=== PATIENT | male | born 1940 | race Caucasian/White ===

== ENCOUNTER 2018-01-19 10:32 | Inpatient (IN) | payer OTHER, BC ==
--- NOTE | 2018-01-19 11:02 | EDPHY ---
H & P Stated Complaint: Swelling of testicles-worse than usual epidymitis w/ boil near rectum Time Seen by Provider: 01/19/18 10:45 HPI/ROS: CHIEF COMPLAINT: Swelling of the testicles HISTORY OF PRESENT ILLNESS: 77-year-old male with diabetes presents with testicular swelling. Onset of testicular swelling 1 week ago, associated with a draining boil in the anal area. The pain and swelling have gradually increased over the past few days, now moderate swelling, mild pain. No associated fever or chills. No urinary symptoms, abdominal pain or vomiting. Able to defecate without pain. REVIEW OF SYSTEMS: complete 10 point ROS negative except at noted in the HPI - Medical/Surgical History Hx Asthma: No Hx Chronic Respiratory Disease: No Hx Diabetes: Yes Hx Cardiac Disease: No Hx Renal Disease: No Hx Cirrhosis: No Hx Alcoholism: No Hx HIV/AIDS: No Hx Splenectomy or Spleen Trauma: No Other PMH: NIDDM. htn. chronic epidimytis - Social History Smoking Status: Never smoked Alcohol Use: Sober Drug Use: None - Physical Exam Exam: General Appearance: Alert, pleasant, nontoxic-appearing Eyes: Pupils equal and round, no conjunctival pallor or injection ENT, Mouth: Mucous membranes moist Neck: Normal inspection Respiratory: Lungs are clear to auscultation Cardiovascular: Regular rate and rhythm Gastrointestinal: Abdomen is soft and nontender Genitourinary: Diffuse moderate swelling of the scrotum, which extends posteriorly to the perianal area. There is an open and draining abscess along the left inner buttock. Neurological: A&O, nonfocal, normal gait Skin: Warm and dry Extremities: Nontender, no pedal edema Psychiatric: Mood and affect normal Constitutional: Initial Vital Signs Temperature (C) 36.7 C 01/19/18 10:37 Heart Rate 84 01/19/18 10:37 Respiratory Rate 18 01/19/18 10:37 Blood Pressure 135/85 H 01/19/18 10:37 O2 Sat (%) 95 01/19/18 10:37 O2 Delivery Mode Room Air Allergies/Adverse Reactions: shellfish derived Allergy (Verified 01/19/18 13:38) Sulfa (Sulfonamide Antibiotics) Allergy (Verified 01/19/18 13:38) Rash Home Medications: Medication Instructions Recorded Ascorbic Acid [Vitamin C 500 mg 500 mg PO BID 01/19/18 (*)] Aspirin [Aspirin 325 mg (*)] 325 mg PO DAILY PRN 01/19/18 Atenolol [Tenormin 50 mg (*)] 50 mg PO BID 01/19/18 Cholecalciferol Vit D3 [Vitamin D3 2,000 units PO BID 01/19/18 2000 units tab (OTC)] Lisinopril [Zestril 10 mg (*)] 10 mg PO DAILY 01/19/18 Lovastatin 40 mg PO DAILY 01/19/18 Multivitamins [Multivitamin (*)] 1 each PO DAILY 01/19/18 Pioglitazone HCl [Actos] 30 mg PO DAILY 01/19/18 Selenium [Selenium 200mcg (*)] 200 mcg PO DAILY 01/19/18 metFORMIN HCL [Glucophage 500 mg 500 mg PO BID 01/19/18 (*)] Medical Decision Making - Diagnostics Imaging Results: Imaging Impressions Pelvis CT 01/19/18 12:06 Impression: 1. Tiny complex collection subjacent to an ulcer in the left lower buttocks. Soft tissue air is seen in the subcutaneous tissues and there is fat stranding extending to the lower left scrotum and pelvis with trace fluid in the left pelvis. Inflammatory changes about the prostate. Early perineal necrotizing fasciitis is possible and would recommend correlation with any risk factors. 2. Probable bilateral small hydroceles. Findings and recommendations discussed with Dr. Starr at 1315 hour, 01/19/2018. Procedures: Procedure: Abscess drainage. The patient's abscess was located on the left inner buttock. Risks, benefits, alternatives discussed with the patient and consent obtained. The abscess was incised with a #11 blade and purulent drainage was expressed. The wound was irrigated and packed. The patient tolerated the procedure well. The procedure was performed by myself. Wound culture sent. ED Course/Re-evaluation: This patient presents with a buttock abscess and surrounding perineal erythema extending up into the scrotum. Concern for necrotizing fasciitis. Pt does not meet SIRS criteria and initial lactate normal. The abscess was I&D'd by me. A wound culture was sent. Blood cultures drawn. Ceftriaxone and Flagyl IV given. Sent to CT scan for further evaluation of potential deep abscess. The hospitalist service was consulted for admission. Dr. Mena Saha was consulted. Pt remained stable throughout his ED stay. Differential Diagnosis: includes though not limited to necrotizing fasciitis, perirectal abscess, epididymitis, urinary tract infection, prostatitis - Data Points Laboratory Results: Laboratory Results 01/19/18 11:10 01/19/18 11:10 01/19/18 01/19/18 01/19/18 11:10 11:10 11:10 WBC 14.80 10^3/uL H 10^3/uL (3.80-9.50) RBC 3.95 10^6/uL L 10^6/uL (4.40-6.38) Hgb 11.7 g/dL L g/dL (13.7-17.5) Hct 34.9 % L % (40.0-51.0) MCV 88.4 fL fL (81.5-99.8) MCH 29.6 pg pg (27.9-34.1) MCHC 33.5 g/dL g/dL (32.4-36.7) RDW 14.7 % % (11.5-15.2) Plt Count 231 10^3/uL 10^3/uL (150-400) MPV 9.6 fL fL (8.7-11.7) Neut % (Auto) Not Reported Lymph % (Auto) Not Reported Waller % (Auto) Not Reported Eos % (Auto) Not Reported Baso % (Auto) Not Reported Nucleat RBC Rel Count Not Reported Absolute Neuts (auto) Not Reported Absolute Lymphs (auto) Not Reported Absolute Monos (auto) Not Reported Absolute Eos (auto) Not Reported Absolute Basos (auto) Not Reported Absolute Nucleated RBC Not Reported Immature Gran % Not Reported Seg Neutrophils % 71.0 % % Band Neutrophils % 21.0 % % Lymphocytes % 2.0 % % Monocytes % 5.0 % % Eosinophils % 0 % % Basophils % 0 % % Metamyelocytes % 1.0 % % Myelocytes % 0 % % Promyelocytes % 0 % % Blast Cells % 0 % % Immature Gran # Not Reported Absolute Seg Neuts 10.51 10^/uL H 10^/uL (1.70-6.50) Absolute Band Neuts 3.11 10^3/uL H 10^3/uL (0.00-0.70) Absolute Lymphocytes 0.30 10^3/uL L 10^3/uL (1.00-3.00) Absolute Monocytes 0.74 10^3/uL 10^3/uL (0.30-0.80) Absolute Eosinophils 0.00 10^3/uL L 10^3/uL (0.03-0.40) Absolute Basophils 0.00 10^3/uL L 10^3/uL (0.02-0.10) Absolute Metamyelocyte 0.15 10^3/mL H 10^3/mL (0.00-0.00) Absolute Myelocytes 0.00 10^3/mL 10^3/mL (0.00-0.00) Absolute Promyelocytes 0.00 10^3/uL 10^3/uL (0.00-0.00) Absolute Plasma Cells 0.00 10^3/uL 10^3/uL (0.00-0.00) Nucleated RBCs 0 /100 WBC /100 WBC (0-0) Absolute Blast Cells 0.00 10^3/uL 10^3/uL (0.00-0.00) Plasma Cells % 0 % % Platelet Estimate ADEQUATE (ADEQ) Polychromasia 1+ H Echinocytes 1+ H VBG Lactic Acid 1.9 mmol/L mmol/L (0.7-2.1) Sodium 136 mEq/L mEq/L (135-145) Potassium 4.0 mEq/L mEq/L (3.3-5.0) Chloride 100 mEq/L mEq/L (97-110) Carbon Dioxide 23 mEq/l mEq/l (22-31) Anion Gap 13 mEq/L mEq/L (8-16) BUN 35 mg/dL H mg/dL (7-23) Creatinine 1.2 mg/dL mg/dL (0.7-1.3) Estimated GFR 59 Glucose 193 mg/dL H mg/dL (70-100) Calcium 8.3 mg/dL L mg/dL (8.5-10.4) Medications Given: Sodium Chloride (Ns) 1,000 mls @ 75 mls/hr IV CONT MACK Stop: 07/18/18 12:44 Last Admin: 01/19/18 14:48 Dose: 1,000 mls Vancomycin/Sodium Chloride (Vancomycin 1 Gm (Premix)) 250 mls @ 250 mls/hr IV Q12H MACK Stop: 02/18/18 14:29 Last Admin: 01/19/18 14:49 Dose: 250 mls Discontinued Medications Sodium Chloride (Ns) 1,000 mls @ 0 mls/hr IV ONCE ONE; Wide Open PRN Reason: Protocol Stop: 01/19/18 12:06 Last Admin: 01/19/18 12:29 Dose: 1,000 mls Ceftriaxone Sodium/Dextrose (Rocephin 1 Gm (Premix)) 50 mls @ 100 mls/hr IV EDNOW ONE PRN Reason: Protocol Stop: 01/19/18 12:34 Last Admin: 01/19/18 12:30 Dose: 50 mls Metronidazole/Sodium Chloride (Flagyl 500 Mg (Premix)) 100 mls @ 100 mls/hr IV EDNOW ONE PRN Reason: Protocol Stop: 01/19/18 13:05 Last Admin: 01/19/18 13:10 Dose: 100 mls Departure - Departure Disposition: [facility] Inpatient Acute Clinical Impression: Left buttock abscess, Cellulitis of perineum, Cellulitis, scrotum Condition: Serious
[2018-01-19 11:20] LABS: PLATELET COUNT 231 10^3/uL (150-400)
[2018-01-19] MEDS ORDERED: NS 1,000 ML IV ONE (12:05)
[2018-01-19] MEDS ORDERED: IOPAMIDOL (ISOVUE-300) 100 ML BTL ONE (12:42)
[2018-01-19] MEDS ORDERED: ONDANSETRON 4 MG/2 ML VIAL IVP PRN (12:43)
[2018-01-19] MEDS ORDERED: ZOLPIDEM TARTRATE 5 MG TAB PO PRN (12:43)
[2018-01-19] MEDS ORDERED: ASPIRIN 325 MG TAB PO PRN (13:56)
--- NOTE | 2018-01-19 14:15 | PDGENHP ---
History and Physical History and Physical: CC: Buttock abscess worsening HISTORY: This patient comes into the ER today complaining of drainage from a buttocks abscess with spreading of infection forward into the scrotal area. He has had remarkably little pain with this. Is been going on for about 10 days. Clearly getting worse daily. He has no chills or sweats. He does have a history of epididymitis in the past and is diabetic. He is not aware of any type of trauma or injury or stab type wound. He has felt very low energy and with poor appetite with this process going on and has eaten little. 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 I have reviewed the list and ordered appropriate medicines. PHYSICAL EXAMINATION: Vital Signs: Stable without fever at this time Examination: General: alert, oriented, good mentation, relaxed Skin: warm, dry, good color, no rash HEENT: normal Neck: no mass or jvd Resps: relaxed Lungs: clear breath sounds Heart: regular, no murmur Abdomen: soft, nondistended, nontender, +BS, no mass Extremities in genitalia: There is an abscess with some surrounding cellulitis on the lower medial left buttock and this has been incised with a small stab wound from a scalp will, currently with packing tape in place. The cellulitic process extends forward to the perianal area, across the entire perineum and involved the entirety of the scrotum. There is an area in the low posterior left scrotum with quite a bit of induration. No where in these regions can I find a palpable abscess nor can I see anything that is clearly any necrotic tissue. There is no crepitus. No Bleeding or bruising Neurologic: normal speech/language, normal freight clerk, no focal weakness IV site: looks normal LABORATORY DATA: [place] [address] with predominance of neutrophils, mild normocytic anemia 11.7 UN is elevated at 35 BUN elevated at 35 and creatinine bit high at 1.2 otherwise chemistry only remarkable for hyperglycemia 193 Lactate 1.9 I have reviewed images from CT scan done in the ER: There is a significant cellulitic process of the entire scrotum perineum and into the medial posterior left buttock with an abscess in the buttock. There is particularly worse edema of the tissue on the left side of the scrotum and perineum. ASSESSMENT: * acute abscess and cellulitis left buttock * significant cellulitis spreading through the perineum and the entirety of the scrotum with some changes raising concern for the potential to develop a 48 type gangrenous process or other abscesses * microbiology if this process can include MRSA, and a variety of other gram- positive and gram-negative organisms. Bowel nick should be considered and anaerobes will need to be treated * Type 2 diabetes mellitus with some hyperglycemia at this time * pre renal azotemia PLANS: * Cultures from abscess have been obtained in the ER, await Gram stain and final results * Antibiotics were started in the ER with Rocephin and Flagyl. At this point we need to expand cover MRSA and to minimize the number of drugs I will change to add vancomycin and Zosyn but will review this further with Infectious Disease as they see him * I reviewed with the patient the possibility of developing a gangrenous process in this type of infection; I have notified him to make sure to let us know promptly if he starts having significant worsening pain or feel sicker or more ill and some significant way * Follow sugars very closely, goal to keep them below 180 without low sugars. Will need to stop his metformin now since he has had contrast with his CT * Follow renal function and vital signs very closely I have reviewed the patient's case in detail with Dr. Rouse I have placed a consultation for infectious disease distribution accounting clerk physician
[2018-01-19] MEDS: NS 1,000 ML IV SCH (14:48)
[2018-01-19] MEDS: VANCOMYCIN HCL/NORMAL SALINE 250 ML IV SCH (14:49)
--- NOTE | 2018-01-19 15:44 | PDMN ---
Medical Necessity Medical necessity: Pt meets IP criteria per MD & [facility]; est los >2 mn for eval/tx of worsening L buttock abscess w/significant cellulitis & concern for gangrenous process; requiring further monitoring, ID consult & IV abx; hx diabetes, epididymitis; per H&P & order 01/19/18
--- NOTE | 2018-01-19 17:47 | SOAPPROG ---
SOAP Progress Note Assessment/Plan: Assessment: 77 MALE WITH I&D OF LEFT BUTTOCK ABSCESS WITH INDURATION AND INFLAMMATION EXTENDING INTO SCROTUM LOW GRADE TEMP/ WBC 14K DIABETIC NO CARDIAC SYMPTOMS CT SHOWS INFLAMMATION INTO SCROTUM MARKED EDEMA AND INDURATION IN PERINEUM AND SCROTUM Plan:MAY FURTHER I&D AND DEBRIDEMENT/ RISKS AND OPTIONS FULLY DISCUSSED 01/19/18 17:42 Objective: Vital Signs Temp Pulse Resp BP Pulse Ox 37.3 C 91 16 130/66 H 91 L 01/19/18 15:34 01/19/18 15:34 01/19/18 15:34 01/19/18 15:34 01/19/18 15:34 01/18/18 01/19/18 01/20/18 05:59 05:59 05:59 Intake Total 1400 Balance 1400 ICD10 Worksheet Patient Problems: Problems Problem Status Onset Cellulitis of perineum Acute Cellulitis, scrotum Acute Left buttock abscess Acute
--- NOTE | 2018-01-19 18:07 | GCON ---
[f rep st] CONSULTATION GENERAL SURGERY CONSULTATION DATE OF CONSULTATION: 01/19/2018 SOURCE: Taken from both the patient and chart review. HISTORY OF PRESENT ILLNESS: The patient is a 77-year-old male who presented to the emergency departm ent today complaining of drainage from a buttock abscess with soreness extending into the scrotal are a. Per report, it has been going on for about 10 days. He has no fevers, chills, or night sweats. He does have a history of epididymitis, and is diabetic. He denies trauma. He has had low energy wi th poor appetite. The patient's abscess was further incised and drained in the ER. Cultures were obtained and are pend ing. Lab work was significant for an elevated white blood cell count of 14.8. CT scan was concernin g for soft tissue air and fat stranding extending to the lower left scrotum and pelvis with inflammat ory changes about the prostate. Please see report for details. PAST MEDICAL HISTORY: Includes 3 episodes of epididymitis with 1 requiring hospital admission. Also , type 2 diabetes, hypertension, and vitamin D deficiency. HOME MEDICATIONS: Include metformin, vitamin C, aspirin, atenolol, vitamin D, lisinopril, lovastatin , multivitamins, active selenium. ALLERGIES: Shellfish, sulfa. 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 [facility] PHYSICAL EXAMINATION: VITAL SIGNS: Current temperature 37.3, T-max 37.7, blood pressure 130/66, hea rt rate 91, oxygenation 91% on room air. GENERAL: Reveals a relaxed 77-year-old male, alert and deandre ented x3, and in no acute distress. HEENT: Normocephalic, atraumatic. Mucous membranes are moist. Sclerae white. CHEST: No work of breathing. CARDIAC: Regular rate and rhythm. ABDOMEN: Soft, n ontender. EXTREMITIES: Warm and dry. GENERAL: Perirectal incision site with swelling and erythema extending through the perineum to the left scrotum. IMPRESSION: This is a 77-year-old male with a buttock abscess status post incision and drainage with signs of Jacqueline gangrene. PLAN: His condition is concerning. Cultures are pending. He may need operative debridement. We wi ll make him n.p.o. for now and closely observe. The patient was also seen by Dr. Saha with me this evening. /[id number]/MODL
[2018-01-19] MEDS: ATENOLOL 50 MG TAB PO SCH (20:09)
[2018-01-19] MEDS: CHOLECALCIFEROL VIT D3 2,000 UNITS TAB/CAP PO SCH (20:10)
[2018-01-19] MEDS: ASCORBIC ACID 500 MG TAB PO SCH (20:10)
[2018-01-19] MEDS ORDERED: ACETAMINOPHEN 325 MG TAB PO PRN (23:40)
[2018-01-20] MEDS: VANCOMYCIN HCL/NORMAL SALINE 250 ML IV SCH ×2 (02:16→15:29)
[2018-01-20 05:18] LABS: PLATELET COUNT 226 10^3/uL (150-400)
[2018-01-20] MEDS: NS 1,000 ML IV SCH ×2 (06:06→16:56)
--- NOTE | 2018-01-20 07:53 | SOAPPROG ---
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 Worsened inflammation, tenderness, erythema and swelling of buttock and scrotum. To OR today for I&D a scrotal exploration. On vancomycin. Risks and options discussed. Could have a large open wound. S: more pain. O: alert, nad ctab rrr abd soft +erythema, swelling, tenderness of buttock and scrotum 01/20/18 07:50 Objective: Vital Signs Temp Pulse Resp BP Pulse Ox 37.2 C 81 17 132/72 H 91 L 01/20/18 04:00 01/20/18 04:00 01/20/18 04:00 01/20/18 04:00 01/20/18 04:00 Laboratory Results 01/20/18 04:40 01/19/18 01/20/18 01/21/18 05:59 05:59 05:59 Intake Total 2335 Output Total 550 200 Balance 1925 -200 ICD10 Worksheet Patient Problems: Problems Problem Status Onset Cellulitis of perineum Acute Cellulitis, scrotum Acute Left buttock abscess Acute
[2018-01-20] MEDS: MULTIVITAMINS 1 EACH TAB PO SCH (08:49)
[2018-01-20] MEDS: ASCORBIC ACID 500 MG TAB PO SCH ×2 (08:50→20:53)
[2018-01-20] MEDS: CHOLECALCIFEROL VIT D3 2,000 UNITS TAB/CAP PO SCH ×2 (08:50→20:53)
[2018-01-20] MEDS: LISINOPRIL 10 MG TAB PO SCH (08:50)
[2018-01-20] MEDS: ATENOLOL 50 MG TAB PO SCH ×2 (08:50→20:56)
[2018-01-20] MEDS: PRAVASTATIN SODIUM 40 MG TAB PO SCH (08:50)
[2018-01-20] MEDS: SELENIUM 0.2 MG TAB PO SCH (08:51)
[2018-01-20] MEDS: PIOGLITAZONE HCL 15 MG TAB PO SCH (10:19)
[2018-01-20] MEDS: PIPERACILLIN/TAZO 3.375 GM/DEX 50 ML IV SCH ×3 (11:03→23:45)
--- NOTE | 2018-01-20 11:25 | GCON ---
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 HISTORY OF PRESENT ILLNESS: The patient is a 77-year-old male with a past medical history of diabete s mellitus who I am asked to see in consultation for possible Jacqueline gangrene. The patient describ es having a boil over the left inner thigh toward the buttock approximately 1 week ago. He treated t his with "boil cream" with some improvement in symptoms. He did not try to squeeze or onel the boil . Over the last 2 days, he has had progressive symptoms with pain, swelling, and redness affecting t he inner thigh, posterior buttock, and scrotum. This was associated with fever and chills, but witho ut description of rigors. Based on those symptoms, he sought care in the emergency department. He d id have associated nausea with vomiting. He initially had some difficulty passing urine, but this calvert s subsequently resolved. He has not had any penile pain. He denies dysuria or penile discharge. He does describe having a significant episode of orchitis at age 30 which was attributed to mumps. He then experienced 2 subsequent episodes of epididymitis with the last being greater than 20 years ago. He has mild associated suprapubic pain on the left side. No other abdominal pain. No other areas of boil formation. No myalgias or arthralgias. The patient underwent incision and drainage of small area in his buttock at the time of presentation with Gram stain showing 1+ white blood cells with 3+ gram-positive cocci and culture currently showing growth of Staphylococcus aureus. Blood cultures w ere obtained at time of presentation and 1 of 2 sets shows MRSA. The patient is currently receiving vancomycin after initial doses of ceftriaxone and metronidazole. The patient also notes that his gly cemic control has been more problematic. Given the above findings, I am now asked to assist in the gera woodrow's ongoing management. PAST MEDICAL HISTORY: Type 2 diabetes mellitus, hypertension, hyperlipidemia, history of syphilis, o rchitis as outlined above. PAST SURGICAL HISTORY: No pertinent surgical history. CURRENT MEDICATIONS: Vancomycin 1 g IV q.12 hours, aspirin 325 mg as needed, Tenormin 50 mg p.o. b.i .d., vitamin C 500 mg p.o. b.i.d., lisinopril 10 mg p.o. daily, vitamin D 2000 units p.o. b.i.d., mul tivitamin p.o. daily, Actos 30 mg p.o. daily, Pravachol 40 mg p.o. daily, selenium 0.2 mg p.o. daily. ALLERGIES: Sulfonamides. SOCIAL HISTORY: Patient does not smoke, drink significant alcohol, or use drugs. 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 The patient's sexual preference is men. Most recent sexual encounter approximately 2 weeks ago with unprotected oral intercourse. No receptive anal intercourse. No animal exposure or recent travel. FAMILY HISTORY: COPD in a brother, autoimmune hepatitis in a brother. REVIEW OF SYSTEMS: Outside that noted in the HPI, the remainder of 10-system review is unremarkable. PHYSICAL EXAMINATION: VITAL SIGNS: Temperature maximum 38.2, temperature current 37.1, heart rate 8 4, respiratory rate 17, blood pressure 130/72, oxygen saturation 94% on room air. GENERAL: Patient is well nourished and well developed, in no acute distress. He appears nontoxic. HEENT: There is n o scleral icterus, conjunctival injection, or conjunctival petechiae. Oropharynx shows moist mucous membranes. Dentition is in fair repair. There is no thrush noted. There is no nasal discharge. Th ere is no tenderness over the sinuses. NECK: Supple without palpable lymphadenopathy or thyromegaly . CHEST: Clear to auscultation bilaterally without adventitious sounds. Respiratory effort is norm al. CARDIOVASCULAR: Regular rate and rhythm without murmurs, gallops, or rubs. ABDOMEN: Soft, non tender, nondistended. There is no palpable organomegaly. Bowel sounds are present. : The scrotu m is diffusely edematous with erythema and induration which is most prominent along the left side of the scrotum extending into the inguinal canal where there is suprapubic erythema and tenderness; no a reas of necrosis or crepitus. There is no involvement of the penis. No penile discharge. MUSCULOSK ELETAL: The left buttock shows a small open area from incision and drainage with surrounding erythem a and induration that extends to the perineal region. There is no palpable fluctuance or expressible drainage; there are no areas of necrosis. Musculoskeletal: No cyanosis, clubbing, or edema. SKIN: See and musculoskeletal exams. There are no stigmata of endocarditis. The skin is warm and dry to touch. LABORATORY DATA: White blood cell count 12.4, hematocrit 33.0, platelets 226, bands 21%. Serum crea tinine 1.2, bicarbonate 23, glucose 153. Venous lactate 1.9. Urinalysis with 10-15 red blood cells and 0-1 white blood cells. Blood cultures with 1 of 2 sets showing MRSA. Gram stain of the buttock abscess showing 3+ GPC with growth of Staphylococcus aureus. Pelvic CT shows 1.1 x 0.7 cm complex co llection in the left lower buttocks with adjacent soft tissue air with fat stranding which extends to the lower left scrotum and pelvis with some inflammatory changes around the prostate. IMPRESSION: 1. Perineal cellulitis/abscess/phlegmon with involvement of left buttock, perineum, and scrotum: Bl ood cultures are showing growth of methicillin-resistant Staphylococcus aureus and Gram stain from ab scess drainage also with growth of Staphylococcus aureus which is likely methicillin-resistant Staphy lococcus aureus as well. Suspect this will be the primary pathogen etiologic in the patient's presen tation. No necrosis present, but location and clinical findings concerning for possibility of necrot izing process similar to Jacqueline gangrene. Given his underlying diabetes, there is a possibility th is could be polymicrobial, although based on clinical history and finding, suspect this will all be d ue to methicillin-resistant Staphylococcus aureus. 2. Exposure to disease: Will screen for human immunodeficiency virus, gonorrhea and chlamydia based on patient's sexual history. RECOMMENDATIONS: 1. Continue vancomycin 1 g IV q.12 hours with monitoring of vancomycin trough and creatinine over ti me. 2. Will add Zosyn given presence of soft-tissue gas pending surgical evaluation with plans to discon tinue this if Gram stain does not show evidence of polymicrobial nick. 3. Screening for HIV, GC, and chlamydia. 4. Agree with plans for incision and drainage as this will be necessary for definitive management of patient's infectious process. 5. Follow clinical response to above measures. 6. Side effects of vancomycin were discussed with patient today. Thank you for this consultation. We will continue to follow the patient with you. /[id number]/MODL
[2018-01-20] MEDS ORDERED: MIDAZOLAM 2 MG/2 ML VIAL IVP ONE (13:09)
[2018-01-20] MEDS ORDERED: ALBUTEROL 3 ML DEYVIAL IH PRN (13:10)
[2018-01-20] MEDS ORDERED: NALOXONE HCL 0.4 MG/ML INJ IVP PRN (13:10)
[2018-01-20] MEDS ORDERED: HYDROmorphONE/DILAUDID 1 MG/ML INJ IVP PRN ×2 (13:10→18:04)
[2018-01-20] MEDS ORDERED: ONDANSETRON 4 MG/2 ML VIAL IVP PRN (13:10)
[2018-01-20] MEDS ORDERED: DEXAMETHASONE 4 MG/ML VIAL IVP PRN (13:10)
--- NOTE | 2018-01-20 13:10 | PDANEPAE ---
ANE History of Present Illness here for schuyler rectal abscess I and D ANE Past Medical History - Cardiovascular History Hx Hypertension: Yes Hx Arrhythmias: No Hx Chest Pain: No Hx Coronary Artery / Peripheral Vascular Disease: No Hx CHF / Valvular Disease: No Hx Palpitations: No - Pulmonary History Hx COPD: No Hx Asthma/Reactive Airway Disease: No Hx Recent Upper Respiratory Infection: No Hx Oxygen in Use at Home: No Hx Sleep Apnea: No Sleep Apnea Screening Result - Last Documented: Positive - Endocrine History Hx Diabetes: Yes Hypothyroid: No Hyperthyroid: No Obesity: moderate - Renal History Hx Renal Disorders: No - Liver History Hx Hepatic Disorders: No - Chronic Pain History Chronic Pain: No ANE Review of Systems Review of systems is: negative Review of Systems: ANE Patient History - Allergies Allergies/Adverse Reactions: shellfish derived Allergy (Verified 01/19/18 13:38) Sulfa (Sulfonamide Antibiotics) Allergy (Verified 01/19/18 13:38) Rash - Home Medications Home Medications: Ascorbic Acid [Vitamin C 500 mg (*)] 500 mg PO BID 01/19/18 [Last Taken 21:00] Aspirin [Aspirin 325 mg (*)] 325 mg PO DAILY PRN 01/19/18 [Last Taken Unknown] Atenolol [Tenormin 50 mg (*)] 50 mg PO BID 01/19/18 [Last Taken 01/18/18 21:00] Cholecalciferol Vit D3 [Vitamin D3 2000 units tab (OTC)] 2,000 units PO BID 12/30 [Last Taken 01/18/18 21:00] Lisinopril [Zestril 10 mg (*)] 10 mg PO DAILY 01/19/18 [Last Taken 01/18/18] Lovastatin 40 mg PO DAILY 01/19/18 [Last Taken 01/18/18] Multivitamins [Multivitamin (*)] 1 each PO DAILY 01/19/18 [Last Taken 01/18/18] Pioglitazone HCl [Actos] 30 mg PO DAILY 01/19/18 [Last Taken 01/18/18] Selenium [Selenium 200mcg (*)] 200 mcg PO DAILY 01/19/18 [Last Taken 01/18/18] metFORMIN HCL [Glucophage 500 mg (*)] 500 mg PO BID 01/19/18 [Last Taken 21:00] - NPO status NPO Status: no food or drink >8 hours NPO Since - Liquids (Date): 01/19/18 NPO Since - Liquids (Time): 18:00 NPO Since - Solids (Date): 01/18/18 NPO Since - Solids (Time): 17:00 - Smoking Hx Smoking Status: Never smoked - Alcohol Use Alcohol Use: Sober ANE Labs/Vital Signs - Labs Result Diagrams: 01/20/18 04:40 01/19/18 11:10 - Vital Signs Vital Signs: reviewed preoperatively; see RN documention for details Blood Pressure: 137/72 Heart Rate: 78 Respiratory Rate: 16 O2 Sat (%): 95 Height: 170.18 cm Weight: 98.43 kg ANE Physical Exam - Airway Neck exam: FROM Mallampati Score: Class 1 - Pulmonary Pulmonary: no respiratory distress - Cardiovascular Cardiovascular: regular rate and rhythym - ASA Status ASA Status: III ANE Anesthesia Plan Anesthesia Plan: GA w LMA
[2018-01-20] MEDS ORDERED: MIDAZOLAM 2 MG/2 ML VIAL ONE (13:17)
[2018-01-20] MEDS ORDERED: PROPOFOL/EMULSION 500 MG/50 ML BOTTLE IV ONE (13:18)
[2018-01-20] MEDS ORDERED: fentaNYL 100 MCG/2 ML INJ ONE ×3 (13:18→13:59)
[2018-01-20] MEDS ORDERED: PHENYLEPHRINE HCL 100 MCG/ML SYR ONE (13:37)
[2018-01-20] MEDS ORDERED: ONDANSETRON 4 MG/2 ML VIAL ONE (14:02)
[2018-01-20] MEDS ORDERED: BUPIVACAINE 0.5% 30 ML SDV ONE (14:22)
--- NOTE | 2018-01-20 14:49 | POSTANESTH ---
Post Anesthetic Evaluation Cardiovascular Status: Normal, Stable Respiratory Status: Normal, Stable Level of Consciousness/Mental Status: Can Participate in Eval Pain Control: Adequate, Prn Tx Ordered Nausea/Vomiting Control: Adequate, Prn Tx Ordered Complications Possibly Related to Anesthesia: None Noted
--- NOTE | 2018-01-20 15:30 | ASMTCMCOM ---
CM Note CM Note Notes: 01/20/2018 Case Management Note Reviewed chart as pt is in surgery this afternoon. Pt admitted for evaluation and treatment of buttock abcess and groin cellulitis. Per ID note abcess is MRSA positive with possible Jacqueline gangrene. Pt has a brother here in the [place] area. Case Management d/c needs are unclear at this time. There are no therapies ordered today. It's likely pt will require IV antibiotics at discharge. Will follow ID notes for discharge needs. Case Management d/c poc: to be determined. Case Management will follow. Date Signed: 01/20/2018 03:29 PM Electronically Signed By:Tonia Burgos RN
--- NOTE | 2018-01-20 18:05 | HOSPPROG ---
Hospitalist Progress Note Assessment/Plan: Seen at the bedside today with Dr. Morales Saha, postoperative in SDU DIAGNOSES: * fourniers gangrene; left buttocks abscess * MRSA bacteremia; potential for this to be a polymicrobial infection with g negatives and anaerobes suspected * type 2 diabetes mellitus with reasonable control at this time * pre renal azotemia PLANS: * Continue antibiotics to cover the MRSA as well as gram-negative and anaerobes which are also common in the diabetic patient * Follow blood and wound cultures closely for any other organisms * Wound care * Follow closely for any changes in hemodynamic stability or other complications * He will return to the OR with Dr. Saha tomorrow for re-exploration of his wound with debridement as necessary * The patient could potentially need a colostomy in order to keep his wound clean; this was discussed by doctors Jamar and myself at the bedside with the patient in detail today. SUBJECTIVE: Patient feels well, remarkably little pain Poor appetite persist No respiratory symptoms no other discomforts OBJECTIVE Vitals reviewed: Overall stable, highest temperature so far 37.7 Tube Man, my review: Exam: alert oriented quite relaxed considering his situation skin warm dry color ok resps not labored lungs clear BSs heart regular abd soft nondistended nontender, bowel sounds present limbs warm, no edema iv site ok Laboratory data: Serum chemistry panel stable Sugars remain in very good range Objective: Vital Signs Temp Pulse Resp BP Pulse Ox 37 C 84 20 106/67 98 01/20/18 16:00 01/20/18 17:02 01/20/18 17:02 01/20/18 17:02 01/20/18 17:02 Laboratory Results 01/20/18 04:40 01/20/18 11:49 01/19/18 01/20/18 01/21/18 06:59 06:59 06:59 Intake Total 2475 Output Total 550 350 Balance 1925 -350 - Time Spent With Patient Time Spent with Patient: greater than 35 minutes Time Spent with Patient: Greater than 35 minutes spent on this patients care, greater than 50% of time spent counseling, educating, and coordinating care regarding the above mentioned plan. ICD10 Worksheet Patient Problems: Problems Problem Status Onset Cellulitis of perineum Acute Cellulitis, scrotum Acute Left buttock abscess Acute
[2018-01-21] MEDS: VANCOMYCIN HCL/NORMAL SALINE 250 ML IV SCH ×2 (02:39→15:35)
[2018-01-21] MEDS: PIPERACILLIN/TAZO 3.375 GM/DEX 50 ML IV SCH ×2 (05:44→15:35)
[2018-01-21 07:20] LABS: HIV TYPE 1 AND 2 NEGATIVE (NEGATIVE)
[2018-01-21] MEDS: CHOLECALCIFEROL VIT D3 2,000 UNITS TAB/CAP PO SCH ×2 (09:30→20:50)
[2018-01-21] MEDS: ASCORBIC ACID 500 MG TAB PO SCH ×2 (09:30→20:50)
[2018-01-21] MEDS: PRAVASTATIN SODIUM 40 MG TAB PO SCH (09:30)
[2018-01-21] MEDS: LISINOPRIL 10 MG TAB PO SCH (09:30)
[2018-01-21] MEDS: MULTIVITAMINS 1 EACH TAB PO SCH (09:30)
[2018-01-21] MEDS: PIOGLITAZONE HCL 15 MG TAB PO SCH (09:30)
[2018-01-21] MEDS: ATENOLOL 50 MG TAB PO SCH ×2 (09:31→20:50)
[2018-01-21] MEDS: NS 1,000 ML IV SCH (09:31)
[2018-01-21] MEDS: SELENIUM 0.2 MG TAB PO SCH (09:31)
--- NOTE | 2018-01-21 10:07 | HOSPPROG ---
Hospitalist Progress Note Assessment/Plan: Seen at the bedside today with Dr. Morales Saha, postoperative in SDU DIAGNOSES: * fourniers gangrene; left buttocks abscess; * status post surgical incision and debridement and irrigation January 20 * MRSA bacteremia; potential for this to be a polymicrobial infection with g negatives and anaerobes suspected * type 2 diabetes mellitus with reasonable control at this time * pre renal azotemia I reviewed in detail with xochitl Moeller today PLANS: * Continue antibiotics to cover the MRSA as well as gram-negative and anaerobes which are also common in the diabetic patient * Follow blood and wound cultures closely for any other organisms * Wound care * Follow closely for any changes in hemodynamic stability or other complications * He will return to the OR with Dr. Saha this morning for re-exploration of his wound with debridement as necessary * The patient could potentially need a colostomy in order to keep his wound clean; this was discussed by xochitl Roldan and myself at the bedside with the patient in detail today. * Will continue to monitor sugars closely and treat these as indicated, continue his current therapies for now * He is currently NPO to go back to the operating room today but will continue his diabetic diet after surgery SUBJECTIVE: Again the patient denies much pain, has no other real discomfort Some decrease in appetite but is eating No respiratory symptoms OBJECTIVE Vitals reviewed: Afebrile overnight, otherwise stable vital signs Guest Room Inspector, my review: Exam: alert looks a little bit less comfortable but overall fairly relaxed considering skin warm dry color ok resps not labored lungs clear BSs heart regular abd soft nondistended nontender, bowel sounds present limbs warm, no edema I did examine his wound at the bedside. The incision line, quite long, is loosely approximated. There is gauze packing in place. Overall the cellulitis is less red than it was yesterday. There is some fluid draining from the wound but not a very large amount. The patient has just had a bowel movement and there is a small amount of stool in some of the gauze packing superficially. I do not see anything that looks overtly necrotic iv site ok Laboratory data: Serum chemistry panel stable Sugars remain in very good range Objective: Vital Signs Temp Pulse Resp BP Pulse Ox 36.5 C 74 22 H 110/60 100 01/21/18 07:18 01/21/18 07:18 01/21/18 07:18 01/21/18 07:18 01/21/18 07:18 Laboratory Results 01/20/18 04:40 01/20/18 11:49 01/20/18 01/21/18 01/22/18 06:59 06:59 06:59 Intake Total 2475 2403 Output Total 550 900 100 Balance 1925 1503 -100 - Time Spent With Patient Time Spent with Patient: greater than 35 minutes Time Spent with Patient: Greater than 35 minutes spent on this patients care, greater than 50% of time spent counseling, educating, and coordinating care regarding the above mentioned plan. ICD10 Worksheet Patient Problems: Problems Problem Status Onset Cellulitis of perineum Acute Cellulitis, scrotum Acute Left buttock abscess Acute
--- NOTE | 2018-01-21 10:29 | ECHO ---
[email or web address] [address] [address] Main: [phone] Fax: Transthoracic Echocardiogram Name: BLANCA KHAN MR#: [id number] Study Date: 01/21/2018 Study Time: 08:11 AM Date of : 1940 Age: 77 year(s) Height: 170.2 cm (67 in.) Weight: 98.43 kg (217 lb.) BSA: 2.09 m2 Gender: Male Examination: Indication: Staph aureus bacteremia, Assess valve function for vegetation Image Quality: Contrast: Requested by: Jeff Torres BP: 110 mmHg/60 mmHg Heart Rate: Rhythm: Normal sinus rhythm Indication: Staph aureus bacteremia, Assess valve function for vegetation Procedure Staff Code Inspector: Raji Mirza RDCS Reading Physician: Ford Pollack MD Requesting Provider: Conclusions: Normal study Measurements: Chambers Valvular Assessment AV/MV Valvular Assessment TV/PV Normal Normal Normal Name Value Range Name Value Range Name Value Range Ao Zulma (MM): 3.3 cm (2.2 cm-3.7 AV Vmax: 1.64 m/s (1 m/s-1.7 TR Vmax: 2.92 mm/s ( - ) cm) m/s) TR PGmax: 34 mmHg ( - ) IVSd (2D): 0.8 cm (0.6 cm-1.1 AV maxP mmHg ( - ) syst. PAP: 39 mmHg ( - ) cm) LVOT Vmax: 1.15 m/s (0.7 m/s-1.1 PV Vmax: 1.05 m/s (0.6 m/s-0.9 LVDd (2D): 4.3 cm (4.2 cm-5.9 m/s) m/s) cm) MV E Vmax: 0.66 m/s ( - ) PV PGmax: 4 mmHg ( - ) LVDs (2D): 2.8 cm (2.1 cm-4 MV A Vmax: 0.91 m/s ( - ) cm) MV E/A: 0.73 ( - ) LVPWd (2D): 1.2 cm (0.6 cm-1 cm) LVEF (2D): 64 (>=54 %) Continued Measurements: Chambers Valvular Assessment TV/PV Name Value Name Value LADs Lon.8 cm CVP (est.): 5 mmHg LA Area: 19.2 cm2 LA Volume: 59 ml LA Volume Index: 28.2 ml/m2 Patient: BLANCA KHAN Study Date: 01/21/2018 Page 1 of 2 08:11 AM Findings: Left Ventricle: Normal size left ventricle. No LV hypertrophy. Normal global systolic LV function. EF is 64 %. No regional wall motion abnormality. Diastolic dysfunction is present. . Right Ventricle: Normal size right ventricle. Normal RV function. Left Atrium: The left atrium is normal in size. Right Atrium: The right atrium is normal in size. Mitral Valve: The mitral valve is normal in appearance and function. There is no mitral valve regurgitation. There is no mitral valve vegetation. Aortic Valve: The aortic valve is tri-leaflet. The aortic valve is normal in appearance. There is no aortic valve regurgitation. There is no aortic valve vegetation. Tricuspid Valve: The tricuspid valve is normal in appearance and function. Trivial tricuspid valve regurgitation. The pulmonary artery pressure is normal. Pulmonic Valve: The pulmonic valve is normal in appearance and function. Aorta: The aorta is normal. Pericardium: No pericardial effusion. (No Signature Object) Patient: BLANCA KHAN Study Date: 01/21/2018 Page 2 of 2 08:11 AM [id number]
[2018-01-21] MEDS ORDERED: BUPIVACAINE/EPI 0.5% 30 ML SDV ONE (11:12)
--- NOTE | 2018-01-21 11:26 | GCON ---
[f rep st] CONSULTATION HOUSE ADMIN CONSULTATION REASON FOR ADMISSION: Jacqueline gangrene. HISTORY: The patient is a 77-year-old white male with a past medical history of hypertension, diabet es, epididymitis x3 episodes. He is visiting [place] from [place]. He began having an abscess f ormation on his buttocks. This began spreading to his scrotal area. Then he sought medical attentio n. He was seen in the emergency room and subsequently admitted. He has been taken to the operating room by Dr. Saha. Currently he is resting comfortably. In discussion with the patient, he states t hat with the exception of mild discomfort he is doing quite well. He denies any doyle pain. There i s no cough or productive sputum. No abdominal pain. No fever or night sweats. Prior to this he was in his normal state of health. REVIEW OF SYSTEMS: 10-point review of systems performed. Negative except for what is listed in the HPI. PAST MEDICAL HISTORY: Significant for diabetes, hypertension, and epididymitis. FAMILY HISTORY: Noncontributory. SOCIAL HISTORY: Lifelong never smoker. Does not drink alcohol. He works as a [employer]. He is single wi Photos to Photos children. He is again in [place] visiting his brother. PHYSICAL EXAM: VITAL SIGNS: Blood pressure is 110/60, pulse 74, respirations 22, temperature 36.5, oxygen saturation 100% on 2 L. GENERAL: He is a well-developed, well-nourished, 77-year-old white m brooks who is resting comfortably in no acute distress. HEENT: Eyes MARILIN, EOMI. Throat shows no erythe ma or tonsillar hypertrophy. NECK: Supple. No cervical adenopathy. HEART: Regular rate and rhyth m without murmurs, rubs, gallops. LUNGS: Clear to auscultation. No wheeze or rhonchi. ABDOMEN: S oft, nontender. Bowel sounds are present. EXTREMITIES: No clubbing, cyanosis, or edema. LABORATORIES: White count 12.4, hemoglobin 10, hematocrit 33. Platelet count 226. Sodium 138, pota ssium 3.8, chloride 106, CO2 of 22, BUN 26, creatinine 0.9, glucose 127. Urinalysis is negative. Wo und cultures growing out MRSA. Blood cultures are positive for MRSA. Echocardiogram is normal. IMPRESSION: 1. Jacqueline gangrene with left buttock abscess. He is status post I and D and irrigation. 2. Methicillin-resistant Staphylococcus aureus bacteremia. 3. Diabetes. RECOMMENDATIONS: 1. I agree with current antibiotic coverage. 2. Likely return to the operating room with Dr. Saha later on today. 3. DVT and PE prophylaxis. Holding anticoagulation for now. 4. Stress ulcer prophylaxis. 5. Aggressive blood sugar control. /[id number]/MODL
--- NOTE | 2018-01-21 12:16 | PCMIDPN ---
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 No additional operative cultures available. Suspect clinical presentation is all related to MRSA recognizing that typically Fourniere's gangrene is polymicrobial including enteric and anaerobic nick. Based on sole isolation of MRSA, will discontinue Zosyn as I suspect MRSA is the primary set key driver of his presentation. Case reports of community associated MRSA causing necrotizing fasciitis and Fourniere's gangrene exist. Continue vancomycin. Operative findings reviewed with Dr. Saha noting significant improvement in operating room today. Wound VAC placed with concerns present that patient may require colostomy given proximity of wound to anus and potential for fecal soiling. 01/21/18 16:49 Subjective: Patient status post incision and drainage yesterday with plans for repeat incision and drainage this afternoon. Operative findings reviewed with Dr. Saha noting necrotizing infection of the perineal region consistent with Fourniere's gangrene. When asked if he is in pain he does not complain of any, except for irritation at the site of infection. Denies associated itching or rash from abx. I, Paz Schwartz, am scribing for, and in the presence of, Jeff Torres MD. IJeff MD, personally performed the services described in this documentation, as scribed by Paz Schwartz in my presence, and it is both accurate and complete. Objective: Vital Signs Temp Pulse Resp BP Pulse Ox 36.5 C 74 22 H 110/60 100 01/21/18 07:18 01/21/18 07:18 01/21/18 07:18 01/21/18 07:18 01/21/18 07:18 Laboratory Results 01/20/18 04:40 01/20/18 11:49 01/20/18 01/21/18 01/22/18 05:59 05:59 05:59 Intake Total 2475 2403 Output Total 550 800 200 Balance 1925 1603 -200 Vancomycin # 1 Zosyn # 1 01/21/18 Blood cultures, pending 01/19/18 Blood cultures, 1/2 sets MRSA Abscess culture from left buttock MRSA - Physical Exam General Appearance: alert, no apparent distress, non-toxic EENT: No scleral icterus, No thrush, No conjunctival petechiae Neck: full range of motion, supple Cardiac/Chest: regular rate, rhythm, No systolic murmur Abdomen: non-tender, No distended Male Genitalia: scrotal edema (Edematous scrotum with induration posteriorly with overlying erythema and tenderness; tenderness extends into left suprapubic region; erythema and induration present posteriorly over thigh and perianal region) Skin: warm/dry, No embolic lesions Neuro/Psych: alert, normal mood/affect ICD10 Worksheet Patient Problems: Problems Problem Status Onset Cellulitis of perineum Acute Cellulitis, scrotum Acute Left buttock abscess Acute
[2018-01-21 12:25] LABS: GC AMPLIFICATION GENPROBE NEGATIVE (NEGATIVE)
--- NOTE | 2018-01-21 12:57 | PDANEPAE ---
ANE History of Present Illness perirectal abscess, here for wound vac change ANE Past Medical History - Cardiovascular History Hx Hypertension: Yes Hx Arrhythmias: No Hx Chest Pain: No Hx Coronary Artery / Peripheral Vascular Disease: No Hx CHF / Valvular Disease: No Hx Palpitations: No - Pulmonary History Hx COPD: No Hx Asthma/Reactive Airway Disease: No Hx Recent Upper Respiratory Infection: No Hx Oxygen in Use at Home: No Hx Sleep Apnea: No Sleep Apnea Screening Result - Last Documented: Positive - Endocrine History Hx Diabetes: Yes Hypothyroid: No Hyperthyroid: No Obesity: moderate - Renal History Hx Renal Disorders: No - Liver History Hx Hepatic Disorders: No - Chronic Pain History Chronic Pain: No ANE Review of Systems Review of Systems: - Exercise capacity Exercise capacity: >=4 METS ANE Patient History - Allergies Allergies/Adverse Reactions: shellfish derived Allergy (Verified 01/19/18 13:38) Sulfa (Sulfonamide Antibiotics) Allergy (Verified 01/19/18 13:38) Rash - Home Medications Home Medications: Ascorbic Acid [Vitamin C 500 mg (*)] 500 mg PO BID 01/19/18 [Last Taken 21:00] Aspirin [Aspirin 325 mg (*)] 325 mg PO DAILY PRN 01/19/18 [Last Taken Unknown] Atenolol [Tenormin 50 mg (*)] 50 mg PO BID 01/19/18 [Last Taken 01/18/18 21:00] Cholecalciferol Vit D3 [Vitamin D3 2000 units tab (OTC)] 2,000 units PO BID 12/30 [Last Taken 01/18/18 21:00] Lisinopril [Zestril 10 mg (*)] 10 mg PO DAILY 01/19/18 [Last Taken 01/18/18] Lovastatin 40 mg PO DAILY 01/19/18 [Last Taken 01/18/18] Multivitamins [Multivitamin (*)] 1 each PO DAILY 01/19/18 [Last Taken 01/18/18] Pioglitazone HCl [Actos] 30 mg PO DAILY 01/19/18 [Last Taken 01/18/18] Selenium [Selenium 200mcg (*)] 200 mcg PO DAILY 01/19/18 [Last Taken 01/18/18] metFORMIN HCL [Glucophage 500 mg (*)] 500 mg PO BID 01/19/18 [Last Taken 21:00] - NPO status NPO Since - Liquids (Date): 01/19/18 NPO Since - Liquids (Time): 18:00 NPO Since - Solids (Date): 01/18/18 NPO Since - Solids (Time): 17:00 - Anes Hx Anes Hx: no prior problems - Smoking Hx Smoking Status: Never smoked - Alcohol Use Alcohol Use: Sober - Family Anes Hx Family Anes Hx: none ANE Labs/Vital Signs - Labs Result Diagrams: 01/20/18 04:40 01/20/18 11:49 - Vital Signs Blood Pressure: 110/60 Heart Rate: 74 Respiratory Rate: 22 O2 Sat (%): 100 Height: 170.18 cm Weight: 98.43 kg ANE Physical Exam - Airway Neck exam: FROM Mallampati Score: Class 2 Mouth exam: normal dental/mouth exam, sandoval - Pulmonary Pulmonary: no respiratory distress, clear to auscultation - Cardiovascular Cardiovascular: regular rate and rhythym, no murmur, rub, or gallop - ASA Status ASA Status: II ANE Anesthesia Plan Anesthesia Plan: general endotracheal anesthesia, GA w LMA
[2018-01-21] MEDS ORDERED: fentaNYL 100 MCG/2 ML INJ ONE ×2 (13:02→13:57)
[2018-01-21] MEDS ORDERED: PROPOFOL 200 MG/20 ML VIAL ONE (13:03)
[2018-01-21] MEDS ORDERED: LIDOCAINE 2% 100 MG/5 ML SYR ONE (13:03)
[2018-01-21] MEDS ORDERED: ePHEDrine SULFATE 25 MG/5 ML SYR ONE (13:42)
[2018-01-21] MEDS ORDERED: PHENYLEPHRINE HCL 100 MCG/ML SYR ONE (13:42)
[2018-01-21] MEDS ORDERED: ONDANSETRON 4 MG/2 ML VIAL ONE (14:08)
[2018-01-21] MEDS ORDERED: HYDROmorphONE/DILAUDID 1 MG/ML INJ IVP PRN (14:33)
[2018-01-21] MEDS ORDERED: oxyCODONE IR 5 MG TAB PO PRN (14:33)
[2018-01-21] MEDS ORDERED: PROMETHAZINE HCL 25 MG/ML INJ IVP PRN (14:33)
[2018-01-21] MEDS ORDERED: NALOXONE HCL 0.4 MG/ML INJ IVP PRN (14:33)
[2018-01-21] MEDS ORDERED: ONDANSETRON 4 MG/2 ML VIAL IVP PRN (14:33)
[2018-01-21] MEDS ORDERED: fentaNYL 100 MCG/2 ML INJ IVP PRN (14:33)
[2018-01-21] MEDS ORDERED: ACETAMINOPHEN 500 MG TAB PO PRN (14:33)
--- NOTE | 2018-01-21 14:34 | POSTANESTH ---
Post Anesthetic Evaluation Cardiovascular Status: Normal, Stable, Similar to Pre-Op Cond Respiratory Status: Normal, Stable, Similar to Pre-op Cond. Level of Consciousness/Mental Status: Can Participate in Eval, Alert and Oriented Pain Control: Adequate, Prn Tx Ordered Nausea/Vomiting Control: Adequate, Prn Tx Ordered Complications Possibly Related to Anesthesia: None Noted
[2018-01-21] MEDS: FAMOTIDINE 20 MG/NACL 50 ML IV SCH ×2 (15:22→20:50)
--- NOTE | 2018-01-21 15:57 | POSTOPPROG ---
Post Op Note Date of Operation: 01/21/18 Surgeon: Morales Saha Shoe Sewing Machine Operator And Tender: Juarez Anesthesiologist: Debbie Anesthesia: GET(General Endotracheal) Pre-op Diagnosis: Perirectal abscess Post-op Diagnosis: same Indication: Gangrene extending to scrotum Procedure: I&D perirectal abscess Findings: mostly clean granulation tissue with some areas of purulent drainage Inf/Abcess present in the surg proc area at time of surgery?: Yes Depth: Superfical (Skin SQ) EBL: Minimal Drains: Wound Vac
[2018-01-22] MEDS: VANCOMYCIN HCL/NORMAL SALINE 250 ML IV SCH ×2 (02:18→16:11)
[2018-01-22] MEDS: NS 1,000 ML IV SCH (05:33)
[2018-01-22 05:44] LABS: PLATELET COUNT 245 10^3/uL (150-400)
--- NOTE | 2018-01-22 08:14 | SOAPPROG ---
SOAP Progress Note Assessment/Plan: Assessment: 77 y/o M with Jacqueline's gangrene s/p I&D Now s/p repeat I&D with wound vac placement. Per RN, wound vac became contaminated with fecal material last night. Was then taken off and a wet to dry dressing was applied. Rectal tube inserted to divert fecal material. Cultures grew MRSA, on Vanco S: No complaints. Rectal tube uncomfortable. O: Alert Temp is 37.9 RRR No increased WOB Abdomen soft, nontender : Wet to dry dressing intact. No obvious contamination. Rectal tube in place. Plan: Discussed case with Dr. Sethi, who does not feel that surgical intervention is necessary. Pt can eat regular diet. Continue wet to dry dressings daily. Continue rectal tube. Discussed cough, deep breathing, using IS. 01/22/18 08:09 Objective: Vital Signs Temp Pulse Resp BP Pulse Ox 37.9 C 80 24 H 126/62 H 96 01/22/18 07:14 01/22/18 07:14 01/22/18 07:14 01/22/18 07:14 01/22/18 07:14 Laboratory Results 01/22/18 05:35 01/21/18 01/22/18 01/23/18 05:59 05:59 05:59 Intake Total 1745 5972 Output Total 499 1450 Balance 1603 1138 ICD10 Worksheet Patient Problems: Problems Problem Status Onset Cellulitis of perineum Acute Cellulitis, scrotum Acute Left buttock abscess Acute
--- NOTE | 2018-01-22 09:02 | PDINTPN ---
Part Maker Progress Note Assessment/Plan: Assessment/plan: * Forniers gangrene-with left buttock abscess. Status post I and D yesterday. -wound contaminated last night with stool. Rouse and rectal tube place -possible washout again today. * Methicillin Staph aureus bacteremia -antibiotics per Infectious Disease * Diabetes * Pain-well controlled * VT prophylaxis * Stress ulcer prophylaxis * Nutrition-adequate Subjective: Resting comfortably. No current complaints. Objective: Vital Signs Temp Pulse Resp BP Pulse Ox 37.9 C 80 24 H 126/62 H 96 01/22/18 07:14 01/22/18 07:14 01/22/18 07:14 01/22/18 07:14 01/22/18 07:14 Laboratory Results 01/22/18 05:35 01/22/18 05:35 01/21/18 01/22/18 01/23/18 05:59 05:59 05:59 Intake Total 2403 2588 Output Total 800 1450 Balance 1603 1138 - Time Spent With Patient Time Spent With Patient: 35 min of time spent with patient, over 1/2 involved coordination of care or counseling. Case discussed with nursing. Physical Exam - Physical Exam General Appearance: alert, no apparent distress EENT: PERRL/EOMI Neck: non-tender, full range of motion, supple, normal inspection Respiratory: chest non-tender, lungs clear, normal breath sounds Cardiac/Chest: normal peripheral pulses, regular rate, rhythm Peripheral Pulses: 2+: carotid (R), carotid (L), femoral (R), femoral (L), dorsalis-pedis (R), dorsalis-pedis (L) Abdomen: normal bowel sounds, non-tender Male Genitalia: deferred Rectal: deferred Extremities: normal range of motion, non-tender, normal inspection, normal capillary refill Neuro/Psych: no motor/sensory deficits, alert, normal mood/affect, oriented x 3 ICD10 Worksheet Patient Problems: Problems Problem Status Onset Cellulitis of perineum Acute Cellulitis, scrotum Acute Left buttock abscess Acute
[2018-01-22] MEDS: LISINOPRIL 10 MG TAB PO SCH (09:18)
[2018-01-22] MEDS: SELENIUM 0.2 MG TAB PO SCH (09:18)
[2018-01-22] MEDS: CHOLECALCIFEROL VIT D3 2,000 UNITS TAB/CAP PO SCH ×2 (09:18→20:15)
[2018-01-22] MEDS: PIOGLITAZONE HCL 15 MG TAB PO SCH (09:18)
[2018-01-22] MEDS: ASCORBIC ACID 500 MG TAB PO SCH ×2 (09:19→20:15)
[2018-01-22] MEDS: ATENOLOL 50 MG TAB PO SCH ×2 (09:19→20:16)
[2018-01-22] MEDS: MULTIVITAMINS 1 EACH TAB PO SCH (09:19)
--- NOTE | 2018-01-22 11:01 | HOSPPROG ---
Hospitalist Progress Note Assessment/Plan: Seen at the bedside today with Dr. Morales Saha, postoperative in SDU DIAGNOSES: * fourniers gangrene; left buttocks abscess; * status post surgical incision and debridement and irrigation January 20, washout surgery January 21 * Unable to keep wound VAC in place due to anatomic considerations * Rectal tube in place to divert stool beyond wound with reasonable success so far * No sepsis syndrome at present * MRSA bacteremia; potential for this to be a polymicrobial infection with g negatives and anaerobes suspected * elevated hepatic transaminases which are new 01/22 * Unclear etiology of this change * acute urinary retention requiring Rouse catheter drainage * acute normocytic anemia due to his infectious illness * No signs of bleeding * type 2 diabetes mellitus with very good control at this time * pre renal azotemia, resolved PLANS: * Continue antibiotics to cover the MRSA as well as gram-negative and anaerobes which are also common in the diabetic patient * Follow blood and wound cultures closely for any other organisms * Wound care; continue rectal tube and Rouse catheter * Follow closely for any changes in hemodynamic stability or other complications * Continue regular diet for the time being * Will continue to monitor sugars closely and treat these as indicated, continue his current therapies for now Suspect he will need at least 1 more exploration and washout surgery. Could potentially still need diverting colostomy to keep wound clean if we are unable to manage that otherwise. Seen today on my hospitalist rounds as well as multidisciplinary ICU rounds Reviewed today with Dr. White and Dr Verdugo SUBJECTIVE: Very mild pain mostly at his left testicle Had some ongoing stool incontinence issue so a rectal tube has been placed and this is been fairly helpful at diverting stool beyond the wound No chills or sweats OBJECTIVE Vitals reviewed: T-max 38.1, otherwise stable vital signs Certified Medical Technician Assistant, my review: Sinus rhythm without any arrhythmia Exam: alert oriented, looks very comfortable skin warm dry, somewhat pale today resps not labored lungs clear BSs heart regular abd soft nondistended nontender, bowel sounds present limbs warm, no edema I did examine his wound at the bedside. The incision line, quite long, is loosely approximated. There is gauze packing in place. Overall the cellulitis is less red than it was yesterday. There is some fluid draining from the wound but not a very large amount. The patient has just had a bowel movement and there is a small amount of stool in some of the gauze packing superficially. I do not see anything that looks overtly necrotic iv site ok Laboratory data: Hemoglobin decreased to 8.9, white blood cell count down to 4000 Hepatic transaminases now elevated AST 170, ALT 100 with normal bilirubin, albumin low at 2 Sugars remain in very good range Objective: Vital Signs Temp Pulse Resp BP Pulse Ox 37.9 C 80 24 H 126/62 H 96 01/22/18 07:14 01/22/18 07:14 01/22/18 07:14 01/22/18 07:14 01/22/18 07:14 Laboratory Results 01/22/18 05:35 01/22/18 05:35 01/21/18 01/22/18 01/23/18 06:59 06:59 06:59 Intake Total 2403 2588 Output Total 900 1350 Balance 1503 1238 ICD10 Worksheet Patient Problems: Problems Problem Status Onset Cellulitis of perineum Acute Cellulitis, scrotum Acute Left buttock abscess Acute
--- NOTE | 2018-01-22 11:51 | PCMIDPN ---
Assessment/Plan: 1. Necrotizing fasciitis of the perineal/buttock area secondary to MRSA with concomitant bacteremia: Patient is status post debridement with VAC placement. Continue vancomycin as is at present dose. Trough is fine. Explained to the patient today that he will need 4 weeks of IV therapy in the setting of bacteremia. He expressed understanding. TTE negative. Repeat blood cultures are pending. 2. Acute transaminitis: ? Secondary to anesthesia versus other. Check hepatitis a, B, and C serologies. Consider holding Pravachol if transaminases continued to worsen. 3. Miscellaneous: HIV negative, GC chlamydia negative. Patient reports that his doctor in [place] routinely screens him for syphilis; will not repeat this today. Over 25 min spent with this patient today. Subjective: In good spirits. No complaints. Understands he may need a temporary colostomy in the setting of the location of his wound. Long conversation with patient today regarding trajectory moving forward, and need for 4 weeks of antibiotics intravenously in the setting of MRSA bacteremia. Objective: Vancomycin 1 g IV q.12 hours day 2 T-max 37.9 degrees Vital Signs Temp Pulse Resp BP Pulse Ox 37.9 C 80 24 H 126/62 H 96 01/22/18 07:14 01/22/18 07:14 01/22/18 07:14 01/22/18 07:14 01/22/18 07:14 Laboratory Results 01/22/18 05:35 01/22/18 05:35 01/21/18 01/22/18 01/23/18 05:59 05:59 05:59 Intake Total 2403 2588 Output Total 800 1450 Balance 1603 1138 January 19 blood cultures x2 1/4 bottles MRSA January 19 wound culture 3+ Gram-positive cocci 4+ MRSA Repeat blood cultures January 21 pending Vancomycin trough 9.9 - Physical Exam General Appearance: alert, no apparent distress EENT: pharynx normal, No thrush Respiratory: lungs clear Cardiac/Chest: regular rate, rhythm Abdomen: non-tender, soft Male Genitalia: scrotal edema (Scrotal edema and erythema much improved per the patient. I did not roll him over to look at his wound VAC over the perineum/ buttock area.), other Skin: No rash ICD10 Worksheet Patient Problems: Problems Problem Status Onset Cellulitis of perineum Acute Cellulitis, scrotum Acute Left buttock abscess Acute
[2018-01-22] MEDS: PRAVASTATIN SODIUM 40 MG TAB PO SCH (12:07)
[2018-01-22] MEDS: FAMOTIDINE 20 MG TAB PO SCH ×2 (12:08→20:16)
[2018-01-22 13:42] LABS: HEPATITIS B SURFACE ANTIGEN NEGATIVE (NEGATIVE)
[2018-01-22 13:47] LABS: HEPATITIS B CORE AB IGM NEGATIVE (NEGATIVE)
[2018-01-22 13:58] LABS: HEPATITIS A ANTIBODY TOTAL POSITIVE (NEGATIVE); HEPATITIS C ANTIBODY TOTAL NEGATIVE (NEGATIVE)
[2018-01-22 15:11] LABS: HEPATITIS A ANTIBODY IGM (BCH) NEGATIVE (NEGATIVE)
[2018-01-22] MEDS: FAMOTIDINE 20 MG/NACL 50 ML IV SCH (15:54)
[2018-01-22] MEDS: ACETAMINOPHEN 325 MG TAB PO PRN (18:14)
[2018-01-23] MEDS: VANCOMYCIN HCL/NORMAL SALINE 250 ML IV SCH ×3 (02:44→18:39)
[2018-01-23] MEDS: MULTIVITAMINS 1 EACH TAB PO SCH (08:52)
[2018-01-23] MEDS: SELENIUM 0.2 MG TAB PO SCH (08:52)
[2018-01-23] MEDS: FAMOTIDINE 20 MG TAB PO SCH ×2 (08:53→20:01)
[2018-01-23] MEDS: ATENOLOL 50 MG TAB PO SCH ×2 (08:53→20:01)
[2018-01-23] MEDS: PIOGLITAZONE HCL 15 MG TAB PO SCH (08:53)
[2018-01-23] MEDS: CHOLECALCIFEROL VIT D3 2,000 UNITS TAB/CAP PO SCH ×2 (08:53→20:01)
[2018-01-23] MEDS: LISINOPRIL 10 MG TAB PO SCH (08:53)
[2018-01-23] MEDS: ASCORBIC ACID 500 MG TAB PO SCH ×2 (08:53→20:01)
--- NOTE | 2018-01-23 09:25 | PDINTPN ---
Derrickman Helper Progress Note Assessment/Plan: Assessment/plan: * Forniers gangrene-with left buttock abscess. Improved * Methicillin Staph aureus bacteremia -antibiotics per Infectious Disease * Diabetes * Pain-well controlled * VT prophylaxis * Stress ulcer prophylaxis * Nutrition-adequate Subjective: Resting comfortably Objective: Vital Signs Temp Pulse Resp BP Pulse Ox 38.2 C 81 20 141/62 H 92 01/23/18 07:31 01/23/18 07:31 01/23/18 07:31 01/23/18 07:31 01/23/18 07:31 Laboratory Results 01/22/18 05:35 01/22/18 05:35 01/22/18 01/23/18 01/24/18 05:59 05:59 05:59 Intake Total 2588 1800 Output Total 1450 1360 Balance 1138 440 - Time Spent With Patient Time Spent With Patient: 25 min of time spent with patient, over 1/2 involved with coordination of care or counseling. Case discussed with nursing Physical Exam - Physical Exam General Appearance: alert, no apparent distress EENT: PERRL/EOMI Neck: non-tender, full range of motion, supple, normal inspection Respiratory: chest non-tender, lungs clear, normal breath sounds Cardiac/Chest: normal peripheral pulses, regular rate, rhythm Peripheral Pulses: 2+: carotid (R), carotid (L), femoral (R), femoral (L), dorsalis-pedis (R), dorsalis-pedis (L) Abdomen: normal bowel sounds, non-tender Male Genitalia: deferred Rectal: deferred Skin: normal color, warm/dry Extremities: non-tender Neuro/Psych: alert ICD10 Worksheet Patient Problems: Problems Problem Status Onset Cellulitis of perineum Acute Cellulitis, scrotum Acute Left buttock abscess Acute
--- NOTE | 2018-01-23 10:07 | HOSPPROG ---
Hospitalist Progress Note Assessment/Plan: 77 yo M w dm here w necrotizing perineal infection2/2 mrsa perineal infection: on vanc has had operative management w possibilty of more surgery wound vac precluded by anatomical considerations malloy, rectal tube mrsa bacteremi: 4 weeks vanc dm: sugars at goal pain: well controlled increased lft's: hep serologies neg limit tylenol follow proph: scd's needs pharm VTE proph will d/x surgery dispo: icu Subjective: case d/w dr toney, dr monrela. liquid stool in bag. deneies fever Objective: Vital Signs Temp Pulse Resp BP Pulse Ox 38.2 C 81 20 141/62 H 92 01/23/18 07:31 01/23/18 07:31 01/23/18 07:31 01/23/18 07:31 01/23/18 07:31 Laboratory Results 01/22/18 05:35 01/22/18 05:35 01/22/18 01/23/18 01/24/18 05:59 05:59 05:59 Intake Total 2588 1800 Output Total 1450 1360 Balance 1138 440 - Physical Exam Constitutional: no apparent distress, appears nourished Eyes: PERRL, anicteric sclera Ears, Nose, Mouth, Throat: moist mucous membranes, hearing normal Cardiovascular: regular rate and rhythym, no murmur, rub, or gallop Respiratory: no respiratory distress, no rales or rhonchi Gastrointestinal: normoactive bowel sounds, soft, non-tender abdomen Genitourinary: no bladder fullness, malloy in urethra, other (penile edema) Skin: warm, normal color Musculoskeletal: full muscle strength Neurologic: AAOx3 Psychiatric: interacting appropriately ICD10 Worksheet Patient Problems: Problems Problem Status Onset Cellulitis of perineum Acute Cellulitis, scrotum Acute Left buttock abscess Acute
--- NOTE | 2018-01-23 11:01 | PCMIDPN ---
Assessment/Plan: 1. Necrotizing fasciitis of the perineal/buttock area secondary to MRSA with concomitant bacteremia: The patient's wounds are clearly being contaminated with stool. Given fevers, and appearance of his wounds (especially scrotal sac), will add back gram- negative and anaerobic coverage with Zosyn, as per before. Spoke with Dr. Saha and recommended another washout with diverting colostomy, as the rectal tube is clearly not working to divert stool away from his wounds. He agrees, and will see patient today. Likely OR this afternoon. Continue vancomycin as is. Conveyed need for diverting colostomy to the patient, who is ready and willing to proceed with this. 2. Acute transaminitis: Will repeat liver function tests today. Will also repeat CBC. No evidence of eosinophilia or drug rash to suggest DRESS from vancomycin. He is immune to hepatitis a; hepatitis-B surface antibody pending. Hepatitis-C negative. 3. Miscellaneous: HIV negative, GC chlamydia negative. Patient reports that his doctor in [place] routinely screens him for syphilis; will not repeat this. Over 25 min spent with this patient today. Subjective: Having new fevers up to 39.2. No shaking chills. No nausea or vomiting. No shortness of breath or chest pain. No abdominal pain. Objective: Vancomycin 1 g IV q.12 hours day 3 T-max 39.2 degrees Vital Signs Temp Pulse Resp BP Pulse Ox 38.2 C 81 20 141/62 H 92 01/23/18 07:31 01/23/18 07:31 01/23/18 07:31 01/23/18 07:31 01/23/18 07:31 Laboratory Results 01/22/18 05:35 01/22/18 05:35 01/22/18 01/23/18 01/24/18 05:59 05:59 05:59 Intake Total 2588 1800 Output Total 1450 1360 Balance 1138 440 Blood cultures x2 January 21 no growth so far January 19 blood cultures x2 1/ bottles with MRSA Buttock swab with MRSA - Physical Exam General Appearance: other (Looks tired. Nontoxic.) EENT: pharynx normal, No thrush Respiratory: lungs clear Cardiac/Chest: regular rate, rhythm Abdomen: non-tender, soft Rectal: other (The patient was turned and dressings were removed. A rectal tube is in place, but there is stool emanating from around the insertion site of the tube, soiling the patient's wounds. The patient's scrotum remains quite swollen. It is mildly tender. The open area is left lateral scrotal sac have gauze in place which was removed. No evidence of necrotic tissue. The bases of his wounds look pink. The entire area is quite tender. No lack of sensation.) Skin: No rash ICD10 Worksheet Patient Problems: Problems Problem Status Onset Cellulitis of perineum Acute Cellulitis, scrotum Acute Left buttock abscess Acute
[2018-01-23] MEDS ORDERED: BUPIVACAINE 0.5% 30 ML SDV ONE (11:39)
[2018-01-23] MEDS ORDERED: HYDROmorphONE/DILAUDID 2 MG/ML INJ ONE (11:56)
[2018-01-23] MEDS ORDERED: fentaNYL 100 MCG/2 ML INJ ONE ×2 (11:56)
[2018-01-23] MEDS ORDERED: PROPOFOL 200 MG/20 ML VIAL ONE (11:56)
[2018-01-23] MEDS ORDERED: ePHEDrine SULFATE 25 MG/5 ML SYR ONE (11:57)
[2018-01-23] MEDS ORDERED: PHENYLEPHRINE HCL 100 MCG/ML SYR ONE (11:57)
[2018-01-23] MEDS: PIPERACILLIN/TAZO 3.375 GM/DEX 50 ML IV SCH ×3 (12:08→23:51)
--- NOTE | 2018-01-23 12:15 | PDANEPAE ---
ANE History of Present Illness perirectal abscess ANE Past Medical History - Cardiovascular History Hx Hypertension: Yes Hx Arrhythmias: No Hx Chest Pain: No Hx Coronary Artery / Peripheral Vascular Disease: No Hx CHF / Valvular Disease: No Hx Palpitations: No - Pulmonary History Hx COPD: No Hx Asthma/Reactive Airway Disease: No Hx Recent Upper Respiratory Infection: No Hx Oxygen in Use at Home: No Hx Sleep Apnea: No Sleep Apnea Screening Result - Last Documented: Positive - Endocrine History Hx Diabetes: Yes Hypothyroid: No Hyperthyroid: No Obesity: moderate - Renal History Hx Renal Disorders: No - Liver History Hx Hepatic Disorders: No - Chronic Pain History Chronic Pain: No ANE Review of Systems Review of Systems: ANE Patient History - Allergies Allergies/Adverse Reactions: shellfish derived Allergy (Verified 01/19/18 13:38) Sulfa (Sulfonamide Antibiotics) Allergy (Verified 01/19/18 13:38) Rash - Home Medications Home Medications: Ascorbic Acid [Vitamin C 500 mg (*)] 500 mg PO BID 01/19/18 [Last Taken 21:00] Aspirin [Aspirin 325 mg (*)] 325 mg PO DAILY PRN 01/19/18 [Last Taken Unknown] Atenolol [Tenormin 50 mg (*)] 50 mg PO BID 01/19/18 [Last Taken 01/18/18 21:00] Cholecalciferol Vit D3 [Vitamin D3 2000 units tab (OTC)] 2,000 units PO BID 12/30 [Last Taken 01/18/18 21:00] Lisinopril [Zestril 10 mg (*)] 10 mg PO DAILY 01/19/18 [Last Taken 01/18/18] Lovastatin 40 mg PO DAILY 01/19/18 [Last Taken 01/18/18] Multivitamins [Multivitamin (*)] 1 each PO DAILY 01/19/18 [Last Taken 01/18/18] Pioglitazone HCl [Actos] 30 mg PO DAILY 01/19/18 [Last Taken 01/18/18] Selenium [Selenium 200mcg (*)] 200 mcg PO DAILY 01/19/18 [Last Taken 01/18/18] metFORMIN HCL [Glucophage 500 mg (*)] 500 mg PO BID 01/19/18 [Last Taken 21:00] - NPO status NPO Since - Liquids (Date): 01/22/18 NPO Since - Liquids (Time): 11:51 NPO Since - Solids (Date): 01/22/18 NPO Since - Solids (Time): 17:00 - Smoking Hx Smoking Status: Never smoked - Alcohol Use Alcohol Use: Sober ANE Labs/Vital Signs - Labs Result Diagrams: 01/22/18 05:35 01/23/18 11:45 - Vital Signs Blood Pressure: 153/61 Heart Rate: 79 Respiratory Rate: 23 O2 Sat (%): 91 Height: 170.18 cm Weight: 98.43 kg ANE Physical Exam - Airway Neck exam: decreased ROM Mallampati Score: Class 3 Mouth exam: normal dental/mouth exam, abnormal chin - Pulmonary Pulmonary: no respiratory distress - Cardiovascular Cardiovascular: regular rate and rhythym - ASA Status ASA Status: III ANE Anesthesia Plan Anesthesia Plan: general endotracheal anesthesia
--- NOTE | 2018-01-23 12:42 | SOAPPROG ---
SOAP Progress Note Assessment/Plan: Assessment: 77 MALE WITH I&D OF LEFT BUTTOCK ABSCESS WITH INDURATION AND INFLAMMATION EXTENDING INTO SCROTUM LOW GRADE TEMP/ WBC 14K DIABETIC NO CARDIAC SYMPTOMS CT SHOWS INFLAMMATION INTO SCROTUM MARKED EDEMA AND INDURATION IN PERINEUM AND SCROTUM Plan:MAY FURTHER I&D AND DEBRIDEMENT/ RISKS AND OPTIONS FULLY DISCUSSED 01/19/18 17:42 01/23/18 12:41 PATIENT COMFORTABLE AND DOING REASONABLY WELL DESPITE SIGNIFICANT TEMPERATURE ELEVATIONS LEAKING AND DIARRHEA STOOL OVER HIS WOUND SOME PERSISTENT INDURATION ERYTHEMA AROUND THE PERINEAL WOUND RISKS AND OPTIONS FULLY DISCUSSED PLAN: DIVERTING COLOSTOMY AND WOUND VAC CHANGE Objective: Vital Signs Temp Pulse Resp BP Pulse Ox 37.8 C 79 23 H 153/61 H 91 L 01/23/18 11:50 01/23/18 12:15 01/23/18 12:15 01/23/18 12:15 01/23/18 12:15 Laboratory Results 01/22/18 05:35 01/23/18 11:45 01/22/18 01/23/18 01/24/18 05:59 05:59 05:59 Intake Total 2588 1800 Output Total 1450 1360 Balance 1138 440 ICD10 Worksheet Patient Problems: Problems Problem Status Onset Cellulitis of perineum Acute Cellulitis, scrotum Acute Left buttock abscess Acute
[2018-01-23] MEDS ORDERED: PROMETHAZINE HCL 25 MG/ML INJ IVP PRN (13:20)
[2018-01-23] MEDS ORDERED: DEXAMETHASONE 4 MG/ML VIAL IVP PRN (13:20)
[2018-01-23] MEDS ORDERED: HYDROmorphONE/DILAUDID 1 MG/ML INJ IVP PRN (13:20)
[2018-01-23] MEDS ORDERED: HYDROCODONE/APAP 5/325 TAB PO PRN (13:20)
[2018-01-23] MEDS ORDERED: NALOXONE HCL 0.4 MG/ML INJ IVP PRN (13:20)
[2018-01-23] MEDS ORDERED: fentaNYL 100 MCG/2 ML INJ IVP PRN (13:20)
[2018-01-23] MEDS ORDERED: POLYMYXIN B SULFATE 500,000 UNIT/10 ML SYR IRR ONE (13:57)
[2018-01-23] MEDS ORDERED: BACITRACIN 50,000 UNITS/10 ML SYR IRR ONE (13:57)
--- NOTE | 2018-01-23 14:18 | ASMTCMCOM ---
CM Note CM Note Notes: Per chart notes, pt to OR today for washout and likely diverting ostomy. Pt on IV vanco. DC needs TBD. Date Signed: 01/23/2018 02:17 PM Electronically Signed By:Cat Lockett LCSW
--- NOTE | 2018-01-23 14:21 | POSTOPPROG ---
Post Op Note Date of Operation: 01/23/18 Surgeon: Morales Saha Anesthesiologist: PEREZ Anesthesia: GET(General Endotracheal) Pre-op Diagnosis: FORNIERES GANGRENE Post-op Diagnosis: SAME Indication: DIARHEA IN WOUND Procedure: END COLOSTOMY Findings: TOO MUCH TENSION FOR SIGMOID LOOP COLOSTOMY Inf/Abcess present in the surg proc area at time of surgery?: Yes Depth: Organ Space EBL: Minimal Complications: 0
[2018-01-23] MEDS ORDERED: SUGAMMADEX SODIUM 200 MG/2 ML VIAL IVP ONE (14:54)
[2018-01-23] MEDS: NS 1,000 ML IV SCH (16:33)
[2018-01-23] MEDS: PRAVASTATIN SODIUM 40 MG TAB PO SCH (17:53)
[2018-01-23] MEDS: HYDROCODONE/APAP 5/325 TAB PO PRN (17:53)
[2018-01-24] MEDS: HYDROCODONE/APAP 5/325 TAB PO PRN ×3 (03:38→21:34)
[2018-01-24] MEDS: PIPERACILLIN/TAZO 3.375 GM/DEX 50 ML IV SCH ×3 (05:07→18:58)
[2018-01-24 05:35] LABS: PLATELET COUNT 225 10^3/uL (150-400)
[2018-01-24] MEDS: VANCOMYCIN HCL/NORMAL SALINE 250 ML IV SCH (06:04)
[2018-01-24] MEDS: NS 1,000 ML IV SCH ×2 (06:05→12:15)
--- NOTE | 2018-01-24 07:46 | POSTOPPROG ---
Post Op Note Date of Operation: 01/23/18 Surgeon: Morales Saha Anesthesiologist: PEREZ Anesthesia: GET(General Endotracheal) Pre-op Diagnosis: FORNIERES GANGRENE Post-op Diagnosis: SAME Indication: SEPSIS Procedure: EXCISIONAL DEBRIDEMENT PERINEUM AND WOUND VAC PLACEMENT Findings: MINIMAL RESIDUAL NECROTIC TISSUE Inf/Abcess present in the surg proc area at time of surgery?: Yes Depth: Deep Incisional (Fascial) EBL: Minimal Complications: 0
--- NOTE | 2018-01-24 08:36 | PDINTPN ---
Immigration Law Specialist Progress Note Assessment/Plan: Assessment/plan: * Forniers gangrene-with left buttock abscess. Improved -per surgery * Methicillin Staph aureus bacteremia -antibiotics per Infectious Disease * Diabetes * Pain-well controlled * VT prophylaxis * Stress ulcer prophylaxis * Nutrition-adequate * Disposition-will transfer to medical surgical floor Subjective: Resting comfortably. No complaints. Objective: Vital Signs Temp Pulse Resp BP Pulse Ox 35.8 C L 58 L 14 145/70 H 99 01/24/18 07:43 01/24/18 07:43 01/24/18 07:43 01/24/18 07:43 01/24/18 07:43 Laboratory Results 01/24/18 05:00 01/24/18 05:00 01/23/18 01/24/18 01/25/18 05:59 05:59 05:59 Intake Total 1800 3262 Output Total 1360 875 Balance 440 2387 - Time Spent With Patient Time Spent With Patient: 25 min of time spent with patient, over 1/2 involved with coordination of care counseling. Case discussed with surgery Physical Exam - Physical Exam General Appearance: WD/WN, alert, no apparent distress EENT: PERRL/EOMI Neck: non-tender, full range of motion, supple, normal inspection Respiratory: chest non-tender, lungs clear, normal breath sounds Cardiac/Chest: normal peripheral pulses, regular rate, rhythm Peripheral Pulses: 2+: carotid (R), carotid (L), femoral (R), femoral (L), dorsalis-pedis (R), dorsalis-pedis (L) Abdomen: normal bowel sounds, non-tender, soft Male Genitalia: deferred Rectal: deferred Extremities: normal range of motion, non-tender, normal inspection, normal capillary refill Neuro/Psych: no motor/sensory deficits, alert, normal mood/affect, oriented x 3 ICD10 Worksheet Patient Problems: Problems Problem Status Onset Cellulitis of perineum Acute Cellulitis, scrotum Acute Left buttock abscess Acute
[2018-01-24] MEDS: SELENIUM 0.2 MG TAB PO SCH (09:39)
[2018-01-24] MEDS: ATENOLOL 50 MG TAB PO SCH ×2 (09:39→21:35)
[2018-01-24] MEDS: PIOGLITAZONE HCL 15 MG TAB PO SCH (09:39)
[2018-01-24] MEDS: ASCORBIC ACID 500 MG TAB PO SCH ×2 (09:40→21:35)
[2018-01-24] MEDS: MULTIVITAMINS 1 EACH TAB PO SCH (09:40)
[2018-01-24] MEDS: FAMOTIDINE 20 MG TAB PO SCH ×2 (09:40→21:35)
[2018-01-24] MEDS: LISINOPRIL 10 MG TAB PO SCH (09:40)
[2018-01-24] MEDS: CHOLECALCIFEROL VIT D3 2,000 UNITS TAB/CAP PO SCH ×2 (09:40→21:35)
[2018-01-24] MEDS: PRAVASTATIN SODIUM 40 MG TAB PO SCH (09:42)
--- NOTE | 2018-01-24 11:09 | SOAPPROG ---
SOAP Progress Note Assessment/Plan: Assessment: 77 MALE WITH I&D OF LEFT BUTTOCK ABSCESS WITH INDURATION AND INFLAMMATION EXTENDING INTO SCROTUM LOW GRADE TEMP/ WBC 14K DIABETIC NO CARDIAC SYMPTOMS CT SHOWS INFLAMMATION INTO SCROTUM MARKED EDEMA AND INDURATION IN PERINEUM AND SCROTUM Plan:MAY FURTHER I&D AND DEBRIDEMENT/ RISKS AND OPTIONS FULLY DISCUSSED 01/19/18 17:42 01/23/18 12:41 PATIENT COMFORTABLE AND DOING REASONABLY WELL DESPITE SIGNIFICANT TEMPERATURE ELEVATIONS LEAKING AND DIARRHEA STOOL OVER HIS WOUND SOME PERSISTENT INDURATION ERYTHEMA AROUND THE PERINEAL WOUND RISKS AND OPTIONS FULLY DISCUSSED PLAN: DIVERTING COLOSTOMY AND WOUND VAC CHANGE 01/24/18 11:02 TEMP DOWN/COMFORTABLE/VITAL SIGNS STABLE/ OSTOMY PINK AND WORKING WELL MINIMAL OUTPUT FROM THE WOUND VAC TRANSFER TO [facility] Objective: Vital Signs Temp Pulse Resp BP Pulse Ox 36.6 C 68 16 128/83 H 97 01/24/18 10:34 01/24/18 10:34 01/24/18 10:34 01/24/18 10:34 01/24/18 10:34 Laboratory Results 01/24/18 05:00 01/24/18 05:00 01/23/18 01/24/18 01/25/18 05:59 05:59 05:59 Intake Total 1800 3262 Output Total 1360 875 Balance 440 0585 ICD10 Worksheet Patient Problems: Problems Problem Status Onset Cellulitis of perineum Acute Cellulitis, scrotum Acute Left buttock abscess Acute
--- NOTE | 2018-01-24 11:15 | PCMIDPN ---
Assessment/Plan: 1. Necrotizing fasciitis of the scrotum/perineal/buttock area secondary to MRSA with concomitant bacteremia status post repeat debridement with VAC placement and diverting colostomy: Sincerely appreciate Dr. Saha assistance. Patient looks much better today and is afebrile. Please see below regarding plan for vancomycin. Because the patient's wounds were clearly contaminated with stool yesterday when I saw him, will continue Zosyn for another day and then stop tomorrow, as I agree with Dr. Torres that this entire process is likely secondary to MRSA alone. Blood cultures have sterilized. 2. Leukopenia: Query secondary to bone marrow suppression from vancomycin, although this would be somewhat early for this. Repeat stat CBC ordered. If leukopenia verified, will err on side of caution and discontinue vancomycin and start daptomycin. Will need to check baseline CK on daptomycin, and hold Pravachol. All of this was explained to the patient today. No eosinophilia, and as per below, no drug rash or suggestion of DRESS. 2. Acute transaminitis: Transaminitis is improving. Unlikely related to vancomycin. No evidence of DRESS. Patient is immune to hepatitis a and B. 3. Miscellaneous: HIV negative, GC chlamydia negative. Patient reports that his doctor in [place] routinely screens him for syphilis; will not repeat this. Over 25 min spent with this patient today. Subjective: Status post repeat debridement and diverting colostomy. Spoke with Dr. Saha. He told me that there was minimal necrosis remaining, all of which was debrided. Wound VAC placed. Patient without complaints today. Feels better overall compared with yesterday. No rash. Objective: Vancomycin 1 g IV q.12 hours day for Zosyn 3.375 g IV q.6 hours day 1 T-max 38.5 degrees Vital Signs Temp Pulse Resp BP Pulse Ox 36.6 C 68 16 128/83 H 97 01/24/18 10:34 01/24/18 10:34 01/24/18 10:34 01/24/18 10:34 01/24/18 10:34 Laboratory Results 01/24/18 05:00 01/24/18 05:00 01/23/18 01/24/18 01/25/18 05:59 05:59 05:59 Intake Total 1800 3262 Output Total 1360 875 Balance 440 6167 No new microbiology Blood cultures January 21 remain negative - Physical Exam General Appearance: no apparent distress, obese EENT: pharynx normal, No thrush Respiratory: lungs clear Cardiac/Chest: regular rate, rhythm Abdomen: non-tender, soft, other (Colostomy bag with brown liquid stool) Skin: other (Much improved swelling and erythema of the scrotal sac. Wound VAC in place in the perineum and scrotal sac.), No rash Neuro/Psych: oriented x 3 ICD10 Worksheet Patient Problems: Problems Problem Status Onset Cellulitis of perineum Acute Cellulitis, scrotum Acute Left buttock abscess Acute
[2018-01-24 11:26] LABS: PLATELET COUNT 242 10^3/uL (150-400)
[2018-01-24 12:11] LABS: CREATINE KINASE 356 IU/L (0-224)
--- NOTE | 2018-01-24 14:32 | HOSPPROG ---
Hospitalist Progress Note Assessment/Plan: 77 yo M w dm here w necrotizing perineal infection2/2 mrsa perineal infection: on vanc now w diverting colostomy and wound vac mrsa bacteremi: 4 weeks vanc dm: sugars at goal pain: well controlled increased lft's: hep serologies neg limit tylenol trending down proph: scd's needs pharm VTE proph start 01/25 dispo: icu Subjective: case d/w mau ware and feng Objective: Vital Signs Temp Pulse Resp BP Pulse Ox 36.5 C 64 16 148/82 H 96 01/24/18 12:00 01/24/18 12:00 01/24/18 12:00 01/24/18 12:00 01/24/18 12:00 Laboratory Results 01/24/18 11:23 01/24/18 05:00 01/23/18 01/24/18 01/25/18 05:59 05:59 05:59 Intake Total 1800 3262 Output Total 1360 875 Balance 440 2387 - Physical Exam Constitutional: no apparent distress, appears nourished Eyes: PERRL, anicteric sclera Ears, Nose, Mouth, Throat: moist mucous membranes, hearing normal Cardiovascular: regular rate and rhythym, no murmur, rub, or gallop Respiratory: no respiratory distress, no rales or rhonchi Gastrointestinal: normoactive bowel sounds, soft, non-tender abdomen Genitourinary: malloy in urethra, other (sig penile edema) Skin: warm, normal color Musculoskeletal: full muscle strength, No other Neurologic: AAOx3, sensation intact bilaterally Psychiatric: interacting appropriately, not anxious ICD10 Worksheet Patient Problems: Problems Problem Status Onset Cellulitis of perineum Acute Cellulitis, scrotum Acute Left buttock abscess Acute
[2018-01-24] MEDS: DAPTOmycin 600 MG in NS 100 ML IV SCH (18:21)
[2018-01-25] MEDS: PIPERACILLIN/TAZO 3.375 GM/DEX 50 ML IV SCH ×3 (00:46→13:37)
[2018-01-25] MEDS: NS 1,000 ML IV SCH (03:39)
[2018-01-25 05:42] LABS: PLATELET COUNT 236 10^3/uL (150-400)
[2018-01-25] MEDS: HYDROCODONE/APAP 5/325 TAB PO PRN (09:07)
[2018-01-25] MEDS: SELENIUM 0.2 MG TAB PO SCH (09:09)
[2018-01-25] MEDS: MULTIVITAMINS 1 EACH TAB PO SCH (09:11)
[2018-01-25] MEDS: PIOGLITAZONE HCL 15 MG TAB PO SCH (09:11)
[2018-01-25] MEDS: ASCORBIC ACID 500 MG TAB PO SCH ×2 (09:11→21:15)
[2018-01-25] MEDS: FAMOTIDINE 20 MG TAB PO SCH ×2 (09:11→21:15)
[2018-01-25] MEDS: CHOLECALCIFEROL VIT D3 2,000 UNITS TAB/CAP PO SCH ×2 (09:11→21:15)
[2018-01-25] MEDS: LISINOPRIL 10 MG TAB PO SCH (09:11)
[2018-01-25] MEDS: ATENOLOL 50 MG TAB PO SCH ×2 (09:14→21:15)
--- NOTE | 2018-01-25 11:36 | SOAPPROG ---
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 Now s/p colostomy creation to avoid contamination of wound and wound vac change Cultures grew MRSA, on Daptomycin instead of Vanco due to leukopenia S: Biggest complaint is gas pains. Denies n/v. Starting to have output from ostomy. O: Alert Afebrile RRR No increased WOB Abdomen soft, nontender, normoactive bowel sounds, ostomy is pink with liquid brown stool in appliance. : Wound vac in place to suction. Plan: Discussed bedside vs. OR for wound vac change. Pt would like to have it changed in OR. Will plan for tomorrow. 01/25/18 11:31 Objective: Vital Signs Temp Pulse Resp BP Pulse Ox 37.8 C 78 18 140/66 H 95 01/25/18 10:27 01/25/18 09:14 01/25/18 08:00 01/25/18 09:14 01/25/18 08:00 Microbiology 01/19/18 20:53 Blood Culture - Final Blood Laboratory Results 01/25/18 05:20 01/25/18 05:20 01/24/18 01/25/18 01/26/18 05:59 05:59 05:59 Intake Total 3262 200 Output Total 875 1450 Balance 2387 -5800 ICD10 Worksheet Patient Problems: Problems Problem Status Onset Cellulitis of perineum Acute Cellulitis, scrotum Acute Left buttock abscess Acute
--- NOTE | 2018-01-25 12:36 | PCMIDPN ---
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 This presented with bacteremia. Bacteremia has cleared. Currently on both daptomycin and Zosyn. Zosyn is included secondary to secondary soiling of the primary postoperative wound. Will discontinue the Zosyn today leaving him on daptomycin monotherapy. Will recheck a CPK tomorrow prior to dosing. Primary wound has a VAC dressing on currently. Will go to the operating room tomorrow for dressing change. Plan: 1. Continue IV daptomycin. 2. Discontinue IV Zosyn. 3. Follow appearance of wound. 01/25/18 12:34 Subjective: Patient is sitting up in a chair in his hospital room. He notes that the area his primary wound in his perineum is somewhat irritated. Moving around causes this. No fevers or chills. No rash. No muscle pain. Objective: Daptomycin # 2 Zosyn # 2 Vital Signs Temp Pulse Resp BP Pulse Ox 37.6 C 75 16 126/65 H 96 01/25/18 12:00 01/25/18 12:00 01/25/18 12:00 01/25/18 12:00 01/25/18 12:00 Microbiology 01/19/18 20:53 Blood Culture - Final Blood Laboratory Results 01/25/18 05:20 01/25/18 05:20 01/24/18 01/25/18 01/26/18 05:59 05:59 05:59 Intake Total 3262 200 Output Total 875 1450 Balance 2387 -1250 - Physical Exam General Appearance: WD/WN, alert, no apparent distress, non-toxic Cardiac/Chest: regular rate, rhythm, No tachycardia Skin: normal color, warm/dry, No rash Neuro/Psych: alert, normal mood/affect, oriented x 3 ICD10 Worksheet Patient Problems: Problems Problem Status Onset Cellulitis of perineum Acute Cellulitis, scrotum Acute Left buttock abscess Acute
[2018-01-25] MEDS: ONDANSETRON DISINTEGRATING 4 MG TAB PO PRN (13:37)
[2018-01-25] MEDS ORDERED: D50W 25 GM/50 ML SYR IVP PRN (13:52)
--- NOTE | 2018-01-25 13:54 | HOSPPROG ---
Hospitalist Progress Note Assessment/Plan: 77 yo M w dm here w necrotizing perineal infection2/2 mrsa perineal infection: on vanc now w diverting colostomy and wound vac wound vac change in or 01/26 mrsa bacteremi: 4 weeks vanc dm: sugars slighty greater than goal add lispro SS pain: well controlled increased lft's: hep serologies neg limit tylenol trending down proph: scd's needs pharm VTE proph start 01/25 dispo: icu Subjective: case d/w dorie abbottmayda, surgery PA Objective: Vital Signs Temp Pulse Resp BP Pulse Ox 37.6 C 75 16 126/65 H 96 01/25/18 12:00 01/25/18 12:00 01/25/18 12:00 01/25/18 12:00 01/25/18 12:00 Microbiology 01/19/18 20:53 Blood Culture - Final Blood Laboratory Results 01/25/18 05:20 01/25/18 05:20 01/24/18 01/25/18 01/26/18 05:59 05:59 05:59 Intake Total 3262 200 Output Total 875 1450 Balance 2387 -1250 - Physical Exam Constitutional: no apparent distress, appears nourished Eyes: PERRL, anicteric sclera Ears, Nose, Mouth, Throat: moist mucous membranes, hearing normal Cardiovascular: regular rate and rhythym, no murmur, rub, or gallop Respiratory: no respiratory distress, no rales or rhonchi Gastrointestinal: soft, non-tender abdomen, other (good ostomy output) Genitourinary: malloy in urethra, other (swollen penis) Skin: warm, normal color Musculoskeletal: full muscle strength, no muscle tenderness, normal joint ROM Neurologic: AAOx3 ICD10 Worksheet Patient Problems: Problems Problem Status Onset Cellulitis of perineum Acute Cellulitis, scrotum Acute Left buttock abscess Acute
--- NOTE | 2018-01-25 15:08 | WOCRNPDOC ---
IVÁN Advanced Assessment Note - Colostomy Assessment, Advanced Left Lower Abdomen Colostomy Stoma Colostomy Appliance Intact: Yes Colostomy Appliance Currently in Use: Two Piece Flat Stoma Color: Red Stoma Turgor: Moist Stoma Height: Recessed Colostomy Effluent: Thin, Liquid, Mixed Fecal/Serosangenous Colostomy Details: Colectomy, End Colostomy Comment/Treatment Details: Day 1 teaching attempted, patient too sleepy to participate. Will do day 1 teaching tomorrow.
[2018-01-25] MEDS: ENOXAPARIN 30 MG/0.3 ML SYR SC SCH (16:04)
[2018-01-25] MEDS: INSULIN LISPRO 100 UNIT/ML SC SCH (17:43)
[2018-01-25] MEDS: DAPTOmycin 600 MG in NS 100 ML IV SCH (17:43)
[2018-01-25] MEDS: ACETAMINOPHEN 325 MG TAB PO PRN (18:39)
[2018-01-26] MEDS: ACETAMINOPHEN 325 MG TAB PO PRN ×2 (05:06→11:59)
[2018-01-26 05:25] LABS: CREATINE KINASE 371 IU/L (0-224)
[2018-01-26] MEDS: INSULIN LISPRO 100 UNIT/ML SC SCH ×3 (08:49→18:42)
--- NOTE | 2018-01-26 08:50 | HOSPPROG ---
Hospitalist Progress Note Assessment/Plan: * Jacqueline's gangrene s/p debridement - now with wound vac -wound vac change in OR today * MRSA sepsis (POA) -BC cleared -IV daptomycin due to leukopenia with IV vanco -4 weeks IV abx * Persistent fever -consider further imaging of pelvis * s/p colostomy due to stool contaminating wound * DM II -suspect poor baseline control - check HgA1c -metformin + ISS * Obesity BMI 34 * Increased LFT - likely due to sepsis Subjective: No new complaints. Objective: Vital Signs Temp Pulse Resp BP Pulse Ox 37.4 C 68 16 134/68 H 97 01/26/18 07:33 01/26/18 07:33 01/26/18 07:33 01/26/18 07:33 01/26/18 07:33 Microbiology 01/19/18 20:53 Blood Culture - Final Blood Laboratory Results 01/25/18 05:20 01/25/18 05:20 01/25/18 01/26/18 01/27/18 05:59 05:59 05:59 Intake Total 200 2226 Output Total 1450 2775 Balance -1250 -549 CT pelvis - deep fluid collections CXR viewed, my personal interpretation is - negative - Physical Exam Constitutional: no apparent distress, appears nourished, not in pain Cardiovascular: regular rate and rhythym, no murmur, rub, or gallop Respiratory: no respiratory distress, no rales or rhonchi, clear to auscultation Gastrointestinal: normoactive bowel sounds, soft, non-tender abdomen, no palpable masses Skin: no rashes or abrasions, no fluctuance, no induration Neurologic: AAOx3, sensation intact bilaterally Psychiatric: interacting appropriately, not anxious, not encephalopathic, thought process linear ICD10 Worksheet Patient Problems: Problems Problem Status Onset Cellulitis of perineum Acute Cellulitis, scrotum Acute Left buttock abscess Acute
[2018-01-26] MEDS: ATENOLOL 50 MG TAB PO SCH ×2 (09:59→21:41)
[2018-01-26] MEDS: LISINOPRIL 10 MG TAB PO SCH (09:59)
[2018-01-26] MEDS: ASCORBIC ACID 500 MG TAB PO SCH ×2 (09:59→21:41)
[2018-01-26] MEDS: PIOGLITAZONE HCL 15 MG TAB PO SCH (09:59)
[2018-01-26] MEDS: MULTIVITAMINS 1 EACH TAB PO SCH (09:59)
[2018-01-26] MEDS: SELENIUM 0.2 MG TAB PO SCH (09:59)
[2018-01-26] MEDS: CHOLECALCIFEROL VIT D3 2,000 UNITS TAB/CAP PO SCH ×2 (09:59→21:42)
[2018-01-26] MEDS: metFORMIN HCL 500 MG TAB PO SCH ×2 (09:59→21:41)
--- NOTE | 2018-01-26 10:28 | WOCRNPDOC ---
IVÁN Advanced Assessment Note - Colostomy Assessment, Advanced Left Lower Abdomen Colostomy Stoma Colostomy Appliance Intact: Yes Colostomy Appliance Currently in Use: Two Piece Flat, 2 1/4 Stoma Color: Red Stoma Turgor: Moist Stoma Shape: Oval Stoma Height: Recessed Mucocutaneus Junction: Intact Colostomy Effluent: Liquid, Mixed Fecal/Serosangenous Colostomy Size - Head-to-Toe Length X Width X Depth (cm): 1" top to bottom, 1 3/ 4" side to side Colostomy Details: Colectomy Peristomal Skin: Intact Stomal Complications: Retraction Colostomy Comment/Treatment Details: Day 1 and day 2 teaching. Two piece appliance removed with adhesive remover spray. Peristomal skin and stoma cleansed with a wet washcloth. Stoma measured 1" top to bottom, 1 3/4" from side to side. Stoma is moist, red, and retracted. Abdominal crease located above the stoma approximately one inch. A Ana Lilia flat one-piece was applied, however a two piece flat from clean supply will work if needed. Education was provided to the patient on emptying the pouch and how to change the appliance. Patient verbalized understanding and asked appropriate questions. Verbal consent given to enroll patient in [facility], however patient does not know the address for his brother where he will be staying upon discharge. Will wait to enroll patient until local address is provided. Wound care will round again tomorrow.
--- NOTE | 2018-01-26 10:40 | ASMTCMCOM ---
CM Note CM Note Notes: Pts case discussed w/ Dr. Garcia. CM met w/ pt for dispo planning. Pt reports that he plans on staying w/ his brother that lives in [place] here in [place]. Pt feels that his mobility is moderate but safe. Therapies have been ordered and awaiting recommendations. Pt has a fever and will not be going anywhere today. ID is consulting on this case. CM to follow. Plan: TBD Date Signed: 01/26/2018 10:40 AM Electronically Signed By:JESS Root
--- NOTE | 2018-01-26 10:46 | PCMIDPN ---
Assessment/Plan: #Sepsis: resolved, secondary to MRSA bacteremia and perineal infection #MRSA bacteremia and Jacqueline's gangrene. Blood cx cleared S/p debridement 01/21 and 01/24 and end colostomy 01/24. Still w transient fever. Noted SM on exam today ECHO negative and low grade bacteremia w clearance 01/21. Difficult to assess wound bed bc wound vac in place --blood cx repeated today w fever. No other localizing symptoms (abd sx better) --changed to daptomycin for concern of vancomycin toxicity, baseline CK slightly elevated, re-check tomorrow. --wound vac change in OR today or tomorrow --order PICC line today, fever unlikely reflects bacteremia #Leukopenia ANC 2340, stable will continue to monitor, concern due to vancomycin and or Zosyn - both stopped --continue close monitoring cbc #Elevated LFTs: recheck tomorrow, likely related to sepsis Microbiology 01/19/18 11:16 Buttock - Swab Wound Culture - Final MRSA 01/19/18 11:10 Blood Cx (1/2) MRSA Dapto JUAN A = <0.1 01/21/18 13:00 Blood Cx (2) NGTD Meds daptomycin 600mg IV daily#3 Subjective: no specific c/o, did feel fever this morning minimal pain notes abdominal cramping Objective: Vital Signs Temp Pulse Resp BP Pulse Ox 37.4 C 68 16 134/68 H 97 01/26/18 07:33 01/26/18 07:33 01/26/18 07:33 01/26/18 07:33 01/26/18 07:33 Microbiology 01/19/18 20:53 Blood Culture - Final Blood Laboratory Results 01/25/18 05:20 01/25/18 05:20 01/25/18 01/26/18 01/27/18 05:59 05:59 05:59 Intake Total 200 2226 Output Total 1450 2775 Balance -1250 -549 - Physical Exam General Appearance: alert EENT: pale conjunctiva, No thrush Respiratory: lungs clear, No accessory muscle use Neck: supple Cardiac/Chest: regular rate, rhythm, systolic murmur Abdomen: non-tender, soft, other (Liquid stool in ostomy; pink stoma) Rectal: other (wound vac in place) Skin: pallor, No rash Neuro/Psych: alert, normal mood/affect, oriented x 3 - Line/s PIV Lines: No drainage, No erythema - Time Spent With Patient Time Spent with Patient: greater than 35 minutes Time Spent with Patient: Greater than 35 minutes spent on this patients care, greater than 50% of time spent counseling, educating, and coordinating care regarding the above mentioned plan. ICD10 Worksheet Patient Problems: Problems Problem Status Onset Cellulitis of perineum Acute Cellulitis, scrotum Acute Left buttock abscess Acute
[2018-01-26] MEDS ORDERED: ALTEPLASE 2 MG VIAL IVP PRN (11:01)
--- NOTE | 2018-01-26 13:57 | ASMTCMCOM ---
CM Note CM Note Notes: CM had YAHAIRA Cagle sign the ostomy supply order. CM faxed the ostomy supply order. CM added the fax confirmation sheet to pts chart. Pts brother address is [address] [place] [address], [address] [place] [id number]. Date Signed: 01/26/2018 01:57 PM Electronically Signed By:JESS Root
[2018-01-26] MEDS: DAPTOmycin 600 MG in NS 100 ML IV SCH (17:32)
[2018-01-27] MEDS: ACETAMINOPHEN 325 MG TAB PO PRN (01:25)
[2018-01-27 05:32] LABS: PLATELET COUNT 214 10^3/uL (150-400)
[2018-01-27 05:53] LABS: INR 1.17 (0.83-1.16); PROTIME(PATIENT) 15.1 SEC (12.0-15.0)
[2018-01-27 06:20] LABS: CREATINE KINASE 385 IU/L (0-224)
[2018-01-27] MEDS: INSULIN LISPRO 100 UNIT/ML SC SCH ×3 (08:34→18:18)
[2018-01-27] MEDS: ENOXAPARIN 30 MG/0.3 ML SYR SC SCH (08:36)
[2018-01-27] MEDS: ASCORBIC ACID 500 MG TAB PO SCH ×2 (08:40→20:38)
[2018-01-27] MEDS: LISINOPRIL 10 MG TAB PO SCH (08:40)
[2018-01-27] MEDS: metFORMIN HCL 500 MG TAB PO SCH ×2 (08:41→20:38)
[2018-01-27] MEDS: SELENIUM 0.2 MG TAB PO SCH (08:41)
[2018-01-27] MEDS: ATENOLOL 50 MG TAB PO SCH ×2 (08:41→20:38)
[2018-01-27] MEDS: CHOLECALCIFEROL VIT D3 2,000 UNITS TAB/CAP PO SCH ×2 (08:41→20:38)
[2018-01-27] MEDS: MULTIVITAMINS 1 EACH TAB PO SCH (08:41)
[2018-01-27] MEDS: PIOGLITAZONE HCL 15 MG TAB PO SCH (08:47)
[2018-01-27] MEDS ORDERED: fentaNYL 100 MCG/2 ML INJ ONE (13:22)
[2018-01-27] MEDS ORDERED: PROPOFOL 200 MG/20 ML VIAL ONE ×2 (13:23)
[2018-01-27] MEDS ORDERED: LR 1,000 ML IV ONE (13:26)
--- NOTE | 2018-01-27 13:33 | PDANEPAE ---
ANE Past Medical History - Cardiovascular History Hx Hypertension: Yes Hx Arrhythmias: No Hx Chest Pain: No Hx Coronary Artery / Peripheral Vascular Disease: No Hx CHF / Valvular Disease: No Hx Palpitations: No - Pulmonary History Hx COPD: No Hx Asthma/Reactive Airway Disease: No Hx Recent Upper Respiratory Infection: No Hx Oxygen in Use at Home: No Hx Sleep Apnea: No Sleep Apnea Screening Result - Last Documented: Positive - Endocrine History Hx Diabetes: Yes Hypothyroid: No Hyperthyroid: No Obesity: moderate - Renal History Hx Renal Disorders: No - Liver History Hx Hepatic Disorders: No - Chronic Pain History Chronic Pain: No ANE Review of Systems Review of Systems: ANE Patient History - Allergies Allergies/Adverse Reactions: shellfish derived Allergy (Verified 01/19/18 13:38) Sulfa (Sulfonamide Antibiotics) Allergy (Verified 01/19/18 13:38) Rash - Home Medications Home Medications: Ascorbic Acid [Vitamin C 500 mg (*)] 500 mg PO BID 01/19/18 [Last Taken 21:00] Aspirin [Aspirin 325 mg (*)] 325 mg PO DAILY PRN 01/19/18 [Last Taken Unknown] Atenolol [Tenormin 50 mg (*)] 50 mg PO BID 01/19/18 [Last Taken 01/18/18 21:00] Cholecalciferol Vit D3 [Vitamin D3 2000 units tab (OTC)] 2,000 units PO BID 12/30 [Last Taken 01/18/18 21:00] Lisinopril [Zestril 10 mg (*)] 10 mg PO DAILY 01/19/18 [Last Taken 01/18/18] Lovastatin 40 mg PO DAILY 01/19/18 [Last Taken 01/18/18] Multivitamins [Multivitamin (*)] 1 each PO DAILY 01/19/18 [Last Taken 01/18/18] Pioglitazone HCl [Actos] 30 mg PO DAILY 01/19/18 [Last Taken 01/18/18] Selenium [Selenium 200mcg (*)] 200 mcg PO DAILY 01/19/18 [Last Taken 01/18/18] metFORMIN HCL [Glucophage 500 mg (*)] 500 mg PO BID 01/19/18 [Last Taken 21:00] - NPO status NPO Since - Liquids (Date): 08/14/18 NPO Since - Liquids (Time): 00:00 NPO Since - Solids (Date): 01/26/18 NPO Since - Solids (Time): 00:00 - Smoking Hx Smoking Status: Never smoked - Alcohol Use Alcohol Use: Sober ANE Labs/Vital Signs - Labs Result Diagrams: 01/27/18 05:05 01/25/18 05:20 - Vital Signs Blood Pressure: 117/67 Heart Rate: 79 Respiratory Rate: 16 O2 Sat (%): 96 Height: 170.18 cm Weight: 98.43 kg ANE Physical Exam - Airway Neck exam: FROM Mallampati Score: Class 1 Mouth exam: normal dental/mouth exam - Pulmonary Pulmonary: no respiratory distress, no rales or rhonchi, clear to auscultation - Cardiovascular Cardiovascular: regular rate and rhythym, no murmur, rub, or gallop - ASA Status ASA Status: III ANE Anesthesia Plan Anesthesia Plan: GA w LMA
[2018-01-27] MEDS ORDERED: NALOXONE HCL 0.4 MG/ML INJ IVP PRN (13:34)
[2018-01-27] MEDS ORDERED: ONDANSETRON 4 MG/2 ML VIAL IVP PRN (13:34)
[2018-01-27] MEDS ORDERED: ALBUTEROL 3 ML DEYVIAL IH PRN (13:34)
[2018-01-27] MEDS ORDERED: LR 500 ML IV PRN (13:34)
[2018-01-27] MEDS ORDERED: fentaNYL 100 MCG/2 ML INJ IVP PRN (13:34)
--- NOTE | 2018-01-27 15:14 | POSTANESTH ---
Post Anesthetic Evaluation Cardiovascular Status: Normal, Stable, Similar to Pre-Op Cond Respiratory Status: Normal, Stable, Similar to Pre-op Cond. Level of Consciousness/Mental Status: Can Participate in Eval Pain Control: Adequate, Prn Tx Ordered Nausea/Vomiting Control: Adequate, Prn Tx Ordered Complications Possibly Related to Anesthesia: None Noted
--- NOTE | 2018-01-27 16:15 | HOSPPROG ---
Hospitalist Progress Note Assessment/Plan: * Jacqueline's gangrene s/p debridement - wound vac -persistent fever - consider re-image pelvis * MRSA sepsis (POA) -BC cleared -IV daptomycin due to leukopenia with IV vanco -4 weeks IV abx * s/p colostomy due to stool contaminating wound * DM II -suspect poor baseline control - HgA1c 7.6 -metformin + ISS * Obesity BMI 34 * Increased LFT - likely due to sepsis Subjective: NO complaints. Objective: Vital Signs Temp Pulse Resp BP Pulse Ox 37.2 C 79 14 126/72 H 95 01/27/18 15:19 01/27/18 15:19 01/27/18 15:19 01/27/18 15:19 01/27/18 15:19 Microbiology 01/21/18 13:00 Blood Culture - Final Blood 01/21/18 13:10 Blood Culture - Final Blood Laboratory Results 01/27/18 05:05 01/25/18 05:20 01/26/18 01/27/18 01/28/18 05:59 05:59 05:59 Intake Total 2226 350 300 Output Total 2775 2250 1100 Balance -549 -1900 -800 PT 15.1 SEC (12.0-15.0) H 01/27/18 05:05 INR 1.17 (0.83-1.16) H 01/27/18 05:05 - Physical Exam Constitutional: no apparent distress, appears nourished, not in pain Cardiovascular: regular rate and rhythym, no murmur, rub, or gallop Respiratory: no respiratory distress, no rales or rhonchi, clear to auscultation Gastrointestinal: normoactive bowel sounds, soft, non-tender abdomen, no palpable masses Skin: no rashes or abrasions, no fluctuance, no induration Neurologic: AAOx3, sensation intact bilaterally Psychiatric: interacting appropriately, not anxious, not encephalopathic, thought process linear ICD10 Worksheet Patient Problems: Problems Problem Status Onset Cellulitis of perineum Acute Cellulitis, scrotum Acute Left buttock abscess Acute
--- NOTE | 2018-01-27 17:02 | PCMIDPN ---
Assessment/Plan: #Sepsis: resolved, secondary to MRSA bacteremia and perineal infection #MRSA bacteremia and Jacqueline's gangrene. Blood cx cleared S/p debridement 01/21 and 01/24 and end colostomy 01/24. Still w transient fever. Noted SM on exam today ECHO negative and low grade bacteremia w clearance 01/21. Difficult to assess wound bed bc wound vac in place --awaiting report from return to OR today to assess control of infection --blood cx remain cleared --continue daptomycin #Leukopenia : continues to decline which may reflect lack of control of infection #Elevated LFTs: better today Microbiology 01/19/18 11:16 Buttock - Swab Wound Culture - Final MRSA 01/19/18 11:10 Blood Cx (1/2) MRSA Dapto JUAN A = <0.1 01/21/18 13:00 Blood Cx (2) NGTD 01/25/18 20:18 Blood Cx (2) NGTD Meds daptomycin 600mg IV daily#4 Subjective: low appetite no pain Objective: Vital Signs Temp Pulse Resp BP Pulse Ox 37.2 C 75 14 142/70 H 95 01/27/18 15:19 01/27/18 16:19 01/27/18 16:19 01/27/18 16:19 01/27/18 16:19 Microbiology 01/21/18 13:00 Blood Culture - Final Blood 01/21/18 13:10 Blood Culture - Final Blood Laboratory Results 01/27/18 05:05 01/25/18 05:20 01/26/18 01/27/18 01/28/18 05:59 05:59 05:59 Intake Total 2226 350 300 Output Total 2775 2250 1100 Balance -549 -1900 -800 - Physical Exam General Appearance: alert, no apparent distress EENT: pale conjunctiva, No scleral icterus Respiratory: other (decreased BS in bases), No accessory muscle use Cardiac/Chest: regular rate, rhythm Abdomen: normal bowel sounds, non-tender, soft, other (Ostomy LLQ w liquid stool ) Male Genitalia: malloy, scrotal edema (and penile edema) Rectal: other (wound vac in place posterior perineal area) Skin: pallor, other (skin a little mottled), No jaundice, No rash Neuro/Psych: alert, normal mood/affect, other (flat affect) - Line/s RUE PICC Lines: No drainage, No erythema - Time Spent With Patient Time Spent with Patient: greater than 35 minutes Time Spent with Patient: Greater than 35 minutes spent on this patients care, greater than 50% of time spent counseling, educating, and coordinating care regarding the above mentioned plan. ICD10 Worksheet Patient Problems: Problems Problem Status Onset Cellulitis of perineum Acute Cellulitis, scrotum Acute Left buttock abscess Acute
[2018-01-27] MEDS: DAPTOmycin 600 MG in NS 100 ML IV SCH (17:27)
--- NOTE | 2018-01-27 18:23 | POSTOPPROG ---
Post Op Note Date of Operation: 01/27/18 Surgeon: Morales Saha Anesthesiologist: ines Anesthesia: GET(General Endotracheal) Pre-op Diagnosis: fornieres gangrene Post-op Diagnosis: Same Indication: VAC change Procedure: Wound debridement and lavage and wound VAC change Findings: Much improved clean granulating wound Inf/Abcess present in the surg proc area at time of surgery?: Yes Depth: Deep Incisional (Fascial) EBL: Minimal Complications: None Drains: Wound Vac
[2018-01-28] MEDS: ONDANSETRON DISINTEGRATING 4 MG TAB PO PRN (00:42)
[2018-01-28 06:13] LABS: PLATELET COUNT 211 10^3/uL (150-400)
--- NOTE | 2018-01-28 09:39 | PCMIDPN ---
Assessment/Plan: 1. Necrotizing fasciitis of the scrotum/perineal/buttock area secondary to MRSA with concomitant bacteremia status post diverting colostomy: Continue daptomycin as is. Patient denies myalgias or cough. Elevated CK likely related to underlying myositis. Continue to follow; repeat in the next few days. 2. Leukopenia: Improved today. Likely related to underlying vancomycin, but exacerbated by the patient's disease process. 2. Acute transaminitis: Resolved. Residual elevated AST related to muscle inflammation. 3. Miscellaneous: HIV negative, GC chlamydia negative. Patient reports that his doctor in [place] routinely screens him for syphilis; will not repeat this. Subjective: No complaints today. Objective: Daptomycin 600 mg IV daily day 5 T-max 37.8 degrees Vital Signs Temp Pulse Resp BP Pulse Ox 37.7 C 84 16 122/74 H 95 01/28/18 08:00 01/28/18 08:00 01/28/18 08:00 01/28/18 08:00 01/28/18 08:00 Laboratory Results 01/28/18 05:35 01/28/18 05:35 01/27/18 01/28/18 01/29/18 05:59 05:59 05:59 Intake Total 350 1300 Output Total 2250 1999 Balance -1900 -January 25 blood cultures x2 negative Laboratory Tests 01/21/18 01/21/18 01/22/18 05:05 13:27 05:35 WBC AST 171 H ALT 106 H Creatine Kinase Vancomycin Trough 9.9 HIV 1&2 Antibody NEGATIVE 01/27/18 01/28/18 05:05 05:35 WBC 3.43 L AST ALT Creatine Kinase 385 H Vancomycin Trough HIV 1&2 Antibody - Physical Exam General Appearance: alert, no apparent distress EENT: pharynx normal, No thrush Respiratory: lungs clear Cardiac/Chest: regular rate, rhythm Abdomen: non-tender, soft, other (Colostomy bag in place with liquid brown stool ) Skin: other (Did not roll him over to look at perineum today.), No rash ICD10 Worksheet Patient Problems: Problems Problem Status Onset Cellulitis of perineum Acute Cellulitis, scrotum Acute Left buttock abscess Acute
[2018-01-28] MEDS: INSULIN LISPRO 100 UNIT/ML SC SCH ×3 (10:00→18:29)
[2018-01-28] MEDS: ENOXAPARIN 30 MG/0.3 ML SYR SC SCH (10:00)
[2018-01-28] MEDS: SELENIUM 0.2 MG TAB PO SCH (10:00)
[2018-01-28] MEDS: metFORMIN HCL 500 MG TAB PO SCH ×2 (10:01→20:23)
[2018-01-28] MEDS: LISINOPRIL 10 MG TAB PO SCH (10:01)
[2018-01-28] MEDS: CHOLECALCIFEROL VIT D3 2,000 UNITS TAB/CAP PO SCH ×2 (10:01→20:22)
[2018-01-28] MEDS: PIOGLITAZONE HCL 15 MG TAB PO SCH (10:02)
[2018-01-28] MEDS: MULTIVITAMINS 1 EACH TAB PO SCH (10:03)
[2018-01-28] MEDS: ATENOLOL 50 MG TAB PO SCH ×2 (10:03→20:23)
[2018-01-28] MEDS: ASCORBIC ACID 500 MG TAB PO SCH ×2 (10:04→20:22)
--- NOTE | 2018-01-28 11:50 | ASMTCMCOM ---
CM Note CM Note Notes: Spoke with pt re; dc poc. PT recommends SNF, CM discussed with pt going to SNF more appropriate than staying with brother. His brother does not live in [place] but in low cost housing in [facility]. Pt is agreeable and referral was faxed to [facility]. DC Plan: SNF Date Signed: 01/28/2018 11:49 AM Electronically Signed By:Mohini Chaidez RN
--- NOTE | 2018-01-28 17:13 | HOSPPROG ---
Hospitalist Progress Note Assessment/Plan: * Jacqueline's gangrene s/p debridement - wound vac -fever curve improving * MRSA sepsis (POA) -BC cleared -IV daptomycin due to leukopenia with IV vanco -4 weeks IV abx * s/p colostomy due to stool contaminating wound * DM II -suspect poor baseline control - HgA1c 7.6 -metformin + ISS * Obesity BMI 34 * Increased LFT - likely due to sepsis Subjective: No new complaints Objective: Vital Signs Temp Pulse Resp BP Pulse Ox 38.2 C 86 16 114/64 95 01/28/18 15:58 01/28/18 15:58 01/28/18 15:58 01/28/18 15:58 01/28/18 15:58 Laboratory Results 01/28/18 05:35 01/28/18 05:35 01/27/18 01/28/18 01/29/18 05:59 05:59 05:59 Intake Total 350 1300 Output Total 2250 2000 300 Balance -1900 -700 -300 PT 15.1 SEC (12.0-15.0) H 01/27/18 05:05 INR 1.17 (0.83-1.16) H 01/27/18 05:05 - Physical Exam Constitutional: no apparent distress, appears nourished, not in pain Cardiovascular: regular rate and rhythym, no murmur, rub, or gallop Respiratory: no respiratory distress, no rales or rhonchi, clear to auscultation Gastrointestinal: normoactive bowel sounds, soft, non-tender abdomen, no palpable masses Skin: no rashes or abrasions, no fluctuance, no induration Neurologic: AAOx3, sensation intact bilaterally Psychiatric: interacting appropriately, not anxious, not encephalopathic, thought process linear ICD10 Worksheet Patient Problems: Problems Problem Status Onset Cellulitis of perineum Acute Cellulitis, scrotum Acute Left buttock abscess Acute
--- NOTE | 2018-01-28 17:30 | SOAPPROG ---
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 Now s/p colostomy creation to avoid contamination of wound and wound vac change Cultures grew MRSA, on Daptomycin instead of Vanco due to leukopenia S: No complaints. Denies pain. O: Alert Afebrile RRR No increased WOB Abdomen soft, nontender, normoactive bowel sounds, ostomy is pink with liquid brown stool in appliance. : Wound vac in place to suction. Plan: Bedside vac change tomorrow. 01/28/18 17:29 Objective: Vital Signs Temp Pulse Resp BP Pulse Ox 38.2 C 86 16 114/64 95 01/28/18 15:58 01/28/18 15:58 01/28/18 15:58 01/28/18 15:58 01/28/18 15:58 Laboratory Results 01/28/18 05:35 01/28/18 05:35 01/27/18 01/28/18 01/29/18 05:59 05:59 05:59 Intake Total 350 1300 Output Total 2250 2000 300 Balance -1900 -700 -300 PT 15.1 SEC (12.0-15.0) H 01/27/18 05:05 INR 1.17 (0.83-1.16) H 01/27/18 05:05 ICD10 Worksheet Patient Problems: Problems Problem Status Onset Cellulitis of perineum Acute Cellulitis, scrotum Acute Left buttock abscess Acute
[2018-01-28] MEDS: DAPTOmycin 600 MG in NS 100 ML IV SCH (18:09)
[2018-01-29 05:06] LABS: PLATELET COUNT 212 10^3/uL (150-400)
--- NOTE | 2018-01-29 09:27 | PCMIDPN ---
Assessment/Plan: 1. Necrotizing fasciitis of the scrotum/perineal/buttock area secondary to MRSA with concomitant bacteremia status post diverting colostomy: Continue daptomycin as is. Patient denies myalgias or cough. Elevated CK likely related to underlying myositis. CK tomorrow. VAC change today. 2. Leukopenia: Resolving. As per my note yesterday, likely related to vancomycin, with contribution from underlying disease process. 2. Acute transaminitis: Resolved. Residual elevated AST related to muscle inflammation. 3. Miscellaneous: HIV negative, GC chlamydia negative. Patient reports that his doctor in [place] routinely screens him for syphilis; will not repeat this. 4. Low-grade fevers: Reinforced the importance of using his incentive spirometer. Chest x-ray report pending, but no clinical evidence of pneumonia, per se. No increased output from colostomy bag suggesting C diff. Suspect from resolving necrotizing fasciitis. 01/29/18 09:25 Subjective: Patient is his usual laconic self. No complaints. Does not understand why he went down for a chest x-ray this morning. Denies cough or myalgias. Frustrated about being hospitalized. Objective: Vital Signs Daptomycin 600 mg IV daily day 6 T-max 38.2 degrees Temp Pulse Resp BP Pulse Ox 37.3 C 84 16 132/68 H 95 01/29/18 08:00 01/29/18 08:00 01/29/18 08:00 01/29/18 08:00 01/29/18 08:00 Laboratory Results 01/29/18 04:40 01/28/18 05:35 01/28/18 01/29/18 01/30/18 05:59 05:59 05:59 Intake Total 1300 350 Output Total 1999 1145 Balance -700 -79 Blood culture January 25 remains no growth - Physical Exam General Appearance: alert, no apparent distress EENT: pharynx normal, No scleral icterus, No thrush Respiratory: lungs clear Cardiac/Chest: regular rate, rhythm, No systolic murmur Extremities: other (PICC line right upper extremity looks fine) Abdomen: non-tender, soft, other (Obese. Colostomy bag with liquid brown stool. ) Skin: other (Did not roll patient over to look at his wound VAC.), No rash ICD10 Worksheet Patient Problems: Problems Problem Status Onset Cellulitis of perineum Acute Cellulitis, scrotum Acute Left buttock abscess Acute
[2018-01-29] MEDS: PIOGLITAZONE HCL 15 MG TAB PO SCH (09:51)
[2018-01-29] MEDS: SELENIUM 0.2 MG TAB PO SCH (09:51)
[2018-01-29] MEDS: ENOXAPARIN 40 MG/0.4 ML SYR SC SCH (09:52)
[2018-01-29] MEDS: ASCORBIC ACID 500 MG TAB PO SCH ×2 (09:52→20:59)
[2018-01-29] MEDS: metFORMIN HCL 500 MG TAB PO SCH ×2 (09:52→20:59)
[2018-01-29] MEDS: LISINOPRIL 10 MG TAB PO SCH (09:52)
[2018-01-29] MEDS: MULTIVITAMINS 1 EACH TAB PO SCH (09:52)
[2018-01-29] MEDS: ATENOLOL 50 MG TAB PO SCH ×2 (09:52→20:59)
[2018-01-29] MEDS: CHOLECALCIFEROL VIT D3 2,000 UNITS TAB/CAP PO SCH ×2 (09:52→20:59)
[2018-01-29] MEDS: INSULIN LISPRO 100 UNIT/ML SC SCH ×3 (09:55→18:03)
[2018-01-29] MEDS ORDERED: LIDOCAINE 4% 15 GM CREAM TP PRN (10:02)
[2018-01-29] MEDS ORDERED: HYDROCODONE/APAP 5/325 TAB PO PRN (14:25)
[2018-01-29] MEDS: HYDROmorphONE/DILAUDID 1 MG/ML INJ IVP PRN (14:33)
[2018-01-29] MEDS ORDERED: LIDOCAINE HCL 4% TOPICAL SOLN 50ML TP PRN (15:00)
--- NOTE | 2018-01-29 15:56 | WOCRNPDOC ---
WOCRN Advanced Assessment Note - Skin Integrity Problem, Advanced Assess Left Buttock Surgical Wound/Incision Dressing Type: Black Vac Foam (x1), Wound Vac Dressing Description: Intact Exudate Amount: Minimal Exudate Characteristic(s): Sanguinous Integumentary Issue Intervention: Dressing Changed Schuyler Wound Tissue: Erythema Schuyler Wound Swelling: Moderate Wound Bed Constitution: Granulation Tissue (70%), Red/[place] - Non Granular Tissue (30%) Site Measurement - Head-to-Toe Length X Width X Depth (cm): 15x4x8.5 Skin Integrity Problem Comment: Wound extends in a linear fashion from pubic area to anus. It is to the left of the scrotum. 15 ml of 4% liquid lidocaine was used in wound bed during and throughout dressing change. Patient tolerated procedure quite well and also was administered 4 mg of IV dilaudid. Schuyler wound hair was clipped with clippers. Doris CHAKRABORTY, a SOLAR ENERGY TECHNICIAN and RN Tisha all assissted in vac change as patient needed to be moved from left side onto his back and placed in lithotomy position for much of the change. Scrotum is quite swollen. Mastisol and skin prep were applied schuyler wound and then it was draped. A piece of drape was placed over mons pubis to accomodate trac pad. Medium simplace was used to fill wound cavities x 2 pieces then a third was used to bridge to trac pad. Retention sutures in place in inferior wound bed. These were covered with drape to protect the area. Vac was restarted at -125 mm Hg continuous suction and there were no leaks detected.
--- NOTE | 2018-01-29 16:00 | ASMTCMCOM ---
CM Note CM Note Notes: Spoke to ID doctor about pt's antibiotic. CM unable so far to find SNF for pt due to the daily cost of Daptomycin ($500/day). Pt will need it for about 4 weeks, will discuss with hospitalist. Notified pt of issue, HONG w/f. DC Plan: TBD Date Signed: 01/29/2018 03:59 PM Electronically Signed By:Mohini Chaidez RN
--- NOTE | 2018-01-29 16:36 | HOSPPROG ---
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 Old records reviewed and summarized as above Subjective: paitent with no new complaints, he is feeling relatively well, walking some but still quite weak Objective: Vital Signs Temp Pulse Resp BP Pulse Ox 37.9 C 84 16 120/66 88 L 01/29/18 14:43 01/29/18 14:43 01/29/18 14:43 01/29/18 14:43 01/29/18 14:43 Laboratory Results 01/29/18 04:40 01/28/18 05:35 01/28/18 01/29/18 01/30/18 05:59 05:59 05:59 Intake Total 1300 350 Output Total 2000 1145 450 Balance -700 -795 -450 PT 15.1 SEC (12.0-15.0) H 01/27/18 05:05 INR 1.17 (0.83-1.16) H 01/27/18 05:05 awake alert anicteric op clear rrr no mrg cta b soft nt nd 2+ edema warm dry well perfused ICD10 Worksheet Patient Problems: Problems Problem Status Onset Left buttock abscess Acute Cellulitis of perineum Acute Cellulitis, scrotum Acute
[2018-01-29] MEDS: DAPTOmycin 600 MG in NS 100 ML IV SCH (18:03)
[2018-01-29] MEDS: ACETAMINOPHEN 325 MG TAB PO PRN (21:07)
[2018-01-30 05:20] LABS: CREATINE KINASE 273 IU/L (0-224)
[2018-01-30] MEDS: INSULIN LISPRO 100 UNIT/ML SC SCH ×3 (08:58→18:27)
[2018-01-30] MEDS: PIOGLITAZONE HCL 15 MG TAB PO SCH (09:13)
[2018-01-30] MEDS: ATENOLOL 50 MG TAB PO SCH ×2 (09:13→20:08)
[2018-01-30] MEDS: LISINOPRIL 10 MG TAB PO SCH (09:13)
[2018-01-30] MEDS: CHOLECALCIFEROL VIT D3 2,000 UNITS TAB/CAP PO SCH ×2 (09:13→20:08)
[2018-01-30] MEDS: metFORMIN HCL 500 MG TAB PO SCH ×2 (09:14→20:08)
[2018-01-30] MEDS: SELENIUM 0.2 MG TAB PO SCH (09:14)
[2018-01-30] MEDS: ENOXAPARIN 40 MG/0.4 ML SYR SC SCH (09:14)
[2018-01-30] MEDS: ASCORBIC ACID 500 MG TAB PO SCH ×2 (09:14→20:08)
[2018-01-30] MEDS: MULTIVITAMINS 1 EACH TAB PO SCH (09:35)
[2018-01-30 09:45] LABS: PLATELET COUNT 195 10^3/uL (150-400)
--- NOTE | 2018-01-30 11:03 | SOAPPROG ---
SOAP Progress Note Assessment/Plan: Assessment: 77yo M c Jacqueline's s/p multi debridements, colostomy - VSS, HDS - VAC change at bedside went well yesterday - cont abx - having retention issues, may need malloy, has a lot of swelling in penis and scrotal area - next VAC change Thursday, depending on how looks will start planning delayed closure Plan: 01/30/18 11:01 Subjective: no complaints Objective: Vital Signs Temp Pulse Resp BP Pulse Ox 37.0 C 79 16 143/66 H 97 01/30/18 08:00 01/30/18 08:00 01/30/18 08:00 01/30/18 08:00 01/30/18 08:00 Laboratory Results 01/30/18 09:30 01/28/18 05:35 01/29/18 01/30/18 01/31/18 05:59 05:59 05:59 Intake Total 350 1000 600 Output Total 1145 1090 150 Balance -795 -90 450 PT 15.1 SEC (12.0-15.0) H 01/27/18 05:05 INR 1.17 (0.83-1.16) H 01/27/18 05:05 ICD10 Worksheet Patient Problems: Problems Problem Status Onset Cellulitis of perineum Acute Cellulitis, scrotum Acute Left buttock abscess Acute
--- NOTE | 2018-01-30 15:30 | HOSPPROG ---
Hospitalist Progress Note Assessment/Plan: 77 yo M with hx of DM2 and obesity presenting with nec fasc scrotal region * necrotizing fasciitis/Jacqueline's gangrene s/p debridement - wound vac in place -surgery following -can likely close up the wound in the coming week per surgery * MRSA sepsis (POA) -BC cleared -IV daptomycin due to leukopenia with IV vanco -4 weeks IV abx * s/p colostomy due to stool contaminating wound * DM II -most recent HgA1c 7.6 -metformin + ISS * Obesity BMI 34 * Increased LFT - likely due to sepsis * IP status Discussed with Dr. Sethi Subjective: no significant overnight events, patient reports doing well overall Objective: Vital Signs Temp Pulse Resp BP Pulse Ox 37.0 C 89 16 100/67 96 01/30/18 14:58 01/30/18 14:58 01/30/18 14:58 01/30/18 14:58 01/30/18 14:58 Laboratory Results 01/30/18 09:30 01/28/18 05:35 01/29/18 01/30/18 01/31/18 05:59 05:59 05:59 Intake Total 350 1000 600 Output Total 1145 1090 150 Balance -795 -90 450 PT 15.1 SEC (12.0-15.0) H 01/27/18 05:05 INR 1.17 (0.83-1.16) H 01/27/18 05:05 awake alert anicteric op clear rrr no mrg cta b soft nt nd 2+ edema warm dry well perfused ICD10 Worksheet Patient Problems: Problems Problem Status Onset Cellulitis of perineum Acute Cellulitis, scrotum Acute Left buttock abscess Acute
--- NOTE | 2018-01-30 16:33 | PCMIDPN ---
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 This presented with bacteremia. Bacteremia has cleared. Currently on daptomycin monotherapy. Creatine kinase continues to decrease. Primary wound has a VAC dressing on currently. Will go to the operating room again on Thursday for a VAC dressing change Plan: 1. Continue IV daptomycin. 2. Follow appearance of wound. Subjective: Patient is resting in his hospital room. His brother and sister are present as well. He has no new complaints. No fevers or chills. Tolerating daptomycin without issue. Patient denies white spread muscle pain. Objective: Daptomycin # 7 Vital Signs Temp Pulse Resp BP Pulse Ox 37.0 C 89 16 100/67 96 01/30/18 14:58 01/30/18 14:58 01/30/18 14:58 01/30/18 14:58 01/30/18 14:58 Laboratory Results 01/30/18 09:30 01/28/18 05:35 01/29/18 01/30/18 01/31/18 05:59 05:59 05:59 Intake Total 350 1000 600 Output Total 1145 1090 150 Balance -795 -90 450 - Physical Exam General Appearance: WD/WN, alert, no apparent distress, non-toxic Respiratory: lungs clear, normal breath sounds, No respiratory distress Cardiac/Chest: regular rate, rhythm, No tachycardia Skin: normal color, warm/dry, No rash Neuro/Psych: alert, normal mood/affect, oriented x 3 ICD10 Worksheet Patient Problems: Problems Problem Status Onset Cellulitis of perineum Acute Cellulitis, scrotum Acute Left buttock abscess Acute
[2018-01-30] MEDS: DAPTOmycin 600 MG in NS 100 ML IV SCH (18:27)
[2018-01-31 04:53] LABS: PLATELET COUNT 187 10^3/uL (150-400)
[2018-01-31] MEDS: PIOGLITAZONE HCL 15 MG TAB PO SCH (08:02)
[2018-01-31] MEDS: SELENIUM 0.2 MG TAB PO SCH (08:02)
[2018-01-31] MEDS: POTASSIUM CL 20 MEQ PKT PO SCH (08:02)
[2018-01-31] MEDS: metFORMIN HCL 500 MG TAB PO SCH ×2 (08:03→21:07)
[2018-01-31] MEDS: MULTIVITAMINS 1 EACH TAB PO SCH (08:03)
[2018-01-31] MEDS: ASCORBIC ACID 500 MG TAB PO SCH ×2 (08:03→21:07)
[2018-01-31] MEDS: CHOLECALCIFEROL VIT D3 2,000 UNITS TAB/CAP PO SCH ×2 (08:04→21:07)
[2018-01-31] MEDS: ATENOLOL 50 MG TAB PO SCH ×2 (08:11→21:07)
[2018-01-31] MEDS: LISINOPRIL 10 MG TAB PO SCH (08:11)
[2018-01-31] MEDS: INSULIN LISPRO 100 UNIT/ML SC SCH ×3 (08:25→18:28)
[2018-01-31] MEDS: ENOXAPARIN 40 MG/0.4 ML SYR SC SCH (08:25)
[2018-01-31] MEDS: ACETAMINOPHEN 325 MG TAB PO PRN ×2 (12:54→23:57)
--- NOTE | 2018-01-31 14:07 | HOSPPROG ---
Hospitalist Progress Note Assessment/Plan: 77 yo M with hx of DM2 and obesity presenting with nec fasc scrotal region * necrotizing fasciitis/Jacqueline's gangrene s/p debridement - wound vac in place -surgery following -can likely close up the wound in the coming week per surgery * MRSA sepsis (POA) -BC cleared -IV daptomycin due to leukopenia with IV vanco -4 weeks IV abx * acute on chronic anemia: -has been trending slowly down since admission but now 6.7/20 and will transfuse 2 units -suspect due to chronic inflammation from above but will check iron studies * hyponatremia: -mild but trending down, will check urine osms/urine Na and continue to trend * hypokalemia: - repleting * s/p colostomy due to stool contaminating wound * DM II -most recent HgA1c 7.6 -metformin + ISS * Obesity BMI 34 * Increased LFT - likely due to sepsis * IP status Subjective: no significant overnight events, patient states he is doing about the same, eating, walking some Objective: Vital Signs Temp Pulse Resp BP Pulse Ox 37.3 C 87 16 123/68 H 94 01/31/18 12:29 01/31/18 12:29 01/31/18 12:29 01/31/18 12:29 01/31/18 12:29 Microbiology 01/25/18 20:09 Blood Culture - Final Blood 01/25/18 20:18 Blood Culture - Final Blood Laboratory Results 01/31/18 04:40 01/31/18 04:40 01/30/18 01/31/18 02/01/18 05:59 05:59 05:59 Intake Total 1000 750 Output Total 1090 950 Balance -90 -200 PT 15.1 SEC (12.0-15.0) H 01/27/18 05:05 INR 1.17 (0.83-1.16) H 01/27/18 05:05 awake alert anicteric op clear rrr no mrg cta b soft nt nd 2+ edema warm dry well perfused ICD10 Worksheet Patient Problems: Problems Problem Status Onset Cellulitis of perineum Acute Cellulitis, scrotum Acute Left buttock abscess Acute
[2018-01-31] MEDS ORDERED: PROTOCOL MAGNESIUM 1 DOSE IV PRN (14:08)
[2018-01-31] MEDS ORDERED: PROTOCOL POTASSIUM 1 DOSE MISC PRN (14:08)
[2018-01-31] MEDS: DAPTOmycin 600 MG in NS 100 ML IV SCH (18:27)
[2018-01-31] MEDS ORDERED: POTASSIUM CL 10 MEQ TAB PO ONE (20:02)
[2018-02-01 06:38] LABS: PLATELET COUNT 209 10^3/uL (150-400)
[2018-02-01] MEDS: HYDROmorphONE/DILAUDID 1 MG/ML INJ IVP PRN (07:28)
[2018-02-01] MEDS: LIDOCAINE HCL 4% TOPICAL SOLN 50ML TP PRN (07:28)
[2018-02-01] MEDS ORDERED: diphenhydrAMINE 25 MG CAP PO PRN (07:37)
--- NOTE | 2018-02-01 08:26 | WOCRNPDOC ---
WOCRN Advanced Assessment Note - Skin Integrity Problem, Advanced Assess Left Buttock Surgical Wound/Incision Dressing Type: Wound Vac Other Dressing Type: 3 pieces black foam Dressing Description: Clean/Dry, Intact Exudate Amount: Minimal Exudate Characteristic(s): Sanguinous Integumentary Issue Intervention: Dressing Changed Elena Wound Tissue: Erythema, Swollen Elena Wound Swelling: Moderate Wound Bed Color: Red Wound Bed Constitution: Granulation Tissue (75%), Red/[place] - Non Granular Tissue (25%) Wound Edges: Attached Site Odor: None Site Measurement - Head-to-Toe Length X Width X Depth (cm): 13x4x6 Skin Integrity Problem Comment: Patient premedicated with 4mg IV dilaudid by Tenzin CHAKRABORTY. 10ml of 4% liquid lidocaine injected into the foam and used throughout the dressing change. Wound vac removed with 3 pieces of black foam. Wound cleansed with NS. Skin prepped with no sting barrier spray and mastisol. Skin draped in windowpane fashion. Wound extends from pubis to anus along the left side of the patient's scrotum. Two pieces of medium black simplace foam placed in wound with a third piece used to attach track pad. Wound draped and NPWT achieved at -125mmHg with no leaks. Patient was in lithotomy position and on his right side in order to visualize and drape entire wound. Zoey VILLAFUERTE and Anju CHAKRABORTY manager in room to assist. Dr Saha rounded during the dressing change. Next wound vac change will be Thursday. Patient tolerated dressing change well with pain meds. Rash noted on bilateral knees and back, Sonam CHAKRABORTY and Tenzin CHAKRABORTY notified. Dr Saha aware of the rash, ID was going into patient's room following dressing change.
--- NOTE | 2018-02-01 08:47 | HOSPPROG ---
Hospitalist Progress Note Assessment/Plan: # rash - new today; possible transfusion reaction? no clearly offending meds that are new today - received benadryl; will follow closely # fever - also new; need to consider transfusion reaction but recurrent infection also possible - wound ok per cell stripper final, just changed - will recheck BCx but not change treatment at this time with stable hemodynamics # royce's gangrene s/p I&D all - cont dapto, minimum 4 weeks iv abx - cont wound vac - colostomy as stool was contaminating wound # MRSA bacteremia d/t royce's gangrene - treatment as above # diabetes - glucs ok - cont SSI lispro, actos and metformin # obesity - BMI 34 # acute on chronic anemia d/t chronic inflammation s/p 2U PRBC yesterday # hypoNa - somewhat stable # hypoK - repleted # elevated LFTs - d/t sepsis Subjective: fever last night and this am; new rash; ostomy leaking today Objective: Vital Signs Temp Pulse Resp BP Pulse Ox 38.3 C H 80 16 149/77 H 94 02/01/18 08:00 02/01/18 08:00 02/01/18 08:00 02/01/18 08:00 02/01/18 08:00 Microbiology 01/25/18 20:09 Blood Culture - Final Blood 01/25/18 20:18 Blood Culture - Final Blood Laboratory Results 02/01/18 05:50 02/01/18 05:50 01/31/18 02/01/18 02/02/18 05:59 05:59 05:59 Intake Total 750 800 Output Total 950 1150 Balance -200 -350 PT 15.1 SEC (12.0-15.0) H 01/27/18 05:05 INR 1.17 (0.83-1.16) H 01/27/18 05:[address] pelvis reviewed - Physical Exam Constitutional: no apparent distress, appears nourished Cardiovascular: regular rate and rhythym, no murmur, rub, or gallop Respiratory: no respiratory distress, no rales or rhonchi, clear to auscultation Gastrointestinal: soft, non-tender abdomen, other (ostomy leaking) Genitourinary: other (wound vac) Skin: rash (lacy erythema on knees, back, mild on chest) ICD10 Worksheet Patient Problems: Problems Problem Status Onset Left buttock abscess Acute Cellulitis of perineum Acute Cellulitis, scrotum Acute
--- NOTE | 2018-02-01 09:08 | WOCRNPDOC ---
IVÁN Advanced Assessment Note - Skin Integrity Problem, Advanced Assess Left Buttock Surgical Wound/Incision Skin Integrity Problem Comment: Wound vac dressing leaking. Reinforced with drape until seal obtained. - Colostomy Assessment, Advanced Left Lower Abdomen Colostomy Stoma Colostomy Appliance Intact: No Colostomy Appliance Currently in Use: One Piece Flat, 2 1/4, Cut to Fit Stoma Color: Red Stoma Turgor: Moist Stoma Shape: Oval Stoma Height: Recessed Colostomy Effluent: Fecal, Pasty Colostomy Details: End Peristomal Skin: Erythematic, Denuded Peristomal Skin Complications: Irritant Contact Dermatitis Stomal Complications: Stomal Necrosis, Retraction Colostomy Comment/Treatment Details: Hole in previous ostomy pouch cut too big for stoma resulting in schuyler stomal skin breakdown. Template created and taped to paper towel dispenser. Patient unable to participate in care today and he declined to do much hands on. Wound/ostomy care will defer seeing him again for his ostomy teaching until the end of the week. It would be best to try to do ostomy teaching on a day when he doesnt have a vac change so we will round again . Patient's stoma is retracted and per RN has been leaking through the flat one piece so a soft convex 2 1/8 cut to fit was placed today. Patient has a incision area at 2 oclock. Paste was applied there. Discussed need for convexity in the future however it is unclear if patient was able to retain the information.
[2018-02-01] MEDS: metFORMIN HCL 500 MG TAB PO SCH ×2 (09:36→20:46)
[2018-02-01] MEDS: ASCORBIC ACID 500 MG TAB PO SCH ×2 (09:36→20:46)
[2018-02-01] MEDS: MULTIVITAMINS 1 EACH TAB PO SCH (09:36)
[2018-02-01] MEDS: LISINOPRIL 10 MG TAB PO SCH (09:36)
[2018-02-01] MEDS: ENOXAPARIN 40 MG/0.4 ML SYR SC SCH (09:36)
[2018-02-01] MEDS: PIOGLITAZONE HCL 15 MG TAB PO SCH (09:36)
[2018-02-01] MEDS: SELENIUM 0.2 MG TAB PO SCH (09:37)
[2018-02-01] MEDS: ATENOLOL 50 MG TAB PO SCH ×2 (09:37→20:46)
[2018-02-01] MEDS: POTASSIUM CL 20 MEQ PKT PO SCH (09:37)
[2018-02-01] MEDS: ACETAMINOPHEN 325 MG TAB PO PRN ×2 (09:37→20:45)
[2018-02-01] MEDS: CHOLECALCIFEROL VIT D3 2,000 UNITS TAB/CAP PO SCH ×2 (09:37→20:46)
[2018-02-01] MEDS: INSULIN LISPRO 100 UNIT/ML SC SCH ×3 (09:46→20:35)
--- NOTE | 2018-02-01 10:27 | SOAPPROG ---
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 Seen and examined with Dr. Saha at end of bedside wound vac change. Patient tolerating bedside change well. Still some low grade fevers. Plan to change wound vac bedside on Thursday and determine if ready for partial or complete delayed primary closure. New rash. Antibiotic reaction? On daptomycin. S: doing well with vac change. O: alert, nad no wob abd soft, ostomy pink +granulation in wound bed per RNs. surrounding tissue soft, no erythema, no malodor 02/01/18 10:25 Objective: Vital Signs Temp Pulse Resp BP Pulse Ox 38.3 C H 80 16 149/77 H 94 02/01/18 08:00 02/01/18 08:00 02/01/18 08:00 02/01/18 08:00 02/01/18 08:00 Microbiology 01/29/18 08:12 Urine Culture - Final Unspecified Pseudomonas Aeruginosa 01/25/18 20:09 Blood Culture - Final Blood 01/25/18 20:18 Blood Culture - Final Blood Laboratory Results 02/01/18 05:50 02/01/18 05:50 01/31/18 02/01/18 02/02/18 05:59 05:59 05:59 Intake Total 750 800 Output Total 950 1150 Balance -200 -350 PT 15.1 SEC (12.0-15.0) H 01/27/18 05:05 INR 1.17 (0.83-1.16) H 01/27/18 05:05 ICD10 Worksheet Patient Problems: Problems Problem Status Onset Cellulitis of perineum Acute Cellulitis, scrotum Acute Left buttock abscess Acute
--- NOTE | 2018-02-01 11:34 | ASMTCMCOM ---
CM Note CM Note Notes: Additional referrals sent to SNFs. [facility] is still reviewing this case. Pt has a colostomy, wound vac and will need dapto for 4 weeks. CM to follow. Plan: SNF Date Signed: 02/01/2018 11:33 AM Electronically Signed By:JESS Root
[2018-02-01] MEDS ORDERED: POTASSIUM CL 10 MEQ TAB PO ONE ×2 (11:45→22:32)
[2018-02-01 14:25] LABS: CREATINE KINASE 148 IU/L (0-224)
--- NOTE | 2018-02-01 15:29 | PCMIDPN ---
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 Overall showing marked clinical improvement post drainage. Now on daptomycin due to concerns about possible vancomycin associated leukopenia. Will add on CPK to today's labs to ensure remained stable as this was elevated at baseline. Will need 4 week course of IV antibiotic therapy based on presence of bacteremia. * Leukopenia: Initially felt this was secondary to vancomycin although has not significantly improved despite stopping vancomycin. 2+ atypical lymphocytes also noted on differential today. Will have pathology review peripheral blood smear to ensure no evidence of hematologic process as would have expected to resolve if related to vancomycin. * Rash: Rash over back and both knees with appearance consistent with drug rash. Unclear if this is related to daptomycin although this would seem most likely given vancomycin discontinued 9 days ago. No evidence of enanthem. Will therefore continue daptomycin with careful observation for any extension of rash as alternative therapy with a drug such as ceftaroline is complex in the setting of leukopenia due to its common association with neutropenia. Will assess liver enzymes as well as elevation can be associated more significant drug allergy. Low-grade temperature potentially related. 02/01/18 15:26 02/01/18 15:28 02/01/18 15:29 Subjective: Patient without specific complaints other than frustrated barrios of continued use of wound VAC. No cough or shortness of breath. Objective: Vital Signs Temp Pulse Resp BP Pulse Ox 37.4 C 85 16 121/83 H 97 02/01/18 12:00 02/01/18 12:00 02/01/18 12:00 02/01/18 12:00 02/01/18 12:00 Microbiology 01/29/18 08:12 Urine Culture - Final Unspecified Pseudomonas Aeruginosa Laboratory Results 02/01/18 05:50 02/01/18 05:50 01/31/18 02/01/18 02/02/18 05:59 05:59 05:59 Intake Total 750 800 Output Total 950 1150 Balance -200 -350 Daptomycin # 9 Temperature maximum 38.3 - Physical Exam General Appearance: alert, no apparent distress EENT: other (No intraoral or lip erosions), No scleral icterus, No conjunctival petechiae Respiratory: lungs clear, No respiratory distress Cardiac/Chest: regular rate, rhythm Abdomen: non-tender, No distended Skin: rash (Morbilliform rash over both knees and entirety of back) - Line/s RUE PICC Lines: No drainage, No erythema - Time Spent With Patient Time Spent with Patient: greater than 35 minutes Time Spent with Patient: Greater than 35 minutes spent on this patients care, greater than 50% of time spent counseling, educating, and coordinating care regarding the above mentioned plan. ICD10 Worksheet Patient Problems: Problems Problem Status Onset Cellulitis of perineum Acute Cellulitis, scrotum Acute Left buttock abscess Acute
[2018-02-01] MEDS: DAPTOmycin 600 MG in NS 100 ML IV SCH (18:10)
[2018-02-02] MEDS: INSULIN LISPRO 100 UNIT/ML SC SCH ×3 (08:34→17:56)
[2018-02-02] MEDS: MULTIVITAMINS 1 EACH TAB PO SCH (09:30)
[2018-02-02] MEDS: POTASSIUM CL 20 MEQ PKT PO SCH (09:30)
[2018-02-02] MEDS: CHOLECALCIFEROL VIT D3 2,000 UNITS TAB/CAP PO SCH ×2 (09:30→22:01)
[2018-02-02] MEDS: LISINOPRIL 10 MG TAB PO SCH (09:30)
[2018-02-02] MEDS: ATENOLOL 50 MG TAB PO SCH ×2 (09:30→22:02)
[2018-02-02] MEDS: ENOXAPARIN 40 MG/0.4 ML SYR SC SCH (09:30)
[2018-02-02] MEDS: ASCORBIC ACID 500 MG TAB PO SCH ×2 (09:30→22:01)
[2018-02-02] MEDS: SELENIUM 0.2 MG TAB PO SCH (09:30)
[2018-02-02] MEDS: PIOGLITAZONE HCL 15 MG TAB PO SCH (09:30)
[2018-02-02] MEDS: metFORMIN HCL 500 MG TAB PO SCH ×2 (09:30→22:02)
[2018-02-02] MEDS: ACETAMINOPHEN 325 MG TAB PO PRN (11:38)
[2018-02-02 12:42] LABS: PLATELET COUNT 221 10^3/uL (150-400)
--- NOTE | 2018-02-02 16:11 | PCMIDPN ---
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 Overall showing marked clinical improvement post drainage. Continue daptomycin. See additional discussion below. CPK improved. * Leukopenia: Initially felt this was secondary to vancomycin although has not significantly improved despite stopping vancomycin. Peripheral blood smear reviewed by pathology yesterday and does not show findings to suggest significant hematologic process. Query if patient may be having vasculitic response to his MRSA infection with leukopenia associated with this process particularly in light of rash as discussed below. * Rash: Patient now with additional rash over medial thighs with livedo reticularis type appearance. Query if rather than drug rash this could be vasculitic in etiology in association with underlying MRSA infection. Will obtain C-reactive protein and complement levels. Typically this would be treated with corticosteroids although complicated by patient's need for complex wound healing in perineal region related to necrotizing infection. * Fever: Temperature maximum of 39.5 last p.m.. Blood cultures are currently pending and chest x-ray shows no focal pneumonia. No significant eosinophilia or respiratory symptoms to suggest hypersensitivity pneumonitis associated with daptomycin. Drug fever remains consideration and may ultimately need to change antibiotic therapy to ceftaroline based on above constellation of symptoms which also could be drug induced. Doubt fever due to catheter associated urinary tract infection. 02/02/18 16:08 02/02/18 16:12 Subjective: Patient without specific complaint other than concerned about duration of need for wound VAC. Rash is not bothersome. Objective: Vital Signs Temp Pulse Resp BP Pulse Ox 37.9 C 88 18 133/76 H 94 02/02/18 15:07 02/02/18 15:07 02/02/18 15:07 02/02/18 15:07 02/02/18 15:07 Laboratory Results 02/02/18 05:20 02/01/18 02/02/18 02/03/18 05:59 05:59 05:59 Intake Total 800 250 Output Total 1150 700 225 Balance -350 -450 -225 Daptomycin # 10 T-max 39.5 degrees Blood cultures x2 02/01/2018 pending Chest x-ray without evidence of pneumonia Prior urine culture showing greater than 100,000 Pseudomonas - Physical Exam General Appearance: alert, no apparent distress EENT: No scleral icterus, No thrush, No conjunctival petechiae Abdomen: non-tender, No distended Skin: rash (Patchy erythematous rash less prominent over both knees; livedo reticularis type appearance over both thighs; rash over back stable when compared to yesterday's exam), No embolic lesions Neuro/Psych: alert, No confused - Line/s RUE PICC Lines: No drainage, No erythema ICD10 Worksheet Patient Problems: Problems Problem Status Onset Cellulitis of perineum Acute Cellulitis, scrotum Acute Left buttock abscess Acute
[2018-02-02] MEDS ORDERED: POTASSIUM CL 10 MEQ TAB PO ONE (16:19)
--- NOTE | 2018-02-02 17:34 | SOAPPROG ---
SOAP Progress Note Assessment/Plan: Assessment/Plan: 77 Y M perirectal abscess, Jacqueline's gangrene. S/p multiple operative I&D's and diverting colostomy. Seen and examined with Dr. Saha earlier this am during [facility] downtime. Wound vac in place. Surrounding tissue soft. Plan for vac change bedside tomorrow. If clean, then may bring to OR later this week for partial or full delayed primary closure. Appreciate IM and ID input, especially regarding fever and rash. S: doing well with vac changes. no complaints. O: alert, nad no wob abd soft, ostomy pink see above. 02/02/18 17:32 Objective: Vital Signs Temp Pulse Resp BP Pulse Ox 37.9 C 88 18 133/76 H 94 02/02/18 15:07 02/02/18 15:07 02/02/18 15:07 02/02/18 15:07 02/02/18 15:07 Laboratory Results 02/02/18 05:20 02/02/18 05:20 02/01/18 02/02/18 02/03/18 05:59 05:59 05:59 Intake Total 800 250 Output Total 1150 700 225 Balance -350 -450 -225 PT 15.1 SEC (12.0-15.0) H 01/27/18 05:05 INR 1.17 (0.83-1.16) H 01/27/18 05:05 ICD10 Worksheet Patient Problems: Problems Problem Status Onset Cellulitis of perineum Acute Cellulitis, scrotum Acute Left buttock abscess Acute
[2018-02-02] MEDS: DAPTOmycin 600 MG in NS 100 ML IV SCH (17:57)
[2018-02-03] MEDS: INSULIN LISPRO 100 UNIT/ML SC SCH ×3 (08:08→18:42)
--- NOTE | 2018-02-03 09:09 | HOSPPROG ---
Hospitalist Progress Note Assessment/Plan: # rash - started Sun/Mon - etiology: drug rash or vasculitis in setting of staph bacteremia - possibly slight improvement today - elevated crp, complements pending # fever - also started Sun/Mon - suspect same process as rash as above # leukopenia - stable; this is why vanc was changed to dapto - no atypical cells on smear # mild elevated LFTs - follow daily for now; may be sepsis vs d/t above process # royce's gangrene s/p I&D, now with wound vac - cont dapto, minimum 4 weeks iv abx - may begin closing wound this week per surgery - colostomy placed as stool was contaminating wound # MRSA bacteremia d/t royce's gangrene - treatment as above # diabetes - glucs ok - cont SSI lispro, actos and metformin # obesity - BMI 34 # acute on chronic anemia d/t chronic inflammation s/p 2U PRBC # hypoNa - somewhat stable # hypoK - repleted Subjective: no fever overnight Objective: Vital Signs Temp Pulse Resp BP Pulse Ox 36.8 C 90 18 112/81 H 90 L 02/03/18 07:50 02/03/18 07:50 02/03/18 07:50 02/03/18 07:50 02/03/18 07:50 Laboratory Results 02/03/18 05:20 02/03/18 05:20 02/02/18 02/03/18 02/04/18 05:59 05:59 05:59 Intake Total 250 Output Total 700 725 Balance -450 -725 PT 15.1 SEC (12.0-15.0) H 01/27/18 05:05 INR 1.17 (0.83-1.16) H 01/27/18 05:05 - Physical Exam Constitutional: uncomfortable Cardiovascular: regular rate and rhythym, no murmur, rub, or gallop Respiratory: no rales or rhonchi, clear to auscultation, No expiratory wheeze, No inspiratory crackles Gastrointestinal: soft, non-tender abdomen, no palpable masses, other (ostomy), No guarding, No rebound Genitourinary: other (wound vac) ICD10 Worksheet Patient Problems: Problems Problem Status Onset Left buttock abscess Acute Cellulitis of perineum Acute Cellulitis, scrotum Acute
--- NOTE | 2018-02-03 10:20 | ASMTCMCOM ---
CM Note CM Note Notes: Pt visiting brother from [place], admitted to hospital on 01/19 for groin abscess. He is has a wound vac, colostomy, and is on IV abx (Daptomycin). Pt needs SNF but d/t cost of abx, SNFs unable to take, he will likely stay here for the duration of his abx course, CM w/f. Of note, his brother lives here in [place] in low cost housing not [place]. DC Plan: TBD Date Signed: 02/03/2018 10:19 AM Electronically Signed By:Mohini Chaidez RN
[2018-02-03] MEDS: POTASSIUM CL 20 MEQ PKT PO SCH (10:22)
[2018-02-03] MEDS: ENOXAPARIN 40 MG/0.4 ML SYR SC SCH (10:22)
[2018-02-03] MEDS: metFORMIN HCL 500 MG TAB PO SCH ×2 (10:23→21:42)
[2018-02-03] MEDS: CHOLECALCIFEROL VIT D3 2,000 UNITS TAB/CAP PO SCH ×2 (10:23→21:42)
[2018-02-03] MEDS: SELENIUM 0.2 MG TAB PO SCH (10:24)
[2018-02-03] MEDS: ASCORBIC ACID 500 MG TAB PO SCH ×2 (10:24→21:42)
[2018-02-03] MEDS: ATENOLOL 50 MG TAB PO SCH ×2 (10:24→21:42)
[2018-02-03] MEDS: PIOGLITAZONE HCL 15 MG TAB PO SCH (10:24)
[2018-02-03] MEDS: LISINOPRIL 10 MG TAB PO SCH (10:24)
[2018-02-03] MEDS: MULTIVITAMINS 1 EACH TAB PO SCH (10:24)
[2018-02-03] MEDS: HYDROmorphONE/DILAUDID 1 MG/ML INJ IVP PRN (11:11)
[2018-02-03] MEDS: LIDOCAINE HCL 4% TOPICAL SOLN 50ML TP PRN (11:15)
--- NOTE | 2018-02-03 11:52 | PCMIDPN ---
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 Overall showing marked clinical improvement post drainage. Continue daptomycin. Anticipate 4 week course of therapy given presence of bacteremia. Wound bed examined today at time of wound VAC change with extensive granulation and no residual signs of infection present. * Leukopenia: Initially felt this was secondary to vancomycin although has not significantly improved despite stopping vancomycin. Suspect this may be related to vasculitic/immune complex deposition process associated with underlying MRSA bacteremia. CRP markedly elevated with complements pending to further assess. * Rash: See above discussion. Rash over knees remains stable and has persistent livedo type appearance in over thighs. If rash were to worsen or persistent fever to be present, would consider brief course of corticosteroids. * Fever: No fever over last 24 hr. Repeat blood cultures are no growth. Continue to observe. 02/03/18 11:47 Subjective: Patient seen during wound VAC change. No specific complaints. Not bothered by rash. Objective: Vital Signs Temp Pulse Resp BP Pulse Ox 36.8 C 90 18 112/81 H 90 L 02/03/18 07:50 02/03/18 10:24 02/03/18 07:50 02/03/18 10:24 02/03/18 07:50 Laboratory Results 02/03/18 05:20 02/03/18 05:20 02/02/18 02/03/18 02/04/18 05:59 05:59 05:59 Intake Total 250 Output Total 700 725 Balance -450 -725 C-Reactive Protein 142.6 mg/L (<10.0) H 02/02/18 19:35 Daptomycin # 11 Blood cultures x2 02/01/18 no growth Complements pending - Physical Exam General Appearance: alert, no apparent distress EENT: No scleral icterus, No thrush, No conjunctival petechiae Respiratory: lungs clear, No respiratory distress Cardiac/Chest: regular rate, rhythm, No systolic murmur Extremities: No inflammation Abdomen: non-tender, No distended Male Genitalia: other (Perineal wound with extensive granulation and no surrounding erythema or purulent) Skin: rash (Rash over knees and thighs without change (back not examined as patient was having wound VAC change)) - Line/s RUE PICC Lines: No drainage, No erythema ICD10 Worksheet Patient Problems: Problems Problem Status Onset Cellulitis of perineum Acute Cellulitis, scrotum Acute Left buttock abscess Acute
[2018-02-03] MEDS: ACETAMINOPHEN 325 MG TAB PO PRN ×2 (12:34→21:42)
--- NOTE | 2018-02-03 12:44 | SOAPPROG ---
SOAP Progress Note Assessment/Plan: Assessment/Plan: 77 Y M perirectal abscess, Jacqueline's gangrene. S/p multiple operative I&D's and diverting colostomy. Viewed wound directly today with wound care. Good granulation, very clean. Will set up for delayed primary closure this Thursday. NPO, consent, and holding lovenox done for Thursday. Continue malloy catheter. Appreciate IM and ID input, especially regarding fever and rash. S: doing well with vac changes. no complaints. O: alert, nad no wob abd soft, ostomy pink see above. 02/03/18 12:41 Objective: Vital Signs Temp Pulse Resp BP Pulse Ox 39.4 C H 99 18 141/79 H 96 02/03/18 12:00 02/03/18 12:00 02/03/18 12:00 02/03/18 12:00 02/03/18 12:00 Laboratory Results 02/03/18 05:20 02/03/18 05:20 02/02/18 02/03/18 02/04/18 05:59 05:59 05:59 Intake Total 250 Output Total 700 725 Balance -450 -725 PT 15.1 SEC (12.0-15.0) H 01/27/18 05:05 INR 1.17 (0.83-1.16) H 01/27/18 05:05 ICD10 Worksheet Patient Problems: Problems Problem Status Onset Cellulitis of perineum Acute Cellulitis, scrotum Acute Left buttock abscess Acute
--- NOTE | 2018-02-03 13:12 | WOCRNPDOC ---
WOCRN Advanced Assessment Note - Colostomy Assessment, Advanced Left Lower Abdomen Colostomy Stoma Colostomy Appliance Intact: No Colostomy Appliance Currently in Use: One Piece Convex, 2 1/4, Cut to Fit Stoma Color: Red Stoma Turgor: Moist Stoma Shape: Oval Stoma Height: Recessed Colostomy Effluent: Fecal, Thin Colostomy Details: End Peristomal Skin: Erythematic, Denuded Peristomal Skin Complications: Irritant Contact Dermatitis Colostomy Comment/Treatment Details: Appliance leaking less than an hour after being changed. Appliance was cut to the correct size or just slightly too small on the lateral side allowing for seepage underneath. Peristomal skin cleansed with a warm wash cloth. Once dry, peristomal skin was dusted and crusted with a small strip of stoma paste applied at 2 o'clock. One piece 2 1/4" cut to fit soft convex appliance applied. Patient measured for an ostomy belt. Size large ostomy belt attached to appliance. Vilma CHAKRABORTY in room to assist.
[2018-02-03] MEDS: DAPTOmycin 600 MG in NS 100 ML IV SCH (17:22)
--- NOTE | 2018-02-03 19:16 | POSTOPPROG ---
Post Op Note Date of Operation: 01/20/18 Surgeon: Morales Saha Anesthesia: GET(General Endotracheal) Pre-op Diagnosis: FORNIERES GANGRENE Post-op Diagnosis: SAME Indication: SEPSIS Procedure: I AND D PERIRECTAL ABSCESS WITH RADICAL EXCISIONAL DEBRIDEMENT AND WOUND VA Findings: EXTENSIVE GANGRENOUS CHANGES OF THE PERINEUM FROM THE INGUINAL REGION ALL W Inf/Abcess present in the surg proc area at time of surgery?: Yes Depth: Deep Incisional (Fascial) EBL: 50-100 Complications: NONE Drains: Wound Vac Specimen(s): NECROTIC TISSUE
[2018-02-04] MEDS: INSULIN LISPRO 100 UNIT/ML SC SCH ×3 (09:05→18:24)
[2018-02-04] MEDS: PIOGLITAZONE HCL 15 MG TAB PO SCH (09:11)
[2018-02-04] MEDS: LISINOPRIL 10 MG TAB PO SCH (09:11)
[2018-02-04] MEDS: CHOLECALCIFEROL VIT D3 2,000 UNITS TAB/CAP PO SCH ×2 (09:11→22:34)
[2018-02-04] MEDS: ENOXAPARIN 40 MG/0.4 ML SYR SC SCH (09:11)
[2018-02-04] MEDS: metFORMIN HCL 500 MG TAB PO SCH ×2 (09:11→22:34)
[2018-02-04] MEDS: SELENIUM 0.2 MG TAB PO SCH (09:11)
[2018-02-04] MEDS: ASCORBIC ACID 500 MG TAB PO SCH ×2 (09:12→22:35)
[2018-02-04] MEDS: POTASSIUM CL 20 MEQ PKT PO SCH (09:12)
[2018-02-04] MEDS: MULTIVITAMINS 1 EACH TAB PO SCH (09:12)
[2018-02-04] MEDS: ATENOLOL 50 MG TAB PO SCH ×2 (09:12→22:34)
--- NOTE | 2018-02-04 15:47 | HOSPPROG ---
Hospitalist Progress Note Assessment/Plan: * Jacqueline's gangrene s/p debridement - wound vac -delayed primary closure with Dr. 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 Objective: Vital Signs Temp Pulse Resp BP Pulse Ox 38.0 C 91 16 106/85 H 93 02/04/18 11:22 02/04/18 11:22 02/04/18 11:22 02/04/18 11:22 02/04/18 11:22 Laboratory Results 02/03/18 05:20 02/04/18 06:15 02/03/18 02/04/18 02/05/18 05:59 05:59 05:59 Intake Total 800 Output Total 725 1300 Balance -725 -500 PT 15.1 SEC (12.0-15.0) H 01/27/18 05:05 INR 1.17 (0.83-1.16) H 01/27/18 05:05 d/w Dr. Torres regarding possible change back to IV Vanco CXR - negative - Physical Exam Constitutional: no apparent distress, appears nourished, not in pain Cardiovascular: regular rate and rhythym, no murmur, rub, or gallop Respiratory: no respiratory distress, no rales or rhonchi, clear to auscultation Gastrointestinal: normoactive bowel sounds, soft, non-tender abdomen, no palpable masses Skin: no rashes or abrasions, no fluctuance, no induration Neurologic: AAOx3, sensation intact bilaterally Psychiatric: interacting appropriately, not anxious, not encephalopathic, thought process linear ICD10 Worksheet Patient Problems: Problems Problem Status Onset Cellulitis of perineum Acute Cellulitis, scrotum Acute Left buttock abscess Acute
[2018-02-04] MEDS: DAPTOmycin 600 MG in NS 100 ML IV SCH (17:03)
--- NOTE | 2018-02-04 17:17 | SOAPPROG ---
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 Now s/p colostomy creation to avoid contamination of wound and wound vac change Cultures grew MRSA, on Daptomycin instead of Vanco due to leukopenia S: No complaints. Denies pain. O: Alert Afebrile RRR No increased WOB Abdomen soft, nontender, normoactive bowel sounds, ostomy is pink with liquid brown stool in appliance. : Wound vac in place to suction. Plan: OR for delayed primary closure of wound. Options and risks discussed, pt agrees to plan. 02/04/18 17:17 Objective: Vital Signs Temp Pulse Resp BP Pulse Ox 38.2 C 91 16 111/73 93 02/04/18 15:57 02/04/18 15:57 02/04/18 15:57 02/04/18 15:57 02/04/18 15:57 Laboratory Results 02/03/18 05:20 02/03/18 02/04/18 02/05/18 05:59 05:59 05:59 Intake Total 800 Output Total 725 1300 Balance -725 -500 PT 15.1 SEC (12.0-15.0) H 01/27/18 05:05 INR 1.17 (0.83-1.16) H 01/27/18 05:05 ICD10 Worksheet Patient Problems: Problems Problem Status Onset Cellulitis of perineum Acute Cellulitis, scrotum Acute Left buttock abscess Acute
--- NOTE | 2018-02-04 18:50 | PCMIDPN ---
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 Overall showing marked clinical improvement post drainage. May undergo surgical closure of perineal wound tomorrow. Continue daptomycin in interim. Anticipate 4 weeks of antibiotic therapy for MRSA bacteremia. * Leukopenia: Initially felt this was secondary to vancomycin although has not significantly improved despite stopping vancomycin. Query if this is due to vasculitis/immune complex deposition from Staph aureus infection versus potential relationship to antibiotic therapy. Await complement levels with consideration for corticosteroids if decreased. Will also obtain ANCA levels. Rare reports of neutropenia with daptomycin although review of white blood cell count over time shows that decreased began before initiation of daptomycin. Will consider discontinuation of daptomycin with change to ceftaroline although complex due to potential for neutropenia with ceftaroline. Other potential alternative would be repeat challenge with vancomycin. * Rash: See above discussion. Rash stable. Patient without symptoms referable to rash. * Fever: Recurrent high-grade temperature overnight. Suspect may be related to underlying etiology for leukopenia and rash. Do not think this is due to persistent or recurrent MRSA infection. Repeat blood cultures have remain negative. 02/04/18 18:47 02/04/18 18:55 Subjective: Patient without specific complaints. No itching or pain associated with rash. Objective: Vital Signs Temp Pulse Resp BP Pulse Ox 38.2 C 91 16 111/73 93 02/04/18 15:57 02/04/18 15:57 02/04/18 15:57 02/04/18 15:57 02/04/18 15:57 Laboratory Results 02/03/18 05:20 02/04/18 17:08 02/03/18 02/04/18 02/05/18 05:59 05:59 05:59 Intake Total 800 Output Total 725 1300 550 Balance -725 -500 -550 C-Reactive Protein 142.6 mg/L (<10.0) H 02/02/18 19:35 Temperature maximum 39.4 Blood cultures 02/01/2018 no growth - Physical Exam General Appearance: alert, no apparent distress EENT: other (No oral ulcerations or erosions), No scleral icterus, No conjunctival petechiae Respiratory: lungs clear, No respiratory distress Cardiac/Chest: regular rate, rhythm Extremities: No inflammation Abdomen: non-tender, No distended Skin: rash (No change in rash over knees, thighs and back) ICD10 Worksheet Patient Problems: Problems Problem Status Onset Cellulitis of perineum Acute Cellulitis, scrotum Acute Left buttock abscess Acute
[2018-02-04] MEDS: ACETAMINOPHEN 325 MG TAB PO PRN (22:35)
[2018-02-05 04:07] LABS: PLATELET COUNT 208 10^3/uL (150-400)
[2018-02-05] MEDS: INSULIN LISPRO 100 UNIT/ML SC SCH ×3 (09:28→18:25)
[2018-02-05] MEDS: metFORMIN HCL 500 MG TAB PO SCH ×2 (09:37→21:27)
[2018-02-05] MEDS: PIOGLITAZONE HCL 15 MG TAB PO SCH (09:37)
[2018-02-05] MEDS: CHOLECALCIFEROL VIT D3 2,000 UNITS TAB/CAP PO SCH ×2 (09:37→21:27)
[2018-02-05] MEDS: ATENOLOL 50 MG TAB PO SCH ×2 (09:37→23:27)
[2018-02-05] MEDS: POTASSIUM CL 20 MEQ PKT PO SCH (09:37)
[2018-02-05] MEDS: SELENIUM 0.2 MG TAB PO SCH (09:37)
[2018-02-05] MEDS: LISINOPRIL 10 MG TAB PO SCH (09:38)
[2018-02-05] MEDS: ASCORBIC ACID 500 MG TAB PO SCH ×2 (09:38→21:27)
[2018-02-05] MEDS: MULTIVITAMINS 1 EACH TAB PO SCH (09:39)
--- NOTE | 2018-02-05 11:43 | PCMIDPN ---
Assessment/Plan: #Sepsis: resolved, secondary to MRSA bacteremia and perineal infection #MRSA bacteremia and Jacqueline's gangrene. Blood cx cleared S/p debridement 01/21 and 01/24 and end colostomy 01/24. Planning closure of wound today. Infection well controlled but patient developed livedo-appearing rash primarily LE, leukopenia w increased bands today, continued intermittent fever,mild LFT elevation. No localizing symptoms. Persistent fever and lab abnormalities DDx: drug reaction, persistent abscess not yet identified, cdiff. repeat blood cx neg so doubt line infection, O2 requirements stable and no resp sx so doubt PNA. Will start with drug changes. --dc daptomycin --re-start vancomycin as it seems that it was not the cause of leukopenia --consider CT abd/pelvis, cdiff testing and steroids if above issues persist # Rash : appears stable, complement normal. awaiting vasculitis screen. See above discussion Microbiology 01/19/18 Buttock - MRSA 01/19/18 Blood Cx (1/2) MRSA Dapto JUAN A = <0.1 01/21/18 Blood Cx (2) Neg 01/25/18 Blood Cx (2) Neg 02/01/18 blood cx (2) NGTD 01/24 Cdiff neg Meds daptomycin 600mg IV daily#12 (has not gotten today's dose) Subjective: feeling fine, wondering what everyone is getting excited about no abdominal pain no SOB, cough rash known, but he isn't aware Objective: Vital Signs Temp Pulse Resp BP Pulse Ox 36.8 C 89 18 126/70 H 94 02/05/18 08:00 02/05/18 09:37 02/05/18 08:00 02/05/18 09:38 02/05/18 08:00 Laboratory Results 02/05/18 03:30 02/05/18 03:30 02/04/18 02/05/18 02/06/18 05:59 05:59 05:59 Intake Total 800 Output Total 1300 950 Balance -500 -950 C-Reactive Protein 142.6 mg/L (<10.0) H 02/02/18 19:35 - Physical Exam General Appearance: alert, no apparent distress, obese EENT: pale conjunctiva, No scleral icterus Respiratory: lungs clear, No accessory muscle use Cardiac/Chest: regular rate, rhythm Extremities: No pedal edema Abdomen: normal bowel sounds, non-tender, soft, other (Ostomy stoma pink/normal) Male Genitalia: malloy, scrotal edema (mild, improved) Skin: other (livedo type appearance to eruption primary LE including thighs, blanching, no warmth. Seems a bit fainter than prior pictures reviewed by me) - Line/s RUE PICC Lines: No drainage, No erythema - Time Spent With Patient Time Spent with Patient: greater than 35 minutes Time Spent with Patient: Greater than 35 minutes spent on this patients care, greater than 50% of time spent counseling, educating, and coordinating care regarding the above mentioned plan. ICD10 Worksheet Patient Problems: Problems Problem Status Onset Cellulitis of perineum Acute Cellulitis, scrotum Acute Left buttock abscess Acute
[2018-02-05] MEDS: VANCOMYCIN 1.25 GM in D5W 250 ML IV SCH (12:51)
--- NOTE | 2018-02-05 12:52 | ASMTCMCOM ---
CM Note CM Note Notes: Pt going to surgery for closure of wound and removal of wound vac. Pt also getting abx changes from Daptomycin to Vancomycin, may allow pt to go to SNF now since abx won't be so expensive for SNF, HONG w/f. DC Plan: TBD Date Signed: 02/05/2018 12:51 PM Electronically Signed By:Mohini Chaidez RN
[2018-02-05] MEDS ORDERED: BUPIVACAINE 0.5% 30 ML SDV ONE (14:09)
[2018-02-05] MEDS ORDERED: LR 1,000 ML IV ONE (15:43)
--- NOTE | 2018-02-05 15:50 | HOSPPROG ---
Hospitalist Progress Note Assessment/Plan: * Jacqueline's gangrene s/p debridement - wound vac -delayed primary closure with Dr. 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 drug reaction - ? improving Subjective: NO new complaints. Objective: Vital Signs Temp Pulse Resp BP Pulse Ox 38.7 C H 122 H 36 H 118/72 89 L 02/05/18 12:14 02/05/18 12:14 02/05/18 12:14 02/05/18 12:14 02/05/18 12:14 Laboratory Results 02/05/18 03:30 02/05/18 03:30 02/04/18 02/05/18 02/06/18 05:59 05:59 05:59 Intake Total 800 Output Total 1300 950 800 Balance -500 -950 -800 PT 15.1 SEC (12.0-15.0) H 01/27/18 05:05 INR 1.17 (0.83-1.16) H 01/27/18 05:05 d/w Dr. Clement regarding abx and steroids - Physical Exam Constitutional: no apparent distress, appears nourished, not in pain Cardiovascular: regular rate and rhythym, no murmur, rub, or gallop Respiratory: no respiratory distress, no rales or rhonchi, clear to auscultation Gastrointestinal: normoactive bowel sounds, soft, non-tender abdomen, no palpable masses Skin: no rashes or abrasions, no fluctuance, no induration Neurologic: AAOx3, sensation intact bilaterally Psychiatric: interacting appropriately, not anxious, not encephalopathic, thought process linear ICD10 Worksheet Patient Problems: Problems Problem Status Onset Cellulitis of perineum Acute Cellulitis, scrotum Acute Left buttock abscess Acute
--- NOTE | 2018-02-05 17:00 | SOAPPROG ---
SOAP Progress Note Assessment/Plan: Assessment: Pt was assessed by Dr. Saha, who cancelled wound closure surgery due to new onset of altered mental status, increased fever, and diffuse rash. 02/05/18 4200 Objective: Vital Signs Temp Pulse Resp BP Pulse Ox 38.7 C H 122 H 38 H 88/55 L 98 02/05/18 12:14 02/05/18 12:14 02/05/18 16:40 02/05/18 16:40 02/05/18 16:40 Laboratory Results 02/05/18 03:30 02/05/18 03:30 02/04/18 02/05/18 02/06/18 05:59 05:59 05:59 Intake Total 800 Output Total 1300 950 800 Balance -500 -950 -800 PT 15.1 SEC (12.0-15.0) H 01/27/18 05:05 INR 1.17 (0.83-1.16) H 01/27/18 05:05 ICD10 Worksheet Patient Problems: Problems Problem Status Onset Cellulitis of perineum Acute Cellulitis, scrotum Acute Left buttock abscess Acute
[2018-02-05] MEDS ORDERED: NS 1,000 ML IV ONE (17:03)
[2018-02-05] MEDS ORDERED: IOPAMIDOL (ISOVUE-300) 100 ML BTL ONE (18:05)
[2018-02-05] MEDS: MEROPENEM 1 GM in NS 100 ML IV SCH (18:29)
[2018-02-06] MEDS: VANCOMYCIN 1.25 GM in D5W 250 ML IV SCH (01:13)
[2018-02-06] MEDS: MEROPENEM 1 GM in NS 100 ML IV SCH ×3 (03:23→18:16)
[2018-02-06] MEDS ORDERED: NS 1,000 ML IV ONE (04:16)
[2018-02-06 05:17] LABS: PLATELET COUNT 190 10^3/uL (150-400)
[2018-02-06] MEDS: INSULIN LISPRO 100 UNIT/ML SC SCH ×3 (09:25→18:39)
[2018-02-06] MEDS: NS 1,000 ML IV SCH (09:26)
[2018-02-06] MEDS: ENOXAPARIN 40 MG/0.4 ML SYR SC SCH (09:26)
--- NOTE | 2018-02-06 09:45 | PCMIDPN ---
Assessment/Plan: #Sepsis, recurrent: Doubt due to primary process of MRSA bacteremia and Jacqueline's gangrene. CT scan shows parastomal hernia and on closer exam today see possible loop of ischemic bowel in the stoma region. Continue broad- spectrum antibiotics for coverage of bowel injury. Discussed concern for bowel injury w surgery. Care was coordinated with critical care team. Suspect leukopenia reflected impending sepsis. --surgery to take patient back to OR to repair retracted ostomy #MRSA bacteremia and Jacqueline's gangrene. Blood cx cleared S/p debridement 01/21 and 01/24 and end colostomy 01/24. Doubt this is cause of recurrent infection, wound bed has been clean and blood cx cleared since 01/21 --additional data reveals that daptomycin not likely cause of rash, leukopenia. Will resume daptomycin as skin eruption worsened with changed to vancomycin. Direct correlation cannot be completely made as patient was also started on meropenem yesterday. Also with increasing Cr daptomycin may be better option --resume daptomycin 600 mg IV daily # Rash: Has a different character today brighter maculopapular eruption prominent on his bilateral knees, forearms and upper chest - looks more consistent with drug rash today. Difficult to sort out driving antibiotic as patient was switched back to vancomycin yesterday and received new antibiotic meropenem for coverage of new onset sepsis. Yesterday I was attributing skin changes to daptomycin but with worsening today seems less likely that this is the source of the rash. --continue to monitor rash, DC vancomycin as above # acute renal failure: Likely due to recurrent sepsis, DC vancomycin Microbiology 01/19/18 Buttock - MRSA 01/19/18 Blood Cx (1/2) MRSA Dapto JUAN A = <0.1 01/21/18 Blood Cx (2) Neg 01/25/18 Blood Cx (2) Neg 02/01/18 blood cx (2) NGTD 01/24 Cdiff neg Meds, MRSA coverage # 17 Meropenem 1 g IV Q 8 Vancomycin 1.25 g IV q.12 Subjective: patient denies any specific c/o Objective: Vital Signs Temp Pulse Resp BP Pulse Ox 36.9 C 110 H 34 H 111/60 98 02/06/18 08:00 02/06/18 08:00 02/06/18 08:00 02/06/18 08:00 02/06/18 08:00 Laboratory Results 02/06/18 04:57 02/06/18 04:57 02/05/18 02/06/18 02/07/18 05:59 05:59 05:59 Intake Total 3439 Output Total 950 1375 Balance -950 2064 ESR 23 MM/HR (0-20) H 02/06/18 04:57 C-Reactive Protein 142.6 mg/L (<10.0) H 02/02/18 19:35 - Physical Exam General Appearance: alert, apparent distress, obese EENT: dry mucous membranes, No thrush Respiratory: accessory muscle use, No lungs clear Cardiac/Chest: tachycardia Extremities: other (Diffuse maculopapular eruption most prominent at his knees and thighs for, forearms and upper chest - has a different character than livedo seen yesterday), No pedal edema Abdomen: non-tender, soft, other (Ostomy is pink but adjacent to it is a dusky soft tissue area, query loop of bowel) Male Genitalia: other (Much less scrotal edema, Rouse in place) Skin: other (See extremity exam) Neuro/Psych: alert, oriented x 3, other (Not as bright and interactive as he was yesterday) - Line/s RUE PICC Lines: No drainage, No erythema - Time Spent With Patient Time Spent with Patient: greater than 35 minutes Time Spent with Patient: Greater than 35 minutes spent on this patients care, greater than 50% of time spent counseling, educating, and coordinating care regarding the above mentioned plan. ICD10 Worksheet Patient Problems: Problems Problem Status Onset Cellulitis of perineum Acute Cellulitis, scrotum Acute Left buttock abscess Acute
--- NOTE | 2018-02-06 10:55 | SOAPPROG ---
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 Unsure if this is part of what is causing his fevers and elevated white blood count but it is not an option to observe this tenous ostomy. I will also do a wound vac change vs closure of perineum S: No abdominal pain O: Sitting up in bed, Increased work of breathing, shallow Regular rate Abdomen is soft. I was able to clean stool out of the peristomal area. The ostomy is viable and severely retracted - only hanging on by one suture and the fascial opening is wide making complete retraction into the abdomen a distinct possibility Plan: 02/06/18 10:49 Objective: Vital Signs Temp Pulse Resp BP Pulse Ox 36.9 C 110 H 34 H 111/60 98 02/06/18 08:00 02/06/18 08:00 02/06/18 08:00 02/06/18 08:00 02/06/18 08:00 Laboratory Results 02/06/18 04:57 02/06/18 04:57 02/05/18 02/06/18 02/07/18 05:59 05:59 05:59 Intake Total 3439 Output Total 950 1375 220 Balance -950 2064 -220 PT 15.1 SEC (12.0-15.0) H 01/27/18 05:05 INR 1.17 (0.83-1.16) H 01/27/18 05:05 ICD10 Worksheet Patient Problems: Problems Problem Status Onset Cellulitis of perineum Acute Cellulitis, scrotum Acute Left buttock abscess Acute
--- NOTE | 2018-02-06 11:59 | PDANEPAE ---
ANE Past Medical History - Cardiovascular History Hx Hypertension: Yes Hx Arrhythmias: No Hx Chest Pain: No Hx Coronary Artery / Peripheral Vascular Disease: No Hx CHF / Valvular Disease: No Hx Palpitations: No - Pulmonary History Hx COPD: No Hx Asthma/Reactive Airway Disease: No Hx Recent Upper Respiratory Infection: No Hx Oxygen in Use at Home: No Hx Sleep Apnea: Yes Sleep Apnea Screening Result - Last Documented: Positive - Endocrine History Hx Diabetes: Yes Hypothyroid: No Hyperthyroid: No Obesity: moderate - Renal History Hx Renal Disorders: No - Liver History Hx Hepatic Disorders: No - Chronic Pain History Chronic Pain: No ANE Review of Systems Review of Systems: - Exercise capacity Exercise capacity: unable to assess ANE Patient History - Allergies Allergies/Adverse Reactions: shellfish derived Allergy (Verified 01/19/18 13:38) Sulfa (Sulfonamide Antibiotics) Allergy (Verified 01/19/18 13:38) Rash - Home Medications Home Medications: Ascorbic Acid [Vitamin C 500 mg (*)] 500 mg PO BID 01/19/18 [Last Taken 21:00] Aspirin [Aspirin 325 mg (*)] 325 mg PO DAILY PRN 01/19/18 [Last Taken Unknown] Atenolol [Tenormin 50 mg (*)] 50 mg PO BID 01/19/18 [Last Taken 01/18/18 21:00] Cholecalciferol Vit D3 [Vitamin D3 2000 units tab (OTC)] 2,000 units PO BID 12/30 [Last Taken 01/18/18 21:00] Lisinopril [Zestril 10 mg (*)] 10 mg PO DAILY 01/19/18 [Last Taken 01/18/18] Lovastatin 40 mg PO DAILY 01/19/18 [Last Taken 01/18/18] Multivitamins [Multivitamin (*)] 1 each PO DAILY 01/19/18 [Last Taken 01/18/18] Pioglitazone HCl [Actos] 30 mg PO DAILY 01/19/18 [Last Taken 01/18/18] Selenium [Selenium 200mcg (*)] 200 mcg PO DAILY 01/19/18 [Last Taken 01/18/18] metFORMIN HCL [Glucophage 500 mg (*)] 500 mg PO BID 01/19/18 [Last Taken 21:00] - NPO status NPO Since - Liquids (Date): 02/05/18 NPO Since - Liquids (Time): 00:00 NPO Since - Solids (Date): 02/05/18 NPO Since - Solids (Time): 00:00 - Smoking Hx Smoking Status: Never smoked - Alcohol Use Alcohol Use: Sober ANE Labs/Vital Signs - Labs Result Diagrams: 02/06/18 04:57 02/06/18 04:57 - Vital Signs Blood Pressure: 111/60 Heart Rate: 110 Respiratory Rate: 34 O2 Sat (%): 98 Height: 170.18 cm Weight: 98.43 kg ANE Physical Exam - Airway Mallampati Score: Unable to assesss - Pulmonary Pulmonary: no rales or rhonchi, clear to auscultation, respiratory distress - Cardiovascular Cardiovascular: no murmur, rub, or gallop, tachycardia - ASA Status ASA Status: IV, E ANE Anesthesia Plan Anesthesia Plan: general endotracheal anesthesia Lines/Monitors: arterial line, central line Total IV Anesthesia: No
[2018-02-06] MEDS ORDERED: PHENYLEPHRINE HCL 100 MCG/ML SYR ONE ×3 (12:07→13:24)
[2018-02-06] MEDS ORDERED: ROCURONIUM 50 MG/5 ML VIAL ONE (12:07)
[2018-02-06] MEDS ORDERED: PROPOFOL 200 MG/20 ML VIAL ONE (12:07)
[2018-02-06] MEDS ORDERED: fentaNYL 100 MCG/2 ML INJ ONE ×3 (12:07→14:47)
[2018-02-06] MEDS ORDERED: LIDOCAINE 2% 2 ML INJ ONE ×2 (12:08)
[2018-02-06] MEDS ORDERED: ROCURONIUM 100 MG/10 ML VIAL ONE (13:19)
[2018-02-06] MEDS ORDERED: DOPamine/DEXTROSE 400 MG/250 ML BAG IV ONE (13:24)
[2018-02-06] MEDS ORDERED: BUPIVACAINE 0.5% 30 ML SDV ONE ×2 (13:41→14:16)
[2018-02-06] MEDS ORDERED: ESMOLOL HCL 100 MG/10 ML VIAL IV ONE (13:52)
[2018-02-06] MEDS ORDERED: PHENYLEPHRINE 10 MG/ML SDV ONE (14:01)
[2018-02-06] MEDS ORDERED: SUGAMMADEX SODIUM 200 MG/2 ML VIAL IVP ONE (14:33)
[2018-02-06] MEDS: MULTIVITAMINS 1 EACH TAB PO SCH (14:38)
[2018-02-06] MEDS: CHOLECALCIFEROL VIT D3 2,000 UNITS TAB/CAP PO SCH ×2 (14:38→21:16)
[2018-02-06] MEDS: ASCORBIC ACID 500 MG TAB PO SCH ×2 (14:38→21:16)
[2018-02-06] MEDS: SELENIUM 0.2 MG TAB PO SCH (14:39)
[2018-02-06] MEDS: PIOGLITAZONE HCL 15 MG TAB PO SCH (14:39)
[2018-02-06] MEDS ORDERED: HYDROmorphONE/DILAUDID 2 MG/ML INJ ONE (14:53)
[2018-02-06] MEDS ORDERED: ALBUMIN 5% 500 ML BOTTLE IV ONE (15:31)
[2018-02-06] MEDS ORDERED: ONDANSETRON 4 MG/2 ML VIAL IVP PRN (15:47)
[2018-02-06] MEDS ORDERED: LR 500 ML IV PRN (15:47)
[2018-02-06] MEDS ORDERED: epHEDrine SULFATE 10 MG/ML SYR IVP PRN (15:47)
[2018-02-06] MEDS ORDERED: NALOXONE HCL 0.4 MG/ML INJ IVP PRN (15:47)
[2018-02-06] MEDS ORDERED: PHENYLEPHRINE HCL 100 MCG/ML SYR IVP PRN (15:47)
[2018-02-06] MEDS ORDERED: fentaNYL 100 MCG/2 ML INJ IVP PRN (15:47)
[2018-02-06] MEDS ORDERED: HYDROmorphONE/DILAUDID 1 MG/ML INJ IVP PRN (15:47)
--- NOTE | 2018-02-06 15:52 | POSTOPPROG ---
Post Op Note Date of Operation: 02/06/18 Surgeon: Tanisha Hawk Brand Strategy Manager: mihir Anesthesiologist: velvet Anesthesia: GET(General Endotracheal) Pre-op Diagnosis: fourniers gangrene, ostomy retraction, worsening Post-op Diagnosis: same Indication: 77 yo with fourniers s/p excision and ostomy. Febrile, hypotensive and ost Procedure: ex lap, ostomy revision, wound vac Findings: small bowel in fascial defect by ostomy, ostomy nearly in abdomen, Inf/Abcess present in the surg proc area at time of surgery?: Yes Depth: Organ Space EBL: Minimal Drains: Wound Vac Specimen(s): descending colon
[2018-02-06] MEDS ORDERED: ALBUMIN 5% 500 ML IV ONE ×2 (16:00→16:21)
[2018-02-06] MEDS ORDERED: NOREPINEPHRINE BITARTRATE 4 MG in NS 500 ML IV SCH (16:30)
[2018-02-06 16:58] LABS: PLATELET COUNT 181 10^3/uL (150-400)
[2018-02-06 17:08] LABS: INR 1.17 (0.83-1.16); PROTIME(PATIENT) 15.1 SEC (12.0-15.0)
--- NOTE | 2018-02-06 17:48 | HOSPPROG ---
Hospitalist Progress Note Assessment/Plan: * Jacqueline's gangrene s/p debridement - wound vac -delayed primary closure pending * SBO due to fascial defect associated with ostomy -suspect this is source of sepsis -to OR today with Dr. Mcdowell -IV meropenem * MRSA sepsis (POA) -BC cleared -IV Dapto -4 weeks IV abx * s/p diverting colostomy due to stool contaminating wound -revision today as above * DM II -metformin - hold * Obesity BMI 34 * Increased LFT - likely due to sepsis * Leukopenia -suspect due to persistent low grade sepsis -bandemia improved today with meropenem * Rash -immune complex deposition vs. drug reaction vs mottling due to sepsis * Metabolic encephalopathy * Acute respiratory failure - due to sepsis * [address] -EKG/trop okay -no chest pain Subjective: More confused Objective: Vital Signs Temp Pulse Resp BP Pulse Ox 37.6 C 104 H 20 100/48 L 100 02/06/18 16:00 02/06/18 17:05 02/06/18 17:05 02/06/18 17:05 02/06/18 17:05 Microbiology 02/06/18 13:15 Gram Stain - Final Peritoneal Fluid - Aspirate Laboratory Results 02/06/18 16:30 02/06/18 16:30 02/05/18 02/06/18 02/07/18 05:59 05:59 05:59 Intake Total 3439 Output Total 950 1375 630 Balance -950 2064 -630 PT 15.1 SEC (12.0-15.0) H 02/06/18 16:30 INR 1.17 (0.83-1.16) H 02/06/18 16:30 d/w Dr. lutz and dr. mcdowell regarding CT results CTabd - SBO due to bowel in schuyler-stomal defect - Physical Exam Constitutional: no apparent distress, appears nourished, not in pain Cardiovascular: regular rate and rhythym, no murmur, rub, or gallop Respiratory: no respiratory distress, no rales or rhonchi, clear to auscultation Gastrointestinal: normoactive bowel sounds, soft, non-tender abdomen, no palpable masses Skin: no rashes or abrasions, no fluctuance, no induration Neurologic: No AAOx3 Psychiatric: encephalopathic, poor insight, poor judgement, poor memory, No interacting appropriately ICD10 Worksheet Patient Problems: Problems Problem Status Onset Cellulitis of perineum Acute Cellulitis, scrotum Acute Left buttock abscess Acute
--- NOTE | 2018-02-06 18:08 | GCON ---
[f rep st] CONSULTATION PULMONARY CRITICAL CARE CONSULTATION DATE OF CONSULTATION: 02/06/2018 REASON FOR CONSULTATION: Intensive care unit evaluation and medical management of sepsis and hypotension. HISTORY: The patient is a 77-year-old who was admitted on 01/19. He was found to have an abscess related to his left buttock area consistent with Jacqueline gangrene. He was taken to the operating room on 01/20 and had extensive debridement of that area. A diverting colostomy was performed at that time in order to avoid stool contamination of his debrided area. He was transferred to the intensive care unit after surgery. Cultures grew MRSA. He has been followed by Surgery, the hospitalist, and Infectious Disease. His course has been prolonged. He was supposed to have gone back to surgery yesterday for debridement and closure of his wounds. Prior to surgery, he was found to be febrile, hypotensive, and tachycardic. Oxygen requirements had increased to 8 L. He was transferred to the intensive care unit on step-down status for more aggressive treatment. He was given intravenous fluids. Antibiotics were continued. Repeat CT scan of the abdomen was performed. Possible obstruction of the small bowel at the peristomal area could not be excluded. The bases of the lungs were essentially unremarkable with only mild atelectasis and some very small effusions. No abscess was found. Today, he is doing relatively poorly from a mental status standpoint, much more confused compared to his baseline. Systolic blood pressures are in the 100 range. Oxygen requirements remain high. He is now being treated with Vapotherm. Heart rate is 105, sinus tachycardia. CVP is 14. He complains of some abdominal pain and some shortness of breath, but is having a difficult time answering questions. He is oriented to person and place. PAST MEDICAL HISTORY: Remarkable for type 2 diabetes, hypertension, and hyperlipidemia. PAST SURGICAL HISTORY: Negative. ALLERGIES: Sulfa preparations. He is also allergic to shellfish. SOCIAL HISTORY: The patient is from [place]. 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 Tobacco is negative. Significant alcohol is negative. He is cortes. He was in town visiting his brother. REVIEW OF SYSTEMS: A 10-point review of systems is negative, except as mentioned above. There is no history of heart disease. Cardiac echo on admission was within normal limits. PHYSICAL EXAMINATION: GENERAL: Reveals a gentleman who is lying in bed. He appears somewhat uncomfortable. He has a difficult time answering questions, gets words mixed up, cannot remember the town that he lives in, et cetera. He knows he is in the hospital and what his name is. VITAL SIGNS: Blood pressure is approximately 100/60, heart rate 105 with sinus tachycardia on the monitor, respiratory rate is 30. Vapotherm is in place. Saturations are in the high 90s. He is afebrile. CVP is 14. HEENT: Remarkable for dry mucous membranes. CHEST: Clear anteriorly. Breath sounds are diminished at both bases. A few nonspecific rales appear to be present. There are no rhonchi, no wheezes. HEART: Tachycardic. There are no significant murmurs, no gallop. ABDOMEN: Obese, bowel sounds are diminished. There is mild distention and tenderness to light palpation. A colostomy bag is in place. There is an area of bowel related to the ostomy which appears to be somewhat dusky, protruding from the side. A Rouse catheter is in place. Urine output has been adequate over the last several days. Colostomy is putting out some liquid stool. EXTREMITIES: Remarkable for trace plus edema. No obvious cords. DATABASE/RADIOLOGIC STUDIES: As outlined above. Abdominal CT scan done yesterday is as noted. Laboratories: White blood cell count is 2.68, hemoglobin 9.7 with hematocrit of 30, platelets are 190,000 with 89 segs and 8 bands. Lactate yesterday was 1.7. Sodium is 136, potassium 4.6, CO2 23, BUN 29, with a creatinine of 1.5. Creatinine was 0.9 yesterday, BUN 24. Glucose is 166, calcium 6.6. Bilirubin is normal. AST is 127, ALT 79. Troponin is nonspecifically elevated at 0.09. Albumin is 1.8. C diff is negative. HIV antibodies were negative. Hepatitis B antibody was positive. Initial cultures grew MRSA from blood and buttock. One urine culture on 01/29 was positive for pseudomonas. ASSESSMENT: 1. Small bowel obstruction secondary to parastomal entrapment. The patient is being taken back to surgery. 2. Jacqeuline gangrene of the left buttock, status post debridement. Cultures positive for methicillin-resistant Staphylococcus aureus. He has now been treated for about 2 weeks with significant improvement. He is currently on meropenem, per Infectious Disease. His wound has been healing well. 3. Hypotension with tachycardia, tachypnea, and increased O2 requirements, along with altered mental status secondary to toxic metabolic issues related to his current small bowel obstruction. Medications may be playing a role as well. He is not requiring pressors. Lactate was normal. Systemic inflammatory response syndrome may be playing a role as well. Intravascular volume is high, with a CVP of 14. Fluids will need to be given judiciously. 4. Leukopenia. Etiology is unclear. This may be related to his initial infection, possibly to daptomycin received previously. 5. Metabolic. No acute issues are identified. BUN and creatinine are going up and will need to be followed closely. 6. Prophylactic anticoagulation. Enoxaparin. 7. Gastrointestinal prophylaxis. None indicated, as he has been eating. If kept n.p.o. following surgery, he will need Pepcid or Protonix. PLAN AND RECOMMENDATIONS: The patient will be kept in the intensive care unit following surgery. Intravenous fluids will be continued. CVP will be monitored. If hypotensive, Levophed may be needed. Current medications will be continued; however, oral medications may need to be put on hold while he is n.p.o. Laboratories and x-rays will be followed. Further plans and recommendations will be made based on his progress over the next 12-24 hours. Over 1 hr of critical care time was spent directly with the patient. /[id number]/MODL MTDD
[2018-02-07] MEDS: NS 1,000 ML IV SCH ×2 (02:41→10:35)
[2018-02-07] MEDS: MEROPENEM 1 GM in NS 100 ML IV SCH ×3 (02:41→18:50)
--- NOTE | 2018-02-07 02:49 | GOP ---
[f rep st] OPERATIVE REPORT DATE OF OPERATION: 02/06/2018 SURGEON: Tanisha Hawk MD CUSTOMER RELATIONS ADVISOR: Oscar Murray MD. ANESTHESIA: General. ANESTHESIOLOGIST: John Lancaster MD. PREOPERATIVE DIAGNOSIS: Jacqueline's gangrene, ostomy retraction and sepsis. POSTOPERATIVE DIAGNOSIS: Jacqueline's gangrene, ostomy retraction and sepsis, with addition of small bowel obstruction. PROCEDURE PERFORMED: Exploratory laparotomy, revision of ostomy, resection of descending colon, wound VAC placement. FINDINGS: He had a loop of small bowel that was adhesed in a fascial defect. The ostomy was nearly completely retracted into the abdomen. The wound on his bottom had healthy granulation tissue. SPECIMENS: Descending colon. Peritoneal fluid for culture ESTIMATED BLOOD LOSS: 50 cc. INDICATIONS: Morales Chavira is a 77-year-old man, who went to the operating room for resection of Jacqueline gangrene on his left buttock extending to his scrotum. He had stool in his wound and a colostomy was placed. He became febrile, tachycardic, hypotensive. I examined him at bedside and could see that the ostomy was nearly retracted into the abdomen. It was anchored by only the fascial sutures. There was stool in the subcutaneous tissues. DESCRIPTION OF PROCEDURE: The patient was brought into the operating room, placed supine on the table and general anesthesia was administered. An arterial line and a central line were placed. I sutured the ostomy closed prior to starting the case. His abdomen was prepped and draped in the usual sterile fashion. I made a midline incision from above his umbilicus to below his umbilicus. I deepened my dissection down in the midline through the subcutaneous tissues until I encountered the fascia, I divided the fascia. I divided the posterior rectus sheath. I entered the abdominal cavity. There was some cloudy fluid and a specimen was submitted for microbiology. Some of the fat had some stranding. I immediately encountered a loop of small bowel that was in the ostomy fascial defect. It was viable. I was able to completely reduce this from the fascia. Next, I explored his abdomen. I could see that there was thickening of the sigmoid colon and that the ostomy was nearly completely retracted into the abdomen. I placed an Michel wound protector. I removed the fascial sutures and brought the ostomy into the midline wound. I was then able to perform a more secure closure of the bowel. I continued my dissection along the white line of Toldt. I then divided a bit of the mesentery until the descending colon that was not inflamed would reach the skin without tension. I selected a point where the ostomy would be located on the left upper quadrant. I grasped this area with a Senait. I excised the skin. I performed my dissection down through the skin and subcutaneous space. I then divided the fascia and then spread the rectus muscles. I spread them enough to accommodate 3 fingerbreadths. I then could bring the ostomy up to the abdominal wall. Colon was secured to the fascia with 3-0 Vicryl. Copious irrigation was performed in the abdomen. I then excised the necrotic tissue in the old ostomy site. The colon was covered with a towel. I then performed clean closure. The fascia at the ostomy take down site was closed with #1 PDS. I closed midline fascia with #1 PDS. I irrigated the wound. I closed the skin with alexandru and I applied a silver Mepilex dressing. I placed a wound vac at the ostomy take down site. I resected the descending colon that was inflamed. Next, I matured the ostomy brooking 4 quadrants and then performing simple interrupted with 3-0 Vicryl. An ostomy appliance was placed. Finally I placed the patient in the lithotomy position and placed a wound VAC in his perineum. I Y-connected the appliances. He was put back in the supine position, extubated, transferred to PACU in stable condition. He tolerated the procedure well. /[id number]/MODL MTDD
[2018-02-07 05:35] LABS: PLATELET COUNT 140 10^3/uL (150-400)
[2018-02-07 05:42] LABS: INR 1.19 (0.83-1.16); PROTIME(PATIENT) 15.3 SEC (12.0-15.0)
[2018-02-07] MEDS: INSULIN LISPRO 100 UNIT/ML SC SCH ×3 (07:43→18:49)
[2018-02-07] MEDS: ENOXAPARIN 40 MG/0.4 ML SYR SC SCH (08:00)
--- NOTE | 2018-02-07 08:21 | SOAPPROG ---
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 I would hope he would have return of bowel function in a few days Skin - wound vac to LLQ and perineum - change 3x per week S: Barely talking but pain in bottom. Abdomen is okay O: Sitting up in bed, eyes closed but aware of surroundings R IJ line cdi Midline dressing cdi Wound vac to suction Ostomy pink with adequate profile Decreased work of breathing Plan: 02/06/18 10:49 02/07/18 08:18 02/07/18 09:22 02/07/18 09:27 Objective: Vital Signs Temp Pulse Resp BP Pulse Ox 36.5 C 99 21 H 125/70 H 100 02/07/18 07:47 02/07/18 07:47 02/07/18 07:47 02/07/18 07:47 02/07/18 07:47 Microbiology 02/01/18 11:10 Blood Culture - Final Blood 02/01/18 10:45 Blood Culture - Final Blood 02/06/18 13:15 Gram Stain - Final Peritoneal Fluid - Aspirate Laboratory Results 02/07/18 05:20 02/07/18 05:20 02/06/18 02/07/18 02/08/18 05:59 05:59 05:59 Intake Total 6019 7153 Output Total 1375 1430 Balance 2064 5738 PT 15.3 SEC (12.0-15.0) H 02/07/18 05:20 INR 1.19 (0.83-1.16) H 02/07/18 05:20 ICD10 Worksheet Patient Problems: Problems Problem Status Onset Cellulitis of perineum Acute Cellulitis, scrotum Acute Left buttock abscess Acute
[2018-02-07] MEDS: HYDROmorphONE/DILAUDID 1 MG/ML INJ IVP PRN ×2 (08:33→20:42)
[2018-02-07] MEDS: MULTIVITAMINS 1 EACH TAB PO SCH (09:28)
[2018-02-07] MEDS: CHOLECALCIFEROL VIT D3 2,000 UNITS TAB/CAP PO SCH ×2 (09:28→20:57)
[2018-02-07] MEDS: ASCORBIC ACID 500 MG TAB PO SCH ×2 (09:28→20:57)
[2018-02-07] MEDS: SELENIUM 0.2 MG TAB PO SCH (09:29)
[2018-02-07] MEDS: PIOGLITAZONE HCL 15 MG TAB PO SCH (09:29)
[2018-02-07] MEDS ORDERED: PROTOCOL CALCIUM 1 DOSE IV PRN ×2 (10:11→19:53)
[2018-02-07] MEDS ORDERED: D10W 1,000 ML IV PRN (10:12)
--- NOTE | 2018-02-07 10:48 | CPEKG ---
Test Reason : OPEN Blood Pressure : / mmHG Vent. Rate : 107 BPM Atrial Rate : 107 BPM P-R Int : 133 ms QRS Dur : 065 ms QT Int : 321 ms P-R-T Axes : 017 -13 023 degrees QTc Int : 429 ms Sinus tachycardia Low voltage, precordial leads Q waves inferiorly, possible old inferior SD. Confirmed by Remi Pruitt ([id number]) on 02/07/2018 10:47:47 AM Referred By: Confirmed By:Remi Pruitt
[2018-02-07 11:06] LABS: PLATELET COUNT 119 10^3/uL (150-400)
[2018-02-07 11:09] LABS: INR 1.16 (0.83-1.16)
--- NOTE | 2018-02-07 11:47 | PDINTPN ---
Packing House Supervisor Progress Note Assessment/Plan: Assessment: 77-year-old from [place] admitted 01/19 with left buttock cellulitis. Initial surgical debridement and colostomy 01/20. Moved back to intensive care unit 02/05 secondary to hypotension and small bowel obstruction. Return to surgery 02/06. Colostomy was leaking and revised and moved superiorly. Piece of small bowel was trapped in the original colostomy, causing obstruction. Reduced. New wound VAC placed over original colostomy site. Fornier gangrene. MRSA. Wound VAC in place: improved. Id and Surgery following. Small bowel obstruction: Reduced. Colostomy leak. Revised yesterday. Postoperative ileus present as expected. Nutrition: Has not eaten since the , and intake was marginal at that time. TPN to be started today. Hypotension: Resolved. In part related to volume depletion, in part SIRS. CVP 10 today. Leukopenia: White blood cell count 1.24 today. Has remained low. Cause not entirely clear. Following. Acute blood-loss anemia: Hematocrit 25 today. No ongoing bleeding. Follow. Metabolic: No issues currently identified. DVT prophylaxis: Enoxaparin. GI prophylaxis: Will add Pepcid to TPN. Type 2 diabetes: On insulin sliding scale coverage. History of hypertension: Blood pressure medications on hold. Plan: Continue aggressive supportive care in the intensive care unit. Continue intravenous fluids but decrease rate. Follow CVP. Continue antibiotics per Infectious Disease, wound vacs. Lasix today for volume overload. TPN to start this evening. Follow laboratory, chest x-ray, clinical status. 45 min of critical care time spent directly with the patient. Discussed with surgery, Infectious Disease, nursing, and the ICU multi disciplinary team. Subjective: Sedated/somnolent, arousable, responsive. Denies significant pain or shortness of breath. Objective: Vital Signs Temp Pulse Resp BP Pulse Ox 36.5 C 97 20 127/70 H 98 02/07/18 07:47 02/07/18 09:00 02/07/18 09:00 02/07/18 09:00 02/07/18 09:00 Microbiology 02/01/18 11:10 Blood Culture - Final Blood 02/01/18 10:45 Blood Culture - Final Blood 02/06/18 13:15 Gram Stain - Final Peritoneal Fluid - Aspirate Laboratory Results 02/07/18 10:45 02/07/18 10:45 02/06/18 02/07/18 02/08/18 05:59 05:59 05:59 Intake Total 3439 7168 Output Total 1372 1430 Balance 2062 5725 PT 15.0 SEC (12.0-15.0) 02/07/18 10:45 INR 1.16 (0.83-1.16) 02/07/18 10:45 Laboratory Tests 02/06/18 02/07/18 02/07/18 00:50 05:20 05:20 APTT pCO2 40 H pO2 115 H Total CO2 21 L ABG pH 7.32 L ABG O2 Saturation 97 H VBG Lactic Acid 1.6 Total O2 Concentration 10.0 Calcium Phosphorus Magnesium Total Bilirubin AST ALT Albumin C. difficile Tox (PCR) NEGATIVE 02/07/18 02/07/18 10:45 10:45 APTT 58.6 H pCO2 pO2 Total CO2 ABG pH ABG O2 Saturation VBG Lactic Acid Total O2 Concentration Calcium 6.5 L Phosphorus 3.5 Magnesium 1.7 Total Bilirubin 0.4 AST 122 H ALT 79 H Albumin 1.8 L C. difficile Tox (PCR) CXR: Hypoventilatory changes with basilar atelectasis. Pneumoperitoneum present. Lines and tubes in good position. Physical Exam - Physical Exam General Appearance: WD/WN, other (Sedated/somnolent, arouses, responds), No alert EENT: PERRL/EOMI, other (Humidification mask in place with oxygen, saturations 100%), No scleral icterus (R) Neck: normal inspection (No JVD obvious. Large neck.), No lymphadenopathy (R), No lymphadenopathy (L) Respiratory: lungs clear (Anteriorly), decreased breath sounds (At bases), No rhonchi, No wheezing Cardiac/Chest: regular rate, rhythm, systolic murmur (Soft systolic murmur present), No gallop Abdomen: distended (Mild distension present), other (New colostomy in place. No stool. Wound VAC in place), No normal bowel sounds (Quiet postoperatively), No non-tender Male Genitalia: other (Rouse catheter in place. Input greater than output last 2 days.) Back: Other (Wound VAC over left buttock area) Skin: warm/dry, pallor Extremities: pedal edema Neuro/Psych: no motor/sensory deficits (Moves all extremities weakly), No cognition abnormalities (Somnolent, arouses, responds. Oriented to person, hospital) ICD10 Worksheet Patient Problems: Problems Problem Status Onset Left buttock abscess Acute Cellulitis of perineum Acute Cellulitis, scrotum Acute
--- NOTE | 2018-02-07 12:13 | PCMIDPN ---
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 Continued problems with sepsis. Covering with both daptomycin and meropenem currently. Patient clinically looks ill. Blood cultures from yesterday are showing 1/2 sets with gram-positive cocci in clusters. Identified as a coagulase-negative Staphylococcus. Likely to be contamination. In any event covered by the daptomycin. Plan: 1. Continue IV daptomycin as well as meropenem. 2. Follow white blood cell count as well as clinical status. Subjective: Patient is resting in his hospital bed. He has a face mask on for oxygen supplementation. He is somewhat obtunded. No ongoing fevers currently. Objective: Vital Signs Temp Pulse Resp BP Pulse Ox 36.5 C 97 20 127/70 H 98 02/07/18 07:47 02/07/18 09:00 02/07/18 09:00 02/07/18 09:00 02/07/18 09:00 Microbiology 02/01/18 11:10 Blood Culture - Final Blood 02/01/18 10:45 Blood Culture - Final Blood 02/06/18 13:15 Gram Stain - Final Peritoneal Fluid - Aspirate Laboratory Results 02/07/18 10:45 02/07/18 10:45 02/06/18 02/07/18 02/08/18 05:59 05:59 05:59 Intake Total 3439 7168 Output Total 1375 1430 Balance 2064 5738 ESR 23 MM/HR (0-20) H 02/06/18 04:57 C-Reactive Protein 142.6 mg/L (<10.0) H 02/02/18 19:35 - Physical Exam General Appearance: WD/WN, no apparent distress, toxic Respiratory: lungs clear, normal breath sounds, No respiratory distress Cardiac/Chest: regular rate, rhythm, tachycardia (Borderline) Skin: normal color, warm/dry ICD10 Worksheet Patient Problems: Problems Problem Status Onset Cellulitis of perineum Acute Cellulitis, scrotum Acute Left buttock abscess Acute
[2018-02-07] MEDS ORDERED: FUROSEMIDE 20 MG/2 ML VIAL IVP ONE (12:19)
[2018-02-07] MEDS: DAPTOmycin 600 MG in NS 100 ML IV SCH (13:52)
--- NOTE | 2018-02-07 15:33 | HOSPPROG ---
Hospitalist Progress Note Assessment/Plan: * Jacqueline's gangrene s/p debridement - wound vac * SBO due to fascial defect associated with ostomy - stool in SQ tissue -IV meropenem -s/p ostomy revision -wound vac at site of previous ostomy take down * MRSA sepsis (POA) -BC cleared -IV Dapto -4 weeks IV abx * s/p diverting colostomy due to stool contaminating wound -s/p revision * DM II -metformin - hold * Obesity BMI 34 * Increased LFT - likely due to sepsis * Leukopenia -suspect due to persistent low grade sepsis -follow bandemia * Rash -immune complex deposition vs. drug reaction vs mottling due to sepsis * Metabolic encephalopathy - remains very confused * Acute respiratory failure - due to sepsis * [address] -EKG/trop okay -no chest pain Subjective: confused Objective: Vital Signs Temp Pulse Resp BP Pulse Ox 36.4 C 106 H 24 H 133/66 H 100 02/07/18 12:00 02/07/18 12:00 02/07/18 12:00 02/07/18 12:00 02/07/18 12:00 Microbiology 02/06/18 13:15 Gram Stain - Final Peritoneal Fluid - Aspirate 02/05/18 12:18 Blood Panel (PCR) - Final Blood Staph Coagulase Negative 02/01/18 11:10 Blood Culture - Final Blood 02/01/18 10:45 Blood Culture - Final Blood Laboratory Results 02/07/18 10:45 02/07/18 10:45 02/06/18 02/07/18 02/08/18 05:59 05:59 05:59 Intake Total 3439 7168 Output Total 1375 1430 Balance 2064 5738 PT 15.0 SEC (12.0-15.0) 02/07/18 10:45 INR 1.16 (0.83-1.16) 02/07/18 10:45 CXR viewed, my personal interpretation is - unremarkable d/w Dr. Juan Rodriguez regarding ICU course - Physical Exam Constitutional: no apparent distress, appears nourished, not in pain Cardiovascular: regular rate and rhythym, no murmur, rub, or gallop Respiratory: no respiratory distress, no rales or rhonchi, clear to auscultation Gastrointestinal: normoactive bowel sounds, soft, non-tender abdomen, no palpable masses, distension, No guarding, No rebound Skin: mottled, rash (the same to worse - extremities cool) Neurologic: No AAOx3 Psychiatric: encephalopathic, flat affect, poor insight, poor judgement, poor memory, No interacting appropriately ICD10 Worksheet Patient Problems: Problems Problem Status Onset Cellulitis of perineum Acute Cellulitis, scrotum Acute Left buttock abscess Acute
--- NOTE | 2018-02-07 18:05 | ASMTCMCOM ---
CM Note CM Note Notes: Reviewed chart. Per ICU rounds, pt is s/p multiple debridements and new colostomy for significant decubitis ulcer. Wound vac in place. Pt was extubated on Thursday02/06/18. Pt is on IV antibiotics. Currently pt does not have a gag reflex or bowel sounds and will be started on TPN today. Discharge needs remain unclear at this time. CM will continue to follow. Discharge Plan: To be determined Discharge Plan: To be determined Date Signed: 02/07/2018 06:04 PM Electronically Signed By:Kenya Falcon RN
[2018-02-07] MEDS ORDERED: PROTOCOL K PHOSPHATE 1 DOSE IV PRN (19:53)
[2018-02-07] MEDS ORDERED: PROTOCOL POTASSIUM 1 DOSE MISC PRN (19:53)
[2018-02-07] MEDS ORDERED: PROTOCOL MAGNESIUM 1 DOSE IV PRN (19:53)
[2018-02-07] MEDS ORDERED: MAGNESIUM SULF 1 GM/DEXTROSE 100 ML IV ONE (20:46)
[2018-02-07] MEDS ORDERED: POTASSIUM Cl (KCl) 50 ML IV ONE (20:46)
[2018-02-07] MEDS ORDERED: CALCIUM GLUCONATE 50 ML IV ONE (20:46)
[2018-02-07] MEDS ORDERED: CALCIUM GLUCONATE 1 GM in D5W 50 ML IV ONE (21:00)
[2018-02-07] MEDS: TPN W/ FAMOTIDINE 1 EA BAG IV SCH (21:07)
[2018-02-08] MEDS: INSULIN LISPRO 100 UNIT/ML SC SCH ×4 (01:20→18:43)
[2018-02-08] MEDS: MEROPENEM 1 GM in NS 100 ML IV SCH ×3 (02:45→17:49)
[2018-02-08 05:54] LABS: PLATELET COUNT 113 10^3/uL (150-400)
[2018-02-08] MEDS ORDERED: CALCIUM GLUCONATE 50 ML IV ONE (05:57)
[2018-02-08 06:03] LABS: INR 1.08 (0.83-1.16); PROTIME(PATIENT) 14.2 SEC (12.0-15.0)
[2018-02-08] MEDS ORDERED: CALCIUM GLUCONATE 1 GM in D5W 50 ML IV ONE (06:30)
[2018-02-08] MEDS: ASCORBIC ACID 500 MG TAB PO SCH ×2 (08:41→19:22)
[2018-02-08] MEDS: CHOLECALCIFEROL VIT D3 2,000 UNITS TAB/CAP PO SCH ×2 (08:41→19:22)
[2018-02-08] MEDS: DAPTOmycin 600 MG in NS 100 ML IV SCH (08:42)
[2018-02-08] MEDS: SELENIUM 0.2 MG TAB PO SCH (08:42)
[2018-02-08] MEDS: MULTIVITAMINS 1 EACH TAB PO SCH (08:42)
[2018-02-08] MEDS: PIOGLITAZONE HCL 15 MG TAB PO SCH (08:42)
--- NOTE | 2018-02-08 09:24 | PDINTPN ---
Forensic Chemist Progress Note Assessment/Plan: Assessment/plan: * 77-year-old from [place] admitted 01/19 with left buttock cellulitis. Initial surgical debridement and colostomy 01/20. Moved back to intensive care unit 02/05 secondary to hypotension and small bowel obstruction. Return to surgery 02/06. Colostomy was leaking and revised and moved superiorly. Piece of small bowel was trapped in the original colostomy, causing obstruction. Reduced. New wound VAC placed over original colostomy site. * Fornier gangrene. MRSA. Wound VAC in place: improved. ID and Surgery following. * Small bowel obstruction: Reduced. * Colostomy leak. Revised yesterday. Postoperative ileus present as expected. * Nutrition: Has not eaten since the , and intake was marginal at that time. TPN to be started today. * Hypotension: Resolved. * Leukopenia: Improved * Pleural effusions/atelectasis-appears to have worsened -will consider CT scan of chest * Acute blood-loss anemia: Hematocrit 25 today. No ongoing bleeding. Follow. * Metabolic: No issues currently identified. * DVT prophylaxis: Enoxaparin. GI prophylaxis: Will add Pepcid to TPN. * Type 2 diabetes: On insulin sliding scale coverage. * History of hypertension: Blood pressure medications on hold. * Weakness-working minimally with physical therapy -out of bed today Subjective: Sitting up in bed. Resting comfortably. Refusing some therapies. Objective: Vital Signs Temp Pulse Resp BP Pulse Ox 36.2 C 119 H 21 H 118/66 100 02/08/18 08:00 02/08/18 08:00 02/08/18 08:00 02/08/18 08:00 02/08/18 08:00 Microbiology 02/06/18 13:15 Gram Stain - Final Peritoneal Fluid - Aspirate 02/05/18 12:18 Blood Panel (PCR) - Final Blood Staph Coagulase Negative 02/01/18 11:10 Blood Culture - Final Blood 02/01/18 10:45 Blood Culture - Final Blood Laboratory Results 02/08/18 05:35 02/08/18 05:35 02/07/18 02/08/18 02/09/18 05:59 05:59 05:59 Intake Total 2365 1244 Output Total 1430 1730 190 Balance 5738 -146 -190 PT 14.2 SEC (12.0-15.0) 02/08/18 05:35 INR 1.08 (0.83-1.16) 02/08/18 05:35 Laboratory Results 02/08/18 05:35 02/08/18 05:35 01/22/18 05:35 Calcium 7.5 mg/dL L mg/dL (8.5 - 10.4) Total Bilirubin 0.2 mg/dL mg/dL (0.1 - 1.4) AST 171 IU/L H IU/L (17 - 59) ALT 106 IU/L H IU/L (21 - 72) Alkaline Phosphatase 73 IU/L IU/L (38 - 126) Total Protein 4.3 g/dL L g/dL (6.3 - 8.2) Albumin 2.0 g/dL L g/dL (3.5 - 5.0) 01/19/18 11:16 Gram Stain - Final Buttock - Swab Wound Culture - Preliminary MRSA 01/19/18 11:16 Gram Stain - Final Buttock - Swab Wound Culture - Final MRSA 01/19/18 11:10 Blood Culture - Preliminary Blood Blood Panel (PCR) - Final MRSA MRSA 01/19/18 11:10 Blood Culture - Preliminary Blood Blood Panel (PCR) - Final MRSA MRSA Chest [id number] by myself. Bilateral pleural effusions are noted. Atelectasis is also present. - Time Spent With Patient Time Spent With Patient: 25 min of time spent with patient, over 1/2 involved with coordination of care or counseling Case discussed with nursing Physical Exam - Physical Exam General Appearance: alert, no apparent distress EENT: PERRL/EOMI Neck: non-tender, full range of motion, supple, normal inspection Respiratory: crackles (Few basilar), No respiratory distress, No wheezing Cardiac/Chest: normal peripheral pulses, regular rate, rhythm Abdomen: normal bowel sounds, non-tender, soft Male Genitalia: deferred Rectal: deferred Extremities: non-tender Neuro/Psych: alert ICD10 Worksheet Patient Problems: Problems Problem Status Onset Cellulitis of perineum Acute Cellulitis, scrotum Acute Left buttock abscess Acute
--- NOTE | 2018-02-08 09:37 | SOAPPROG ---
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 Now s/p colostomy creation to avoid contamination of wound and wound vac change Cultures grew MRSA, on Daptomycin instead of Vanco due to leukopenia Now s/p ostomy revision and wound vac change S: No complaints O: Alert Continues to be febrile RRR Tachypneic Abdomen soft, mildly ttp, absent bowel sounds, ostomy is pink, no output from ostomy yet, previous ostomy site with wound vac to suction. : Wound vac in place to suction. Skin: diffuse mottle-appearing rash, concentrated over joints and trunk remains unchanged. Plan: Pt was originally scheduled for surgery to close his perineal wound last Thursday, but was delayed due to onset of sepsis. Will plan to close wound later this week. Vac change today. Continue NPO diet for now until bowel function returns. 02/08/18 09:30 Objective: Vital Signs Temp Pulse Resp BP Pulse Ox 36.2 C 119 H 21 H 118/66 100 02/08/18 08:00 02/08/18 08:00 02/08/18 08:00 02/08/18 08:00 02/08/18 08:00 Microbiology 02/05/18 12:18 Blood Panel (PCR) - Final Blood Staph Coagulase Negative 02/06/18 13:15 Gram Stain - Final Peritoneal Fluid - Aspirate 02/01/18 11:10 Blood Culture - Final Blood 02/01/18 10:45 Blood Culture - Final Blood Laboratory Results 02/08/18 05:35 02/08/18 05:35 02/07/18 02/08/18 02/09/18 05:59 05:59 05:59 Intake Total 7151 2494 Output Total 1430 2640 190 Balance 5738 -146 -190 PT 14.2 SEC (12.0-15.0) 02/08/18 05:35 INR 1.08 (0.83-1.16) 02/08/18 05:35 ICD10 Worksheet Patient Problems: Problems Problem Status Onset Cellulitis of perineum Acute Cellulitis, scrotum Acute Left buttock abscess Acute
--- NOTE | 2018-02-08 10:40 | HOSPPROG ---
Hospitalist Progress Note Assessment/Plan: * Severe sepsis - persistent bandemia, severe encephalopathy and resp failure -clinically very toxic appearing - not doing very well -unclear what is driving persistent sepsis * Jacqueline's gangrene s/p debridement - wound vac * SBO due to fascial defect associated with ostomy - stool in SQ tissue -IV meropenem -s/p ostomy revision -wound vac at site of previous ostomy take down * MRSA sepsis (POA) -BC cleared -IV Dapto -4 weeks IV abx * s/p diverting colostomy due to stool contaminating wound -s/p revision * DM II -metformin - hold * Obesity BMI 34 * Increased LFT - likely due to sepsis * Leukopenia -suspect due to persistent low grade sepsis -follow bandemia * Rash -immune complex deposition vs. drug reaction vs mottling due to sepsis * Metabolic encephalopathy - remains very confused * Acute respiratory failure - due to sepsis * [address] -EKG/trop okay -no chest pain * Nutrition - on TPN Palliative care consult to address goals of care CC time - 40 minutes Subjective: Very confused and lethargic Objective: Vital Signs Temp Pulse Resp BP Pulse Ox 36.2 C 119 H 21 H 118/66 100 02/08/18 08:00 02/08/18 08:00 02/08/18 08:00 02/08/18 08:00 02/08/18 08:00 Microbiology 02/05/18 12:18 Blood Panel (PCR) - Final Blood Staph Coagulase Negative 02/06/18 13:15 Gram Stain - Final Peritoneal Fluid - Aspirate 02/01/18 11:10 Blood Culture - Final Blood 02/01/18 10:45 Blood Culture - Final Blood Laboratory Results 02/08/18 05:35 02/08/18 05:35 02/07/18 02/08/18 02/09/18 05:59 05:59 05:59 Intake Total 7180 2494 Output Total 1430 2640 190 Balance 5738 -146 -190 PT 14.2 SEC (12.0-15.0) 02/08/18 05:35 INR 1.08 (0.83-1.16) 02/08/18 05:35 CXR - increasing right pleural effusion tele reviewed - sinus tachy - Physical Exam Constitutional: chronically ill appearing, other (looks terrible, lethargic, can 't sit up without falling over) Cardiovascular: tachycardia, No edema Respiratory: inspiratory crackles, respiratory distress, No expiratory wheeze Gastrointestinal: soft, non-tender abdomen, distension, No guarding, No rebound Skin: rash (still with severe mottling) Neurologic: No AAOx3 Psychiatric: encephalopathic, flat affect, other (mental status a little in and out), No interacting appropriately, No agitated ICD10 Worksheet Patient Problems: Problems Problem Status Onset Cellulitis of perineum Acute Cellulitis, scrotum Acute Left buttock abscess Acute
[2018-02-08] MEDS: HYDROmorphONE/DILAUDID 1 MG/ML INJ IVP PRN ×3 (12:01→21:40)
--- NOTE | 2018-02-08 14:23 | PCMIDPN ---
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 Continued problems with sepsis. Clinically unchanged from yesterday. Covering with both daptomycin and meropenem currently. Lines to be removed in a couple of hours. Blood cultures from 02/06 are now showing both sets with gram-positive cocci in clusters. Identified as a coagulase-negative Staphylococcus. Likely to represent real infection. Likely to be covered by the daptomycin. Will follow up on sensitivities. Will also remove all lines apart from the arterial line today. Plan: 1. Continue IV daptomycin as well as meropenem. 2. Follow white blood cell count as well as clinical status. 02/08/18 14:21 Subjective: Patient remains ill appearing. Quite obtunded. Somewhat alert and responds to voice. Objective: Daptomycin # 2 Meropenem # 3 Vital Signs Temp Pulse Resp BP Pulse Ox 37.0 C 117 H 22 H 123/57 H 98 02/08/18 12:00 02/08/18 14:00 02/08/18 14:00 02/08/18 14:00 02/08/18 14:00 Microbiology 02/05/18 12:18 Blood Panel (PCR) - Final Blood Staph Coagulase Negative 02/06/18 13:15 Gram Stain - Final Peritoneal Fluid - Aspirate Laboratory Results 02/08/18 05:35 02/08/18 05:35 02/07/18 02/08/18 02/09/18 05:59 05:59 05:59 Intake Total 7168 2494 Output Total 1430 2640 340 Balance 5738 -146 -340 ESR 23 MM/HR (0-20) H 02/06/18 04:57 C-Reactive Protein 142.6 mg/L (<10.0) H 02/02/18 19:35 - Physical Exam General Appearance: WD/WN, apparent distress (Moderate), toxic Respiratory: lungs clear, normal breath sounds, No respiratory distress Cardiac/Chest: regular rate, rhythm, tachycardia, No irregularly irregular Extremities: non-tender, normal inspection Skin: normal color, warm/dry, No rash ICD10 Worksheet Patient Problems: Problems Problem Status Onset Cellulitis of perineum Acute Cellulitis, scrotum Acute Left buttock abscess Acute
--- NOTE | 2018-02-08 15:05 | ASMTCMCOM ---
CM Note CM Note Notes: 02/08/2018 Case Management Note Discussed patient during rounds this morning. MD requested proxy or MDPOA be found. Ethics assisted, please see note. Per ethics brother Bj Guajardo is MDPOA and can be reached at [phone]. Notified RN of Bj's planned visit at 1700 today. Notified RN that Bj requested MD meet today to discuss pt condition. Notified Tommy of Palliative. Tommy planning on meeting with Bj and sister who lives in [place] tomorrow to discuss goals of care. Case Management d/c poc: remains to be determined. Case Management to follow. 02/07/2018 CM Note Reviewed chart. Per ICU rounds, pt is s/p multiple debridements and new colostomy for significant decubitis ulcer. Wound vac in place. Pt was extubated on Thursday02/06/18. Pt is on IV antibiotics. Currently pt does not have a gag reflex or bowel sounds and will be started on TPN today. Discharge needs remain unclear at this time. CM will continue to follow. Discharge Plan: To be determined Date Signed: 02/08/2018 03:04 PM Electronically Signed By:Tonia Burgos RN
[2018-02-08] MEDS: NS 1,000 ML IV SCH (15:17)
[2018-02-08] MEDS: POTASSIUM Cl (KCl) 50 ML IV SCH (19:04)
[2018-02-08] MEDS: TPN W/ FAMOTIDINE 1 EA BAG IV SCH (19:09)
--- NOTE | 2018-02-08 19:49 | WOCRNPDOC ---
WOCR[facility] Advanced Assessment Note - Skin Integrity Problem, Advanced Assess Medial Abdomen Surgical Wound/Incision Dressing Type: Mepilex Border Ag+ Dressing Description: Clean/Dry, Intact Closure Description: Parnell, Approximated Exudate Amount: None Integumentary Issue Intervention: Dressing Changed, Dressing Initialed & Dated Elena Wound Tissue: Erythema (mild around alexandru) Skin Integrity Problem Comment: Mepilex border ag replaced with a new one as it was adhered to vac drape and could not be salvaged. Left Lower Abdomen Surgical Wound/Incision Dressing Type: Black Vac Foam (x1), Wound Vac Dressing Description: Clean/Dry, Intact Exudate Amount: Minimal Exudate Characteristic(s): Sanguinous Integumentary Issue Intervention: Dressing Changed Wound Bed Constitution: Subcutaneous Fat Site Measurement - Head-to-Toe Length X Width X Depth (cm): 4x12x7 Skin Integrity Problem Comment: Wound with no granulation. This wound was Y connected to groin wound. Vac was stopped and two seperate vacs were initiated as there was a leak in the drape and it was not able to be fixed and troubleshooted while the two wounds were connected. Fascia intact in this wound. Cleaned with ns and gazue. Skin prep and drape applied elena wound. Small simplace black foam placed in wound bed x 2 pieces. Vac restarted at -125 mm Hg continuous suction and after changing the ostomy appliance and the midline incisional dressing a good seal was achieved. Betzy BAG LINER assisted with care. Josie SYED and Taya Pizarro alerted to wound status. Left Buttock Surgical Wound/Incision Dressing Type: Black Vac Foam (x2), Wound Vac Dressing Description: Clean/Dry, Intact Exudate Amount: Minimal Exudate Characteristic(s): Serosanguinous Integumentary Issue Intervention: Dressing Changed Elena Wound Tissue: Erythema, Painful/Tender Elena Wound Swelling: Mild Wound Bed Color: Red Wound Bed Constitution: Granulation Tissue (100%) Site Measurement - Head-to-Toe Length X Width X Depth (cm): [id number] Skin Integrity Problem Comment: Patient's mentation has greatly changed since Thursday and he was unable to commuicate and assist with vac change and repositioning at all. However he still cried out in pain during repositioning and vac placement. Several Floor RN's and BAG LINER Betzy assisted with care. Wound flushed with ns. Unable to visualize all of wound bed, but what was visible was 100% granular and healthy. Scrotum and elena wound skin slightly swollen and erythematic but improved since last week. x2 pieces of medium simplace foam were placed in wound bed. A small bridge to lower pelvis was made to accomodate trac pad placement. Mastisol was applied elena wound, and vac restarted at -125 mm Hg continuous suction without leaks. Reported to Josie SYED and Taya Pizarro NP. Sacrum Pressure Injury Dressing Type: Open to Air Exudate Amount: Minimal Exudate Characteristic(s): Serosanguinous Elena Wound Tissue: Erythema, Non-blanching Wound Bed Constitution: Red/[address] Addition - Non Granular Tissue Site Measurement - Head-to-Toe Length X Width X Depth (cm): 13x9x0.1 Pressure Injury Stage: Deep Tissue Injury (DTI) Pressure Injury Present on Admit: No Skin Integrity Problem Comment: Wound care alerted to his sacral wound by MYLENE Beltran today. A deep tissue pressure injury is present that is begining to desquamate in two small areas. Most of skin is intact and dark purple. The wound involves the coccyx and the distal sacrum. This wound will continue to evolve over the next 1-2 weeks. No dressing placed at this time as the concern is that if soiled, the dressing would need to be removed and might remove part of the wound vac drape. Ok to leave wound MATTHEW at this time. Offload aggressively. Patient on appropriate Low air loss SPO2T bed with TAPS in use and offloading heel boots. Wound care will round again on 02/10. MYLENE Beltran and Tamia alerted, as well as Dr. Verdugo. [facility] betzy assisted with all care. - Colostomy Assessment, Advanced Left Lower Abdomen Colostomy Stoma Colostomy Appliance Intact: Yes Colostomy Appliance Currently in Use: Two Piece Flat, 2 1/4, Cut to Fit Stoma Color: [address] Addition (superior stoma appears pink and pale), Purple (inferior stoma appears dark and dusky) Stoma Turgor: Dry, Shiny Stoma Shape: Oval Stoma Height: Protruding Mucocutaneus Junction: Intact Colostomy Effluent: Serosangenous Colostomy Details: End Peristomal Skin: Intact Colostomy Comment/Treatment Details: Pouch changed due to proximity to left abdominal wound that remains from the takedown of the previous colostomy. Stoma appearance (dusky and pale) communicated with Josie SYED and Taya Pizarro NP, Dr Murray of surgical teams. Ruby CHAKRABORTY and Dr. Verdugo also aware.
[2018-02-08] MEDS ORDERED: HYDROmorphONE/DILAUDID 1 MG/ML INJ IVP PRN (21:19)
[2018-02-09] MEDS: INSULIN LISPRO 100 UNIT/ML SC SCH ×4 (00:17→18:08)
[2018-02-09] MEDS: MEROPENEM 1 GM in NS 100 ML IV SCH ×3 (02:11→18:08)
[2018-02-09] MEDS: HYDROmorphONE/DILAUDID 1 MG/ML INJ IVP PRN ×3 (02:16→11:15)
[2018-02-09 04:22] LABS: PLATELET COUNT 87 10^3/uL (150-400)
[2018-02-09 04:30] LABS: INR 1.08 (0.83-1.16); PROTIME(PATIENT) 14.2 SEC (12.0-15.0)
[2018-02-09] MEDS ORDERED: POTASSIUM Cl (KCl) 50 ML IV ONE ×2 (04:58→20:43)
[2018-02-09] MEDS ORDERED: K PHOS 15 MMOL in D5W 250 ML IV ONE (04:58)
[2018-02-09] MEDS: DAPTOmycin 600 MG in NS 100 ML IV SCH (09:05)
[2018-02-09] MEDS: ASCORBIC ACID 500 MG TAB PO SCH ×2 (09:23→22:14)
[2018-02-09] MEDS: CHOLECALCIFEROL VIT D3 2,000 UNITS TAB/CAP PO SCH ×2 (09:24→22:14)
[2018-02-09] MEDS: MULTIVITAMINS 1 EACH TAB PO SCH (09:24)
[2018-02-09] MEDS: SELENIUM 0.2 MG TAB PO SCH (09:24)
[2018-02-09] MEDS ORDERED: IOPAMIDOL (ISOVUE 370) 100 ML BTL IV ONE (10:47)
--- NOTE | 2018-02-09 11:55 | GCON ---
[f rep st] CONSULTATION HEMATOLOGY CONSULTATION HISTORY OF PRESENT ILLNESS: The patient is a 77-year-old gentleman, who was admitted approximately 3 weeks ago with an abscess of the buttocks that developed into Jacqueline gangrene. We were asked to s ee him regarding the development of pancytopenia. The patient underwent debridement with a wound VAC placed. He had a subsequent small bowel obstruction due to fascial defect associated with an ostomy . He has had persistent sepsis with MRSA. In terms of his blood counts, initial white cell count wa s 14,000. After about 5 days did drop to 2000 and more recently has been in the 1000 range. Initial hematocrit was 34.9 and has dropped to 21.2. Platelets initially were normal. They have recently b ecome mildly decreased and today they are 87,000. He has been gravely ill. PAST MEDICAL HISTORY: Significant for epididymitis, diabetes, hypertension. 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 He is visiting his brother. REVIEW OF SYSTEMS: Not obtainable at this time. PHYSICAL EXAMINATION: VITAL SIGNS: Blood pressure 150/69, pulse rate 105. He is not very arousable at this time. T-max 100.5. LUNGS: Clear. ABDOMEN: Shows an ostomy. Normal bowel sounds. CARDI AC: Unremarkable. EXTREMITIES: Nontender. Abdominal CT scan performed 02/05 showed bile dilatation. Liver, gallbladder, spleen, pancreas, and adrenals were normal. Chemistry panel shows a sodium 146, potassium 3.7, chloride 117, creatinine of 0.8. Albumin is 1.8, total protein is 4. Ferritin was greater than 1000. Complement levels have b een normal. IMPRESSION: Patient with Jacqueline gangrene, recurrent sepsis, and the development of significant cyt openias, particularly anemia and a low white blood cell count. I should note that his differential s hows primarily neutrophils of 63%, 20% bands, and 13% lymphocytes. I reviewed his peripheral smear. I did not find any obvious immature cells, although a few nucleated red cells are noted. I think th is is likely related to his severe underlying illness and sepsis and I think the anemia is probably m ultifactorial. I would like to check a B12 level and given the severity of the situation, I would li ke to start filgrastim 480 mcg subcu daily. I have a fairly low suspicion this represents underlying bone marrow disorder, and I am not sure a marrow at this point in time would be very helpful. We wi ll follow his CBC on a daily basis. /[id number]/MODL
--- NOTE | 2018-02-09 12:11 | PDINTPN ---
Tax [employer]or Progress Note Assessment/Plan: Assessment/plan: * 77-year-old from [place] admitted 01/19 with left buttock cellulitis. Initial surgical debridement and colostomy 01/20. Moved back to intensive care unit 02/05 secondary to hypotension and small bowel obstruction. Return to surgery 02/06. Colostomy was leaking and revised and moved superiorly. Piece of small bowel was trapped in the original colostomy, causing obstruction. Reduced. New wound VAC placed over original colostomy site. * Fornier gangrene. MRSA. Wound VAC in place: improved. ID and Surgery following. * Small bowel obstruction: Reduced. * Colostomy leak. Revised. Postoperative ileus present as expected. * Nutrition: On TPN * Hypotension: Resolved. * Leukopenia: No significant change -agree with Hematology consult * Pleural effusions/atelectasis-appears to have worsened -will consider CT scan of chest * Acute blood-loss anemia: Hematocrit 25 today. No ongoing bleeding. Follow. * Metabolic: No issues currently identified. * DVT prophylaxis: Enoxaparin. GI prophylaxis: Will add Pepcid to TPN. * Type 2 diabetes: On insulin sliding scale coverage. * History of hypertension: Blood pressure medications on hold. * Encephalopathy * Weakness-working minimally with physical therapy Subjective: Patient markedly confused and encephalopathic Objective: Vital Signs Temp Pulse Resp BP Pulse Ox 36.6 C 105 H 14 150/69 H 99 02/09/18 08:00 02/09/18 10:00 02/09/18 10:00 02/09/18 10:00 02/09/18 10:00 Microbiology 02/05/18 12:18 Blood Panel (PCR) - Final Blood Staph Coagulase Negative 02/06/18 13:15 Gram Stain - Final Peritoneal Fluid - Aspirate Laboratory Results 02/09/18 04:05 02/09/18 04:05 02/08/18 02/09/18 02/10/18 05:59 05:59 05:59 Intake Total 2494 2390 Output Total 2640 1880 Balance -146 510 PT 14.2 SEC (12.0-15.0) 02/09/18 04:05 INR 1.08 (0.83-1.16) 02/09/18 04:05 - Time Spent With Patient Time Spent With Patient: 35 min of time spent with patient, over 1/2 involved with coordination of care counseling. Case discussed with Infectious Disease, hospitalist, and nursing. Physical Exam - Physical Exam General Appearance: other (Poorly responsive), No alert EENT: PERRL/EOMI Neck: non-tender, full range of motion, supple, normal inspection Respiratory: crackles (Bibasilar), No respiratory distress, No wheezing Cardiac/Chest: normal peripheral pulses, regular rate, rhythm, systolic murmur Peripheral Pulses: 2+: carotid (R), carotid (L), femoral (R), femoral (L), dorsalis-pedis (R), dorsalis-pedis (L) Abdomen: normal bowel sounds, non-tender, soft Male Genitalia: deferred Rectal: deferred Extremities: non-tender Neuro/Psych: No alert ICD10 Worksheet Patient Problems: Problems Problem Status Onset Cellulitis of perineum Acute Cellulitis, scrotum Acute Left buttock abscess Acute
--- NOTE | 2018-02-09 12:57 | PCMIDPN ---
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 Continue daptomycin (briefly resumed on vancomycin by felt to have worsening rash). * Leukopenia: Will obtain Hematology consultation due to persistent leukopenia , now with associated anemia and thrombocytopenia likely with component due to sepsis. Await their opinion regarding use of G-CSF in the setting of active infectious illness with persistent leukopenia. * Rash: Rash over knees has decreased significantly since last visit. Continue to observe. * Sepsis: Recurrent sepsis over the weekend associated with intra-abdominal etiology status post revision of colostomy. Continue empiric meropenem. Abdominal cultures no growth to date but were obtained while on antibiotic therapy. * Positive blood cultures: 1/2 sets coagulase-negative Staphylococcus and 1/2 sets micrococcus. This is consistent with contamination rather than true bacteremia given both sets do not show coagulase-negative Staphylococcus. 02/09/18 12:54 Subjective: Patient encephalopathic. Recent clinical history has been reviewed. Objective: Vital Signs Temp Pulse Resp BP Pulse Ox 36.6 C 105 H 14 150/69 H 99 02/09/18 08:00 02/09/18 10:00 02/09/18 10:00 02/09/18 10:00 02/09/18 10:00 Microbiology 02/05/18 12:18 Blood Panel (PCR) - Final Blood Staph Coagulase Negative 02/06/18 13:15 Gram Stain - Final Peritoneal Fluid - Aspirate Laboratory Results 02/09/18 04:05 02/09/18 04:05 02/08/18 02/09/18 02/10/18 05:59 05:59 05:59 Intake Total 2494 2390 Output Total 2640 1880 Balance -146 510 ESR 23 MM/HR (0-20) H 02/06/18 04:57 C-Reactive Protein 142.6 mg/L (<10.0) H 02/02/18 19:35 Daptomycin # 15, meropenem # 4 Blood cultures 02/05/2018 1/2 sets coagulase-negative Staph, 1/2 sets micrococcus Abdominal gram stain 2+ white blood cells, no organisms, cultures no growth to date - Physical Exam General Appearance: other (Encephalopathic) EENT: No scleral icterus Respiratory: respiratory distress (Increased respiratory effort) Cardiac/Chest: tachycardia Abdomen: distended (Mild), tender (Diffusely) Skin: rash (Rash over knees bilaterally less prominent) - Line/s RUE PICC Lines: No drainage, No erythema - Time Spent With Patient Time Spent with Patient: greater than 35 minutes Time Spent with Patient: Greater than 35 minutes spent on this patients care, greater than 50% of time spent counseling, educating, and coordinating care regarding the above mentioned plan. ICD10 Worksheet Patient Problems: Problems Problem Status Onset Cellulitis of perineum Acute Cellulitis, scrotum Acute Left buttock abscess Acute
[2018-02-09] MEDS: FILGRASTIM-SNDZ 480 MCG/0.8 ML SYR SC SCH (14:07)
--- NOTE | 2018-02-09 16:21 | ASMTCMCOM ---
CM Note CM Note Notes: Met with patient's brother and sister, Bj and Kailey regarding proxy since [facility]. Proxy paperwork was completed and Bj will serve as proxy for the patient. Paperwork has been filed in the patient's chart. CM will follow. Date Signed: 02/09/2018 04:20 PM Electronically Signed By:Flores Martinez LCSW
--- NOTE | 2018-02-09 18:25 | HOSPPROG ---
Hospitalist Progress Note Assessment/Plan: DIAGNOSES: * fourniers gangrene, left buttocks abscess * status post multiple surgical incision and debridement, wound VAC in place * Status post diverting colostomy with breakdown and infection of that wound, with that colostomy taken down and new colostomy created * small-bowel obstruction status post reduction of that * MRSA bacteremia; potential for this to be a polymicrobial infection with g negatives and anaerobes suspected * acute sepsis due to above * acute hypoxemic respiratory failure, currently on 10 L oxygen * acute encephalopathy due to all of above * acute urinary retention requiring Rouse catheter drainage * type 2 diabetes mellitus some intermittent hyperglycemia * pre renal azotemia, resolved Seen by me on hospitals rounds and multidisciplinary rounds today Discussed in detail with Dr. Carrillo Verdugo This patient is quite severely ill despite his multiple surgical procedures, antibiotics, respiratory care, and remains at high risk for further complications and poor outcomes. PLANS: * Continue antibiotics * Continue respiratory supportive care * Wound care and wound VAC * Suspect will need further surgical debridement * Follow closely for any changes in hemodynamic stability or other complications * Continue TPN * Will continue to monitor sugars closely and treat these as indicated, continue his current therapies for now SUBJECTIVE: Patient unable to communicate at this point so no symptom available OBJECTIVE Vitals reviewed: Pulse in the 120s, temperature 38.1 degrees, blood pwithout any arrhythmia Exam: Severely obtunded, very brief minimal response to yelling his name, moans during examination, no other communication does not follow commands Extremely weak not really moving limbs very much Looks quite toxically ill skin warm dry, pale resps quite labored lungs very diminished breath sounds heart regular abd quite distended, no bowel sounds, new ostomy looks okay on the surface and is functioning anterior wounds otherwise in reasonable condition now limbs warm, no edema iv site ok Laboratory data: Sodium 146, renal function normal, sugars 170s 190s, mild hepatic enzyme elevations Remains neutropenic at 900, hemoglobin down a bit more at 7.0, platelets lower at 87,000 INR normal I reviewed images from CT scan of head today noncontrast: No bleed, no evidence of stroke or mass, some atrophy Objective: Vital Signs Temp Pulse Resp BP Pulse Ox 36.3 C 118 H 20 149/78 H 100 02/09/18 16:00 02/09/18 16:02/09/18 16:02/09/18 16:00 02/09/18 16:00 Microbiology 02/06/18 13:15 Gram Stain - Final Peritoneal Fluid - Aspirate 02/05/18 12:18 Blood Panel (PCR) - Final Blood Staph Coagulase Negative Laboratory Results 02/09/18 04:05 02/09/18 04:05 02/08/18 02/09/18 02/10/18 06:59 06:59 06:59 Intake Total 2494 2390 Output Total 2640 1880 Balance -146 510 PT 14.2 SEC (12.0-15.0) 02/09/18 04:05 INR 1.08 (0.83-1.16) 02/09/18 04:05 - Time Spent With Patient Time Spent with Patient: greater than 35 minutes Time Spent with Patient: Greater than 35 minutes spent on this patients care, greater than 50% of time spent counseling, educating, and coordinating care regarding the above mentioned plan. ICD10 Worksheet Patient Problems: Problems Problem Status Onset Cellulitis of perineum Acute Cellulitis, scrotum Acute Left buttock abscess Acute
--- NOTE | 2018-02-09 19:14 | SOAPPROG ---
SOAP Progress Note Assessment/Plan: Assessment: 77 MALE WITH I&D OF LEFT BUTTOCK ABSCESS WITH INDURATION AND INFLAMMATION EXTENDING INTO SCROTUM LOW GRADE TEMP/ WBC 14K DIABETIC NO CARDIAC SYMPTOMS CT SHOWS INFLAMMATION INTO SCROTUM MARKED EDEMA AND INDURATION IN PERINEUM AND SCROTUM Plan:MAY FURTHER I&D AND DEBRIDEMENT/ RISKS AND OPTIONS FULLY DISCUSSED 01/19/18 17:42 01/23/18 12:41 PATIENT COMFORTABLE AND DOING REASONABLY WELL DESPITE SIGNIFICANT TEMPERATURE ELEVATIONS LEAKING AND DIARRHEA STOOL OVER HIS WOUND SOME PERSISTENT INDURATION ERYTHEMA AROUND THE PERINEAL WOUND RISKS AND OPTIONS FULLY DISCUSSED PLAN: DIVERTING COLOSTOMY AND WOUND VAC CHANGE 01/24/18 11:02 TEMP DOWN/COMFORTABLE/VITAL SIGNS STABLE/ OSTOMY PINK AND WORKING WELL MINIMAL OUTPUT FROM THE WOUND VAC TRANSFER TO [facility] 02/09/18 19:12 STILL WITH DECREASED MENTAL STATUS BUT SOMEWHAT RESPONSIVE TO FOR MOLE CONVERSATION/HEAD CT IS NEGATIVE FOR ANY STROKE ABDOMEN SOFT THE/NEW COLOSTOMY LOOKS VIABLE/WOUND OKAY/AFEBRILE CONTINUE ANTIBIOTICS AND OTHER SUPPORT Objective: Vital Signs Temp Pulse Resp BP Pulse Ox 36.3 C 117 H 20 171/77 H 100 02/09/18 16:00 02/09/18 18:00 02/09/18 18:00 02/09/18 18:00 02/09/18 18:00 Microbiology 02/06/18 13:15 Gram Stain - Final Peritoneal Fluid - Aspirate 02/05/18 12:18 Blood Panel (PCR) - Final Blood Staph Coagulase Negative Laboratory Results 02/09/18 04:05 02/09/18 18:15 02/08/18 02/09/18 02/10/18 05:59 05:59 05:59 Intake Total 2494 2390 1659 Output Total 2640 1880 1500 Balance -146 510 159 PT 14.2 SEC (12.0-15.0) 02/09/18 04:05 INR 1.08 (0.83-1.16) 02/09/18 04:05 ICD10 Worksheet Patient Problems: Problems Problem Status Onset Cellulitis of perineum Acute Cellulitis, scrotum Acute Left buttock abscess Acute
[2018-02-09] MEDS: TPN W/ FAMOTIDINE 1 EA BAG IV SCH (20:55)
[2018-02-10] MEDS: INSULIN LISPRO 100 UNIT/ML SC SCH ×5 (00:56→17:51)
[2018-02-10] MEDS: HYDROmorphONE/DILAUDID 1 MG/ML INJ IVP PRN ×3 (01:00→21:12)
[2018-02-10] MEDS: MEROPENEM 1 GM in NS 100 ML IV SCH ×2 (02:29→10:40)
[2018-02-10 05:44] LABS: PLATELET COUNT 90 10^3/uL (150-400)
[2018-02-10 05:52] LABS: INR 1.1 (0.83-1.16); PROTIME(PATIENT) 14.4 SEC (12.0-15.0)
[2018-02-10] MEDS: DAPTOmycin 600 MG in NS 100 ML IV SCH (08:38)
[2018-02-10] MEDS: ASCORBIC ACID 500 MG TAB PO SCH ×2 (08:40→21:13)
[2018-02-10] MEDS: ENOXAPARIN 40 MG/0.4 ML SYR SC SCH (08:40)
[2018-02-10] MEDS: CHOLECALCIFEROL VIT D3 2,000 UNITS TAB/CAP PO SCH ×2 (08:40→21:13)
[2018-02-10] MEDS: MULTIVITAMINS 1 EACH TAB PO SCH (08:41)
--- NOTE | 2018-02-10 09:56 | PDINTPN ---
Con[employer] Progress Note Assessment/Plan: Assessment/plan: * 77-year-old from [place] admitted 01/19 with left buttock cellulitis. Initial surgical debridement and colostomy 01/20. Moved back to intensive care unit 02/05 secondary to hypotension and small bowel obstruction. Return to surgery 02/06. Colostomy was leaking and revised and moved superiorly. Piece of small bowel was trapped in the original colostomy, causing obstruction. Reduced. New wound VAC placed over original colostomy site. * Fornier gangrene. MRSA. -wound VAC to be changed today -ID and surgery following * Small bowel obstruction: Reduced. * Colostomy leak. Revised. * Nutrition: On TPN * Hypotension: Resolved. * Leukopenia: No significant change -agree with Hematology consult * Pleural effusions/atelectasis-appears to have worsened -check chest x-ray * Acute blood-loss anemia: Hematocrit 25 today. No ongoing bleeding. Follow. * Metabolic: No issues currently identified. * DVT prophylaxis: Enoxaparin. GI prophylaxis: Will add Pepcid to TPN. * Type 2 diabetes: On insulin sliding scale coverage. * History of hypertension: Blood pressure medications on hold. * Encephalopathy * Weakness-working minimally with physical therapy Subjective: More alert today. Still very confused Objective: Vital Signs Temp Pulse Resp BP Pulse Ox 36.7 C 110 H 23 H 172/83 H 100 02/10/18 08:00 02/10/18 08:00 02/10/18 08:00 02/10/18 08:00 02/10/18 08:00 Microbiology 02/06/18 13:15 Gram Stain - Final Peritoneal Fluid - Aspirate 02/05/18 12:18 Blood Panel (PCR) - Final Blood Staph Coagulase Negative Laboratory Results 02/10/18 05:30 02/10/18 05:30 02/09/18 02/10/18 02/11/18 05:59 05:59 05:59 Intake Total 2390 2859 Output Total 1880 2825 Balance 510 34 PT 14.4 SEC (12.0-15.0) 02/10/18 05:30 INR 1.10 (0.83-1.16) 02/10/18 05:30 Laboratory Results 02/10/18 05:30 02/10/18 05:30 02/10/18 02/10/18 02/09/18 05:30 05:30 11:58 POC Glucose 199 mg/dL H mg/dL (70 - 100) Calcium 7.5 mg/dL L mg/dL (8.5 - 10.4) Ionized Calcium 1.17 MMOL/L MMOL/L (1.12 - 1.30) Phosphorus 1.5 mg/dL L mg/dL (2.5 - 4.5) Magnesium 1.9 mg/dL mg/dL (1.6 - 2.3) Total Bilirubin 0.6 mg/dL mg/dL (0.1 - 1.4) AST 293 IU/L H IU/L (17 - 59) ALT 161 IU/L H IU/L (21 - 72) Alkaline Phosphatase 111 IU/L IU/L (38 - 126) Total Protein 3.8 g/dL L g/dL (6.3 - 8.2) Albumin 1.8 g/dL L g/dL (3.5 - 5.0) 02/09/18 02/09/18 04:05 04:05 POC Glucose Calcium 7.7 mg/dL L mg/dL (8.5 - 10.4) Ionized Calcium 1.21 MMOL/L MMOL/L (1.12 - 1.30) Phosphorus 1.5 mg/dL L mg/dL (2.5 - 4.5) Magnesium 2.1 mg/dL mg/dL (1.6 - 2.3) Total Bilirubin 0.4 mg/dL mg/dL (0.1 - 1.4) AST 68 IU/L H IU/L (17 - 59) ALT 67 IU/L IU/L (21 - 72) Alkaline Phosphatase 34 IU/L L IU/L (38 - 126) Total Protein 4.0 g/dL L g/dL (6.3 - 8.2) Albumin 1.8 g/dL L g/dL (3.5 - 5.0) 02/05/18 12:18 Blood Culture - Preliminary Blood Micrococcus Luteus 02/05/18 12:18 Blood Culture - Preliminary Blood Blood Panel (PCR) - Final Staphylococcus Epidermidis Staph Coagulase Negative 02/05/18 12:18 Blood Culture - Preliminary Blood Blood Panel (PCR) - Final Staphylococcus Epidermidis Staph Coagulase Negative - Time Spent With Patient Time Spent With Patient: 35 min of time spent with patient, over 1/2 involved with coordination of care or counseling. Case discussed with nursing Physical Exam - Physical Exam General Appearance: other (Awake), No alert EENT: PERRL/EOMI Neck: non-tender, full range of motion, supple, normal inspection Respiratory: crackles (Bibasilar), No respiratory distress, No wheezing Cardiac/Chest: normal peripheral pulses, regular rate, rhythm Peripheral Pulses: 2+: carotid (R), carotid (L), femoral (R), femoral (L), dorsalis-pedis (R), dorsalis-pedis (L) Abdomen: soft, No non-tender Male Genitalia: deferred Rectal: deferred Skin: normal color, warm/dry Extremities: normal range of motion, non-tender, normal inspection, normal capillary refill Neuro/Psych: No alert ICD10 Worksheet Patient Problems: Problems Problem Status Onset Cellulitis of perineum Acute Cellulitis, scrotum Acute Left buttock abscess Acute
--- NOTE | 2018-02-10 10:14 | SOAPPROG ---
SOAP Progress Note Assessment/Plan: Assessment/Plan: 77 Y M perirectal abscess, Jacqueline's gangrene. S/p multiple operative I&D's and diverting colostomy with subsequent revision and transposition. Sepsis, neutropenia. Still with altered mental status. Appreciate other teams' input. CT without sign of stroke. Still too ill to go to OR for any type of delayed closure. Will d/w Dr. Saha. S: says "I'm fine." Says he knows where he is but won't specify. Waves me away, does not want exam. Gets very frustrated and upset with exam. O: flat affect, confused, verbalizes some decreased BS B rrr abd soft, ostomy dusky but pink and viable. vac to good suction, +penile and scrotal edema. surrounding skin soft, exam limited 02/10/18 10:09 Objective: Vital Signs Temp Pulse Resp BP Pulse Ox 36.7 C 110 H 23 H 172/83 H 100 02/10/18 08:00 02/10/18 08:00 02/10/18 08:00 02/10/18 08:00 02/10/18 08:00 Microbiology 02/06/18 13:15 Gram Stain - Final Peritoneal Fluid - Aspirate 02/05/18 12:18 Blood Panel (PCR) - Final Blood Staph Coagulase Negative Laboratory Results 02/10/18 05:30 02/10/18 05:30 02/09/18 02/10/18 02/11/18 05:59 05:59 05:59 Intake Total 2390 2859 Output Total 9290 2825 Balance 510 34 PT 14.4 SEC (12.0-15.0) 02/10/18 05:30 INR 1.10 (0.83-1.16) 02/10/18 05:30 ICD10 Worksheet Patient Problems: Problems Problem Status Onset Cellulitis of perineum Acute Cellulitis, scrotum Acute Left buttock abscess Acute
[2018-02-10] MEDS ORDERED: FUROSEMIDE 40 MG/4 ML VIAL IVP ONE ×2 (10:51→13:15)
--- NOTE | 2018-02-10 10:58 | HOSPPROG ---
Hospitalist Progress Note Assessment/Plan: DIAGNOSES: * fourniers gangrene, left buttocks abscess * status post multiple surgical incision and debridement, wound VAC in place * Status post diverting colostomy with breakdown and infection of that wound, with that colostomy taken down and new colostomy created * small-bowel obstruction status post reduction of that * MRSA bacteremia * acute sepsis due to above, resolved * acute hypoxemic respiratory failure, currently on 10 L oxygen * acute encephalopathy due to all of above * acute urinary retention requiring Rouse catheter drainage * type 2 diabetes mellitus some intermittent hyperglycemia * pre renal azotemia, resolved * Leukopenia and Anemia, presumable thought to be due to sepsis *Volume overload -TTE on 01/21 showed preserved LVEF and diastolic dysfunction present Seen by me on hospitals rounds and multidisciplinary rounds today Discussed in detail with Dr. Carrillo Verdugo This patient is quite severely ill despite his multiple surgical procedures, antibiotics, respiratory care, and remains at high risk for further complications and poor outcomes. Plan: -The patient is volume overloaded. This is likely contributing to his HTN as well as his pleural effusion and resp failure. He will get Lasix IV x 1. A CXR is pending and he may need additional doses pending clinical course. Cr. is stable currently but he did have pre renal azotemia earlier during this admission -F/U CXR. If he does not respond to the diuretics and pending CXR, may consider thoracentesis -Cont Dapto and Meropenem -Surgical care per Surgery -Cont Filgastrim per Hematology. -Cont TPN Subjective: more awake today. answers yes and no questions. still on 10 Liters O2. Objective: Vital Signs Temp Pulse Resp BP Pulse Ox 36.7 C 113 H 19 167/78 H 100 02/10/18 08:00 02/10/18 10:00 02/10/18 10:00 02/10/18 10:00 02/10/18 10:00 Microbiology 02/06/18 13:15 Gram Stain - Final Peritoneal Fluid - Aspirate 02/05/18 12:18 Blood Panel (PCR) - Final Blood Staph Coagulase Negative Laboratory Results 02/10/18 05:30 02/10/18 05:30 02/09/18 02/10/18 02/11/18 05:59 05:59 05:59 Intake Total 2390 2859 Output Total 1880 2825 Balance 510 34 PT 14.4 SEC (12.0-15.0) 02/10/18 05:30 INR 1.10 (0.83-1.16) 02/10/18 05:30 - Physical Exam Constitutional: no apparent distress Eyes: PERRL, EOMI Ears, Nose, Mouth, Throat: moist mucous membranes Cardiovascular: tachycardia, edema (2-3+) Respiratory: reduced air movement, other (tachypnea), No no respiratory distress Skin: warm Musculoskeletal: generalized weakness Neurologic: No AAOx3 Psychiatric: encephalopathic Lymph, Heme, Immunologic: No petechiae ICD10 Worksheet Patient Problems: Problems Problem Status Onset Cellulitis of perineum Acute Cellulitis, scrotum Acute Left buttock abscess Acute
--- NOTE | 2018-02-10 11:49 | PCMIDPN ---
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 Continue daptomycin (briefly resumed on vancomycin by felt to have worsening rash). Follow CPK on daptomycin. * Leukopenia: Appreciate Hematology consultation. Started on G-CSF. Continue to follow after it is initiation. * Rash: Rash over knees has decreased significantly since last visit. Continue to observe. * Sepsis: Recurrent sepsis over the weekend associated with intra-abdominal etiology status post revision of colostomy. Will transition to ertapenem given cultures do not show isolation of Pseudomonas. * Positive blood cultures: 1/2 sets coagulase-negative Staphylococcus and 1/2 sets micrococcus. This is consistent with contamination rather than true bacteremia given both sets do not show coagulase-negative Staphylococcus. * Increased LFTs: Increased AST and ALT today - considerations include result of hypotension over weekend, drug-associated (for example meropenem), or TPN associated. Will continue to follow. 02/10/18 11:46 02/10/18 11:48 Subjective: Patient mumbles responses today. Not cooperative with exam. Objective: Vital Signs Temp Pulse Resp BP Pulse Ox 36.7 C 113 H 19 167/78 H 100 02/10/18 08:00 02/10/18 10:00 02/10/18 10:00 02/10/18 10:00 02/10/18 10:00 Microbiology 02/06/18 13:15 Gram Stain - Final Peritoneal Fluid - Aspirate 02/05/18 12:18 Blood Panel (PCR) - Final Blood Staph Coagulase Negative Laboratory Results 02/10/18 05:30 02/10/18 05:30 02/09/18 02/10/18 02/11/18 05:59 05:59 05:59 Intake Total 2390 2859 Output Total 1880 2825 Balance 510 34 ESR 23 MM/HR (0-20) H 02/06/18 04:57 C-Reactive Protein 142.6 mg/L (<10.0) H 02/02/18 19:35 Daptomycin # 16 Meropenem # 5 Blood cultures 02/05/2018 1/2 sets coagulase-negative Staph, 1/2 sets micrococcus Abdominal cultures no growth Selected Entries 02/01/18 20:00 Temperature (C) 39.5 C H Laboratory Tests 02/01/18 02/10/18 05:50 05:30 Total Bilirubin 0.6 0.6 AST 87 H 293 H ALT 87 H 161 H Alkaline Phosphatase 53 111 Creatine Kinase 148 Albumin 1.8 L - Physical Exam General Appearance: non-toxic, other (Awake, mumbles name in response to questions) EENT: No scleral icterus Respiratory: respiratory distress (Mild increase in respiratory effort) Cardiac/Chest: tachycardia Abdomen: non-tender, other (Stoma pink), No distended Skin: rash (Rash less prominent over thighs and knees although some livedo appearance remains on thighs) Neuro/Psych: confused ICD10 Worksheet Patient Problems: Problems Problem Status Onset Cellulitis of perineum Acute Cellulitis, scrotum Acute Left buttock abscess Acute
[2018-02-10] MEDS ORDERED: K PHOS 15 MMOL in D5W 250 ML IV ONE (12:00)
--- NOTE | 2018-02-10 12:26 | SOAPPROG ---
SOAP Progress Note Assessment/Plan: Assessment: 1. Jacqueline's gangrene 2. pancytopenia, leukopenia Plan:Continue gcsf 02/10/18 12:24 Objective: Vital Signs Temp Pulse Resp BP Pulse Ox 98.1 F 113 H 19 167/78 H 100 02/10/18 08:00 02/10/18 10:00 02/10/18 10:00 02/10/18 10:00 02/10/18 10:00 Microbiology 02/06/18 13:15 Gram Stain - Final Peritoneal Fluid - Aspirate 02/05/18 12:18 Blood Panel (PCR) - Final Blood Staph Coagulase Negative Laboratory Results 02/10/18 05:30 02/10/18 05:30 02/09/18 02/10/18 02/11/18 05:59 05:59 05:59 Intake Total 2390 2859 Output Total 1880 2825 Balance 510 34 PT 14.4 SEC (12.0-15.0) 02/10/18 05:30 INR 1.10 (0.83-1.16) 02/10/18 05:30 ICD10 Worksheet Patient Problems: Problems Problem Status Onset Cellulitis of perineum Acute Cellulitis, scrotum Acute Left buttock abscess Acute
[2018-02-10] MEDS: FILGRASTIM-SNDZ 480 MCG/0.8 ML SYR SC SCH (15:25)
[2018-02-10 15:48] LABS: CREATINE KINASE 288 IU/L (0-224)
[2018-02-10] MEDS: ERTAPENEM 1 GM in NS 100 ML IV SCH (18:01)
[2018-02-10] MEDS: TPN W/ FAMOTIDINE 1 EA BAG IV SCH (21:13)
[2018-02-10] MEDS ORDERED: HYDROmorphONE/DILAUDID 1 MG/ML INJ IVP ONE (22:00)
[2018-02-10] MEDS ORDERED: POTASSIUM Cl (KCl) 50 ML IV ONE (22:12)
[2018-02-10] MEDS: NS 1,000 ML IV SCH (22:39)
[2018-02-11] MEDS: INSULIN LISPRO 100 UNIT/ML SC SCH ×2 (02:30→06:03)
[2018-02-11] MEDS: HYDROmorphONE/DILAUDID 1 MG/ML INJ IVP PRN ×5 (02:30→21:02)
[2018-02-11 04:17] LABS: PLATELET COUNT 91 10^3/uL (150-400)
[2018-02-11] MEDS ORDERED: D50W 25 GM/50 ML SYR IVP PRN (07:53)
[2018-02-11] MEDS ORDERED: IOPAMIDOL (ISOVUE-300) 100 ML BTL ONE ×2 (08:21)
[2018-02-11] MEDS: ERTAPENEM 1 GM in NS 100 ML IV SCH (08:31)
[2018-02-11] MEDS: DAPTOmycin 600 MG in NS 100 ML IV SCH (08:31)
[2018-02-11] MEDS: ASCORBIC ACID 500 MG TAB PO SCH (08:31)
[2018-02-11] MEDS: ENOXAPARIN 40 MG/0.4 ML SYR SC SCH (08:31)
[2018-02-11] MEDS: CHOLECALCIFEROL VIT D3 2,000 UNITS TAB/CAP PO SCH (08:32)
--- NOTE | 2018-02-11 08:51 | PDINTPN ---
Budder Progress Note Assessment/Plan: Assessment/plan: * 77-year-old from [place] admitted 01/19 with left buttock cellulitis. Initial surgical debridement and colostomy 01/20. Moved back to intensive care unit 02/05 secondary to hypotension and small bowel obstruction. Return to surgery 02/06. Colostomy was leaking and revised and moved superiorly. Piece of small bowel was trapped in the original colostomy, causing obstruction. Reduced. New wound VAC placed over original colostomy site. * Fornier gangrene. MRSA. -continue wound VAC -ID and surgery following * Small bowel obstruction. Bowel quiet and no output from ostomy -CT scan of abdomen pelvis * Colostomy leak. Revised. * Nutrition: On TPN * Leukopenia: No significant change -agree with Hematology consult * Pleural effusions/atelectasis-chest x-ray shows improvement with effusions and atelectasis * Acute blood-loss anemia: Hematocrit 25 today. No ongoing bleeding. Follow. * Metabolic: No issues currently identified. * DVT prophylaxis: Enoxaparin. GI prophylaxis: Will add Pepcid to TPN. * Type 2 diabetes: On insulin sliding scale coverage. * History of hypertension: Blood pressure medications on hold. * Encephalopathy-worsened. Patient nonresponsive. Unclear etiology. * Weakness-working minimally with physical therapy Subjective: Obtunded and unresponsive Objective: Vital Signs Temp Pulse Resp BP Pulse Ox 37.4 C 119 H 16 137/71 H 98 02/11/18 05:48 02/11/18 05:48 02/11/18 05:48 02/11/18 05:48 02/11/18 05:48 Microbiology 02/05/18 12:18 Blood Culture - Final Blood Micrococcus Luteus 02/05/18 12:18 Blood Culture - Final Blood Staphylococcus Epidermidis Blood Panel (PCR) - Final Staph Coagulase Negative 02/06/18 13:15 Gram Stain - Final Peritoneal Fluid - Aspirate Laboratory Results 02/11/18 04:05 02/11/18 04:05 02/10/18 02/11/18 02/12/18 05:59 05:59 05:59 Intake Total 2859 2695 Output Total 2825 5800 Balance 34 -3105 PT 14.4 SEC (12.0-15.0) 02/10/18 05:30 INR 1.10 (0.83-1.16) 02/10/18 05:30 - Time Spent With Patient Time Spent With Patient: 35 min of time spent with patient, over 1/2 involved with coordination of care counseling. Case discussed with surgery and nursing Physical Exam - Physical Exam General Appearance: other (Obtunded), No alert EENT: PERRL/EOMI Neck: non-tender, full range of motion, supple, normal inspection Respiratory: crackles (Few basilar), No respiratory distress, No wheezing Cardiac/Chest: normal peripheral pulses, regular rate, rhythm, tachycardia Peripheral Pulses: 2+: carotid (R), carotid (L), femoral (R), femoral (L), dorsalis-pedis (R), dorsalis-pedis (L) Abdomen: non-tender Male Genitalia: deferred Rectal: deferred Skin: normal color, warm/dry Extremities: non-tender Neuro/Psych: No alert ICD10 Worksheet Patient Problems: Problems Problem Status Onset Cellulitis of perineum Acute Cellulitis, scrotum Acute Left buttock abscess Acute
[2018-02-11] MEDS: MULTIVITAMINS 1 EACH TAB PO SCH (09:24)
--- NOTE | 2018-02-11 10:01 | SOAPPROG ---
SOAP Progress Note Assessment/Plan: Assessment: 1. Jacqueline's gangrene 2. pancytopenia, leukopenia, minimal improvement Plan:Continue gcsf, overall situation grave 02/10/18 12:24 02/11/18 10:00 Subjective: not responsive Objective: Vital Signs Temp Pulse Resp BP Pulse Ox 99.4 F 122 H 16 132/61 H 100 02/11/18 05:48 02/11/18 08:00 02/11/18 08:00 02/11/18 08:00 02/11/18 08:00 Microbiology 02/05/18 12:18 Blood Culture - Final Blood Micrococcus Luteus 02/05/18 12:18 Blood Culture - Final Blood Staphylococcus Epidermidis Blood Panel (PCR) - Final Staph Coagulase Negative 02/06/18 13:15 Gram Stain - Final Peritoneal Fluid - Aspirate Laboratory Results 02/11/18 04:05 02/11/18 04:05 02/10/18 02/11/18 02/12/18 05:59 05:59 05:59 Intake Total 6279 6907 Output Total 7134 2014 Balance 34 -3105 PT 14.4 SEC (12.0-15.0) 02/10/18 05:30 INR 1.10 (0.83-1.16) 02/10/18 05:30 ICD10 Worksheet Patient Problems: Problems Problem Status Onset Cellulitis of perineum Acute Cellulitis, scrotum Acute Left buttock abscess Acute
--- NOTE | 2018-02-11 10:50 | PCMIDPN ---
Assessment/Plan: 1. Necrotizing fasciitis of the scrotum/perineal/buttock area secondary to MRSA with concomitant bacteremia status post diverting colostomy and redo colostomy: Continue daptomycin as is. Please see below regarding ertapenem. CK elevated compared with a few days ago; will repeat in the next 2 days on daptomycin. Repeat CT scan of the abdomen and pelvis without evidence of intra-abdominal abscess. 2. Encephalopathy: The patient is essentially unresponsive, only responding to pain. The carbapenem class of antibiotics could be contributing; will discontinue ertapenem and start Zosyn 3.375 g IV q.6 hours. Will also obtain MRI of the brain with and without contrast to further evaluate for evidence of possible stroke, or HSV encephalitis. If this is negative, consider lumbar puncture, as reactivation of HSV with encephalitis in the setting of critical illness is certainly possible. 3. Leukopenia: Resolving. Now on G-CSF. 4 . Transaminitis: ? Related to carbapenem versus TPN. Stable. 5. Low-grade fevers: Patient is at risk of fungemia in the setting of broad-spectrum antibiotics and TPN. Obtain fungal culture today and add Micafungin if he deteriorates. Acalculous cholecystitis seems less likely in the setting of normal alkaline phosphatase and normal bilirubin. Will follow liver function tests. 6. Rash: Stable, but has not resolved. ? Worsened by report on vancomycin. Over 30 min spent with this patient today. 02/11/18 10:52 02/11/18 10:55 Subjective: Only responsive to pain. Tachycardic, but not requiring pressors. Oxygen saturation stable. Having low-grade fevers. No output from colostomy bag at all. Repeat CT scan of the abdomen and pelvis without evidence of intra- abdominal pathology. Objective: Ertapenem 1 g IV daily day 2 (antibiotics day 6) Daptomycin 600 mg IV daily day 17 Vital Signs Temp Pulse Resp BP Pulse Ox 37.4 C 120 H 18 132/63 H 100 02/11/18 05:48 02/11/18 10:00 02/11/18 10:00 02/11/18 10:00 02/11/18 10:00 Microbiology 02/05/18 12:18 Blood Culture - Final Blood Micrococcus Luteus 02/05/18 12:18 Blood Culture - Final Blood Staphylococcus Epidermidis Blood Panel (PCR) - Final Staph Coagulase Negative 02/06/18 13:15 Gram Stain - Final Peritoneal Fluid - Aspirate Laboratory Results 02/11/18 04:05 02/11/18 04:05 02/10/18 02/11/18 02/12/18 05:59 05:59 05:59 Intake Total 2859 2695 Output Total 2825 5800 Balance 34 -3105 ESR 23 MM/HR (0-20) H 02/06/18 04:57 C-Reactive Protein 142.6 mg/L (<10.0) H 02/02/18 19:35 No new microbiology Laboratory Tests 02/10/18 Unknown Creatine Kinase 288 H - Physical Exam General Appearance: obtunded EENT: other (Dry mucous membranes) Respiratory: lungs clear Cardiac/Chest: tachycardia Extremities: other (PICC line left upper extremity looks fine) Abdomen: other (Colostomy bag is empty. No bowel sounds. Abdomen is soft.) Skin: rash (Erythematous blanching macular rash over forearms, and livido rash over lower extremities) Neuro/Psych: other (Patient's eyes are open, but he is responsive only to pain.) ICD10 Worksheet Patient Problems: Problems Problem Status Onset Cellulitis of perineum Acute Cellulitis, scrotum Acute Left buttock abscess Acute
--- NOTE | 2018-02-11 10:51 | SOAPPROG ---
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 Now s/p colostomy creation to avoid contamination of wound and wound vac change Cultures grew MRSA, on Daptomycin instead of Vanco due to leukopenia Now s/p ostomy revision and wound vac change S: Nonverbal. O: Nonverbal, doesn't respond to questions Continues to be slightly febrile Tachycardic in 130s during exam Increased O2 needs- sating at 98% on 10L Abdomen soft, mildly ttp, absent bowel sounds, ostomy is pink, no output from ostomy yet, previous ostomy site with wound vac to suction. : Wound vac in place to suction. Skin: diffuse mottle-appearing rash, concentrated over joints and trunk remains unchanged. Plan: Abdominal CT reveals no evidence of fluid collection, but possible cholecystitis. Doubt this is causing his continued altered mental status, but will order abdominal U/S to further evaluate. Continue scheduled vac changes. 02/11/18 10:46 Objective: Vital Signs Temp Pulse Resp BP Pulse Ox 37.4 C 120 H 18 132/63 H 100 02/11/18 05:48 02/11/18 10:00 02/11/18 10:00 02/11/18 10:00 02/11/18 10:00 Microbiology 02/05/18 12:18 Blood Culture - Final Blood Micrococcus Luteus 02/05/18 12:18 Blood Culture - Final Blood Staphylococcus Epidermidis Blood Panel (PCR) - Final Staph Coagulase Negative 02/06/18 13:15 Gram Stain - Final Peritoneal Fluid - Aspirate Laboratory Results 02/11/18 04:05 02/11/18 04:05 02/10/18 02/11/18 02/12/18 05:59 05:59 05:59 Intake Total 2859 2695 Output Total 2823 1920 Balance 34 -3105 PT 14.4 SEC (12.0-15.0) 02/10/18 05:30 INR 1.10 (0.83-1.16) 02/10/18 05:30 ICD10 Worksheet Patient Problems: Problems Problem Status Onset Cellulitis of perineum Acute Cellulitis, scrotum Acute Left buttock abscess Acute
[2018-02-11] MEDS ORDERED: INSULIN REGULAR, HUMAN 100 UNIT/1 ML VIAL HIGH SC SCH (11:30)
--- NOTE | 2018-02-11 11:43 | HOSPPROG ---
Hospitalist Progress Note Assessment/Plan: 77 yo M with hx of DM2 and obesity presenting with nec fasc scrotal region * Jacqueline's gangrene s/p multiple surgical debridements - wound vac in place -with MRSA and currently on dapto given reaction to vanco -s/p diverting colostomy as below given stool contamination of wound * sepsis: recurrent, most recently felt to be related to intra abdominal source of infection due to next, continued on ertapenem * MRSA bacteremia: dapto, repeat blood cxs with [employer] felt to be contaminant * diverting colostomy: with breakdown and infection of that wound, required new colostomy creation * MRSA sepsis (POA) -IV daptomycin due to leukopenia and rash with IV vanco * acute encephalopathy: patient currently non responsive, unclear if med related and attempting to hold all centrally acting meds, non focal * anemia/leukopenia: appreciate onc, continue gcsf, likely due to sepsis, monitoring * acute hypoxic respiratory failure: due to volume overload, currently requiring 6L of o2 to maintain o2 sats > 90% * pre renal azotemia: resolved * volume overload: with diastolic dysfunction, poor nutritional state and significant IVF given, improving * DM II -most recent HgA1c 7.6 * Obesity BMI 34 * Increased LFT - likely due to sepsis * IP status * Patient critically ill, discussed case with ID, gen surg, pulmonary, > 35 min critical care time spent in review of labs, eval at bedside and coordination with specialists Subjective: no significant overnight events, patient mental status has continued to decline, he is non responsive this morning Objective: Vital Signs Temp Pulse Resp BP Pulse Ox 37.4 C 120 H 18 132/63 H 100 02/11/18 05:48 02/11/18 10:00 02/11/18 10:00 02/11/18 10:00 02/11/18 10:00 Microbiology 02/05/18 12:18 Blood Culture - Final Blood Micrococcus Luteus 02/05/18 12:18 Blood Culture - Final Blood Staphylococcus Epidermidis Blood Panel (PCR) - Final Staph Coagulase Negative 02/06/18 13:15 Gram Stain - Final Peritoneal Fluid - Aspirate Laboratory Results 02/11/18 04:05 02/11/18 04:05 02/10/18 02/11/18 02/12/18 05:59 05:59 05:59 Intake Total 2859 2695 Output Total 0094 2659 Balance 34 -3105 PT 14.4 SEC (12.0-15.0) 02/10/18 05:30 INR 1.10 (0.83-1.16) 02/10/18 05:30 unresponsive anicteric dry mm distant regular dec bs at bases increased wob soft nt nd + ostomy malloy in place skin mottled warm 2+ pitting edema ICD10 Worksheet Patient Problems: Problems Problem Status Onset Left buttock abscess Acute Cellulitis of perineum Acute Cellulitis, scrotum Acute
[2018-02-11] MEDS: INSULIN REGULAR, HUMAN 100 UNIT/1 ML VIAL HIGH SC SCH ×2 (12:26→18:28)
[2018-02-11] MEDS: FILGRASTIM-SNDZ 480 MCG/0.8 ML SYR SC SCH (15:23)
--- NOTE | 2018-02-11 15:28 | WOCRNPDOC ---
WODEL Advanced Assessment Note - Skin Integrity Problem, Advanced Assess Left Buttock Surgical Wound/Incision Dressing Type: Wound Vac (black foam x2) Dressing Description: Clean/Dry, Intact Exudate Amount: None Integumentary Issue Intervention: Dressing Changed Elena Wound Tissue: Erythema, Swollen Elena Wound Swelling: Mild Wound Bed Color: Red Wound Bed Constitution: Granulation Tissue (100%) Wound Edges: Attached Site Odor: None Site Measurement - Head-to-Toe Length X Width X Depth (cm): 16x4x5 Skin Integrity Problem Comment: Patient pre-medicated with 0.4mg IV Dilaudid by Ariana CHAKRABORTY. Dressing removed (black foam x2). Wound cleansed with NS and gauze. Periwound skin prepped with Mastisol and windowpaned. Two pieces of medium black simplace foam placed in wound bed with a third piece of black foam used as a landing pad for the track pad. Wound draped and -125mmHg suction achieved with no leaks. Dressing change was incredibly uncomfortable for patient who moaned and cried out throughout, patient was otherwise nonresponsive. Taya GUEVARA updated. Josie CHAKRABORTYlaboratory animal care veterinarian team and Ariana CHAKRABORTY in room to assist. Wound care will round again tomorrow. Left Lower Abdomen Surgical Wound/Incision Dressing Type: Wound Vac Dressing Description: Clean/Dry, Intact Exudate Amount: Minimal Exudate Characteristic(s): Serosanguinous Integumentary Issue Intervention: Dressing Changed Elena Wound Tissue: Blanching Elena Wound Swelling: Mild Wound Bed Color: Yellow Wound Bed Constitution: Subcutaneous Fat Wound Edges: Attached Site Odor: None Site Measurement - Head-to-Toe Length X Width X Depth (cm): 3.7x12x6 Skin Integrity Problem Comment: Wound vac dressing removed and wound cleansed with NS and gauze. Periwound skin prepped with skin prep and draped in windowpane fashion. One piece of small black simplace foam placed in wound bed and covered with a second piece of black foam for the track pad. Draped and - 125mmHg suction achieved with no leaks. Josie CHAKRABORTYlaboratory animal care veterinarian team in room for care. Wound care will round again tomorrow. Sacrum Pressure Injury Dressing Type: Open to Air Exudate Amount: Minimal Exudate Characteristic(s): Serosanguinous Integumentary Issue Intervention: Dressing Applied Elena Wound Tissue: Blanching Wound Bed Color: [place], Purple, Red Wound Bed Constitution: Red/[place] - Non Granular Tissue Wound Edges: Not Attached Site Odor: None Site Measurement - Head-to-Toe Length X Width X Depth (cm): 9x8.5x0.2 Pressure Injury Stage: Deep Tissue Injury (DTI) Pressure Injury Present on Admit: No Skin Integrity Problem Comment: Evolving deep tissue injury that has both partial and full thickness tissue loss. A sacral mepilex dressing was applied upside down after cutting off the beige adhesive portion to ensure that it was not attached to the drape on the groin wound vac. This wound will continue to evolve over the next week or so. Wound care will round again next week. Josie CHAKRABORTYlaboratory animal care veterinarian team in room for care along with Ariana CHAKRABORTY. - Colostomy Assessment, Advanced Left Lower Abdomen Colostomy Stoma Colostomy Appliance Intact: Yes Colostomy Appliance Currently in Use: Two Piece Flat, 2 3/4, Cut to Fit Stoma Color: Black, Red Stoma Turgor: Moist Stoma Shape: Oval Stoma Height: Recessed Mucocutaneus Junction: Intact Colostomy Effluent: Bloody Colostomy Details: Colectomy, End Peristomal Skin: Intact Stomal Complications: Stomal Necrosis Colostomy Comment/Treatment Details: Appliance changed due to it being attached to the drape of the wound vac on the abdomen. Stoma is approximately 60% necrosed and 40% dusky red. Taya GUEVARA updated.
[2018-02-11] MEDS ORDERED: ORAL BALANCE GEL TUBE PO PRN (20:17)
--- NOTE | 2018-02-11 20:17 | GOP ---
[f rep st] OPERATIVE REPORT DATE OF OPERATION: 01/20/2018 SURGEON: Morales Saha MD ASSISTANT HEAD CASHIER: None. ANESTHESIA: General endotracheal. ANESTHESIOLOGIST: Dr. Foote PREOPERATIVE DIAGNOSIS: Jacqueline gangrene. POSTOPERATIVE DIAGNOSIS: Jacqueline gangrene. PROCEDURE PERFORMED: Radical excisional debridement of the perineum with incision and drainage of mu ltiple abscesses for necrotizing fasciitis and Jacqueline gangrene. FINDINGS: The patient was found with necrotic tissue and abscesses extending up into the scrotum, al most into the inguinal canal, as well as in the perirectal area and the left buttock. ESTIMATED BLOOD LOSS: Less than 100 cc. DESCRIPTION OF PROCEDURE: The patient was taken to the operating room where he received satisfactory general endotracheal anesthesia by Dr. Foote. He was placed in the lithotomy position and prepped and draped in the usual sterile fashion. The previous abscess site was opened up in the left buttock with an excision extending into the peritoneal area and up into the base of the scrotum. A marked a mount of necrotic tissue and abscess cavities was encountered. The incision kept being extended up a ll the way along the scrotum and into the inguinal canal, releasing a large amount of purulent materi al and necrotic tissue. The testicle itself was not involved, but the posterior aspect of the scrota l sac was definitely involved. A radical surgical debridement of skin, subcutaneous tissue and even some muscle was done to eradicate the necrotic tissue. The area was treated with a pulse lavage and covered with a wound VAC. He tolerated his procedure amazingly well and was taken to the recovery room in satisfactory conditio n. COMPLICATIONS: None. /[id number]/MODL
--- NOTE | 2018-02-11 20:17 | GOP ---
[f rep st] OPERATIVE REPORT DATE OF OPERATION: 01/21/2018 SURGEON: Morales Saha MD GOVERNMENT CLERK: There was no animal assistant. ANESTHESIOLOGIST: Dr. Rajendra Lewis. PREOPERATIVE DIAGNOSIS: 1. Jacqueline gangrene. 2. Perineal abscesses. POSTOPERATIVE DIAGNOSIS: 1. Jacqueline gangrene. 2. Perineal abscesses. PROCEDURE PERFORMED: Procedure on 01/21/2018, is a wide excision and radical debridement of the perineal wound with a wound VAC change. FINDINGS: Much improvement with rare areas requiring I and D are excisional debridement DESCRIPTION OF PROCEDURE: Patient was taken to the operating room where he received satisfactory general endotracheal anesthesia by Dr. Lewis. He was placed in lithotomy position, and prepped and draped in the usual sterile fashion. The perineal wound was then sharply debrided of any remaining necrotic tissue, although the wound was significantly power cleaner operator than the day before. Some additional abscess pockets were identified and opened up, but largely the wound was markedly improved. It was then pulse lavaged with over 2 L of saline,g and then dressed again with a wound VAC. He tolerated the procedure amazingly well. There were no complications, and he was taken to the recovery room in satisfactory condition. /[id number]/MODL MTDD
--- NOTE | 2018-02-11 20:22 | GOP ---
[f rep st] OPERATIVE REPORT DATE OF OPERATION: 01/27/2018 SURGEON: Morales Saha MD WELDER METAL FAB: There was no assistant loan processor. ANESTHESIOLOGIST: Dr. Hermosillo. PREOPERATIVE DIAGNOSIS: Jacqueline gangrene. POSTOPERATIVE DIAGNOSIS: Jacqueline gangrene. PROCEDURE PERFORMED: Wound debridement and lavage with wound VAC change. FINDINGS: Continued wound improvement minimal necrotic areas ESTIMATED BLOOD LOSS: Negligible. DESCRIPTION OF PROCEDURE: Patient taken to the operating room where he received a satisfactory general endotracheal anesthesia by Dr. Hermosillo. He was placed in lithotomy position and prepped and draped in the usual sterile fashion. The perineal wound was examined. The wound had good granulation and much clean tissue. Whatever necrotic tissue remained was sharply debrided. The area was then pulse lavaged and the wound VAC was again placed over the wound. He tolerated procedure well. COMPLICATIONS: There were no complications. /[id number]/MODL MTDD
--- NOTE | 2018-02-11 20:22 | GOP ---
[f rep st] OPERATIVE REPORT DATE OF OPERATION: 01/23/2018 SURGEON: Morales Saha MD ANESTHESIOLOGIST: Dr. Mahmood. PREOPERATIVE DIAGNOSIS: Jacqueline gangrene. POSTOPERATIVE DIAGNOSIS: Jacqueline gangrene. PROCEDURE PERFORMED: Diverting end colostomy. FINDINGS: Difficult to elevate the sigmoid colon up into the incision for loop colostomy INDICATIONS: The patient is having diarrhea all over his wound, keeping the wound VAC from functioning properly in the perineum DESCRIPTION OF PROCEDURE: The patient was taken to the operating room where he received a satisfactory general endotracheal anesthesia by Dr. Mahmood. He was prepped and draped in the usual sterile fashion. A short incision was made in the left lower quadrant in the periumbilical area. Dissection extended down through the subcutaneous tissue. The rectus sheath was incised transversely. The rectus muscle was retracted laterally. The posterior sheath was incised. The abdomen was entered. The sigmoid colon was identified and elevated up. However, there was a fair amount of tension on the sigmoid loop for some reason as much as could be freed up was done, but it would not reach the surface through his relatively thick panniculus without undue tension. The colon was then divided with a ASHLEE stapler and the mesentery was slightly divided with the Harmonic Scalpel until the proximal end would reach up to the surface. This was mobilized as much as possible, dividing some lateral attachments. The incision was converted into a round incision and the colon was brought up. It was secured to the fascia with 3-0 Vicryl sutures circumferentially. It was then secured to the skin with interrupted 4-0 Vicryl sutures maturing the colostomy. The distal end had been marked with a Prolene suture and left just underneath the fascia. He tolerated the procedure well, taken recovery room in good condition. There were no complications. There was no administrative assistant receptionist. /[id number]/MODL MTDD
[2018-02-11] MEDS: TPN W/ FAMOTIDINE 1 EA BAG IV SCH (21:03)
[2018-02-12] MEDS: HYDROmorphONE/DILAUDID 1 MG/ML INJ IVP PRN (00:51)
[2018-02-12] MEDS: INSULIN REGULAR, HUMAN 100 UNIT/1 ML VIAL HIGH SC SCH ×4 (01:07→17:58)
[2018-02-12] MEDS: NS 1,000 ML IV SCH (04:59)
[2018-02-12] MEDS: PIPERACILLIN/TAZO 3.375 GM/DEX 50 ML IV SCH ×3 (04:59→17:58)
--- NOTE | 2018-02-12 08:23 | HOSPPROG ---
Hospitalist Progress Note Assessment/Plan: # encephalopathy - quite profound today, barely responsive - MRI today to eval for CVA, encephalitis - may need LP # rash - odd reticular pattern on thighs; better on chest - will add ANCAs to immunologic labs # fever/tachycardia - continues; unclear if d/t ongoing infection or inflammatory - agree with CT chest to eval for occult infection or PE - cont dapto and zosyn per ID # pancytopenia/leukopenia - not responsive to G-CSF - has required 2U PRBC # mild elevated LFTs - follow daily for now; may be sepsis vs d/t above process # royce's gangrene s/p I&D, now with wound vac - cont dapto, minimum 4 weeks iv abx # wound contamination required colostomy - ostomy required revision d/t leakage # MRSA bacteremia d/t royce's gangrene - treatment as above # diabetes - glucs elevated - slow TPN today and follow - currently getting regular insulin 45U in TPN, + high SSI # obesity - BMI 34 # acute on chronic anemia d/t chronic inflammation s/p 2U PRBC 40 mins floor CC time; discussed with Dr Verdugo Subjective: still very confused; non-verbal; unclear if moving right arm per overnight RN Objective: Vital Signs Temp Pulse Resp BP Pulse Ox 36.9 C 122 H 19 131/62 H 97 02/12/18 00:00 02/12/18 06:00 02/12/18 06:00 02/12/18 06:00 02/12/18 06:00 Microbiology 02/06/18 13:15 Gram Stain - Final Peritoneal Fluid - Aspirate 02/05/18 12:18 Blood Culture - Final Blood Micrococcus Luteus 02/05/18 12:18 Blood Culture - Final Blood Staphylococcus Epidermidis Blood Panel (PCR) - Final Staph Coagulase Negative Laboratory Results 02/11/18 04:05 02/12/18 03:50 02/11/18 02/12/18 02/13/18 05:59 05:59 05:59 Intake Total 7385 1898 Output Total 5800 2500 Balance -3105 -602 PT 14.4 SEC (12.0-15.0) 02/10/18 05:30 INR 1.10 (0.83-1.16) 08/29/18 05:30 - Physical Exam Constitutional: uncomfortable, unkempt, other (non-verbal; unclear if following commands) Cardiovascular: no murmur, rub, or gallop, tachycardia Respiratory: other (no resp distress; difficult exam d/t upper airway sounds), No expiratory wheeze Gastrointestinal: other (ostomy; two wound vacs; TTP diffucely, ), No guarding, No rebound Genitourinary: malloy in urethra ICD10 Worksheet Patient Problems: Problems Problem Status Onset Left buttock abscess Acute Cellulitis of perineum Acute Cellulitis, scrotum Acute
[2018-02-12] MEDS: ENOXAPARIN 40 MG/0.4 ML SYR SC SCH (08:46)
[2018-02-12] MEDS: DAPTOmycin 600 MG in NS 100 ML IV SCH (08:46)
--- NOTE | 2018-02-12 08:52 | PDINTPN ---
[employer] Facilitator Progress Note Assessment/Plan: Assessment/plan: * 77-year-old from [place] admitted 01/19 with left buttock cellulitis. Initial surgical debridement and colostomy 01/20. Moved back to intensive care unit 02/05 secondary to hypotension and small bowel obstruction. Return to surgery 02/06. Colostomy was leaking and revised and moved superiorly. Piece of small bowel was trapped in the original colostomy, causing obstruction. Reduced. New wound VAC placed over original colostomy site. * Fornier gangrene. MRSA. -continue wound VAC -ID and surgery following * Small bowel obstruction. Bowel quiet and no output from ostomy -CT scan of abdomen pelvis unremarkable * Colostomy leak. Revised. * Nutrition: On TPN * Leukopenia: No significant change -agree with Hematology consult * Pleural effusions/atelectasis -CT scan of chest today * Acute blood-loss anemia: Hematocrit 25 today. No ongoing bleeding. Follow. * Metabolic: No issues currently identified. * DVT prophylaxis: Enoxaparin. GI prophylaxis: Will add Pepcid to TPN. * Type 2 diabetes: On insulin sliding scale coverage. * History of hypertension: Blood pressure medications on hold. * Encephalopathy-little better. Patient more responsive. -MRI of the brain today * Weakness-working minimally with physical therapy Subjective: Minimally more responsive today. Awake. Objective: Vital Signs Temp Pulse Resp BP Pulse Ox 36.9 C 122 H 19 131/62 H 97 02/12/18 00:00 02/12/18 06:00 02/12/18 06:00 02/12/18 06:00 02/12/18 06:00 Microbiology 02/06/18 13:15 Gram Stain - Final Peritoneal Fluid - Aspirate 02/05/18 12:18 Blood Culture - Final Blood Micrococcus Luteus 02/05/18 12:18 Blood Culture - Final Blood Staphylococcus Epidermidis Blood Panel (PCR) - Final Staph Coagulase Negative Laboratory Results 02/11/18 04:05 02/12/18 03:50 02/11/18 02/12/18 02/13/18 05:59 05:59 05:59 Intake Total 3415 1898 Output Total 5800 2500 Balance -3105 -602 PT 14.4 SEC (12.0-15.0) 02/10/18 05:30 INR 1.10 (0.83-1.16) 02/10/18 05:30 - Time Spent With Patient Time Spent With Patient: 35 min of time spent with patient, over 1/2 involved with coordination of care or counseling. Case discussed with hospitalist and nursing Physical Exam - Physical Exam General Appearance: other (Poorly responsive), No alert EENT: PERRL/EOMI Neck: non-tender, full range of motion, supple, normal inspection Respiratory: crackles (Bibasilar), other (Mild tachypnea), No respiratory distress, No wheezing Cardiac/Chest: normal peripheral pulses, regular rate, rhythm, systolic murmur Abdomen: normal bowel sounds, non-tender, soft Male Genitalia: deferred Rectal: deferred Skin: normal color, warm/dry Extremities: non-tender Neuro/Psych: No alert ICD10 Worksheet Patient Problems: Problems Problem Status Onset Cellulitis of perineum Acute Cellulitis, scrotum Acute Left buttock abscess Acute
--- NOTE | 2018-02-12 08:53 | SOAPPROG ---
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 Now s/p colostomy creation to avoid contamination of wound and wound vac change Now s/p ostomy revision and wound vac change S: Nonverbal. O: Nonverbal, doesn't respond to questions Continues to be slightly febrile Down to 3L O2 nasal canula. Abdomen soft, mildly ttp, absent bowel sounds, ostomy is dusky in inferior aspect, but pink otherwise, no output from ostomy yet, previous ostomy site with wound vac to suction. : Wound vac in place to suction. Skin: diffuse mottle-appearing rash, concentrated over joints and trunk remains unchanged. Plan: Altered mental status etiology remains unclear. Abdominal U/S negative for cholecystitis. Pt to have brain MRI and chest CT today. Ok to change wound vac on Thursday. 02/12/18 08:50 Objective: Vital Signs Temp Pulse Resp BP Pulse Ox 36.9 C 122 H 19 131/62 H 97 02/12/18 00:00 02/12/18 06:00 02/12/18 06:00 02/12/18 06:00 02/12/18 06:00 Microbiology 02/06/18 13:15 Gram Stain - Final Peritoneal Fluid - Aspirate 02/05/18 12:18 Blood Culture - Final Blood Micrococcus Luteus 02/05/18 12:18 Blood Culture - Final Blood Staphylococcus Epidermidis Blood Panel (PCR) - Final Staph Coagulase Negative Laboratory Results 02/11/18 04:05 02/12/18 03:50 02/11/18 02/12/18 02/13/18 05:59 05:59 05:59 Intake Total 7905 1898 Output Total 5800 2500 Balance -3105 -602 PT 14.4 SEC (12.0-15.0) 02/10/18 05:30 INR 1.10 (0.83-1.16) 02/10/18 05:30 ICD10 Worksheet Patient Problems: Problems Problem Status Onset Cellulitis of perineum Acute Cellulitis, scrotum Acute Left buttock abscess Acute
--- NOTE | 2018-02-12 11:15 | PCMIDPN ---
Assessment/Plan: 1. Necrotizing fasciitis of the scrotum/perineal/buttock area secondary to MRSA with concomitant bacteremia status post diverting colostomy and redo colostomy: Continue daptomycin, but repeat CK today as well as CBC. I am concerned about the appearance of the patient's stoma- surgery to see later today. 2. Encephalopathy: The patient is essentially unresponsive, only responding to pain. Status post antibiotic class change. To have MRI of the brain later this afternoon, then possible lumbar puncture. 3. Leukopenia: Status post G-CSF; repeat CBC today. 4 . Transaminitis: ? Related to carbapenem versus TPN. Stable. Recheck tomorrow. 5. Low-grade fevers: No evidence of intra-abdominal abscess or acalculous cholecystitis. As outlined yesterday, the patient is at high risk of fungemia in the setting of broad-spectrum antibiotics and TPN. Given persistent low-grade fevers, tachycardia and overall clinical status, will add Micafungin 100 mg IV daily. 6. Rash: Stable, but has not resolved. ? Worsened by report on vancomycin. 02/11/18 10:52 02/11/18 10:55 02/12/18 11:11 Subjective: Eyes are open, but the patient is unresponsive. Not following commands at all. Was not able to have MRI of the brain yesterday given logistical issues of wound VAC change, etc. To have this later this afternoon. Remains tachycardic with low-grade fevers. Blood pressure stable. Continues to have absent bowel sounds, and stoma looks worrisome (color is grayish). Objective: Daptomycin 600 mg IV daily day 18 Zosyn 3.375 g IV q.6 hours day 1 (antibiotics day 7) T-max 38 degrees Vital Signs Temp Pulse Resp BP Pulse Ox 37.8 C 117 H 19 156/74 H 96 02/12/18 08:00 02/12/18 10:00 02/12/18 10:00 02/12/18 10:00 02/12/18 10:00 Microbiology 02/06/18 13:15 Gram Stain - Final Peritoneal Fluid - Aspirate 02/05/18 12:18 Blood Culture - Final Blood Micrococcus Luteus 02/05/18 12:18 Blood Culture - Final Blood Staphylococcus Epidermidis Blood Panel (PCR) - Final Staph Coagulase Negative Laboratory Results 02/11/18 04:05 02/12/18 03:50 02/11/18 02/12/18 02/13/18 05:59 05:59 05:59 Intake Total 2695 1898 Output Total 5800 2500 Balance -3105 -602 ESR 23 MM/HR (0-20) H 02/06/18 04:57 C-Reactive Protein 142.6 mg/L (<10.0) H 02/02/18 19:35 Fungal blood cultures are pending, intra-abdominal cultures are negative so far - Physical Exam General Appearance: other (Eyes are open, but the patient is not able to follow commands at all.) EENT: other (Mouth debris caked inside posterior oropharynx. No evidence of thrush. No vesicles inside his mouth or on his lips.) Respiratory: lungs clear Neck: other (Patient's neck is extended, and his entire body is rigid, including his neck. This is unchanged from yesterday.) Cardiac/Chest: tachycardia Abdomen: other (stoma hernandes, colostomy bag empty. No bowel sounds. 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 Erythematous macular rash over his left arm is improved.) ICD10 Worksheet Patient Problems: Problems Problem Status Onset Cellulitis of perineum Acute Cellulitis, scrotum Acute Left buttock abscess Acute
[2018-02-12] MEDS ORDERED: MICAFUNGIN NA 100 MG in NS 100 ML IV SCH (11:30)
[2018-02-12 11:34] LABS: PLATELET COUNT 111 10^3/uL (150-400)
[2018-02-12 11:58] LABS: CREATINE KINASE 88 IU/L (0-224)
[2018-02-12] MEDS: MICAFUNGIN NA 100 MG in NS 100 ML IV SCH (11:59)
--- NOTE | 2018-02-12 12:51 | SOAPPROG ---
SOAP Progress Note Assessment/Plan: Assessment: 1. Jacqueline's gangrene 2. pancytopenia, leukopenia, some improvement Plan:Continue gcsf, 02/10/18 12:24 02/11/18 10:00 02/12/18 12:51 Objective: Vital Signs Temp Pulse Resp BP Pulse Ox 101.1 F H 122 H 21 H 148/67 H 97 02/12/18 12:00 02/12/18 12:00 02/12/18 12:00 02/12/18 12:00 02/12/18 12:00 Microbiology 02/06/18 13:15 Gram Stain - Final Peritoneal Fluid - Aspirate 02/05/18 12:18 Blood Culture - Final Blood Micrococcus Luteus 02/05/18 12:18 Blood Culture - Final Blood Staphylococcus Epidermidis Blood Panel (PCR) - Final Staph Coagulase Negative Laboratory Results 02/12/18 11:20 02/12/18 03:50 02/11/18 02/12/18 02/13/18 05:59 05:59 05:59 Intake Total 9048 7387 Output Total 5800 2500 Balance -3105 -602 PT 14.4 SEC (12.0-15.0) 02/10/18 05:30 INR 1.10 (0.83-1.16) 02/10/18 05:30 ICD10 Worksheet Patient Problems: Problems Problem Status Onset Cellulitis of perineum Acute Cellulitis, scrotum Acute Left buttock abscess Acute
[2018-02-12] MEDS ORDERED: GADOBUTROL 10 ML VIAL IVP ONE (14:40)
[2018-02-12] MEDS ORDERED: IOPAMIDOL (ISOVUE-300) 100 ML BTL ONE (14:49)
[2018-02-12] MEDS: FILGRASTIM-SNDZ 480 MCG/0.8 ML SYR SC SCH (17:00)
[2018-02-12] MEDS: TPN W/ FAMOTIDINE 1 EA BAG IV SCH (21:46)
[2018-02-13] MEDS: PIPERACILLIN/TAZO 3.375 GM/DEX 50 ML IV SCH ×4 (00:09→17:32)
[2018-02-13] MEDS: INSULIN REGULAR, HUMAN 100 UNIT/1 ML VIAL HIGH SC SCH ×4 (00:09→17:34)
[2018-02-13] MEDS: HYDROmorphONE/DILAUDID 1 MG/ML INJ IVP PRN (02:37)
[2018-02-13 06:02] LABS: INR 1.14 (0.83-1.16); PROTIME(PATIENT) 14.8 SEC (12.0-15.0)
[2018-02-13 06:04] LABS: PLATELET COUNT 117 10^3/uL (150-400)
[2018-02-13] MEDS: DAPTOmycin 600 MG in NS 100 ML IV SCH (08:01)
[2018-02-13] MEDS: ENOXAPARIN 40 MG/0.4 ML SYR SC SCH (08:01)
--- NOTE | 2018-02-13 09:14 | SOAPPROG ---
SOAP Progress Note Assessment/Plan: Assessment/plan: * 77-year-old from [place] admitted 01/19 with left buttock cellulitis. Initial surgical debridement and colostomy 01/20. Moved back to intensive care unit 02/05 secondary to hypotension and small bowel obstruction. Return to surgery 02/06. Colostomy was leaking and revised and moved superiorly. Piece of small bowel was trapped in the original colostomy, causing obstruction. Reduced. New wound VAC placed over original colostomy site. * Fornier gangrene. MRSA. -continue wound VAC -ID and surgery following * Small bowel obstruction. Bowel quiet and no output from ostomy -CT scan of abdomen pelvis unremarkable * Colostomy leak. Revised. * Nutrition: On TPN * Leukopenia: No significant change -agree with Hematology consult * Pleural effusions/atelectasis -CT scan of chest revealed bilateral small pleural effusions. There is a peripheral nodule on the left that is small, otherwise clear * Acute blood-loss anemia: Hematocrit 25 today. No ongoing bleeding. Follow. * Metabolic: No issues currently identified. * DVT prophylaxis: Enoxaparin. GI prophylaxis: Will add Pepcid to TPN. * Type 2 diabetes: On insulin sliding scale coverage. * History of hypertension: Blood pressure medications on hold. * Encephalopathy-little better. Patient more responsive. -MRI of the brain was negative for intracranial hemorrhage ischemia or encephalitis * Weakness-working minimally with physical therapy Subjective: Somewhat more alert today. Following very simple commands per nursing Objective: Vital Signs Temp Pulse Resp BP Pulse Ox 37.6 C 100 20 134/60 H 100 02/13/18 07:59 02/13/18 07:59 02/13/18 07:59 02/13/18 07:59 02/13/18 07:59 Microbiology 02/06/18 13:15 Gram Stain - Final Peritoneal Fluid - Aspirate Laboratory Results 02/13/18 05:40 02/13/18 05:40 02/12/18 02/13/18 02/14/18 05:59 05:59 05:59 Intake Total 1898 2263 Output Total 2500 3250 Balance -602 -987 PT 14.8 SEC (12.0-15.0) 02/13/18 05:40 INR 1.14 (0.83-1.16) 02/13/18 05:40 - Time Spent With Patient Time Spent With Patient: 35 min of time spent with patient, over 1/2 involved with coordination of care or counseling. Case discussed with hospitalist and nursing Physical Exam - Physical Exam General Appearance: No alert EENT: PERRL/EOMI Neck: non-tender, full range of motion, supple, normal inspection Respiratory: crackles (Few basilar), No respiratory distress, No wheezing Cardiac/Chest: normal peripheral pulses, regular rate, rhythm, systolic murmur Abdomen: normal bowel sounds, non-tender, soft Male Genitalia: deferred Rectal: deferred Skin: warm/dry Extremities: non-tender Neuro/Psych: No alert ICD10 Worksheet Patient Problems: Problems Problem Status Onset Cellulitis of perineum Acute Cellulitis, scrotum Acute Left buttock abscess Acute
--- NOTE | 2018-02-13 10:33 | HOSPPROG ---
Hospitalist Progress Note Assessment/Plan: # encephalopathy - there is mild improvement today - MRI without etiology - hold on LP today # rash - odd reticular pattern on thighs; better on chest - ANCAs pending # fever/tachycardia - actually better today - cont dapto and zosyn per ID - micafungin started empirically - is this what helped? # pancytopenia/leukopenia - not responsive to G-CSF - received another unit of PRBC today # mild elevated LFTs - follow daily for now; may be sepsis vs d/t above process # royce's gangrene s/p I&D, now with wound vac - cont dapto, minimum 4 weeks iv abx # wound contamination required colostomy - ostomy required revision d/t leakage # MRSA bacteremia d/t royce's gangrene - treatment as above # diabetes - glucs elevated - slow TPN today and follow - currently getting regular insulin 45U in TPN, + high SSI # obesity - BMI 34 # acute on chronic anemia d/t chronic inflammation s/p 2U PRBC 35 mins of CC time; he remains critically ill with a partially controlled life threatening infection Subjective: neurologic status mildly improved today Objective: Vital Signs Temp Pulse Resp BP Pulse Ox 37.6 C 90 25 H 128/62 H 100 02/13/18 07:59 02/13/18 10:00 02/13/18 10:00 02/13/18 10:00 02/13/18 10:00 Microbiology 02/06/18 13:15 Gram Stain - Final Peritoneal Fluid - Aspirate Laboratory Results 02/13/18 05:40 02/13/18 05:40 02/12/18 02/13/18 02/14/18 05:59 05:59 05:59 Intake Total 1898 2263 Output Total 2500 3250 Balance -602 -987 PT 14.8 SEC (12.0-15.0) 02/13/18 05:40 INR 1.14 (0.83-1.16) 02/13/18 05:40 - Physical Exam Constitutional: chronically ill appearing, uncomfortable Cardiovascular: regular rate and rhythym, no murmur, rub, or gallop Respiratory: no respiratory distress, no rales or rhonchi, clear to auscultation Gastrointestinal: other (soft, mild diffuse TTP; ostomy with slightly black appearance; wound vac) Genitourinary: malloy in urethra ICD10 Worksheet Patient Problems: Problems Problem Status Onset Left buttock abscess Acute Cellulitis of perineum Acute Cellulitis, scrotum Acute
--- NOTE | 2018-02-13 11:41 | ASMTCMCOM ---
CM Note CM Note Notes: Patient remains critically ill with a partially controlled life threatening infection. Patient's brother Bj and sister Kailey have been here to visit throughout the past week. Patient's boss, Keyona Sy, who has known him 30 years, traveled here to see him and help with getting his work load delegated. Mr. Sy's number is [phone]. He is willing to support patient and his family. D/C plan remains TBD. CM will follow. Date Signed: 02/13/2018 11:40 AM Electronically Signed By:Flores Martinez LCSW
--- NOTE | 2018-02-13 11:50 | SOAPPROG ---
SOAP Progress Note Assessment/Plan: E&M leukopenia * Jacqueline's gangrene with MRSA bacteremia: He is currently on daptomycin for planned course of 4 weeks. * Pancytopenia with persistent leukopenia: He has been on Zarxio since February 09 with minimal change in his ANC which is at 1200 today. Since he arrived with normal blood counts, etiology is presumed to be due to the acute illness. Daptomycin can also cause a low white count but this was occurring before starting this antibiotic. Recommend continuing Zarxio and daptomycin. Transfuse as clinically indicated and we will follow along. Subjective: No new complaints. Objective: Vital Signs Temp Pulse Resp BP Pulse Ox 37.6 C 90 25 H 128/62 H 100 02/13/18 07:59 02/13/18 10:00 02/13/18 10:00 02/13/18 10:00 02/13/18 10:00 Microbiology 02/06/18 13:15 Gram Stain - Final Peritoneal Fluid - Aspirate Laboratory Results 02/13/18 05:40 02/13/18 05:40 02/12/18 02/13/18 02/14/18 05:59 05:59 05:59 Intake Total 1898 2263 Output Total 2500 3250 Balance -602 -987 PT 14.8 SEC (12.0-15.0) 02/13/18 05:40 INR 1.14 (0.83-1.16) 02/13/18 05:40 Laboratory Tests 02/11/18 02/12/18 02/13/18 04:05 11:20 05:40 WBC 1.59 L 2.03 L 1.91 L Hgb 7.8 L 7.6 L 6.9 L Plt Count 91 L 111 L 117 L Absolute Seg Neuts 0.96 L 1.37 L 0.65 L Absolute Band Neuts 0.15 0.15 0.55 Absolute Monocytes 0.02 L 0.19 L 0.16 L Physical Exam - Physical Exam General Appearance: no apparent distress ICD10 Worksheet Patient Problems: Problems Problem Status Onset Cellulitis of perineum Acute Cellulitis, scrotum Acute Left buttock abscess Acute
--- NOTE | 2018-02-13 12:30 | SOAPPROG ---
SOAP Progress Note Assessment/Plan: Assessment: 77yo M c Jacqueline's s/p multi debridements, colostomy - VSS, HDS - Mr yesterday was reassuring, mentation improving slowly - stoma is somewhat retracted but functioning with stool in the appliance, has decent bowel soiunds - VAC output slowing and not bloody - not much else to add from surg standpoint Plan: 01/30/18 11:01 02/13/18 12:29 Subjective: following some commands Objective: Vital Signs Temp Pulse Resp BP Pulse Ox 37.6 C 90 25 H 128/62 H 100 02/13/18 07:59 02/13/18 10:00 02/13/18 10:00 02/13/18 10:00 02/13/18 10:00 Microbiology 02/06/18 13:15 Gram Stain - Final Peritoneal Fluid - Aspirate Laboratory Results 02/13/18 05:40 02/13/18 05:40 02/12/18 02/13/18 02/14/18 05:59 05:59 05:59 Intake Total 1898 2263 Output Total 2500 3250 Balance -602 -987 PT 14.8 SEC (12.0-15.0) 02/13/18 05:40 INR 1.14 (0.83-1.16) 02/13/18 05:40 ICD10 Worksheet Patient Problems: Problems Problem Status Onset Cellulitis of perineum Acute Cellulitis, scrotum Acute Left buttock abscess Acute
[2018-02-13] MEDS: MICAFUNGIN NA 100 MG in NS 100 ML IV SCH (13:01)
[2018-02-13] MEDS: FILGRASTIM-SNDZ 480 MCG/0.8 ML SYR SC SCH (13:01)
--- NOTE | 2018-02-13 15:56 | PCMIDPN ---
Assessment/Plan: 1. Necrotizing fasciitis of the scrotum/perineal/buttock area secondary to MRSA with concomitant bacteremia status post diverting colostomy and redo colostomy: Continue daptomycin as is. CK has normalized. 2. Encephalopathy: Negative MRI of the brain is reassuring, but he continues to be encephalopathic. Perhaps some slight improvement today, but does not follow commands. Consider lumbar puncture tomorrow if he does not show improvement. 3. Leukopenia: Patient's bone marrow is not particularly responsive to G-CSF for unclear reasons. ANC stable at 1200. 4 . Transaminitis: ? TPN related. Stable. No evidence of acalculous cholecystitis. 5. Fevers: Micafungin started yesterday, continue for now. 6. Rash: Stable, but has not resolved. Etiology very unclear to me. Has livido reticularis type rash on his thighs. I am still concerned about an underlying vasculitis. Over 25 min spent with this patient today. 02/11/18 10:52 02/11/18 10:55 02/12/18 11:11 02/13/18 15:52 02/13/18 15:53 Subjective: MRI of the brain with and without contrast negative. CT of the chest also underwhelming. Patient is slightly more responsive today. Opens eyes to name, but still does not follow commands. Having stool in his appliance now. Objective: Daptomycin 600 mg IV daily day 19 Zosyn 3.375 g IV q.6 hours day 2. (Antibiotics day 8) Micafungin 100 mg IV daily day 2 T-max 38.7 degrees Vital Signs Temp Pulse Resp BP Pulse Ox 37.5 C 94 21 H 124/69 H 100 02/13/18 12:00 02/13/18 14:00 02/13/18 14:00 02/13/18 14:00 02/13/18 14:00 Microbiology 02/06/18 13:15 Gram Stain - Final Peritoneal Fluid - Aspirate Anaerobic Culture - Final Laboratory Results 02/13/18 05:40 02/13/18 05:40 02/12/18 02/13/18 02/14/18 05:59 05:59 05:59 Intake Total 1898 2263 Output Total 2500 3250 Balance -602 -987 ESR 23 MM/HR (0-20) H 02/06/18 04:57 C-Reactive Protein 142.6 mg/L (<10.0) H 02/02/18 19:35 No new microbiology - Physical Exam General Appearance: other (In bed, opens eyes to name and appears more alert today intermittently, but does not respond to commands) EENT: No scleral icterus, No thrush Respiratory: coarse breath sounds Cardiac/Chest: regular rate, rhythm Extremities: other (PICC line looks okay) Abdomen: other (Colostomy bag with dark liquid stool in place. Inferior to the ostomy there is a wound VAC with no surrounding erythema.) Skin: other (Livido reticularis rash on his thighs is unchanged. Patient has blanching erythema on his back that is by report unchanged. There is a patch of erythema on his left breast that is new to me today and is blanching. Patient has wound VAC in his perineum.) ICD10 Worksheet Patient Problems: Problems Problem Status Onset Cellulitis of perineum Acute Cellulitis, scrotum Acute Left buttock abscess Acute
[2018-02-13] MEDS: TPN W/ FAMOTIDINE 1 EA BAG IV SCH (20:47)
[2018-02-14] MEDS: PIPERACILLIN/TAZO 3.375 GM/DEX 50 ML IV SCH ×4 (00:01→18:31)
[2018-02-14] MEDS: INSULIN REGULAR, HUMAN 100 UNIT/1 ML VIAL HIGH SC SCH ×4 (00:06→18:31)
[2018-02-14] MEDS: NS 1,000 ML IV SCH (00:07)
[2018-02-14 04:38] LABS: PLATELET COUNT 130 10^3/uL (150-400)
[2018-02-14] MEDS: DAPTOmycin 600 MG in NS 100 ML IV SCH (08:32)
[2018-02-14] MEDS: ENOXAPARIN 40 MG/0.4 ML SYR SC SCH (08:32)
--- NOTE | 2018-02-14 10:42 | SOAPPROG ---
SOAP Progress Note Assessment/Plan: Assessment: 77yo M c Jacqueline's s/p multi debridements, colostomy - VSS, HDS - making progress mentally each day, had a full conversation with Kartik, able to answqer simple questions for me - stoma retracted, I cleaned it this AM and it is much pinker than previously thought, I think it is very much so viable and working well. OK with TFs - VAC output slowing and not bloody - making progress, trickle feeds good idea Plan: 01/30/18 11:01 02/13/18 12:29 02/14/18 10:40 Subjective: following commands, squeezes my hand, with garbled speech able to tell me he has no pain Objective: Vital Signs Temp Pulse Resp BP Pulse Ox 37.4 C 91 23 H 119/93 H 95 02/14/18 08:00 02/14/18 08:00 02/14/18 08:00 02/14/18 08:00 02/14/18 08:00 Microbiology 02/06/18 13:15 Gram Stain - Final Peritoneal Fluid - Aspirate Anaerobic Culture - Final Laboratory Results 02/14/18 04:20 02/14/18 04:20 02/13/18 02/14/18 02/15/18 05:59 05:59 05:59 Intake Total 2263 3157 Output Total 3250 2900 Balance -987 257 PT 14.8 SEC (12.0-15.0) 02/13/18 05:40 INR 1.14 (0.83-1.16) 02/13/18 05:40 ICD10 Worksheet Patient Problems: Problems Problem Status Onset Cellulitis of perineum Acute Cellulitis, scrotum Acute Left buttock abscess Acute
--- NOTE | 2018-02-14 10:53 | PDINTPN ---
Bracelet Former Progress Note Assessment/Plan: Assessment/plan: * 77-year-old from [place] admitted 01/19 with left buttock cellulitis. Initial surgical debridement and colostomy 01/20. Moved back to intensive care unit 02/05 secondary to hypotension and small bowel obstruction. Return to surgery 02/06. Colostomy was leaking and revised and moved superiorly. Piece of small bowel was trapped in the original colostomy, causing obstruction. Reduced. New wound VAC placed over original colostomy site. * Fornier gangrene. MRSA. -continue wound VAC -ID and surgery following * Small bowel obstruction-now with output from his ostomy -CT scan of abdomen pelvis unremarkable * Colostomy leak. Revised. * Nutrition: On TPN -will start trickle feeds * Leukopenia: No significant change -agree with Hematology consult * Pleural effusions/atelectasis -CT scan of chest revealed bilateral small pleural effusions. There is a peripheral nodule on the left that is small, otherwise clear * Acute blood-loss anemia: Hematocrit 25 today. No ongoing bleeding. Follow. * Metabolic: No issues currently identified. * DVT prophylaxis: Enoxaparin. GI prophylaxis: Will add Pepcid to TPN. * Type 2 diabetes: On insulin sliding scale coverage. * History of hypertension: Blood pressure medications on hold. * Encephalopathy-continues to improve. -will hold lumbar puncture for now * Weakness-working minimally with physical therapy Subjective: Resting comfortably. No current complaints. Answering questions appropriately. Objective: Vital Signs Temp Pulse Resp BP Pulse Ox 37.4 C 91 23 H 119/93 H 95 02/14/18 08:00 02/14/18 08:00 02/14/18 08:00 02/14/18 08:00 02/14/18 08:00 Microbiology 02/06/18 13:15 Gram Stain - Final Peritoneal Fluid - Aspirate Anaerobic Culture - Final Laboratory Results 02/14/18 04:20 02/14/18 04:20 02/13/18 02/14/18 02/15/18 05:59 05:59 05:59 Intake Total 2263 3157 Output Total 3250 2900 Balance -987 257 PT 14.8 SEC (12.0-15.0) 02/13/18 05:40 INR 1.14 (0.83-1.16) 02/13/18 05:40 - Time Spent With Patient Time Spent With Patient: 35 min of time spent with patient, over 1/2 involved with coordination of care or counseling. Case discussed with hospitalist as well as nursing Physical Exam - Physical Exam General Appearance: alert, other (Responsive) EENT: PERRL/EOMI Neck: non-tender, full range of motion, supple, normal inspection Respiratory: chest non-tender, lungs clear, normal breath sounds Cardiac/Chest: normal peripheral pulses, regular rate, rhythm Peripheral Pulses: 2+: carotid (R), carotid (L), femoral (R), femoral (L), dorsalis-pedis (R), dorsalis-pedis (L) Abdomen: non-tender, soft Male Genitalia: deferred Rectal: deferred Skin: warm/dry Extremities: non-tender Neuro/Psych: alert ICD10 Worksheet Patient Problems: Problems Problem Status Onset Cellulitis of perineum Acute Cellulitis, scrotum Acute Left buttock abscess Acute
--- NOTE | 2018-02-14 11:38 | HOSPPROG ---
Hospitalist Progress Note Assessment/Plan: # encephalopathy - continued mild improvement today - MRI without etiology - hold on LP today # rash - odd reticular pattern on thighs - ANCAs pending # fever/tachycardia - actually better today - cont dapto and zosyn per ID - micafungin started empirically - is this what helped? # pancytopenia/leukopenia - not responsive to G-CSF - s/p 1U PRBC # mild elevated LFTs - follow daily for now; may be sepsis vs d/t above process # royce's gangrene s/p I&D, now with wound vac - cont dapto, minimum 4 weeks iv abx # wound contamination required colostomy - ostomy required revision d/t leakage # MRSA bacteremia d/t royce's gangrene - treatment as above # diabetes - glucs elevated - slow TPN today and follow - currently getting regular insulin 45U in TPN, + high SSI # obesity - BMI 34 # acute on chronic anemia d/t chronic inflammation s/p 2U PRBC Subjective: tells me he feels "fine" Objective: Vital Signs Temp Pulse Resp BP Pulse Ox 37.4 C 90 26 H 134/92 H 96 02/14/18 08:00 02/14/18 10:00 02/14/18 10:00 02/14/18 10:00 02/14/18 10:00 Microbiology 02/06/18 13:15 Gram Stain - Final Peritoneal Fluid - Aspirate Anaerobic Culture - Final Laboratory Results 02/14/18 04:20 02/14/18 04:20 02/13/18 02/14/18 02/15/18 05:59 05:59 05:59 Intake Total 2263 3157 Output Total 3250 2900 Balance -987 257 PT 14.8 SEC (12.0-15.0) 02/13/18 05:40 INR 1.14 (0.83-1.16) 02/13/18 05:40 35 minutes of CC time; still critically ill requiring ICU support for life threatening infection with a high risk of decompensation - Physical Exam Constitutional: chronically ill appearing, unkempt Cardiovascular: regular rate and rhythym, no murmur, rub, or gallop Respiratory: no respiratory distress, inspiratory crackles (bilat) Gastrointestinal: soft, non-tender abdomen, other (ostomy, wound vacs) ICD10 Worksheet Patient Problems: Problems Problem Status Onset Left buttock abscess Acute Cellulitis of perineum Acute Cellulitis, scrotum Acute
[2018-02-14] MEDS: MICAFUNGIN NA 100 MG in NS 100 ML IV SCH (12:44)
--- NOTE | 2018-02-14 12:49 | PCMIDPN ---
Assessment/Plan: 1. Necrotizing fasciitis of the scrotum/perineal/buttock area secondary to MRSA with concomitant bacteremia status post diverting colostomy and redo colostomy: Continue daptomycin as is. CK now normal. No evidence of adverse drug reaction from daptomycin. 2. Encephalopathy: Incredible improvement today! Hold off on lumbar puncture. 3. History of decompensation secondary to intra-abdominal etiology: Patient was empirically started on meropenem, which was then transitioned to ertapenem and now Zosyn given concern for possible TOWEL SORTER side effects associated with the carbapenem class of antibiotics. Will continue Zosyn to complete a 10- 14 day course. 4. Leukopenia: Bone marrow finally starting to respond to G-CSF! 5. Transaminitis: Better today. No radiographic evidence of acalculous cholecystitis previously. Continue to follow. 6. Fevers: Micafungin started empirically 3 days ago given concern for possible fungemia in the setting of broad-spectrum antibiotics and TPN. Will continue for now. Patient needs aggressive pulmonary toilet, and this was conveyed to the patient' s nurse today. He will start to work with respiratory therapy. Continue same antibiotics. No evidence of new drug rash or other nosocomial process at this point in time. Repeat blood cultures if develops fever above 38. 7. Rash: Stable, but has not resolved. Etiology very unclear to me. Has livido reticularis type rash on his thighs. Continue to follow. Over 25 min spent with this patient today. 02/11/18 10:52 02/11/18 10:55 02/12/18 11:11 02/13/18 15:52 02/13/18 15:53 02/14/18 12:42 Subjective: So much better today!! Patient is able to respond to commands and have a conversation with me. A bit dysarthric, but overall markedly improved compared with previous exam. He denies any pain, and feels he is getting enough air. Denies abdominal pain. Was seen by surgery earlier today, who felt that his stoma looked great. Objective: Micafungin 100 mg IV daily day 3 Zosyn 3.375 g IV q.6 hours day 3 (antibiotics day 9) Daptomycin 600 mg IV daily day 20 T-max 38 degrees to Vital Signs Temp Pulse Resp BP Pulse Ox 37.4 C 90 26 H 134/92 H 96 02/14/18 08:00 02/14/18 10:00 02/14/18 10:00 02/14/18 10:00 02/14/18 10:00 Microbiology 02/06/18 13:15 Gram Stain - Final Peritoneal Fluid - Aspirate Anaerobic Culture - Final Laboratory Results 02/14/18 04:20 02/14/18 04:20 02/13/18 02/14/18 02/15/18 05:59 05:59 05:59 Intake Total 2263 3157 Output Total 3250 2900 Balance -987 257 ESR 23 MM/HR (0-20) H 02/06/18 04:57 C-Reactive Protein 67.3 mg/L (<10.0) H 02/13/18 04:20 No new microbiology Liver function tests have improved - Physical Exam General Appearance: alert, other (Very dry mucous membranes, dysarthric from dry mouth) EENT: No scleral icterus, No thrush Respiratory: coarse breath sounds Cardiac/Chest: regular rate, rhythm, No tachycardia Extremities: other (PICC line right upper extremity looks okay. Arm appears slightly puffy, but the patient is laying on it.) Abdomen: soft, other (Colostomy bag with dark liquid stool. Wound VAC inferiorly looks fine) Skin: other (Livido rash on his thighs looks the same. no new rash) Neuro/Psych: other (Making conversation with me. Responds to commands! Knows that it is 2018. Able to convey to me that he had a serious infection, which is what brought him in here. ) ICD10 Worksheet Patient Problems: Problems Problem Status Onset Cellulitis of perineum Acute Cellulitis, scrotum Acute Left buttock abscess Acute
--- NOTE | 2018-02-14 13:57 | SOAPPROG ---
SOAP Progress Note Assessment/Plan: E&M leukopenia * Pancytopenia with persistent leukopenia: Zarxio started 02/09. Starting to show signs of response with ANC of 2150. Continue until ANC>5000. Since he arrived with normal blood counts, etiology is presumed to be due to the acute illness. * Necrotizing fasciitis of the scrotum/perineal/buttock area due to MRSA with bacteremia: Followed by ID, Imed, surgery, and CC. On daptomycin. * History of decompensation secondary to intra-abdominal etiology: s/p diverting colostomy and redo colostomy. Was on meropenem now on Zosyn for 10-14 days. Managed by ID. * Encephalopathy: Reports of improvement. Difficult for me to determine. Subjective: Sleeping when came in but arousable. Not very interactive with conversation. Objective: Vital Signs Temp Pulse Resp BP Pulse Ox 37.2 C 91 23 H 117/83 H 95 02/14/18 12:00 02/14/18 12:00 02/14/18 12:00 02/14/18 12:00 02/14/18 12:00 Microbiology 02/06/18 13:15 Gram Stain - Final Peritoneal Fluid - Aspirate Anaerobic Culture - Final Laboratory Results 02/14/18 04:20 02/14/18 04:20 02/13/18 02/14/18 02/15/18 05:59 05:59 05:59 Intake Total 2263 3157 Output Total 3250 2900 Balance -987 257 PT 14.8 SEC (12.0-15.0) 02/13/18 05:40 INR 1.14 (0.83-1.16) 02/13/18 05:40 Physical Exam - Physical Exam General Appearance: other (ill appearing; awakened to stimuli) Respiratory: No lungs clear (coarse) Cardiac/Chest: regular rate, rhythm Abdomen: soft ICD10 Worksheet Patient Problems: Problems Problem Status Onset Cellulitis of perineum Acute Cellulitis, scrotum Acute Left buttock abscess Acute
[2018-02-14] MEDS: FILGRASTIM-SNDZ 480 MCG/0.8 ML SYR SC SCH (14:17)
[2018-02-14] MEDS: TPN W/ FAMOTIDINE 1 EA BAG IV SCH (20:39)
[2018-02-15] MEDS: INSULIN REGULAR, HUMAN 100 UNIT/1 ML VIAL HIGH SC SCH ×4 (00:05→18:33)
[2018-02-15] MEDS: PIPERACILLIN/TAZO 3.375 GM/DEX 50 ML IV SCH ×4 (00:05→18:31)
[2018-02-15 04:29] LABS: PLATELET COUNT 142 10^3/uL (150-400)
[2018-02-15] MEDS: DAPTOmycin 600 MG in NS 100 ML IV SCH (08:13)
[2018-02-15] MEDS: ENOXAPARIN 40 MG/0.4 ML SYR SC SCH (08:13)
--- NOTE | 2018-02-15 08:35 | PDINTPN ---
[employer] [facility] Progress Note Assessment/Plan: Assessment/plan: * 77-year-old from [place] admitted 01/19 with left buttock cellulitis. Initial surgical debridement and colostomy 01/20. Moved back to intensive care unit 02/05 secondary to hypotension and small bowel obstruction. Return to surgery 02/06. Colostomy was leaking and revised and moved superiorly. Piece of small bowel was trapped in the original colostomy, causing obstruction. Reduced. New wound VAC placed over original colostomy site. * Fornier gangrene. MRSA. -continue wound VAC -ID and surgery following * Small bowel obstruction-now with output from his ostomy -CT scan of abdomen pelvis unremarkable * Colostomy leak. Revised. * Nutrition: On TPN. Tolerating tube feeds well. -will increase rate * Leukopenia: No significant change -agree with Hematology consult * Pleural effusions/atelectasis -CT scan of chest revealed bilateral small pleural effusions. There is a peripheral nodule on the left that is small, otherwise clear * Acute blood-loss anemia: Hematocrit 25 today. No ongoing bleeding. Follow. * Metabolic: No issues currently identified. * DVT prophylaxis: Enoxaparin. GI prophylaxis: Will add Pepcid to TPN. * Type 2 diabetes: On insulin sliding scale coverage. * History of hypertension: Blood pressure medications on hold. * Encephalopathy-continues to improve. * Weakness-working minimally with physical therapy Overall continues to improve gradually Subjective: Resting comfortably. No complaints. Objective: Vital Signs Temp Pulse Resp BP Pulse Ox 36.7 C 86 20 146/67 H 93 02/15/18 08:00 02/15/18 08:00 02/15/18 08:00 02/15/18 08:00 02/15/18 08:00 Laboratory Results 02/15/18 04:00 02/15/18 04:00 02/14/18 02/15/18 02/16/18 05:59 05:59 05:59 Intake Total 3157 2603 Output Total 2900 3000 Balance 257 -397 PT 14.8 SEC (12.0-15.0) 02/13/18 05:40 INR 1.14 (0.83-1.16) 02/13/18 05:40 - Time Spent With Patient Time Spent With Patient: 35 min of time spent with patient, over 1/2 involved with coordination of care or counseling. Case discussed nursing Physical Exam - Physical Exam General Appearance: WD/WN, alert, no apparent distress EENT: PERRL/EOMI Neck: non-tender Respiratory: chest non-tender, lungs clear, normal breath sounds Cardiac/Chest: normal peripheral pulses, regular rate, rhythm Abdomen: normal bowel sounds, non-tender, soft Male Genitalia: deferred Rectal: deferred Skin: normal color, warm/dry Extremities: normal range of motion, non-tender, normal inspection, normal capillary refill Neuro/Psych: no motor/sensory deficits, alert, normal mood/affect, oriented x 3 ICD10 Worksheet Patient Problems: Problems Problem Status Onset Cellulitis of perineum Acute Cellulitis, scrotum Acute Left buttock abscess Acute
--- NOTE | 2018-02-15 11:49 | SOAPPROG ---
SOAP Progress Note Assessment/Plan: Assessment: 77yo M c Jacqueline's s/p multi debridements, colostomy - VSS, HDS - making progress mentally each day, had a conversation with me this AM - stoma retracted, I cleaned it this AM and it is much pinker than previously thought, I think it is very much so viable and working well. OK with TFs - VAC output slowing and not bloody - making progress, advancing TFs, stoma still functioning appopriately. - VAC change today vs tomorrow given holiday per wound care Plan: 01/30/18 11:01 02/13/18 12:29 02/14/18 10:40 02/15/18 11:48 Subjective: carrying on a conversation, still AOx1 Objective: Vital Signs Temp Pulse Resp BP Pulse Ox 36.7 C 102 H 20 132/72 H 94 02/15/18 08:00 02/15/18 10:00 02/15/18 10:00 02/15/18 10:00 02/15/18 10:00 Laboratory Results 02/15/18 04:00 02/15/18 04:00 02/14/18 02/15/18 02/16/18 05:59 05:59 05:59 Intake Total 3157 2603 Output Total 2900 3000 Balance 257 -397 PT 14.8 SEC (12.0-15.0) 02/13/18 05:40 INR 1.14 (0.83-1.16) 02/13/18 05:40 ICD10 Worksheet Patient Problems: Problems Problem Status Onset Cellulitis of perineum Acute Cellulitis, scrotum Acute Left buttock abscess Acute
--- NOTE | 2018-02-15 11:53 | SOAPPROG ---
SOAP Progress Note Assessment/Plan: E&M leukopenia * Pancytopenia with persistent leukopenia: Zarxio started 02/09 with good response. Will stop after today as ANC will be above 5000. Since he arrived with normal blood counts, etiology is presumed to be due to the acute illness. * Necrotizing fasciitis of the scrotum/perineal/buttock area due to MRSA with bacteremia: Followed by ID, Imed, surgery, and CC. On daptomycin. * History of decompensation secondary to intra-abdominal etiology: s/p diverting colostomy and redo colostomy. Was on meropenem now on Zosyn for 10-14 days. Managed by ID. * Encephalopathy: Reports of improvement. Subjective: Per nursing, patient more awake and alert Objective: Vital Signs Temp Pulse Resp BP Pulse Ox 36.7 C 102 H 20 132/72 H 94 02/15/18 08:00 02/15/18 10:00 02/15/18 10:00 02/15/18 10:00 02/15/18 10:00 Laboratory Results 02/15/18 04:00 02/15/18 04:00 02/14/18 02/15/18 02/16/18 05:59 05:59 05:59 Intake Total 3157 2603 Output Total 2900 3000 Balance 257 -397 PT 14.8 SEC (12.0-15.0) 02/13/18 05:40 INR 1.14 (0.83-1.16) 02/13/18 05:40 Laboratory Tests 02/13/18 02/14/18 02/15/18 05:40 04:20 04:00 WBC 1.91 L 3.21 L 6.17 Hgb 6.9 L 8.3 L 8.3 L Plt Count 117 L 130 L 142 L Absolute Seg Neuts 0.65 L 1.22 L 4.05 Absolute Band Neuts 0.55 0.93 H 0.50 Physical Exam - Physical Exam General Appearance: other (arousable) ICD10 Worksheet Patient Problems: Problems Problem Status Onset Cellulitis of perineum Acute Cellulitis, scrotum Acute Left buttock abscess Acute
[2018-02-15] MEDS: HYDROmorphONE/DILAUDID 1 MG/ML INJ IVP PRN (12:22)
[2018-02-15] MEDS: MICAFUNGIN NA 100 MG in NS 100 ML IV SCH (12:23)
--- NOTE | 2018-02-15 13:50 | PCMIDPN ---
Assessment/Plan: 1. Necrotizing fasciitis of the scrotum/perineal/buttock area secondary to MRSA with concomitant bacteremia status post diverting colostomy and redo colostomy: Continue daptomycin as is. No evidence of adverse drug reaction from daptomycin. By report of wound care nurse today after VAC change, wounds look "great." 2. Encephalopathy: Incredible improvement this weekend. Hold off on lumbar puncture. 3. History of decompensation secondary to intra-abdominal etiology: Patient was empirically started on meropenem, which was then transitioned to ertapenem and now Zosyn given concern for possible MANGA ARTIST side effects associated with the carbapenem class of antibiotics. Will continue Zosyn to complete a 14 day course. 4. Leukopenia: Bone marrow finally starting to respond to G-CSF! 5. Transaminitis: Better. No radiographic evidence of acalculous cholecystitis previously. Continue to follow. 6. Fevers: Micafungin started empirically 3 days ago given concern for possible fungemia in the setting of broad-spectrum antibiotics and TPN. Will continue for now. Patient needs aggressive pulmonary toilet, and this was conveyed to the patient' s nurse today. He will start to work with respiratory therapy. Continue same antibiotics. No evidence of new drug rash or other nosocomial process at this point in time. Repeat blood cultures if develops fever above 38. 7. Rash: Stable, but has not resolved. Etiology very unclear to me. Has livido reticularis type rash on his thighs. Continue to follow. 8. Dysphonia/dysarthria: Mental status markedly improved, but the patient is quite dysarthric/this fine neck. Consider ENT evaluation if does not improve. Subjective: Getting his abdominal wound VAC changed. The fat/soft tissue looks good. TPN being weaned off and tube feeds initiated. Patient is overall much better this weekend. Responsive to commands. Remains very dysarthric/dysphonic. No other overnight events. Objective: Micafungin 100 mg IV daily day 4 Zosyn 3.375 g IV q.6 hours day 4 (antibiotics day 03/28) Daptomycin 600 mg IV daily day 21 T-max 38.2 degrees Vital Signs Temp Pulse Resp BP Pulse Ox 36.7 C 102 H 20 132/72 H 94 02/15/18 08:00 02/15/18 10:00 02/15/18 10:00 02/15/18 10:00 02/15/18 10:00 Laboratory Results 02/15/18 04:00 02/15/18 04:00 02/14/18 02/15/18 02/16/18 05:59 05:59 05:59 Intake Total 3157 2603 Output Total 2900 3000 Balance 257 -397 ESR 23 MM/HR (0-20) H 02/06/18 04:57 C-Reactive Protein 67.3 mg/L (<10.0) H 02/13/18 04:20 No new microbiology - Physical Exam General Appearance: alert, other (Laying flat, responsive to commands. Dysarthric.) EENT: other (Very dry mucous membranes.) Respiratory: lungs clear (Anterolaterally) Extremities: other (PICC line right upper extremity looks fine) Abdomen: other (Colostomy bag with dark liquid stool. Wound VAC removed from large wound directly inferior to colostomy: The fat looks excellent with no necrosis. The soft tissue inside also looks fine. No surrounding erythema.) Skin: other (Livido reticularis rash on lower extremities looks improved and less prominent today. Perineal wounds by report look excellent per wound care nurse.) Neuro/Psych: other (Knows what year it is, but does not know where he is. Recognizes me and tells me that I am his doctor in his dysarthric voice.) ICD10 Worksheet Patient Problems: Problems Problem Status Onset Cellulitis of perineum Acute Cellulitis, scrotum Acute Left buttock abscess Acute
--- NOTE | 2018-02-15 13:52 | WOCRNPDOC ---
IVÁN Advanced Assessment Note - Skin Integrity Problem, Advanced Assess Left Buttock Surgical Wound/Incision Dressing Type: Black Vac Foam (x3), Wound Vac Dressing Description: Clean/Dry, Intact Exudate Amount: Minimal Exudate Characteristic(s): Serosanguinous Integumentary Issue Intervention: Dressing Changed Schuyler Wound Tissue: Erythema (minimal mostly from drape removal) Schuyler Wound Swelling: Mild Wound Bed Color: Red Wound Bed Constitution: Granulation Tissue (100%) Wound Edges: Attached, Well Defined Site Measurement - Head-to-Toe Length X Width X Depth (cm): 15x4x4.2 Skin Integrity Problem Comment: Patient's mentation has improved from previous interactions 5 days ago. He responds to commands. Schuyler wound hair clipped with clippers. Flushed wound bed with ns and dried with gauze. Skin prep schuyler wound and bridge to anterior pubic area. x3 pieces of medium simplace foam to wound bed. Vac restarted at -125 mm Hg continuous suction without leaks. Isabella CHAKRABORTY in room for care. Next vac change Wed. Dr. Saha group informed of wound status as well as Dr. Garcia.
--- NOTE | 2018-02-15 14:08 | HOSPPROG ---
Hospitalist Progress Note Assessment/Plan: # encephalopathy - continues to improve - MRI without etiology # dysarthria - will continue to evaluate # rash - odd reticular pattern on thighs - ANCAs pending # fever/tachycardia - actually better today - cont dapto and zosyn per ID - micafungin started empirically - is this what helped? # pancytopenia/leukopenia - white count normal today! - s/p 3U PRBC # mild elevated LFTs - follow daily for now; may be sepsis vs d/t above process # royce's gangrene s/p I&D, now with wound vac - cont dapto, minimum 4 weeks iv abx # wound contamination required colostomy - ostomy required revision d/t leakage - ostomy currently with dark green/black appearance - will d/w Dr Sethi # MRSA bacteremia d/t royce's gangrene - treatment as above # diabetes - glucs elevated - follow with enteral feeds # obesity - BMI 34 # acute on chronic anemia d/t chronic inflammation s/p 2U PRBC # FEN - switching to enteral feeds today Subjective: subtle clinical improvement; s/p wound vac change today Objective: Vital Signs Temp Pulse Resp BP Pulse Ox 36.7 C 102 H 20 132/72 H 94 02/15/18 08:00 02/15/18 10:00 02/15/18 10:00 02/15/18 10:00 02/15/18 10:00 Laboratory Results 02/15/18 04:00 02/15/18 04:00 02/14/18 02/15/18 02/16/18 05:59 05:59 05:59 Intake Total 3157 2603 Output Total 2900 3000 Balance 257 -397 PT 14.8 SEC (12.0-15.0) 02/13/18 05:40 INR 1.14 (0.83-1.16) 02/13/18 05:[address] Garcia high risk - Physical Exam Constitutional: uncomfortable, unkempt Cardiovascular: regular rate and rhythym, no murmur, rub, or gallop Respiratory: no rales or rhonchi, clear to auscultation, No expiratory wheeze, No inspiratory crackles, No bronchial breath sounds Gastrointestinal: other (2 wound vacs; ostomy green/black appearing; soft, NT) ICD10 Worksheet Patient Problems: Problems Problem Status Onset Left buttock abscess Acute Cellulitis of perineum Acute Cellulitis, scrotum Acute
[2018-02-15] MEDS: FILGRASTIM-SNDZ 480 MCG/0.8 ML SYR SC SCH (15:17)
--- NOTE | 2018-02-15 17:22 | WOCRNPDOC ---
WOCRN Advanced Assessment Note - Skin Integrity Problem, Advanced Assess Left Lower Abdomen Surgical Wound/Incision Dressing Type: Black Vac Foam (x2), Wound Vac Dressing Description: Clean/Dry, Intact Closure Description: Not Approximated Exudate Amount: Minimal Exudate Characteristic(s): Serosanguinous Integumentary Issue Intervention: Dressing Changed Elena Wound Tissue: Swollen Elena Wound Swelling: Moderate Wound Bed Color: [place], Red, Yellow Wound Bed Constitution: Granulation Tissue (10%), Muscle (5%), Subcutaneous Fat (85% ) Site Measurement - Head-to-Toe Length X Width X Depth (cm): 3.4x12x5 Skin Integrity Problem Comment: Patient given pain meds by RN Tamera before vac dressing take down. Patient verbally responded to greeting upon entering room, although words not clear. Dressing removed, wound bed cleaned with normal saline and patted dry with gauze. Area of approxiamtely 1.5x2.5cm of muscle evident in base of wound bed. Anju Pujet from ID in room and visualized wound. Skin prep applied to elena wound skin. Mastisol applied to periwound skin. 2 pieces of small black simplace foam placed in wound bed, then covered in drape. Wound vac attached to track pad, wound vac set to continuous suction at -125mmHg, with no leaks, problems, or alarms. MANAGER BIOSTATISTICS Umesh in room for care. Left Ear Pressure Injury Dressing Type: Open to Air Exudate Amount: Minimal Exudate Characteristic(s): Dried, Serosanguinous Elena Wound Tissue: Erythema, Non-blanching, Swollen Elena Wound Swelling: Mild Wound Bed Color: Red Site Measurement - Head-to-Toe Length X Width X Depth (cm): 0.2x0.2xdried exudate Pressure Injury Stage: Stage 2, Miller Head Related Pressure Injury Pressure Injury Present on Admit: No Skin Integrity Problem Comment: Hospital acquired rn medical inpatient services related pressure injury from oxygen tubing to top of left ear. Patient did not have oxygen tubing cushions in place. Wound care to follow. Right Ear Pressure Injury Dressing Type: Open to Air Elena Wound Tissue: Erythema, Non-blanching Wound Bed Color: Red Site Measurement - Head-to-Toe Length X Width X Depth (cm): 0.4x0.3 Pressure Injury Stage: Stage 2, Miller Head Related Pressure Injury Pressure Injury Present on Admit: No (Hospital acquired) Skin Integrity Problem Comment: Hospital acquired rn medical inpatient services related pressure injury from elastic from oxygen mask on right ear, superior to lobule. Wound care to follow. - Colostomy Assessment, Advanced Left Lower Abdomen Colostomy Stoma Colostomy Appliance Intact: Yes Colostomy Appliance Currently in Use: Two Piece Flat, 2 1/4, Cut to Fit Stoma Shape: Oval Stoma Height: Protruding Slightly Mucocutaneus Junction: Seperating (0.7cm between two sutures at 10 oclock) Colostomy Details: End Colostomy Comment/Treatment Details: Colostomy appliance taken down after wound vac dressing replaced. Stoma was green in appearance, except for area of approximately 7mmm0ba of red at center of stoma. Dr. Pelayo in room for appliance change. Dr. Garcia called in to assess. Stoma gently cleaned with normal saline and patted dry with gauze. New ostomy wafer cut to fit around stoma. Pouch attached to wafer, and end sealed. Edges of wafer trimmed to fit around wound vac and surgical dressing. Patient unable to participate in ostomy care. Dr. Pelayo to notify Dr Sethi about stoma appearance.
[2018-02-16] MEDS: PIPERACILLIN/TAZO 3.375 GM/DEX 50 ML IV SCH ×4 (00:34→18:28)
[2018-02-16] MEDS: INSULIN REGULAR, HUMAN 100 UNIT/1 ML VIAL HIGH SC SCH ×4 (00:56→18:29)
[2018-02-16 04:50] LABS: PLATELET COUNT 159 10^3/uL (150-400)
--- NOTE | 2018-02-16 08:29 | PCMIDPN ---
Assessment/Plan: #Sepsis, recurrent, leukopenia, AMS. Ostomy with mild ischemia by report. Overall seems to be improving but still a little sleepy. Leukopenia resolved but did get GCSF. Renal function stable. Source of recurrent sepsis presumed to be related to bowel process/peritonitis/bacterial translocation. Other providers endorse significant improvement. 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 By report wound getting smaller. Continue Daptomycin. CK normal a couple days ago. #Rash: very faint livido reticularis on LE remains, mostly resolved #Blood cx from 02/05 c/w contaminant Microbiology 01/19/18 Buttock - MRSA 01/19/18 Blood Cx (1/2) MRSA Dapto JUAN A = <0.1 01/21/18 Blood Cx (2) Neg 01/25/18 Blood Cx (2) Neg 02/01/18 blood cx (2) Neg 02/05/18 blood cx 1 set micrococcus/ 1 set CoNS 02/06/18 peritoneal cx: neg 02/11/18 fungal blood cx: NGTD 01/24/18 & 02/06/18 Cdiff neg Meds, Micafungin 100 mg IV daily day 5 Zosyn 3.375 g IV q.6 hours day 4 (antibiotics day 04/28) Daptomycin 600 mg IV daily day , 02/12 CK normal Subjective: last fever 02/14 38.2 no specific c/o Objective: Vital Signs Temp Pulse Resp BP Pulse Ox 37.2 C 99 20 106/59 L 96 02/16/18 08:00 02/16/18 08:00 02/16/18 08:00 02/16/18 08:00 02/16/18 08:00 Laboratory Results 02/16/18 04:40 02/16/18 04:40 02/15/18 02/16/18 02/17/18 05:59 05:59 05:59 Intake Total 2603 2515 Output Total 3000 3254 Balance -397 -739 ESR 23 MM/HR (0-20) H 02/06/18 04:57 C-Reactive Protein 67.3 mg/L (<10.0) H 02/13/18 04:20 - Physical Exam General Appearance: obese, other (sleepy) EENT: NG Tube, dry mucous membranes Respiratory: other (decreased bs base), No accessory muscle use Neck: supple Cardiac/Chest: tachycardia, No systolic murmur Extremities: No pedal edema Male Genitalia: malloy, No scrotal edema Skin: pallor, No jaundice, No rash Neuro/Psych: alert - Line/s RUE PICC Lines: No drainage, No erythema - Time Spent With Patient Time Spent with Patient: greater than 35 minutes (care coordinated w with Dr. Elizabeth and Dr. Pelayo) Time Spent with Patient: Greater than 35 minutes spent on this patients care, greater than 50% of time spent counseling, educating, and coordinating care regarding the above mentioned plan. ICD10 Worksheet Patient Problems: Problems Problem Status Onset Cellulitis of perineum Acute Cellulitis, scrotum Acute Left buttock abscess Acute
--- NOTE | 2018-02-16 09:01 | SOAPPROG ---
SOAP Progress Note Assessment/Plan: Assessment/Plan: 77 Y M perirectal abscess, Jacqueline's gangrene. S/p multiple operative I&D's and diverting colostomy with subsequent revision and transposition. Sepsis, neutropenia. Mental status appears to be improving, however, still quite lethargic on my exam. Per RN, this has been baseline lately. Answers my questions appropriately. Allows for exam (was somewhat combative and noncooperative last week). Afebrile for several days. No longer neutropenic. Normal WBCs yesterday, today elevated 12K--uncertain of this significance. Tolerating tube feeds. Vac to suction. Probable vac change tomorrow. Once doing better medically could reconsider delayed primary closure. Plan to view wounds directly tomorrow. S: somnolent, but answers questions. Opens eyes but closes quickly. O: no wob abd soft ostomy pink with with dark thick liquid stool in bag abd and perineum vac to good suction. no surrounding erythema or induration, although exam at posterior perineum limited. 02/16/18 08:56 Objective: Vital Signs Temp Pulse Resp BP Pulse Ox 37.2 C 99 20 106/59 L 96 02/16/18 08:00 02/16/18 08:00 02/16/18 08:00 02/16/18 08:00 02/16/18 08:00 Laboratory Results 02/16/18 04:40 02/16/18 04:40 02/15/18 02/16/18 02/17/18 05:59 05:59 05:59 Intake Total 4720 3046 Output Total 7330 0233 Balance -397 -739 PT 14.8 SEC (12.0-15.0) 02/13/18 05:40 INR 1.14 (0.83-1.16) 02/13/18 05:40 ICD10 Worksheet Patient Problems: Problems Problem Status Onset Cellulitis of perineum Acute Cellulitis, scrotum Acute Left buttock abscess Acute
[2018-02-16] MEDS: ENOXAPARIN 40 MG/0.4 ML SYR SC SCH (09:18)
[2018-02-16] MEDS: DAPTOmycin 600 MG in NS 100 ML IV SCH (09:18)
--- NOTE | 2018-02-16 09:24 | HOSPPROG ---
Hospitalist Progress Note Assessment/Plan: # encephalopathy - stable today - better than a few days ago - MRI without etiology # dysarthria - will continue to evaluate # rash - odd reticular pattern on thighs - this is improving - ANCAs pending but other labs negative # fever/tachycardia - actually better todayresolved - cont dapto, zosyn, micafungin # pancytopenia/leukopenia - resolved - s/p 3U PRBC # mild elevated LFTs - follow daily for now; may be sepsis vs d/t above process # royce's gangrene s/p I&D, now with wound vac - cont dapto, minimum 4 weeks iv abx # wound contamination required colostomy - ostomy required revision d/t leakage - ostomy currently appears slightly necrotic - no plans to move per Dr Saha # MRSA bacteremia d/t royce's gangrene - treatment as above # diabetes - glucs elevated - follow with enteral feeds # obesity - BMI 34 # FEN - currently tolerating enteral feeds Subjective: still responding appropriately Objective: Vital Signs Temp Pulse Resp BP Pulse Ox 37.2 C 99 20 106/59 L 96 02/16/18 08:00 02/16/18 08:00 02/16/18 08:00 02/16/18 08:00 02/16/18 08:00 Laboratory Results 02/16/18 04:40 02/16/18 04:40 02/15/18 02/16/18 02/17/18 05:59 05:59 05:59 Intake Total 2603 2515 Output Total 3000 3254 Balance -397 -739 PT 14.8 SEC (12.0-15.0) 02/13/18 05:40 INR 1.14 (0.83-1.16) 02/13/18 05:40 high risk - Physical Exam Constitutional: chronically ill appearing, uncomfortable Cardiovascular: regular rate and rhythym, no murmur, rub, or gallop Respiratory: no respiratory distress, no rales or rhonchi, No expiratory wheeze , No inspiratory crackles Gastrointestinal: normoactive bowel sounds, soft, non-tender abdomen, other ( ostomy appears slightly necrotic; two wound vacs) ICD10 Worksheet Patient Problems: Problems Problem Status Onset Left buttock abscess Acute Cellulitis of perineum Acute Cellulitis, scrotum Acute
--- NOTE | 2018-02-16 09:48 | SOAPPROG ---
SOAP Progress Note Assessment/Plan: Assessment: SOAP Progress Note Assessment/Plan: E&M leukopenia * Leukopenia: Zarxio started 02/09 with good response, now discontinued. Since he arrived with normal WBC, etiology is presumed to be due to the acute illness. * Necrotizing fasciitis of the scrotum/perineal/buttock area due to MRSA with bacteremia: Followed by ID, Imed, surgery, and CC. On daptomycin. * Thrombocytopenia-resolved * Anemia-multifactorial. B12 ok. Ferritin elevated, likely as acute phase reactant. * * Encephalopathy: Reports of improvement. Plan: Will sign off given resolution of leukpenia and thrombocytopenia. Please call with any additional questions 02/16/18 09:44 Subjective: sleeping Objective: Vital Signs Temp Pulse Resp BP Pulse Ox 37.2 C 99 20 106/59 L 96 02/16/18 08:00 02/16/18 08:00 02/16/18 08:00 02/16/18 08:00 02/16/18 08:00 Laboratory Results 02/16/18 04:40 02/16/18 04:40 02/15/18 02/16/18 02/17/18 05:59 05:59 05:59 Intake Total 2603 3481 Output Total 5655 1882 Balance -397 -739 PT 14.8 SEC (12.0-15.0) 02/13/18 05:40 INR 1.14 (0.83-1.16) 02/13/18 05:40 ICD10 Worksheet Patient Problems: Problems Problem Status Onset Cellulitis of perineum Acute Cellulitis, scrotum Acute Left buttock abscess Acute
[2018-02-16] MEDS: MICAFUNGIN NA 100 MG in NS 100 ML IV SCH (12:03)
--- NOTE | 2018-02-16 14:15 | PDINTPN ---
Entry Engineer Progress Note Assessment/Plan: 77 m admitted 01/19/18 with necrotizing fasciitis of perineum (Fourniers) requiring surgical debridement and colostomy with relative stability with antibiotics, IVF, etc but required return to ICU 02/05 2/2 hypotension and SBO. He was taken back to the OR where a loop of small bowel was adhesed within a fascial defect. The colostomy was taken down and re-introduced with placement of wound vac. In addition he has had waxing and waning mental status with a largely negative workup including MRI; which finally resolved after either time or addition of micafungin (though no fungal cultures positive). 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 Elevated WBC today likely Filgrastim effect. * Colostomy redo- per discussion with Dr. Pelayo- site looks slightly necrotic but no surgical intervention required. Continue aggressive wound care and observation * Encephalopathy- consistent with toxic-metabolic and apparently improved today , though still some impairment. * Anemia- stable in mid 20's without hypotension or ongoing losses. Observe * Nutrition- currently getting TPN. Defer to surgery for advancing diet. Subjective: no complaints today Objective: Vital Signs Temp Pulse Resp BP Pulse Ox 37.1 C 108 H 14 122/67 H 98 02/16/18 12:00 02/16/18 12:00 02/16/18 12:00 02/16/18 12:00 02/16/18 12:00 Laboratory Results 02/16/18 04:40 02/16/18 04:40 02/15/18 02/16/18 02/17/18 05:59 05:59 05:59 Intake Total 2603 2515 Output Total 3000 3254 Balance -397 -739 PT 14.8 SEC (12.0-15.0) 02/13/18 05:40 INR 1.14 (0.83-1.16) 02/13/18 05:40 Physical Exam - Physical Exam General Appearance: no apparent distress, other (somnolent but easily aroused and answers questions appropriately) EENT: PERRL/EOMI Neck: supple Respiratory: lungs clear, normal breath sounds, decreased breath sounds, No respiratory distress, No accessory muscle use Cardiac/Chest: regular rate, rhythm, No edema Peripheral Pulses: 1+: dorsalis-pedis (R), dorsalis-pedis (L) Abdomen: non-tender, soft, other (wound vac), No distended Skin: warm/dry, mottled (bilateral thighs), No cyanosis Lymphatic: no adenopathy Extremities: No pedal edema Neuro/Psych: cognition abnormalities, No abnormal bank consultant II-XII ICD10 Worksheet Patient Problems: Problems Problem Status Onset Cellulitis of perineum Acute Cellulitis, scrotum Acute Left buttock abscess Acute
--- NOTE | 2018-02-16 15:06 | ASMTCMCOM ---
CM Note CM Note Notes: Gangrene-ABX, Colostomy redo-wound care, Encephalopathy-better, Anemia-stable, TPN through NGT. ICU Rounds talk of patient's possible need for LTAC. Brother Ni. Date Signed: 02/16/2018 03:03 PM Electronically Signed By:Denise Sandoval LCSW
--- NOTE | 2018-02-16 18:07 | SOAPPROG ---
SOAP Progress Note Assessment/Plan: Assessment: 77 MALE WITH I&D OF LEFT BUTTOCK ABSCESS WITH INDURATION AND INFLAMMATION EXTENDING INTO SCROTUM LOW GRADE TEMP/ WBC 14K DIABETIC NO CARDIAC SYMPTOMS CT SHOWS INFLAMMATION INTO SCROTUM MARKED EDEMA AND INDURATION IN PERINEUM AND SCROTUM Plan:MAY FURTHER I&D AND DEBRIDEMENT/ RISKS AND OPTIONS FULLY DISCUSSED 01/19/18 17:42 01/23/18 12:41 PATIENT COMFORTABLE AND DOING REASONABLY WELL DESPITE SIGNIFICANT TEMPERATURE ELEVATIONS LEAKING AND DIARRHEA STOOL OVER HIS WOUND SOME PERSISTENT INDURATION ERYTHEMA AROUND THE PERINEAL WOUND RISKS AND OPTIONS FULLY DISCUSSED PLAN: DIVERTING COLOSTOMY AND WOUND VAC CHANGE 01/24/18 11:02 TEMP DOWN/COMFORTABLE/VITAL SIGNS STABLE/ OSTOMY PINK AND WORKING WELL MINIMAL OUTPUT FROM THE WOUND VAC TRANSFER TO [facility] 02/09/18 19:12 STILL WITH DECREASED MENTAL STATUS BUT SOMEWHAT RESPONSIVE TO FOR MOLE CONVERSATION/HEAD CT IS NEGATIVE FOR ANY STROKE ABDOMEN SOFT THE/NEW COLOSTOMY LOOKS VIABLE/WOUND OKAY/AFEBRILE CONTINUE ANTIBIOTICS AND OTHER SUPPORT 02/16/18 18:06 SEEN WITH MY PA ALTAF PRECIADO/PLEASE REFER TO HER NOTE OSTOMY HAS SOME SUPERFICIAL NECROSIS WITH WILL HAVE TO BE WATCHED BUT NO RETRACTION/MENTAL STATUS SLOWLY IMPROVING/AFEBRILE PERINEUM IMPROVED Objective: Vital Signs Temp Pulse Resp BP Pulse Ox 36.8 C 110 H 14 117/76 93 02/16/18 16:00 02/16/18 16:00 02/16/18 16:00 02/16/18 16:00 02/16/18 16:00 Microbiology 02/11/18 12:52 Blood Culture - Final Blood Laboratory Results 02/16/18 04:40 02/16/18 04:40 02/15/18 02/16/18 02/17/18 05:59 05:59 05:59 Intake Total 2603 3595 Output Total 3000 3251 Balance -397 -739 PT 14.8 SEC (12.0-15.0) 02/13/18 05:40 INR 1.14 (0.83-1.16) 02/13/18 05:40 ICD10 Worksheet Patient Problems: Problems Problem Status Onset Cellulitis of perineum Acute Cellulitis, scrotum Acute Left buttock abscess Acute
[2018-02-17] MEDS: PIPERACILLIN/TAZO 3.375 GM/DEX 50 ML IV SCH ×4 (00:29→17:53)
[2018-02-17] MEDS: INSULIN REGULAR, HUMAN 100 UNIT/1 ML VIAL HIGH SC SCH ×4 (00:29→17:52)
[2018-02-17 05:15] LABS: PLATELET COUNT 154 10^3/uL (150-400)
[2018-02-17] MEDS: HYDROmorphONE/DILAUDID 1 MG/ML INJ IVP PRN (09:14)
[2018-02-17] MEDS: ENOXAPARIN 40 MG/0.4 ML SYR SC SCH (09:16)
[2018-02-17] MEDS: DAPTOmycin 600 MG in NS 100 ML IV SCH (09:17)
[2018-02-17] MEDS: METOPROLOL TARTRATE 50 MG TAB PO SCH ×2 (10:13→21:29)
--- NOTE | 2018-02-17 11:19 | PDINTPN ---
Jewel Bearing Driller Progress Note Assessment/Plan: 77 m admitted 01/19/18 with necrotizing fasciitis of perineum (Fourniers) requiring surgical debridement and colostomy with relative stability with antibiotics, IVF, etc but required return to ICU 02/05 2/2 hypotension and SBO. He was taken back to the OR where a loop of small bowel was adhesed within a fascial defect. The colostomy was taken down and re-introduced with placement of wound vac. In addition he has had waxing and waning mental status with a largely negative workup including MRI; which finally resolved after either time or addition of micafungin (though no fungal cultures positive). 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 Elevated WBC 9/ likely Filgrastim effect. Dr. Saha planing return to OR for closure of primary wound site. Should be stable for this from critical care perspective. * Colostomy redo- per discussion with Dr. Pelayo- site looks slightly necrotic but no surgical intervention required. Continue aggressive wound care and observation * Encephalopathy- consistent with toxic-metabolic and continues to improve. Knew [facility]. * Anemia- stable in mid 20's without hypotension or ongoing losses. Observe * Nutrition- currently getting TPN. Defer to surgery for advancing diet. 02/17/18 11:17 Subjective: no events, no complaints Objective: Vital Signs Temp Pulse Resp BP Pulse Ox 37 C 110 H 20 139/72 H 96 02/17/18 04:00 02/17/18 10:13 02/17/18 06:00 02/17/18 10:13 02/17/18 06:00 Microbiology 02/11/18 12:52 Blood Culture - Final Blood Laboratory Results 02/17/18 04:50 02/17/18 04:50 02/16/18 02/17/18 02/18/18 05:59 05:59 05:59 Intake Total 2515 2083 Output Total 3254 1975 Balance -739 108 PT 14.8 SEC (12.0-15.0) 02/13/18 05:40 INR 1.14 (0.83-1.16) 02/13/18 05:40 Physical Exam - Physical Exam General Appearance: alert, no apparent distress EENT: PERRL/EOMI Neck: supple Respiratory: lungs clear, normal breath sounds, decreased breath sounds, No respiratory distress, No accessory muscle use Cardiac/Chest: regular rate, rhythm, No edema Abdomen: non-tender, soft, No distended Skin: normal color, warm/dry, No cyanosis Lymphatic: no adenopathy Extremities: No pedal edema Neuro/Psych: alert, normal mood/affect, oriented x 3 ICD10 Worksheet Patient Problems: Problems Problem Status Onset Cellulitis of perineum Acute Cellulitis, scrotum Acute Left buttock abscess Acute
[2018-02-17] MEDS: MICAFUNGIN NA 100 MG in NS 100 ML IV SCH (11:45)
--- NOTE | 2018-02-17 12:26 | WOCRNPDOC ---
IVÁN Advanced Assessment Note - Skin Integrity Problem, Advanced Assess Left Buttock Surgical Wound/Incision Dressing Type: Black Vac Foam (x3), Wound Vac Dressing Description: Clean/Dry, Intact Exudate Amount: Minimal Exudate Characteristic(s): Serosanguinous Integumentary Issue Intervention: Dressing Changed Elena Wound Tissue: Erythema (mild elena wound ) Wound Bed Color: Red Wound Bed Constitution: Granulation Tissue (100% ) Wound Edges: Attached Skin Integrity Problem Comment: Taya Pizarro EXERCISE PHYSIOLOGIST and Josie Samuels PA visualized all wounds and stoma. Flushed wound with ns and mastisol applied elena wound. x3 pieces of black foam in wound bed one bridged anterior to wound for trac pad. MYLENE Bonner assisted with care. Vac restarted at -125 mm Hg continuous suction without leaks. Dr Saha plans to close wound in OR tomorrow. Wound care will round again Thursday. Left Lower Abdomen Surgical Wound/Incision Dressing Type: Black Vac Foam (x2), Wound Vac Dressing Description: Clean/Dry, Intact Integumentary Issue Intervention: Dressing Changed Wound Bed Constitution: Subcutaneous Fat (much of the fat is not healthy and is dying) Skin Integrity Problem Comment: Vac with veraflo initiated today. Flushed with Vashe solution. x2 pieces of veraflo spiral black foam into wound bed. Vac started at -125 mm Hg with a q 3 hour instillation of Vashe 42ml with a 7 min dwell time. No leaks noted. Kailey Rider in room for care. Sacrum Pressure Injury Dressing Type: Mepilex Border Dressing Description: Clean/Dry, Intact Exudate Amount: Scant Exudate Characteristic(s): Serosanguinous Integumentary Issue Intervention: Visualized Under Dressing Elena Wound Tissue: Blanching, Erythema Wound Bed Constitution: Red/[place] - Non Granular Tissue (40%), Adhered Slough (60 %) Site Measurement - Head-to-Toe Length X Width X Depth (cm): 7x14x0.3 Pressure Injury Stage: Unstageable Pressure Injury Present on Admit: No - Colostomy Assessment, Advanced Left Lower Abdomen Colostomy Stoma Colostomy Appliance Intact: No Colostomy Appliance Currently in Use: Two Piece Flat, 2 1/4, Cut to Fit Stoma Color: Red (10% red 90% GREEN!) Stoma Turgor: Moist, Shiny Stoma Shape: Oval Stoma Height: Recessed Mucocutaneus Junction: Seperating (Josie Samuels notified. seperation from 9-12 oclock.) Colostomy Effluent: Fecal, Thin, Liquid Colostomy Details: End Peristomal Skin: Erythematic, Denuded (at 6 oclock 0.3x0.5 cm ) Peristomal Skin Complications: Irritant Contact Dermatitis (at 6 oclock ) Stomal Complications: Stomal Necrosis, Retraction Colostomy Comment/Treatment Details: Green color observed on Thursday has not changed, but appears as it may be deeper into the stoma. Unknown cause. Os is the only area that remains pink. Mucocutation junction continues to seperate more at each assessment and Josie SYED is aware.
--- NOTE | 2018-02-17 12:35 | PCMIDPN ---
Assessment/Plan: #Sepsis, recurrent, leukopenia, AMS. Source of recurrent sepsis presumed to be related to bowel process/peritonitis/bacterial translocation. AF 3 days now. Leukopenia resolved, mild bandemia but may be due to GCSF. Stoma a bit purple. Still query whether there is some unknown inflammatory process, although all autoimmune testing has been negative --continue zosyn, micafungin, planning through 02/19/2018 --re-consider trial dose of steroids #MRSA bacteremia and Jacqueline's gangrene. Blood cx cleared S/p debridement 01/21 and 01/24 and end colostomy 01/24. By report wound getting smaller. Continue Daptomycin. CK normal a couple days ago. Will determine appropriate duration, patient nearing 4 weeks of therapy which may be adequate. #Dysphonia and confusion: reportedly better, MRI 02/12 negative #Rash: livido reticularis on LE remains, mostly resolved #Blood cx from 02/05 c/w contaminant Microbiology 01/19/18 Buttock - MRSA 01/19/18 Blood Cx (1/2) MRSA Dapto JUAN A = <0.1 01/21/18 Blood Cx (2) Neg 01/25/18 Blood Cx (2) Neg 02/01/18 blood cx (2) Neg 02/05/18 blood cx 1 set micrococcus/ 1 set CoNS 02/06/18 peritoneal cx: neg 02/11/18 fungal blood cx: NGTD 01/24/18 & 02/06/18 Cdiff neg Meds, Micafungin 100 mg IV daily day 6 Zosyn 3.375 g IV q.6 hours day 5 (antibiotics day 05/28) Daptomycin 600 mg IV daily day , 02/12 CK normal Subjective: patient reports he is in a hospital in [place] wants to get back to bed denies perineal, abdominal pain Objective: Vital Signs Temp Pulse Resp BP Pulse Ox 37 C 110 H 20 139/72 H 96 02/17/18 04:00 02/17/18 10:13 02/17/18 06:00 02/17/18 10:13 02/17/18 06:00 Microbiology 02/11/18 12:52 Blood Culture - Final Blood Laboratory Results 02/17/18 04:50 02/17/18 04:50 02/16/18 02/17/18 02/18/18 05:59 05:59 05:59 Intake Total 1715 1200 Output Total 2596 5733 Balance -739 108 ESR 23 MM/HR (0-20) H 02/06/18 04:57 C-Reactive Protein 67.3 mg/L (<10.0) H 02/13/18 04:20 - Physical Exam General Appearance: alert, obese, other (ill appearing) Respiratory: other (decreased bs bases), No accessory muscle use Cardiac/Chest: tachycardia Abdomen: normal bowel sounds, non-tender, soft, other (stoma L upper quadant purplish- stool in bag; wound vac immediately below stoma) Male Genitalia: malloy, No scrotal edema Skin: rash (Livedo reticularis lower extremity a bit more prominent today) Neuro/Psych: alert, disoriented to place, disoriented to time, other (Dysphonia) - Line/s RUE PICC Lines: No erythema - Time Spent With Patient Time Spent with Patient: greater than 35 minutes Time Spent with Patient: Greater than 35 minutes spent on this patients care, greater than 50% of time spent counseling, educating, and coordinating care regarding the above mentioned plan. ICD10 Worksheet Patient Problems: Problems Problem Status Onset Cellulitis of perineum Acute Cellulitis, scrotum Acute Left buttock abscess Acute
--- NOTE | 2018-02-17 14:03 | ASMTCMCOM ---
CM Note CM Note Notes: Spoke with sherri's brother Bj. The family and patient state they want patient to do rehab care here in [place]. Discussion in rounds today regarding patient needing LTAC.Dr. Elizabeth thinks patient will most likely be ready for d/c the midddle of next week. Patient to go back to OR for wound closure at some point. Referrals were sent to [facility] [place] [facility]. [facility], [facility], and [facility] have expressed interest and will follow along for updates. Bj would like patient to remain closer to [place] as he is disabled and so is his sister and they would have great difficulty visiting patient in the [place] area.We can accomodate this if patient improves enough for SNF placement VS LTAC. CM will follow. Date Signed: 02/17/2018 02:02 PM Electronically Signed By:Flores Martinez LCSW
--- NOTE | 2018-02-17 17:05 | SOAPPROG ---
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 Now s/p colostomy creation to avoid contamination of wound and wound vac change Now s/p ostomy revision and wound vac change S: Improving. C/o pain during vac change today. O: Improved mentation. Almost back to baseline Afebrile Abdomen soft, mildly ttp, +BS, ostomy appears green consistent with mucosal ischemia, pink at ostomy opening, good output : Wound vac in place to suction. Skin: diffuse mottle-appearing rash improved Plan: Pt slowly improving. Will plan for surgery tomorrow to close scrotal wound. Possible debridement of previous colostomy site. Given ostomy is temporary, will continue to watch ischemic mucosa. After wound closure, hope to take back to surgery for ostomy takedown next week. Stop tube feedings in anticipation of surgery tomorrow. 02/17/18 16:59 Objective: Vital Signs Temp Pulse Resp BP Pulse Ox 37.2 C 87 21 H 132/58 H 99 02/17/18 14:00 02/17/18 16:00 02/17/18 16:00 02/17/18 16:00 02/17/18 16:00 Microbiology 02/11/18 12:52 Blood Culture - Final Blood Laboratory Results 02/17/18 04:50 02/17/18 04:50 02/16/18 02/17/18 02/18/18 05:59 05:59 05:59 Intake Total 2515 2083 Output Total 3254 1975 125 Balance -739 108 -125 PT 14.8 SEC (12.0-15.0) 02/13/18 05:40 INR 1.14 (0.83-1.16) 02/13/18 05:40 ICD10 Worksheet Patient Problems: Problems Problem Status Onset Cellulitis of perineum Acute Cellulitis, scrotum Acute Left buttock abscess Acute
--- NOTE | 2018-02-17 17:39 | HOSPPROG ---
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 Plan: # encephalopathy - stable today - speech remains difficult to interpret, AAOx2 -suspect 2/2 critical illness, unclear how densely it will persist # dysarthria - will continue to evaluate # rash - odd reticular pattern on thighs -ANCAs pending but other labs negative # SIRS - afebrile today, leukocytosis improving -cont dapto, zosyn, micafungin # pancytopenia 2/2 critical illness - resolved -s/p 3U PRBC # transaminitis - 2/2 illness, monitor # royce's gangrene and cellulitis s/p I&D, now with wound vac -appreciate ID recs, cont dapto/conrado/zosyn, minimum 4 weeks iv abx # wound contamination required colostomy -ostomy required revision d/t leakage -superficial necrosis per Dr. Saha, will discuss debridement prior to dC # MRSA bacteremia d/t royce's gangrene - treatment as above # atrial fibrillation - acute RVR, new problem, further w/u indicated. present on tele (personally interpreted), likely provoked by critical illness -monitor rate, start po metoprolol 12.5mg bid given RVR 110s -hold on systemic anticoagulation for CVA ppx given wounds/likely surg -rec outpt 30-day event monitor s/p DC to gauge whether reoccurs s/p tx above -check Echo given acute demand ischemia (trop 0.09) # diabetes - glucs elevated - follow with enteral feeds # obesity - BMI 34 diet. NGT code. Full ppx. high risk, lovenox 40 dispo. ADD uncertain Subjective: patient denies pain Objective: Vital Signs Temp Pulse Resp BP Pulse Ox 37.2 C 87 21 H 132/58 H 99 02/17/18 14:00 02/17/18 16:00 02/17/18 16:00 02/17/18 16:00 02/17/18 16:00 Microbiology 02/11/18 12:52 Blood Culture - Final Blood Laboratory Results 02/17/18 04:50 02/17/18 04:50 02/16/18 02/17/18 02/18/18 05:59 05:59 05:59 Intake Total 2515 2083 Output Total 5344 9532 125 Balance -739 108 -125 PT 14.8 SEC (12.0-15.0) 02/13/18 05:40 INR 1.14 (0.83-1.16) 02/13/18 05:40 - Physical Exam Constitutional: no apparent distress, not in pain, chronically ill appearing, uncomfortable Cardiovascular: regular rate and rhythym, no murmur, rub, or gallop, No irregularly irregular, No edema Respiratory: no respiratory distress, no rales or rhonchi, clear to auscultation Gastrointestinal: normoactive bowel sounds, soft, non-tender abdomen, other (L side ostomy), No distension Skin: other (mildly necrotic tissue around VAC edges) Neurologic: other (AAOX2 (person and place)), No weakness (motor 5/5 bilat UE), No facial droop Psychiatric: not anxious, flat affect, other (incoherent speech), No agitated ICD10 Worksheet Patient Problems: Problems Problem Status Onset Cellulitis of perineum Acute Cellulitis, scrotum Acute Left buttock abscess Acute
[2018-02-18] MEDS: PIPERACILLIN/TAZO 3.375 GM/DEX 50 ML IV SCH ×4 (00:25→18:25)
[2018-02-18] MEDS: INSULIN REGULAR, HUMAN 100 UNIT/1 ML VIAL HIGH SC SCH ×4 (00:40→18:29)
[2018-02-18] MEDS: DAPTOmycin 600 MG in NS 100 ML IV SCH (09:18)
--- NOTE | 2018-02-18 09:46 | PDINTPN ---
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 He was taken back to the OR where a loop of small bowel was adhesed within a fascial defect. The colostomy was taken down and re-introduced with placement of wound vac. In addition he has had waxing and waning mental status with a largely negative workup including MRI; which finally resolved after either time or addition of micafungin (though no fungal cultures positive). 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 OR planned for later this am to close primary wound. * Colostomy redo- wound vac on initial site; colostomy functioing OK with superficial necrosis. Clinically stable at the moment. Take down planned for next week * Encephalopathy- consistent with toxic-metabolic and continues to improve. Knew [facility] on 02/17 and normal conversation today (A/O x 3). * Atrial fibrillation? noted on tele but no EKG. He was atenolol as an outpatient and now on metoprolol with NSR. * Anemia- stable in mid 20's without hypotension or ongoing losses. Observe * Transaminitis- LFTs continue to trend down, likely from shock liver. * Nutrition- NPO for OR today 02/17/18 11:17 02/18/18 09:42 Subjective: feels OK without complaints. Hungry this am. Objective: Vital Signs Temp Pulse Resp BP Pulse Ox 37.2 C 116 H 14 136/66 H 97 02/18/18 04:00 02/18/18 09:23 02/18/18 09:23 02/18/18 09:23 02/18/18 09:23 Laboratory Results 02/18/18 05:30 02/18/18 05:30 02/17/18 02/18/18 02/19/18 05:59 05:59 05:59 Intake Total 20829 Output Total 1974 1982 Balance 108 -384 PT 14.8 SEC (12.0-15.0) 02/13/18 05:40 INR 1.14 (0.83-1.16) 02/13/18 05:40 Physical Exam - Physical Exam General Appearance: alert, no apparent distress, obese EENT: PERRL/EOMI Neck: supple Respiratory: lungs clear, normal breath sounds, decreased breath sounds, No respiratory distress, No accessory muscle use Cardiac/Chest: regular rate, rhythm, No edema Abdomen: non-tender, soft, No distended Skin: normal color, warm/dry, No cyanosis Lymphatic: no adenopathy Extremities: No pedal edema Neuro/Psych: alert, normal mood/affect, oriented x 3 ICD10 Worksheet Patient Problems: Problems Problem Status Onset Cellulitis of perineum Acute Cellulitis, scrotum Acute Left buttock abscess Acute
--- NOTE | 2018-02-18 10:07 | PCMIDPN ---
Assessment/Plan: 1. Necrotizing fasciitis of the scrotum/perineal/buttock area secondary to MRSA with concomitant bacteremia status post diverting colostomy and redo colostomy: Continue daptomycin as is. Check CK tomorrow. Going to the OR today for wound closure. 2. Encephalopathy: Incredible improvement, even since Thursday! 3. History of decompensation secondary to intra-abdominal etiology: Patient was empirically started on meropenem, which was then transitioned to ertapenem and now Zosyn given concern for possible CHARGE AUTHORIZER side effects associated with the carbapenem class of antibiotics. Will continue Zosyn and Micafungin to complete a 14 day course, which stops tomorrow. 4. Leukopenia: Resolved. 5. Transaminitis: Improving. 6. Rash: Stable, but has not resolved. Etiology very unclear to me. Has livido reticularis type rash on his thighs. Continue to follow. 8. Dysphonia/dysarthria: Resolved! 02/18/18 10:07 Subjective: So much better, even compared with Thursday! Dysarthria/dysphonia has resolved. Knows where he is, why he is here and what month it is. Going to the operating today for wound closure. Objective: Daptomycin 600 mg IV daily day 24 Zosyn 3.375 g IV q.6 hours day 6 (antibiotics day ) Micafungin 100 mg IV daily day 7 T-max 37.2 degrees Vital Signs Temp Pulse Resp BP Pulse Ox 37.2 C 116 H 14 136/66 H 97 02/18/18 04:00 02/18/18 09:23 02/18/18 09:23 02/18/18 09:23 02/18/18 09:23 Laboratory Results 02/18/18 05:30 02/18/18 05:30 02/17/18 02/18/18 02/19/18 05:59 05:59 05:59 Intake Total 2083 1599 Output Total 1974 1982 Balance 108 -384 ESR 23 MM/HR (0-20) H 02/06/18 04:57 C-Reactive Protein 67.3 mg/L (<10.0) H 02/13/18 04:20 No new microbiology Laboratory Tests 02/12/18 02/13/18 02/14/18 11:20 05:40 04:20 AST 124 H 100 H ALT 162 H 130 H Alkaline Phosphatase 106 Creatine Kinase 88 02/18/18 05:30 AST 56 ALT 84 H Alkaline Phosphatase 129 H Creatine Kinase - Physical Exam General Appearance: other (Sitting in chair, alert and oriented.) EENT: pharynx normal, NG Tube, other, No thrush Respiratory: coarse breath sounds Cardiac/Chest: regular rate, rhythm Extremities: other (PICC line right upper extremity looks fine) Abdomen: non-tender, soft, other (Did not really see his stoma today. Bag full of dark stool. Wound VAC in place inferiorly. Incision in the midline looks fine with alexandru in place. Appropriate schuyler-incisional erythema.) Skin: other (Very minimal outline of livido reticularis rash on his thighs.) Neuro/Psych: oriented x 3 ICD10 Worksheet Patient Problems: Problems Problem Status Onset Cellulitis of perineum Acute Cellulitis, scrotum Acute Left buttock abscess Acute
[2018-02-18] MEDS: METOPROLOL TARTRATE 50 MG TAB PO SCH ×2 (10:11→20:48)
--- NOTE | 2018-02-18 11:24 | ASMTCMCOM ---
CM Note CM Note Notes: Patient care discussed in rounds. He is to return to OR today for at least one wound closure. Plan remains to hopefully find retirement care in [place] upon discharge per family request. CM to follow. Plan: TBD Date Signed: 02/18/2018 11:24 AM Electronically Signed By:Flores Bradley RN
[2018-02-18] MEDS: MICAFUNGIN NA 100 MG in NS 100 ML IV SCH (12:37)
--- NOTE | 2018-02-18 13:01 | HOSPPROG ---
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 Plan: # encephalopathy - stable today - speech remains intermittently difficult to interpret, but improves w/ patient engagement -AAOx2 -suspect 2/2 critical illness, unclear how densely it will persist -d/w Dr Elizabeth on team rounds, we agree will require SNF following resolution of issues below # dysarthria - will continue to evaluate # rash - appears to be fading -ANCAs pending but other labs negative # SIRS - afebrile today, leukocytosis improved -cont zosyn, micafungin for total 14 days (complete tomorrow) # pancytopenia 2/2 critical illness - resolved -s/p 3U PRBC # transaminitis - 2/2 illness, monitor # royce's gangrene and cellulitis s/p I&D, now with wound vac -appreciate ID recs, cont dapto/conrado/zosyn today -cont malloy to avoid contaminating below # wound contamination required colostomy -ostomy required revision d/t leakage -to OR today for likely debridement, plan for likely closure prior to DC # MRSA bacteremia d/t royce's gangrene - per Dr. Garcia, cont dapto # atrial fibrillation - acute RVR, currently in NSR on tele (personally interpreted), likely provoked by critical illness -monitor rate, restarted bblocker PO (02/17) w/ metoprolol 50mg bid -hold on systemic anticoagulation for CVA ppx given wounds/surg -rec outpt 30-day event monitor s/p DC to gauge whether reoccurs s/p tx above -will place on ASA 81 daily in interim -Echo w/o focal wall motion abnl (trop 0.09) # diabetes - glucs elevated -follow with enteral feeds # obesity - BMI 34 diet. NGT code. Full ppx. high risk, lovenox 40 (held this AM) dispo. ADD uncertain High level of medical complexity, high risk of worsening morbidity/mortality 2/ 2 issues outlined above. Subjective: patient w/o pain Objective: Vital Signs Temp Pulse Resp BP Pulse Ox 37.2 C 101 H 22 H 129/79 H 95 02/18/18 04:00 02/18/18 12:00 02/18/18 12:00 02/18/18 12:00 02/18/18 12:00 Laboratory Results 02/18/18 05:30 02/18/18 05:30 02/17/18 02/18/18 02/19/18 05:59 05:59 05:59 Intake Total 2082 1599 Output Total 1974 1982 300 Balance 108 -384 -300 PT 14.8 SEC (12.0-15.0) 02/13/18 05:40 INR 1.14 (0.83-1.16) 02/13/18 05:40 - Physical Exam Constitutional: no apparent distress, not in pain, chronically ill appearing, No uncomfortable Cardiovascular: regular rate and rhythym, no murmur, rub, or gallop, No irregularly irregular, No tachycardia, No edema Respiratory: reduced air movement (bilat bases, poor insp effort), No expiratory wheeze, No inspiratory crackles, No bronchial breath sounds, No respiratory distress Gastrointestinal: normoactive bowel sounds, soft, non-tender abdomen, other (L side ostomy and wound vac), No distension Skin: other (healing abd incision site w/o erythema/induration/breakdown, mild necrosis adjacent to abd vac) Neurologic: weakness (4/5 motor bilat LE), No AAOx3 (AAOx2) Psychiatric: not anxious, flat affect, other (somnolent but arousable to verbal stimuli), No agitated ICD10 Worksheet Patient Problems: Problems Problem Status Onset Left buttock abscess Acute Cellulitis of perineum Acute Cellulitis, scrotum Acute
--- NOTE | 2018-02-18 14:34 | ASMTCMCOM ---
CM Note CM Note Notes: MAR faxed to Courtney at [facility] per her request though patient may or may not require LTAC. CM to follow. Plan: TBD Date Signed: 02/18/2018 02:33 PM Electronically Signed By:Flores Bradley RN
[2018-02-18] MEDS ORDERED: fentaNYL 100 MCG/2 ML INJ ONE ×2 (15:41→16:49)
[2018-02-18] MEDS ORDERED: PROPOFOL 200 MG/20 ML VIAL ONE (15:41)
[2018-02-18] MEDS ORDERED: SUCCINYLCHOLINE CHLORIDE 200 MG/10 ML SYR IVP ONE (15:42)
[2018-02-18] MEDS ORDERED: ONDANSETRON 4 MG/2 ML VIAL ONE (15:42)
--- NOTE | 2018-02-18 15:48 | PDANEPAE ---
ANE Past Medical History - Cardiovascular History Hx Hypertension: Yes Hx Arrhythmias: Yes Hx Chest Pain: No Hx Coronary Artery / Peripheral Vascular Disease: No Hx CHF / Valvular Disease: No Hx Palpitations: No - Pulmonary History Hx COPD: No Hx Asthma/Reactive Airway Disease: No Hx Recent Upper Respiratory Infection: No Hx Oxygen in Use at Home: No Hx Sleep Apnea: Yes Sleep Apnea Screening Result - Last Documented: Positive - Endocrine History Hx Diabetes: Yes Hypothyroid: No Hyperthyroid: No Obesity: moderate - Renal History Hx Renal Disorders: No - Liver History Hx Hepatic Disorders: No - Chronic Pain History Chronic Pain: No ANE Review of Systems Review of Systems: ANE Patient History - Allergies Allergies/Adverse Reactions: shellfish derived Allergy (Verified 01/19/18 13:38) Sulfa (Sulfonamide Antibiotics) Allergy (Verified 01/19/18 13:38) Rash - Home Medications Home Medications: Ascorbic Acid [Vitamin C 500 mg (*)] 500 mg PO BID 01/19/18 [Last Taken 21:00] Aspirin [Aspirin 325 mg (*)] 325 mg PO DAILY PRN 01/19/18 [Last Taken Unknown] Atenolol [Tenormin 50 mg (*)] 50 mg PO BID 01/19/18 [Last Taken 01/18/18 21:00] Cholecalciferol Vit D3 [Vitamin D3 2000 units tab (OTC)] 2,000 units PO BID 12/30 [Last Taken 01/18/18 21:00] Lisinopril [Zestril 10 mg (*)] 10 mg PO DAILY 01/19/18 [Last Taken 01/18/18] Lovastatin 40 mg PO DAILY 01/19/18 [Last Taken 01/18/18] Multivitamins [Multivitamin (*)] 1 each PO DAILY 01/19/18 [Last Taken 01/18/18] Pioglitazone HCl [Actos] 30 mg PO DAILY 01/19/18 [Last Taken 01/18/18] Selenium [Selenium 200mcg (*)] 200 mcg PO DAILY 01/19/18 [Last Taken 01/18/18] metFORMIN HCL [Glucophage 500 mg (*)] 500 mg PO BID 01/19/18 [Last Taken 21:00] - NPO status NPO Status: no food or drink >8 hours NPO Since - Liquids (Date): 02/17/18 NPO Since - Liquids (Time): 00:00 NPO Since - Solids (Date): 02/05/18 NPO Since - Solids (Time): 00:00 - Anes Hx Anes Hx: no prior problems - Smoking Hx Smoking Status: Never smoked - Alcohol Use Alcohol Use: Sober ANE Labs/Vital Signs - Labs Result Diagrams: 02/18/18 05:30 02/18/18 05:30 - Vital Signs Blood Pressure: 144/62 Heart Rate: 94 Respiratory Rate: 17 O2 Sat (%): 97 Height: 170.18 cm Weight: 90.7 kg ANE Physical Exam - Airway Neck exam: FROM Mallampati Score: Class 2 Mouth exam: normal dental/mouth exam - Pulmonary Pulmonary: no respiratory distress, reduced air movement - Cardiovascular Cardiovascular: tachycardia - ASA Status ASA Status: IV ANE Anesthesia Plan Anesthesia Plan: general endotracheal anesthesia
--- NOTE | 2018-02-18 15:54 | SOAPPROG ---
SOAP Progress Note Assessment/Plan: Assessment: 77 MALE WITH I&D OF LEFT BUTTOCK ABSCESS WITH INDURATION AND INFLAMMATION EXTENDING INTO SCROTUM LOW GRADE TEMP/ WBC 14K DIABETIC NO CARDIAC SYMPTOMS CT SHOWS INFLAMMATION INTO SCROTUM MARKED EDEMA AND INDURATION IN PERINEUM AND SCROTUM Plan:MAY FURTHER I&D AND DEBRIDEMENT/ RISKS AND OPTIONS FULLY DISCUSSED 01/19/18 17:42 01/23/18 12:41 PATIENT COMFORTABLE AND DOING REASONABLY WELL DESPITE SIGNIFICANT TEMPERATURE ELEVATIONS LEAKING AND DIARRHEA STOOL OVER HIS WOUND SOME PERSISTENT INDURATION ERYTHEMA AROUND THE PERINEAL WOUND RISKS AND OPTIONS FULLY DISCUSSED PLAN: DIVERTING COLOSTOMY AND WOUND VAC CHANGE 01/24/18 11:02 TEMP DOWN/COMFORTABLE/VITAL SIGNS STABLE/ OSTOMY PINK AND WORKING WELL MINIMAL OUTPUT FROM THE WOUND VAC TRANSFER TO [facility] 02/09/18 19:12 STILL WITH DECREASED MENTAL STATUS BUT SOMEWHAT RESPONSIVE TO FOR MOLE CONVERSATION/HEAD CT IS NEGATIVE FOR ANY STROKE ABDOMEN SOFT THE/NEW COLOSTOMY LOOKS VIABLE/WOUND OKAY/AFEBRILE CONTINUE ANTIBIOTICS AND OTHER SUPPORT 02/16/18 18:06 SEEN WITH MY PA ALTAF PRECIADO/PLEASE REFER TO HER NOTE OSTOMY HAS SOME SUPERFICIAL NECROSIS WITH WILL HAVE TO BE WATCHED BUT NO RETRACTION/MENTAL STATUS SLOWLY IMPROVING/AFEBRILE PERINEUM IMPROVED 02/18/18 15:53 MORE ALERT, AFEBRILE, STEADILY IMPROVING SURGICAL RISKS AND OPTIONS FULLY DISCUSSED PLAN IS SECONDARY CLOSURE OF THE PERINEAL WOUND 2. DEBRIDEMENT OF THE ABDOMINAL COLOSTOMY SITE PATIENT FULLY UNDERSTANDS AND REQUESTS THAT WE PROCEED Objective: Vital Signs Temp Pulse Resp BP Pulse Ox 37.2 C 94 17 144/62 H 97 02/18/18 04:00 02/18/18 15:48 02/18/18 15:48 02/18/18 15:48 02/18/18 15:48 Laboratory Results 02/18/18 05:30 02/18/18 05:30 02/17/18 02/18/18 02/19/18 05:59 05:59 05:59 Intake Total 2082 8181 Output Total 1974 1982 300 Balance 108 -384 -300 PT 14.8 SEC (12.0-15.0) 02/13/18 05:40 INR 1.14 (0.83-1.16) 02/13/18 05:40 ICD10 Worksheet Patient Problems: Problems Problem Status Onset Cellulitis of perineum Acute Cellulitis, scrotum Acute Left buttock abscess Acute
[2018-02-18] MEDS: BUPIVACAINE 0.5% 30 ML SDV ONE ×2 (16:27→19:01)
[2018-02-18] MEDS ORDERED: NALOXONE HCL 0.4 MG/ML INJ IVP PRN (16:34)
[2018-02-18] MEDS ORDERED: fentaNYL 100 MCG/2 ML INJ IVP PRN (16:34)
[2018-02-18] MEDS ORDERED: PROMETHAZINE HCL 25 MG/ML INJ IVP PRN (16:34)
[2018-02-18] MEDS ORDERED: DEXAMETHASONE 4 MG/ML VIAL IVP PRN (16:34)
--- NOTE | 2018-02-18 18:02 | POSTANESTH ---
Post Anesthetic Evaluation Cardiovascular Status: Similar to Pre-Op Cond Respiratory Status: Similar to Pre-op Cond. Level of Consciousness/Mental Status: Can Participate in Eval, Mildly Sleepy, Arousable Pain Control: Adequate, Prn Tx Ordered Nausea/Vomiting Control: Adequate, Prn Tx Ordered Complications Possibly Related to Anesthesia: None Noted
--- NOTE | 2018-02-18 18:32 | POSTOPPROG ---
Post Op Note Date of Operation: 02/18/18 Surgeon: Morales Saha Anesthesiologist: RADHA Anesthesia: GET(General Endotracheal) Pre-op Diagnosis: PERINEAL NECROTIZING FASCIITIS Post-op Diagnosis: SAME Indication: WOUND READY FOR CLOSURE Procedure: PERINEAL WOUND DEBRIDEMENT AND DELAYED PRIMARY CLOSURE Findings: EXCELLENT GRANULATION TISSUE WITH ONLY MINIMAL NECROTIC AREAS FOR DEBRIDEME Inf/Abcess present in the surg proc area at time of surgery?: Yes Depth: Deep Incisional (Fascial) EBL: Minimal Complications: NONE Drains: Rusty Gonzalez
--- NOTE | 2018-02-18 18:34 | POSTOPPROG ---
Post Op Note Date of Operation: 02/18/18 Surgeon: Morales Saha Anesthesiologist: RADHA Anesthesia: GET(General Endotracheal) Pre-op Diagnosis: COLOSTOMY NECROSIS AND STENOSIS Post-op Diagnosis: SAME Indication: NECROSIS OF THE COLOSTOMY Procedure: 1. COLOSTOMY REVISION AT THE FASCIAL AND SKIN LEVEL 2. DEBRIDEMENT WOUND V Findings: REASONABLY GOOD CLEAN OLD COLOSTOMY SITE/NECROSIS OF THE DISTAL 1 CM OF THE Inf/Abcess present in the surg proc area at time of surgery?: Yes Depth: Deep Incisional (Fascial) EBL: Minimal Complications: NONE Drains: Wound Vac Specimen(s): COLOSTOMY SEGMENT
[2018-02-19] MEDS: PIPERACILLIN/TAZO 3.375 GM/DEX 50 ML IV SCH ×4 (00:07→18:17)
[2018-02-19] MEDS: INSULIN REGULAR, HUMAN 100 UNIT/1 ML VIAL HIGH SC SCH ×5 (00:14→23:32)
[2018-02-19 05:50] LABS: CREATINE KINASE 39 IU/L (0-224)
[2018-02-19] MEDS: DAPTOmycin 600 MG in NS 100 ML IV SCH (08:57)
[2018-02-19] MEDS: METOPROLOL TARTRATE 50 MG TAB PO SCH ×2 (08:57→19:49)
--- NOTE | 2018-02-19 09:09 | PCMIDPN ---
Assessment/Plan: 1. Necrotizing fasciitis of the scrotum/perineal/buttock area secondary to MRSA with concomitant bacteremia status post diverting colostomy and redo colostomy: Today is day 30 of anti staphylococcal therapy after 1st negative blood cultures. By report, his wounds look fantastic. I do not see any reason to continue daptomycin. Will stop after today's dose. He will need meticulous wound care moving forward. 2. Encephalopathy: Incredible improvement, even since Thursday! 3. History of decompensation secondary to intra-abdominal etiology: Patient was empirically started on meropenem, which was then transitioned to ertapenem and now Zosyn given concern for possible MACHINE DEBURRER side effects associated with the carbapenem class of antibiotics. Stop Zosyn and Micafungin after today 's doses. 02/18/18 10:07 02/19/18 09:06 Subjective: Status post closure of perineal wounds and wound VAC change of abdominal wound along with debridement of stoma. In good spirits today. About to be evaluated by speech to see if he can eat. Patient states that his favorite foods are chicken and hamburgers. Objective: Daptomycin 600 mg IV daily (anti staphylococcal therapy after 1st negative blood culture day 30) Zosyn 3.375 g IV q.6 hours day 7 (antibiotics day ) Micafungin 100 mg IV daily T-max 37.2 degrees Vital Signs Temp Pulse Resp BP Pulse Ox 36.6 C 117 H 29 H 123/71 H 95 02/19/18 08:00 02/19/18 08:00 02/19/18 08:00 02/19/18 08:00 02/19/18 08:00 Laboratory Results 02/19/18 05:27 02/19/18 05:27 02/18/18 02/19/18 02/20/18 05:59 05:59 05:59 Intake Total 1599 1044 Output Total 1983 1550 Balance -384 -506 ESR 23 MM/HR (0-20) H 02/06/18 04:57 C-Reactive Protein 67.3 mg/L (<10.0) H 02/13/18 04:20 No new microbiology Laboratory Tests 02/19/18 05:27 AST 58 ALT 74 H Alkaline Phosphatase 103 Creatine Kinase 39 - Physical Exam General Appearance: other (Sitting up in chair, alert, making conversation with me.) EENT: pharynx normal, NG Tube Respiratory: lungs clear Cardiac/Chest: tachycardia Skin: other (Livido reticularis rash on his thighs barely perceptible.) ICD10 Worksheet Patient Problems: Problems Problem Status Onset Cellulitis of perineum Acute Cellulitis, scrotum Acute Left buttock abscess Acute
--- NOTE | 2018-02-19 09:40 | GOP ---
DATE OF OPERATION: 02/18/2018 SURGEON: Morales Saha MD WASHER AND CAPPER MACHINE OPERATOR: There was no technical assistant. ANESTHESIOLOGIST: Oscar Yeh MD PREOPERATIVE DIAGNOSIS: Abdominal wound and colostomy necrosis. POSTOPERATIVE DIAGNOSIS: Abdominal wound and colostomy necrosis. PROCEDURE PERFORMED: Colostomy revision at the fascial and skin level, wound debridement, and wound VAC placement. FINDINGS: Patient was found to have a deep wound where a previous colostomy had been. There was yuly y minimal granulation tissue. That wound was sharply debrided, hemostasis was assured, and it was dr essed with a wound VAC. The colostomy itself revealed necrosis of the distal 1-2 cm of the colostomy with dehiscence of portions of the skin attachment. The necrotic tissue was debrided. The ostomy w as freed up down to the fascial level where it was elevated up. It was trimmed back to fresh viable colonic tissue and secured to the skin with interrupted 4-0 Vicryl sutures. Wound was infiltrated wi th Marcaine and was dressed with a colostomy dressing. He tolerated the procedure well. There were no complications, taken to recovery room in good condition. DESCRIPTION OF PROCEDURE: /[id number]/MODL
--- NOTE | 2018-02-19 09:45 | GOP ---
DATE OF OPERATION: 02/18/2018 SURGEON: Morales Saha MD PREOPERATIVE DIAGNOSIS: Perineal necrotizing fasciitis. POSTOPERATIVE DIAGNOSIS: Perineal necrotizing fasciitis. PROCEDURE PERFORMED: Delayed primary closure of the perineal wound and debridement. FINDINGS: Patient was found to have minimal tissue requiring debridement and had wonderful granulat ion tissue. DESCRIPTION OF PROCEDURE: The patient was taken to the operating room where [facility] by Dr. Yeh. He was placed in the lithotomy position, prepped an d draped in the usual sterile fashion. Some minimal excisional debridement was done on the wound and then it was closed with 2-0 Prolene sutures and skin alexandru. A 15 round silicone VALERIY drain was brou ght out through a separate stab incision in the groin and placed underneath the wound closure. The w ound was infiltrated with 0.5% Marcaine. He tolerated the procedure well and was taken to the [facility] room in good condition. There were no complications. /[id number]/MODL
--- NOTE | 2018-02-19 09:47 | SOAPPROG ---
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 Now s/p colostomy creation to avoid contamination of wound and wound vac change Now s/p ostomy revision and wound vac change Now s/p repeat ostomy revision, abdominal wound debridement and wound vac change , and perineum wound closure S: No complaints. Working with PT during visit. Denies pain. O: Alert Afebrile Abdomen soft, nontender, +BS, ostomy pink with stool in appliance, previous ostomy site with vac to suction : incision cdi, alexandru intact, VALERIY drain with serosang drainage Skin: diffuse mottle-appearing rash improved Plan: Pt passed swallow study. Ok to d/c tube feedings and advance diet. Downgrade to SDU. 02/19/18 09:43 Objective: Vital Signs Temp Pulse Resp BP Pulse Ox 36.6 C 117 H 29 H 123/71 H 95 02/19/18 08:00 02/19/18 08:00 02/19/18 08:00 02/19/18 08:00 02/19/18 08:00 Laboratory Results 02/19/18 05:27 02/19/18 05:27 02/18/18 02/19/18 02/20/18 05:59 05:59 05:59 Intake Total 1592 1044 Output Total 4219 837 Balance -384 -506 PT 14.8 SEC (12.0-15.0) 02/13/18 05:40 INR 1.14 (0.83-1.16) 02/13/18 05:40 ICD10 Worksheet Patient Problems: Problems Problem Status Onset Cellulitis of perineum Acute Cellulitis, scrotum Acute Left buttock abscess Acute
--- NOTE | 2018-02-19 11:07 | PDINTPN ---
Helper Electrical Progress Note Assessment/Plan: 77 m admitted 01/19/18 with necrotizing fasciitis of perineum (Fourniers) requiring surgical debridement and colostomy with relative stability with antibiotics, IVF, etc but required return to ICU 02/05 2/2 hypotension and SBO. He was taken back to the OR where a loop of small bowel was adhesed within a fascial defect. The colostomy was taken down and re-introduced with placement of wound vac. In addition he has had waxing and waning mental status with a largely negative workup including MRI; which finally resolved after either time or addition of micafungin (though no fungal cultures positive). 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 Primary wound closed and debridement of first colostomy site and current site without complication. * Colostomy redo- wound vac on initial site; colostomy functioning OK with superficial necrosis. Clinically stable at the moment. Take down planned for next week? Timing not clear at the moment. * Encephalopathy- consistent with toxic-metabolic and continues to improve. * Atrial fibrillation? noted on tele but no EKG. He was atenolol as an outpatient and now on metoprolol with NSR. * Anemia- stable in mid 20's without hypotension or ongoing losses. Observe * Transaminitis- LFTs continue to trend down, likely from shock liver. * Nutrition- passed swallow eval today; defer to surgery for diet advancement, dc NGT * Dispo: OK for med surg vs SDU 02/17/18 11:17 02/18/18 09:42 02/19/18 11:05 Subjective: feels well and denies pain after closure of primary wound 02/18 Objective: Vital Signs Temp Pulse Resp BP Pulse Ox 36.6 C 117 H 29 H 123/71 H 95 02/19/18 08:00 02/19/18 08:00 02/19/18 08:00 02/19/18 08:00 02/19/18 08:00 Laboratory Results 02/19/18 05:27 02/19/18 05:27 02/18/18 02/19/18 02/20/18 05:59 05:59 05:59 Intake Total 1599 1044 Output Total 9787 1550 Balance -384 -506 PT 14.8 SEC (12.0-15.0) 02/13/18 05:40 INR 1.14 (0.83-1.16) 02/13/18 05:40 Physical Exam - Physical Exam General Appearance: alert, no apparent distress, obese EENT: PERRL/EOMI Neck: supple Respiratory: lungs clear, normal breath sounds, decreased breath sounds, No respiratory distress, No accessory muscle use Cardiac/Chest: regular rate, rhythm, No edema Abdomen: non-tender, soft, No distended Skin: normal color, warm/dry, No cyanosis Lymphatic: no adenopathy Extremities: No pedal edema Neuro/Psych: alert, normal mood/affect, oriented x 3 ICD10 Worksheet Patient Problems: Problems Problem Status Onset Cellulitis of perineum Acute Cellulitis, scrotum Acute Left buttock abscess Acute
--- NOTE | 2018-02-19 12:01 | ASMTCMCOM ---
CM Note CM Note Notes: Patient upgraded to SDU. Passed swallow evaluation. Off antibiotics. Continues to progress. Referral to SNF resent with updates as family wishes patient to remain in [place]. CM to follow. Hospital medicine to speak with surgery regarding plans for future surgical interventions. CM to follow. Plan: To SNF vs LTAC Date Signed: 02/19/2018 12:00 PM Electronically Signed By:Flores Bradley RN
[2018-02-19] MEDS: MICAFUNGIN NA 100 MG in NS 100 ML IV SCH (12:22)
--- NOTE | 2018-02-19 17:04 | HOSPPROG ---
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 Plan: # encephalopathy - improving today - concentration remains poor, but orientation better -suspect 2/2 critical illness, unclear how densely it will persist -will require SNF following resolution of issues below # dysarthria - will continue to evaluate # rash - appears to be fading -ANCAs pending but other labs negative # SIRS - afebrile today, leukocytosis improved -cont zosyn, micafungin for total 14 days (complete tonight) # pancytopenia 2/2 critical illness - resolved -s/p 3U PRBC # transaminitis - 2/2 illness, monitor # royce's gangrene and cellulitis s/p I&D, now with wound vac and plan for staged closure -appreciate ID recs -cont malloy to avoid contaminating below # wound contamination required colostomy -ostomy required revision d/t leakage, OR 02/18 debrided 1cm necrosis -d/w Taya Pizarro, surgery provider, she reports that per d/w Dr. Saha, plan for delayed primary closure after patient has rehabbed, likely in 1-2 weeks -d/w case mgmt, will get patient to SNF rehab in interim, and will return for outpt surgery from SNF # MRSA bacteremia d/t royce's gangrene - per Dr. Garcia, D#30 dapto from neg BCx date, stop today # atrial fibrillation - acute RVR, currently in NSR on tele (personally interpreted), likely provoked by critical illness -monitor rate, restarted bblocker PO (02/17) w/ metoprolol 50mg bid -hold on systemic anticoagulation for CVA ppx given wounds/surg -rec outpt 30-day event monitor s/p DC to gauge whether reoccurs s/p tx above -will place on ASA 81 daily in interim -Echo w/o focal wall motion abnl (trop 0.09) # diabetes - glucs elevated -follow with enteral feeds # obesity - BMI 34 diet. NGT code. Full ppx. high risk, lovenox 40 dispo. ADD 02/20, pending SNF auth High level of medical complexity, high risk of worsening morbidity/mortality 2/ 2 issues outlined above. Subjective: patient reports no pain Objective: Vital Signs Temp Pulse Resp BP Pulse Ox 37.6 C 89 18 111/58 L 98 02/19/18 11:51 02/19/18 16:00 02/19/18 16:00 02/19/18 16:00 02/19/18 16:00 Laboratory Results 02/19/18 05:27 02/19/18 05:27 02/18/18 02/19/18 02/20/18 05:59 05:59 05:59 Intake Total 1599 1044 Output Total 9769 6480 Balance -384 -506 PT 14.8 SEC (12.0-15.0) 02/13/18 05:40 INR 1.14 (0.83-1.16) 02/13/18 05:40 - Pending Discharge Pending Discharge Within 24 Hours: Yes Pending Discharge Date: 02/20/18 Pending Discharge Time: 11:00 - Physical Exam Constitutional: no apparent distress, not in pain, chronically ill appearing, No uncomfortable Cardiovascular: regular rate and rhythym, no murmur, rub, or gallop, No edema Respiratory: reduced air movement (poor insp effort), inspiratory crackles, No expiratory wheeze, No bronchial breath sounds, No respiratory distress Gastrointestinal: normoactive bowel sounds, other (L side ostomy), No tenderness , No guarding, No distension Genitourinary: malloy in urethra Neurologic: AAOx3, sensation intact bilaterally, No weakness Psychiatric: not anxious, flat affect, poor memory, other (concentration 0/7), No agitated ICD10 Worksheet Patient Problems: Problems Problem Status Onset Left buttock abscess Acute Cellulitis of perineum Acute Cellulitis, scrotum Acute
[2018-02-19] MEDS: CHOLECALCIFEROL VIT D3 2,000 UNITS TAB/CAP PO SCH (19:49)
[2018-02-19] MEDS: ASCORBIC ACID 500 MG TAB PO SCH (19:49)
[2018-02-19] MEDS: metFORMIN HCL 500 MG TAB PO SCH (19:49)
[2018-02-20] MEDS: INSULIN REGULAR, HUMAN 100 UNIT/1 ML VIAL HIGH SC SCH ×3 (06:54→17:52)
--- NOTE | 2018-02-20 09:48 | PDINTPN ---
Grinding Wheel Dresser Progress Note Assessment/Plan: 77 m admitted 01/19/18 with necrotizing fasciitis of perineum (Fourniers) requiring surgical debridement and colostomy with relative stability with antibiotics, IVF, etc but required return to ICU 02/05 2/2 hypotension and SBO. He was taken back to the OR where a loop of small bowel was adhesed within a fascial defect. The colostomy was taken down and re-introduced with placement of wound vac. In addition he has had waxing and waning mental status with a largely negative workup including MRI; which finally resolved after either time or addition of micafungin (though no fungal cultures positive). 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 Primary wound closed and debridement of colostomy sites without complication on 02/19. * Colostomy redo- wound vac on initial site; colostomy functioning OK with superficial necrosis. Clinically stable at the moment. Take down planned for next 1-2 weeks as outpatient. * Encephalopathy- consistent with toxic-metabolic and continues to improve daily. Knew [facility], [place], etc today. * Atrial fibrillation? noted on tele but no EKG. He was atenolol as an outpatient and now on metoprolol with NSR. * Anemia- stable in mid 20's without hypotension or ongoing losses. Observe * Transaminitis- resolved. * Nutrition- passed swallow eval today; defer to surgery for diet advancement, dc NGT * Dispo: [facility] for med surg 02/17/18 11:17 02/18/18 09:42 02/19/18 11:05 02/20/18 09:36 Subjective: no complaints/events Objective: Vital Signs Temp Pulse Resp BP Pulse Ox 36.9 C 100 23 H 121/62 H 95 02/19/18 20:00 02/20/18 04:00 02/20/18 04:00 02/20/18 04:00 02/20/18 04:00 Laboratory Results 02/19/18 05:27 02/19/18 05:27 02/19/18 02/20/18 02/21/18 05:59 05:59 05:59 Intake Total 1044 819 Output Total 1550 1375 20 Balance -506 -556 -20 PT 14.8 SEC (12.0-15.0) 02/13/18 05:40 INR 1.14 (0.83-1.16) 02/13/18 05:40 Physical Exam - Physical Exam General Appearance: alert, no apparent distress, obese EENT: PERRL/EOMI Neck: supple Respiratory: lungs clear, normal breath sounds, No respiratory distress, No accessory muscle use Cardiac/Chest: regular rate, rhythm, No edema Abdomen: non-tender, soft, other (wound vac ok, colostomy with brown stool ouput ), No distended Skin: normal color, warm/dry, No cyanosis Lymphatic: no adenopathy Extremities: No pedal edema Neuro/Psych: alert, normal mood/affect, oriented x 3 ICD10 Worksheet Patient Problems: Problems Problem Status Onset Cellulitis of perineum Acute Cellulitis, scrotum Acute Left buttock abscess Acute
--- NOTE | 2018-02-20 10:06 | PCMIDPN ---
Assessment/Plan: #Source of recurrent sepsis presumed to be related to bowel process/peritonitis/ bacterial translocation. Mental status at baseline. x 14 days broad spec abx. Off all abx now --dc okay from ID standpoint --no ID f/u needed --dc PICC line at discharge #MRSA bacteremia and Jacqueline's gangrene. S/p 30 days of anti MRSA coverage, reportedly base of wound is clean and planning slow closure #Rash: livido reticularis resolved Microbiology 01/19/18 Buttock - MRSA 01/19/18 Blood Cx (1/2) MRSA Dapto JUAN A = <0.1 01/21/18 Blood Cx (2) Neg 01/25/18 Blood Cx (2) Neg 02/01/18 blood cx (2) Neg 02/05/18 blood cx 1 set micrococcus/ 1 set CoNS 02/06/18 peritoneal cx: neg 02/11/18 fungal blood cx: NGTD 01/24/18 & 02/06/18 Cdiff neg Subjective: no c/o this AM Objective: Vital Signs Temp Pulse Resp BP Pulse Ox 36.9 C 100 23 H 121/62 H 95 02/19/18 20:00 02/20/18 04:00 02/20/18 04:00 02/20/18 04:00 02/20/18 04:00 Laboratory Results 02/19/18 05:27 02/19/18 05:27 02/19/18 02/20/18 02/21/18 05:59 05:59 05:59 Intake Total 1044 819 Output Total 1550 1375 20 Balance -506 -556 -20 ESR 23 MM/HR (0-20) H 02/06/18 04:57 C-Reactive Protein 67.3 mg/L (<10.0) H 02/13/18 04:20 - Physical Exam General Appearance: alert, obese EENT: pale conjunctiva Respiratory: lungs clear, No accessory muscle use Cardiac/Chest: regular rate, rhythm Extremities: No pedal edema Abdomen: non-tender, soft, other (midline incision w a bit of brown drainage. L ostomy still purplish) Male Genitalia: malloy, scrotal edema Skin: No rash Neuro/Psych: alert, oriented x 3, depressed affect - Line/s RUE PICC Lines: No drainage, No erythema ICD10 Worksheet Patient Problems: Problems Problem Status Onset Cellulitis of perineum Acute Cellulitis, scrotum Acute Left buttock abscess Acute
[2018-02-20] MEDS: METOPROLOL TARTRATE 50 MG TAB PO SCH ×2 (11:00→20:49)
[2018-02-20] MEDS: ENOXAPARIN 40 MG/0.4 ML SYR SC SCH (11:00)
[2018-02-20] MEDS: MULTIVITAMINS 1 EACH TAB PO SCH (11:01)
[2018-02-20] MEDS: ASCORBIC ACID 500 MG TAB PO SCH ×2 (11:01→20:49)
[2018-02-20] MEDS: metFORMIN HCL 500 MG TAB PO SCH ×2 (11:01→20:48)
[2018-02-20] MEDS: CHOLECALCIFEROL VIT D3 2,000 UNITS TAB/CAP PO SCH ×2 (11:01→20:48)
--- NOTE | 2018-02-20 11:13 | SOAPPROG ---
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 Saha will do delayed ostomy closure and allow for him to rehab Continue wound vac to LLQ and change 3x per week Dressing changes prn to perineum S: Lying in bed. Pain controlled O: Midline with brown cloudy fluid (no odor) at inferior aspect of wound, cleaned and unable to produce) Wound vac to suction Ostomy pink and retracted with stool in the bag Plan: 02/06/18 10:49 02/07/18 08:18 02/07/18 09:22 02/07/18 09:27 02/20/18 11:10 Objective: Vital Signs Temp Pulse Resp BP Pulse Ox 36.9 C 128 H 23 H 133/69 H 95 02/19/18 20:00 02/20/18 11:00 02/20/18 04:00 02/20/18 11:00 02/20/18 04:00 Laboratory Results 02/19/18 05:27 02/19/18 05:27 02/19/18 02/20/18 02/21/18 05:59 05:59 05:59 Intake Total 1044 819 Output Total 9680 1375 20 Balance -506 -556 -20 PT 14.8 SEC (12.0-15.0) 02/13/18 05:40 INR 1.14 (0.83-1.16) 02/13/18 05:40 ICD10 Worksheet Patient Problems: Problems Problem Status Onset Cellulitis of perineum Acute Cellulitis, scrotum Acute Left buttock abscess Acute
[2018-02-20] MEDS: SELENIUM 0.2 MG TAB PO SCH (12:36)
[2018-02-20] MEDS: PIOGLITAZONE HCL 15 MG TAB PO SCH (12:36)
--- NOTE | 2018-02-20 16:15 | HOSPPROG ---
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 Plan: # encephalopathy - improved -suspect 2/2 critical illness, unclear how densely it will persist -will require SNF following resolution of issues below # dysarthria - will continue to evaluate # rash - appears to be fading # SIRS - resolved -s/p Abx/fungals # pancytopenia 2/2 critical illness - resolved -s/p 3U PRBC -will repeat in AM # transaminitis - 2/2 illness, repeat in AM # royce's gangrene and cellulitis s/p I&D, now with wound vac and plan for staged closure -appreciate ID recs, safely off Abx/fungals -cont malloy to avoid contaminating below # wound contamination required colostomy -ostomy required revision d/t leakage, OR 02/18 debrided 1cm necrosis -d/w Dr. Hawk, she reports that plan for delayed primary closure after patient has rehabbed, likely in 1-2 weeks -d/w case mgmt, will get patient to SNF rehab in interim, and will return for outpt surgery from SNF # MRSA bacteremia d/t royce's gangrene - s/p 30 days dapto # atrial fibrillation - acute RVR, currently in NSR on tele w/ intermittent Afib (personally interpreted), likely provoked by critical illness -uncontrolled rate, uptitrate metop to 75 bid -hold on systemic anticoagulation for CVA ppx given wounds/surg -rec outpt 30-day event monitor s/p DC to gauge whether reoccurs s/p tx above -will place on ASA 81 daily in interim -Echo w/o focal wall motion abnl (trop 0.09) # diabetes - FBG 118, A1c 7.6% -restarted home Rx # obesity - BMI 34 diet. regular as maame code. Full ppx. high risk, lovenox 40 dispo. ADD 02/21, pending SNF auth High level of medical complexity, high risk of worsening morbidity/mortality 2/ 2 issues outlined above. Subjective: patient w/o pain, intermittently fatigued Objective: Vital Signs Temp Pulse Resp BP Pulse Ox 36.8 C 109 H 21 H 126/73 H 98 02/20/18 11:56 02/20/18 11:56 02/20/18 11:56 02/20/18 11:56 02/20/18 11:56 Laboratory Results 02/19/18 05:27 02/19/18 05:27 02/19/18 02/20/18 02/21/18 05:59 05:59 05:59 Intake Total 1044 819 Output Total 1550 1375 45 Balance -506 -556 -45 PT 14.8 SEC (12.0-15.0) 02/13/18 05:40 INR 1.14 (0.83-1.16) 02/13/18 05:40 - Physical Exam Constitutional: no apparent distress, not in pain, chronically ill appearing, No uncomfortable Cardiovascular: irregularly irregular, tachycardia, No systolic murmur, No edema Respiratory: no respiratory distress, no rales or rhonchi, clear to auscultation Gastrointestinal: normoactive bowel sounds, soft, non-tender abdomen, no palpable masses, other (L side ostomy) Genitourinary: malloy in urethra Skin: other (no significant erythemat at abd surg site, no visible necrosis adjacent to ostomy, no induration/tenderness at abd incision) Neurologic: other (cooperative and follows commands), No AAOx3 (AAOx2(person and time, not place)) Psychiatric: not anxious, flat affect, other (lethargic but arousable to voice, concentration 4/7), No agitated ICD10 Worksheet Patient Problems: Problems Problem Status Onset Left buttock abscess Acute Cellulitis of perineum Acute Cellulitis, scrotum Acute
[2018-02-20] MEDS: ASPIRIN EC 81 MG TAB PO SCH (17:21)
[2018-02-20] MEDS: NS 1,000 ML IV SCH (17:32)
[2018-02-21] MEDS: INSULIN REGULAR, HUMAN 100 UNIT/1 ML VIAL HIGH SC SCH ×3 (00:11→12:07)
[2018-02-21 05:23] LABS: PLATELET COUNT 140 10^3/uL (150-400)
[2018-02-21] MEDS: ASPIRIN EC 81 MG TAB PO SCH (10:14)
[2018-02-21] MEDS: ENOXAPARIN 40 MG/0.4 ML SYR SC SCH (10:14)
[2018-02-21] MEDS: SELENIUM 0.2 MG TAB PO SCH (10:14)
[2018-02-21] MEDS: metFORMIN HCL 500 MG TAB PO SCH ×2 (10:14→20:37)
[2018-02-21] MEDS: MULTIVITAMINS 1 EACH TAB PO SCH (10:14)
[2018-02-21] MEDS: CHOLECALCIFEROL VIT D3 2,000 UNITS TAB/CAP PO SCH ×2 (10:14→20:37)
[2018-02-21] MEDS: PIOGLITAZONE HCL 15 MG TAB PO SCH (10:14)
[2018-02-21] MEDS: ASCORBIC ACID 500 MG TAB PO SCH ×2 (10:14→20:37)
[2018-02-21] MEDS: METOPROLOL TARTRATE 50 MG TAB PO SCH ×2 (10:15→20:37)
--- NOTE | 2018-02-21 10:25 | SOAPPROG ---
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 Saha will do delayed ostomy closure and allow for him to rehab Continue wound vac to LLQ and change 3x per week Dressing changes prn to perineum S: Lying in bed. Pain controlled O: Midline cdi Wound vac to suction Ostomy pink and retracted with stool in the bag Perineum cdi Plan: 02/06/18 10:49 02/07/18 08:18 02/07/18 09:22 02/07/18 09:27 02/20/18 11:10 02/21/18 10:24 Objective: Vital Signs Temp Pulse Resp BP Pulse Ox 37.0 C 87 19 126/68 H 97 02/21/18 07:49 02/21/18 10:15 02/21/18 07:49 02/21/18 10:15 02/21/18 07:49 Laboratory Results 02/21/18 05:10 02/21/18 05:10 02/20/18 02/21/18 02/22/18 05:59 05:59 05:59 Intake Total 819 367 Output Total 1375 875 150 Balance -556 -508 -150 PT 14.8 SEC (12.0-15.0) 02/13/18 05:40 INR 1.14 (0.83-1.16) 02/13/18 05:40 ICD10 Worksheet Patient Problems: Problems Problem Status Onset Cellulitis of perineum Acute Cellulitis, scrotum Acute Left buttock abscess Acute
--- NOTE | 2018-02-21 12:45 | PDINTPN ---
Forest Ecology Professor Progress Note Assessment/Plan: 77 m admitted 01/19/18 with necrotizing fasciitis of perineum (Fourniers) requiring surgical debridement and colostomy with relative stability with antibiotics, IVF, etc but required return to ICU 02/05 2/2 hypotension and SBO. He was taken back to the OR where a loop of small bowel was adhesed within a fascial defect. The colostomy was taken down and re-introduced with placement of wound vac. In addition he has had waxing and waning mental status with a largely negative workup including MRI; which finally resolved after either time or addition of micafungin (though no fungal cultures positive). 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 Primary wound closed and debridement of colostomy sites without complication on 02/19. * Colostomy redo- wound vac on initial site; colostomy functioning OK with superficial necrosis. Clinically stable at the moment. Take down planned for next 1-2 weeks as outpatient. * Encephalopathy- consistent with toxic-metabolic and continues to improve daily. Knew [facility], [place], etc today. * Atrial fibrillation? noted on tele but no EKG. He was atenolol as an outpatient and now on metoprolol with NSR. * Anemia/pancytopenia- though his wbc was "normal" on admit, it may have been less elevated than expected due to underlying disease as it continues to trend down after effect of neupogen. 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 * Transaminitis- resolved. * Nutrition- passed swallow eval; defer to surgery for diet advancement, dc NGT * Dispo: OK for med surg Subjective: no complaints Objective: Vital Signs Temp Pulse Resp BP Pulse Ox 37.0 C 87 19 126/68 H 97 02/21/18 07:49 02/21/18 10:15 02/21/18 07:49 02/21/18 10:15 02/21/18 07:49 Laboratory Results 02/21/18 05:10 02/21/18 05:10 02/20/18 02/21/18 02/22/18 05:59 05:59 05:59 Intake Total 819 367 Output Total 1375 875 150 Balance -556 -508 -150 PT 14.8 SEC (12.0-15.0) 02/13/18 05:40 INR 1.14 (0.83-1.16) 02/13/18 05:40 Physical Exam - Physical Exam General Appearance: alert, no apparent distress, obese EENT: PERRL/EOMI Neck: supple Respiratory: lungs clear, normal breath sounds, decreased breath sounds, No respiratory distress, No accessory muscle use Cardiac/Chest: regular rate, rhythm, No edema Abdomen: non-tender, soft, other (wounds eval with Dr. Hawk), No distended Skin: normal color, warm/dry, No cyanosis Lymphatic: no adenopathy Extremities: No pedal edema Neuro/Psych: alert, normal mood/affect, oriented x 3 ICD10 Worksheet Patient Problems: Problems Problem Status Onset Cellulitis of perineum Acute Cellulitis, scrotum Acute Left buttock abscess Acute
[2018-02-21] MEDS ORDERED: D50W 25 GM/50 ML SYR IVP PRN (14:21)
[2018-02-21] MEDS: INSULIN REGULAR HUMAN 100 UNIT/ML UNIT SC SCH ×2 (17:32→21:19)
--- NOTE | 2018-02-21 19:18 | HOSPPROG ---
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 Greenwood, likely a predisposing contributor to his original infxn, he recommends marrow biopsy to further evaluate -d/w Dr. Greenwood, he will attempt to arrange w/ this week's heme rounder (likely to be performed on 9 AM prior to DC), but, if unable to be performed as INPT , will arrange for outpt biopsy w/ outpt f/u -repeat CBC in AM # royce's gangrene and cellulitis s/p I&D, now with wound vac and plan for staged closure (as outpt) -appreciate ID recs, safely off Abx/fungals -cont malloy to avoid contaminating # wound contamination required colostomy -ostomy required revision d/t leakage, OR 02/18 debrided 1cm necrosis -d/w Dr. Hawk, she reports that plan for delayed primary closure after patient has rehabbed, likely in 1-2 weeks -d/w case mgmt, will get patient to SNF rehab in interim, and will return for outpt surgery from SNF # acute toxic and metabolic encephalopathy - improved, but ongoing fatigue/ anergy -suspect 2/2 critical illness, unclear how densely it will persist -will require SNF for asst w/ ADLs # atrial fibrillation - acute RVR, currently in NSR on tele w/ intermittent Afib (personally interpreted), likely provoked by critical illness -rate better controlled on metop to 75 bid, may require increase to 100mg bid -hold on systemic anticoagulation for CVA ppx given wounds/surg -rec outpt 30-day event monitor s/p DC to gauge whether reoccurs s/p tx above, rec outpt Cards f/u appt -will place on ASA 81 daily in interim -Echo w/o focal wall motion abnl (trop 0.09) # SIRS - resolved, 2/2 infxn -s/p Abx/fungals # pancytopenia 2/2 critical illness and likely MDS -s/p 3U PRBC -will repeat in AM, transfuse if < 7 # transaminitis - 2/2 illness, repeat in AM # diabetes - FBG 118, A1c 7.6% -restarted home Rx -anticipate he will not need insulin at discharge # obesity - BMI 34, increased risk worsening morbidity diet. regular as maame code. Full ppx. high risk, lovenox 40 dispo. ADD 02/23, pending SNF ability to eval patient (on 02/22) and obtain Vac supplies High level of medical complexity, high risk of worsening morbidity/mortality 2/ 2 issues outlined above. Subjective: fatigued, no pain Objective: Vital Signs Temp Pulse Resp BP Pulse Ox 36.4 C 83 14 136/86 H 95 02/21/18 16:00 02/21/18 16:00 02/21/18 16:00 02/21/18 16:00 02/21/18 16:00 Laboratory Results 02/21/18 05:10 02/21/18 05:10 02/20/18 02/21/18 02/22/18 05:59 05:59 05:59 Intake Total 819 367 777 Output Total 1375 875 760 Balance -556 -508 17 PT 14.8 SEC (12.0-15.0) 02/13/18 05:40 INR 1.14 (0.83-1.16) 02/13/18 05:40 - Pending Discharge Pending Discharge Within 48 Hours: Yes Pending Discharge Date: 02/23/18 Pending Discharge Time: 11:00 - Physical Exam Constitutional: no apparent distress, not in pain, chronically ill appearing, No uncomfortable Cardiovascular: systolic murmur (I/ at all valves), irregularly irregular, No tachycardia, No edema Respiratory: reduced air movement (bilat bases), No expiratory wheeze, No bronchial breath sounds, No respiratory distress Gastrointestinal: normoactive bowel sounds, soft, non-tender abdomen, other (L side ostomy), No guarding Skin: other (very mild irritation at staple sites on abd, no necrosis visible around ostomy, no erythema/induration) Neurologic: AAOx3 Psychiatric: not anxious, flat affect, other (concentration 7/7), No agitated ICD10 Worksheet Patient Problems: Problems Problem Status Onset Left buttock abscess Acute Cellulitis of perineum Acute Cellulitis, scrotum Acute
[2018-02-22] MEDS: MULTIVITAMINS 1 EACH TAB PO SCH (08:09)
[2018-02-22] MEDS: SELENIUM 0.2 MG TAB PO SCH (08:09)
[2018-02-22] MEDS: ASPIRIN EC 81 MG TAB PO SCH (08:10)
[2018-02-22] MEDS: ENOXAPARIN 40 MG/0.4 ML SYR SC SCH (08:10)
[2018-02-22] MEDS: ASCORBIC ACID 500 MG TAB PO SCH ×2 (08:10→21:05)
[2018-02-22] MEDS: METOPROLOL TARTRATE 50 MG TAB PO SCH ×2 (08:10→21:04)
[2018-02-22] MEDS: metFORMIN HCL 500 MG TAB PO SCH ×2 (08:10→21:04)
[2018-02-22] MEDS: PIOGLITAZONE HCL 15 MG TAB PO SCH (08:10)
[2018-02-22] MEDS: CHOLECALCIFEROL VIT D3 2,000 UNITS TAB/CAP PO SCH ×2 (08:10→21:05)
[2018-02-22] MEDS: INSULIN REGULAR HUMAN 100 UNIT/ML UNIT SC SCH ×4 (08:16→21:16)
--- NOTE | 2018-02-22 08:24 | SOAPPROG ---
SOAP Progress Note Assessment/Plan: Assessment: 77 MALE WITH I&D OF LEFT BUTTOCK ABSCESS WITH INDURATION AND INFLAMMATION EXTENDING INTO SCROTUM LOW GRADE TEMP/ WBC 14K DIABETIC NO CARDIAC SYMPTOMS CT SHOWS INFLAMMATION INTO SCROTUM MARKED EDEMA AND INDURATION IN PERINEUM AND SCROTUM Plan:MAY FURTHER I&D AND DEBRIDEMENT/ RISKS AND OPTIONS FULLY DISCUSSED 01/19/18 17:42 01/23/18 12:41 PATIENT COMFORTABLE AND DOING REASONABLY WELL DESPITE SIGNIFICANT TEMPERATURE ELEVATIONS LEAKING AND DIARRHEA STOOL OVER HIS WOUND SOME PERSISTENT INDURATION ERYTHEMA AROUND THE PERINEAL WOUND RISKS AND OPTIONS FULLY DISCUSSED PLAN: DIVERTING COLOSTOMY AND WOUND VAC CHANGE 01/24/18 11:02 TEMP DOWN/COMFORTABLE/VITAL SIGNS STABLE/ OSTOMY PINK AND WORKING WELL MINIMAL OUTPUT FROM THE WOUND VAC TRANSFER TO [facility] 02/09/18 19:12 STILL WITH DECREASED MENTAL STATUS BUT SOMEWHAT RESPONSIVE TO FOR MOLE CONVERSATION/HEAD CT IS NEGATIVE FOR ANY STROKE ABDOMEN SOFT THE/NEW COLOSTOMY LOOKS VIABLE/WOUND OKAY/AFEBRILE CONTINUE ANTIBIOTICS AND OTHER SUPPORT 02/16/18 18:06 SEEN WITH MY PA ALTAF PRECIADO/PLEASE REFER TO HER NOTE OSTOMY HAS SOME SUPERFICIAL NECROSIS WITH WILL HAVE TO BE WATCHED BUT NO RETRACTION/MENTAL STATUS SLOWLY IMPROVING/AFEBRILE PERINEUM IMPROVED 02/18/18 15:53 MORE ALERT, AFEBRILE, STEADILY IMPROVING SURGICAL RISKS AND OPTIONS FULLY DISCUSSED PLAN IS SECONDARY CLOSURE OF THE PERINEAL WOUND 2. DEBRIDEMENT OF THE ABDOMINAL COLOSTOMY SITE PATIENT FULLY UNDERSTANDS AND REQUESTS THAT WE PROCEED 02/22/18 08:23 wounds ok/ afebrile/ ostomy pink but retracting slightly/ decub stable/ more alert/ labs ok Objective: Vital Signs Temp Pulse Resp BP Pulse Ox 37.5 C 117 H 24 H 131/80 H 95 02/22/18 07:15 02/22/18 08:10 02/22/18 07:15 02/22/18 08:10 02/22/18 07:15 Laboratory Results 02/22/18 04:10 02/22/18 04:10 02/21/18 02/22/18 02/23/18 05:59 05:59 05:59 Intake Total 367 977 Output Total 875 1265 Balance -508 -288 PT 14.8 SEC (12.0-15.0) 02/13/18 05:40 INR 1.14 (0.83-1.16) 02/13/18 05:40 ICD10 Worksheet Patient Problems: Problems Problem Status Onset Cellulitis of perineum Acute Cellulitis, scrotum Acute Left buttock abscess Acute
--- NOTE | 2018-02-22 09:09 | WOCRNPDOC ---
IVÁN Advanced Assessment Note - Skin Integrity Problem, Advanced Assess Sacrum Pressure Injury Dressing Type: ABD Pad, Mepilex Border Dressing Description: Intact, Shadowed Exudate Amount: Minimal Exudate Characteristic(s): Serosanguinous Integumentary Issue Intervention: Dressing Changed, Dressing Initialed & Dated Elena Wound Tissue: Blanching, Erythema Elena Wound Swelling: None Wound Bed Color: Red, Yellow Wound Bed Constitution: Granulation Tissue (20%), Smooth Tissue (30%), Red/Stagecoach - Non Granular Tissue (50%) Wound Edges: Epithelizing, Attached Site Measurement - Head-to-Toe Length X Width X Depth (cm): 9x11x0.3 Pressure Injury Stage: Stage 3 Pressure Injury Present on Admit: No Skin Integrity Problem Comment: Cleaned with ns and gauze. Wound gel to wound bed. New border dressing applied. Medial Abdomen Surgical Wound/Incision Closure Description: Felipe, Approximated Exudate Amount: None Elena Wound Tissue: Erythema (mild around felipe) Left Lower Abdomen Surgical Wound/Incision Dressing Type: Gauze Dressing Description: Clean/Dry, Intact Exudate Amount: Minimal Exudate Characteristic(s): Serosanguinous Integumentary Issue Intervention: Dressing Changed Elena Wound Tissue: Erythema (mild restricted to elena wound skin only) Elena Wound Swelling: None Wound Bed Color: Brown, Red, Yellow Wound Bed Constitution: Granulation Tissue (50%), Smooth Tissue (30%), Red/Stagecoach - Non Granular Tissue (20%) Site Measurement - Head-to-Toe Length X Width X Depth (cm): 4.8x13.2x6.5 Skin Integrity Problem Comment: Fascia intact. Cleaned with ns and gauze. Skin prep elena wound. x2 pieces of black small simplace to wound bed. Vac started at -125 mm Hg continuous suction wihtout leaks. Next change due Wed. - Colostomy Assessment, Advanced Left Lower Abdomen Colostomy Stoma Colostomy Appliance Intact: No (leaking at 6 oclock) Colostomy Appliance Currently in Use: Two Piece Flat, 2 1/4, Cut to Fit Stoma Color: Red Stoma Shape: Oval Stoma Height: Recessed Mucocutaneus Junction: Intact Colostomy Effluent: Fecal, Bloody Peristomal Skin Complications: Irritant Contact Dermatitis (moderate with denuded skin ) Stomal Complications: Retraction Colostomy Comment/Treatment Details: Stoma was debrided and junction re sewn in the OR on . Stoma appliance had been cut to big and 1.5 cm elena stoma is moderately denuded with open weeping skin. Two templates were found in the ostomy bucket and one was used to cut a new appliance. Stoma powder was sprinkled on denuded area. Will update the orders as appliance should be changed daily and prn. RNgeremias Cantrell and YAHAIRA Samuels and Taya Pizarro GLASS LAMINATING OPERATOR notified of all wound and ostomy findings. Dr. Kay also notified of all findings.
--- NOTE | 2018-02-22 14:13 | PDINTPN ---
Door Fitter Progress Note Assessment/Plan: Assessment: 77 m admitted 01/19/18 with necrotizing fasciitis of perineum (Fourniers) requiring surgical debridement and colostomy with relative stability with antibiotics, IVF, etc but required return to ICU 02/05 2/2 hypotension and SBO. He was taken back to the OR where a loop of small bowel was adhesed within a fascial defect. The colostomy was taken down and re-introduced with placement of wound vac. In addition he has had waxing and waning mental status with a largely negative workup including MRI; which finally resolved after either time or addition of micafungin (though no fungal cultures positive). 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 Primary wound closed and debridement of colostomy sites without complication on 02/19. * Colostomy redo- wound vac on initial site; colostomy functioning OK with superficial necrosis. There remains some concern that this may not be viable and could require early revision or re-anastomosis. * Encephalopathy- consistent with toxic-metabolic and continues to improve daily. * Atrial fibrillation? noted on tele but no EKG. He was atenolol as an outpatient and now on metoprolol with NSR. * Anemia/pancytopenia- though his wbc was "normal" on admit, it may have been less elevated than expected due to underlying disease as it continues to trend down after effect of neupogen. Re-eval by hematology was concerning for myelodysplastic syndrome and will likely need BM biopsy. * Decubitus ulcer: * Nutrition- passed swallow eval, but had poor PO intake, just 25-50% of his needs. * Dispo: May be able to transfer to [facility] surg. [facility] likely need a higher level than SNF for at least the next week or two. Plan: Place feeding tube, start tube feeds. Continue to work with PT/OT on strength. Possible BM Bx tomorrow. If he continues to show improvement, could proceed with colostomy revision or re-anastomosis. 02/22/18 14:21 Subjective: Feels OK, denies pain. Still quite weak. Able to take PO, but not very hungry. Objective: Vital Signs Temp Pulse Resp BP Pulse Ox 37.3 C 96 21 H 141/91 H 97 02/22/18 11:41 02/22/18 11:41 02/22/18 11:41 02/22/18 11:41 02/22/18 11:41 Laboratory Results 02/22/18 04:10 02/22/18 04:10 02/21/18 02/22/18 02/23/18 05:59 05:59 05:59 Intake Total 367 977 Output Total 876 1265 Balance -508 -288 PT 14.8 SEC (12.0-15.0) 02/13/18 05:40 INR 1.14 (0.83-1.16) 02/13/18 05:40 Physical Exam - Physical Exam General Appearance: alert, no apparent distress EENT: normal ENT inspection Neck: normal inspection Respiratory: lungs clear Cardiac/Chest: regular rate, rhythm, edema (1+) Abdomen: normal bowel sounds, non-tender Skin: normal color, warm/dry Extremities: normal inspection Neuro/Psych: alert, normal mood/affect, oriented x 3 ICD10 Worksheet Patient Problems: Problems Problem Status Onset Cellulitis of perineum Acute Cellulitis, scrotum Acute Left buttock abscess Acute
--- NOTE | 2018-02-22 16:03 | HOSPPROG ---
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 Long and complicated course with encephalopathy, wound contamination requiring colostomy, SBO with colostomy take-down/wound vac placement and new colostomy formation, atrial fibrillation, and pancytopenia concerning for possible MDS. #Pancytopenia: Concern for MDS. S/p neupogen after which counts trended down but are currently stable. - Dr Jamison discussed with hematology. Will plan on outpatient bone marrow biopsy (not as inpatient as previously noted) - Monitor counts, transfuse to keep hgb>7 #Acute toxic metabolic encephalopathy: Improving slowly. Due to prolonged critical illness. - Avoid centrally acting meds as able #Colostomy placement: s/p take down due to wound contamination with wound vac placement and re-do colostomy formation. - General surgery following - Wound vac and ostomy care - Potential plan for delayed re-anastomosis after patient has rehabbed #Deconditioning: - PT/OT. Suspect he may require long-term care #Pressure ulcers: Stage 3 on buttocks. Not present on admission. Wound care following. #Jacqueline's gangrene: S/p surgical debridement, wound vac and now perineal closure. Completed course of abx/anti-fungals. Continue malloy. #MRSA bacteremia: Due to above. s/p course of daptomycin. #Atrial fibrillation: Precipitated by acute illness. Now in NSR. Continue beta arturo, increase as needed. Holding on systemic anticoagulation with wounds/ possible surgeries. - Currently on aspirin 81mg daily. Should get outpt cardiology follow up, consider cardiac event monitor #Type 2 diabetes : A1c 7.6% - Continue home orals, also on SSI here Nutrition: Start tube feeds. Place NG tube. VTE ppx: LMWH Code: full Dispo: Remain inpatient in ICU. Will likely require retirement care given his numerous medical conditions. Subjective: Denies pain this morning. No nausea. Limited appetite, eating less than half of meals. No shortness of breath. Objective: Vital Signs Temp Pulse Resp BP Pulse Ox 37.3 C 96 21 H 141/91 H 97 02/22/18 11:41 02/22/18 11:41 02/22/18 11:41 02/22/18 11:41 02/22/18 11:41 Laboratory Results 02/22/18 04:10 02/22/18 04:10 02/21/18 02/22/18 02/23/18 05:59 05:59 05:59 Intake Total 367 977 Output Total 877 7925 Balance -508 -288 PT 14.8 SEC (12.0-15.0) 02/13/18 05:40 INR 1.14 (0.83-1.16) 02/13/18 05:40 - Physical Exam Constitutional: no apparent distress, appears nourished, not in pain Ears, Nose, Mouth, Throat: moist mucous membranes, hearing normal, ears appear normal, no oral mucosal ulcers Cardiovascular: regular rate and rhythym, no murmur, rub, or gallop Respiratory: no respiratory distress, no rales or rhonchi, clear to auscultation Gastrointestinal: other (midline laparotomy scar with alexandru that are c/d/i, left sided ostomy bag without surroudning erythema or induration, LLQ wound vac in place) Skin: warm Neurologic: other (alert, oriented to person and place but not time) Psychiatric: encephalopathic (mild) ICD10 Worksheet Patient Problems: Problems Problem Status Onset Cellulitis of perineum Acute Cellulitis, scrotum Acute Left buttock abscess Acute
[2018-02-23] MEDS: INSULIN REGULAR HUMAN 100 UNIT/ML UNIT SC SCH ×4 (07:50→20:22)
[2018-02-23] MEDS: ENOXAPARIN 40 MG/0.4 ML SYR SC SCH (09:08)
[2018-02-23] MEDS: PIOGLITAZONE HCL 15 MG TAB PO SCH (09:08)
[2018-02-23] MEDS: SELENIUM 0.2 MG TAB PO SCH (09:08)
[2018-02-23] MEDS: CHOLECALCIFEROL VIT D3 2,000 UNITS TAB/CAP PO SCH ×2 (09:08→21:17)
[2018-02-23] MEDS: ASCORBIC ACID 500 MG TAB PO SCH ×2 (09:08→20:24)
[2018-02-23] MEDS: METOPROLOL TARTRATE 50 MG TAB PO SCH ×2 (09:08→20:22)
[2018-02-23] MEDS: ASPIRIN EC 81 MG TAB PO SCH (09:08)
[2018-02-23] MEDS: MULTIVITAMINS 1 EACH TAB PO SCH (09:08)
[2018-02-23] MEDS: metFORMIN HCL 500 MG TAB PO SCH ×2 (09:08→20:22)
--- NOTE | 2018-02-23 13:22 | SOAPPROG ---
SOAP Progress Note Assessment/Plan: Assessment: Morales is a pleasant 77 yo male with history of royce's gangrene who we are seeing in consultation for cytopenias. 1. Cytopenias: He had essentially pancytopenia at presentation related to his active infection. His WBC and platelets have recovered. He does have anemia. His vitamin b12 was normal. Ferritin was high related to his inflamed state. His last blood transfusion was 10 days ago. He clinically is doing well. I explained to him today that I don't think that a bone marrow biopsy is needed today. If he does indeed have underlying myelodysplastic disorder, he doesn't require frequent transfusion and this would be treated in the outpatient setting. I would recommend repeat counts as an outpatient and consideration for marrow at that time. I will have him follow up with Dr. Remy Greenwood in the outpatient setting. I would recommend further work-up of his anemia today to rule out myeloma. 02/23/18 13:15 Subjective: Morales reports feeling well today. He has no chest pain, shortness of breath or fevers. Otherwise no other issues. Objective: Vital Signs Temp Pulse Resp BP Pulse Ox 36.8 C 100 20 141/81 H 97 02/23/18 11:27 02/23/18 11:27 02/23/18 11:27 02/23/18 11:27 02/23/18 11:27 Laboratory Results 02/23/18 04:35 02/23/18 04:35 02/22/18 02/23/18 02/24/18 05:59 05:59 05:59 Intake Total 977 1653 Output Total 1265 870 Balance -288 783 PT 14.8 SEC (12.0-15.0) 02/13/18 05:40 INR 1.14 (0.83-1.16) 02/13/18 05:40 General: Frail appearing male, conversant HEENT: NG tube in place, NC in place, OP clear, EOMI Pulmonary: Clear on anterior auscultation CV: RRR no m/g/r Abdomen: Colostomy in place, soft, nontended, nondistended, bs+ Ext: 1+ LE edema, PICC in place Psych: Slow to answer questions, but is appropriate. ICD10 Worksheet Patient Problems: Problems Problem Status Onset Cellulitis of perineum Acute Cellulitis, scrotum Acute Left buttock abscess Acute
--- NOTE | 2018-02-23 13:38 | PDINTPN ---
Php Mysql Developer Progress Note Assessment/Plan: Assessment: 77 m admitted 01/19/18 with necrotizing fasciitis of perineum (Fourniers) requiring surgical debridement and colostomy with relative stability with antibiotics, IVF, etc but required return to ICU 02/05 2/2 hypotension and SBO. He was taken back to the OR where a loop of small bowel was adhesed within a fascial defect. The colostomy was taken down and re-introduced with placement of wound vac. In addition he has had waxing and waning mental status with a largely negative workup including MRI; which finally resolved after either time or addition of micafungin (though no fungal cultures positive). 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 Primary wound closed and debridement of colostomy sites without complication on 02/19. * Colostomy redo- wound vac on initial site; colostomy functioning OK with superficial necrosis. There remains some concern that this may not be viable and could require early revision or re-anastomosis. * Encephalopathy- consistent with toxic-metabolic and continues to improve daily. * Atrial fibrillation? noted on tele but no EKG. He was atenolol as an outpatient and now on metoprolol with NSR. * Anemia/pancytopenia- though his wbc was "normal" on admit, it may have been less elevated than expected due to underlying disease as it continues to trend down after effect of neupogen. Re-eval by hematology was concerning for myelodysplastic syndrome and will likely need BM biopsy. * Decubitus ulcer: * Nutrition- passed swallow eval, but had poor PO intake, just 25-50% of his needs. * Dispo: May be able to transfer to [facility] surg. [facility] likely need a higher level than SNF for at least the next week or two. Plan: Continue tube feeds. Continue to work with PT/OT on strength. If he continues to show improvement, could proceed with colostomy revision or re- anastomosis. Likely will need LTAC, but might be a SNF candidate if he improves and we're able to get the feeding tube out. 02/23/18 13:36 02/23/18 13:37 Subjective: Feels OK, strength marginally better. Denies pain. Poor appetite. Objective: Vital Signs Temp Pulse Resp BP Pulse Ox 36.8 C 100 20 141/81 H 97 02/23/18 11:27 02/23/18 11:27 02/23/18 11:27 02/23/18 11:27 02/23/18 11:27 Laboratory Results 02/23/18 04:35 02/23/18 04:35 02/22/18 02/23/18 02/24/18 05:59 05:59 05:59 Intake Total 977 1653 150 Output Total 1265 870 150 Balance -288 783 0 PT 14.8 SEC (12.0-15.0) 02/13/18 05:40 INR 1.14 (0.83-1.16) 02/13/18 05:40 Physical Exam - Physical Exam General Appearance: alert, no apparent distress Neck: normal inspection Respiratory: lungs clear, normal breath sounds Cardiac/Chest: regular rate, rhythm, No edema Abdomen: normal bowel sounds, non-tender Skin: normal color, warm/dry Extremities: normal inspection Neuro/Psych: alert, normal mood/affect ICD10 Worksheet Patient Problems: Problems Problem Status Onset Cellulitis of perineum Acute Cellulitis, scrotum Acute Left buttock abscess Acute
--- NOTE | 2018-02-23 13:57 | SOAPPROG ---
SOMADISYN Progress Note Assessment/Plan: Assessment/Plan: 77 Y M perirectal abscess, Jacqueline's gangrene. S/p multiple operative I&D's and diverting colostomy with subsequent revision and transposition. Sepsis, neutropenia. s/p delayed primary closure of Jacqueline's site, debridement of colostomy. Continues to be more alert. Very deconditioned but gaining some strength very slowly. Low grade fever this am. WBC's steady in normal range for last several days. Jacqueline's site is clean and intact. Drain is serosanguinous. Colostomy is slightly dusky with some retraction, but viable. Former colostomy site wound is clean, but slow to granulate. Ideally, would like to plan for colostomy takedown next week pending course. Appreciate other team's care. S: no complaints. says he is doing "fine." Nods yes that he is getting stronger. Very cooperative with exam. O: see above. 02/23/18 13:54 Objective: Vital Signs Temp Pulse Resp BP Pulse Ox 36.8 C 100 20 141/81 H 97 02/23/18 11:27 02/23/18 11:27 02/23/18 11:27 02/23/18 11:27 02/23/18 11:27 Laboratory Results 02/23/18 04:35 02/23/18 04:35 02/22/18 02/23/18 02/24/18 05:59 05:59 05:59 Intake Total 977 1653 150 Output Total 1265 870 150 Balance -288 783 0 PT 14.8 SEC (12.0-15.0) 02/13/18 05:40 INR 1.14 (0.83-1.16) 02/13/18 05:40 ICD10 Worksheet Patient Problems: Problems Problem Status Onset Cellulitis of perineum Acute Cellulitis, scrotum Acute Left buttock abscess Acute
--- NOTE | 2018-02-23 15:33 | HOSPPROG ---
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 Long and complicated course with encephalopathy, wound contamination requiring colostomy, SBO with colostomy take-down/wound vac placement and new colostomy formation, atrial fibrillation, and pancytopenia. #Acute toxic metabolic encephalopathy: Improving slowly and consistent with hypoactive delirium. - Avoid centrally acting meds as able - Consider stimulant to help with motivation working with PT/OT if not making progress in coming days #Pancytopenia: Counts trending back up, anemia stable. - Hematology following. Do not recommend bone marrow biopsy at this point. Plan to follow counts as outpatient - SPEP to further investigate anemia - Monitor counts, transfuse to keep hgb>7 #Deconditioning: Prolonged critical illness - PT/OT #Nutrition: - Advance tube feeds to goal as able #Colostomy placement: s/p take down due to wound contamination with wound vac placement and re-do colostomy formation. - General surgery consider colostomy take down next week - Wound vac and ostomy care. Plan to remove wound vac prior to discharge #Pressure ulcers: Stage 3 on buttocks. Not present on admission. Wound care following. #Jacqueline's gangrene: S/p surgical debridement, wound vac and now perineal closure. Completed course of abx/anti-fungals. Continue malloy. #MRSA bacteremia: Due to above. s/p course of daptomycin. #Atrial fibrillation: Precipitated by acute illness. Now in NSR. Continue beta arturo, increase as needed. Holding on systemic anticoagulation with wounds/ possible surgeries. - Currently on aspirin 81mg daily. Should get outpt cardiology follow up, consider cardiac event monitor #Type 2 diabetes : A1c 7.6% - Continue home orals, also on SSI here Nutrition: TFs VTE ppx: LMWH Code: full Dispo: Remain inpatient in ICU. Discharge plan is unclear at present: SNF vs long-term care. He is severely deconditioned and unable to meet caloric needs via PO intake at this time and thus is getting tube feeds, which limits his ability to go to a SNF. Additionally, he has significant wound care needs and ostomy care needs. If patient still here next week, he may get ostomy taken down. Subjective: Doing well this morning. Denies pain, dyspnea, nausea. Objective: Vital Signs Temp Pulse Resp BP Pulse Ox 36.8 C 100 20 141/81 H 97 02/23/18 11:27 02/23/18 11:27 02/23/18 11:27 02/23/18 11:27 02/23/18 11:27 Laboratory Results 02/23/18 04:35 02/23/18 04:35 02/22/18 02/23/18 02/24/18 05:59 05:59 05:59 Intake Total 977 1653 150 Output Total 1265 870 150 Balance -288 783 0 PT 14.8 SEC (12.0-15.0) 02/13/18 05:40 INR 1.14 (0.83-1.16) 02/13/18 05:40 ICD10 Worksheet Patient Problems: Problems Problem Status Onset Cellulitis of perineum Acute Cellulitis, scrotum Acute Left buttock abscess Acute
[2018-02-23] MEDS: ACETAMINOPHEN 325 MG TAB PO PRN (17:22)
[2018-02-23] MEDS: MELATONIN 3 MG TAB PO SCH (20:24)
[2018-02-24] MEDS: INSULIN REGULAR HUMAN 100 UNIT/ML UNIT SC SCH ×4 (07:43→21:41)
[2018-02-24] MEDS: SELENIUM 0.2 MG TAB PO SCH (08:45)
[2018-02-24] MEDS: METOPROLOL TARTRATE 50 MG TAB PO SCH ×2 (08:46→20:28)
[2018-02-24] MEDS: MULTIVITAMINS 1 EACH TAB PO SCH (08:46)
[2018-02-24] MEDS: metFORMIN HCL 500 MG TAB PO SCH ×2 (08:46→21:41)
[2018-02-24] MEDS: ENOXAPARIN 40 MG/0.4 ML SYR SC SCH (08:46)
[2018-02-24] MEDS: PIOGLITAZONE HCL 15 MG TAB PO SCH (08:46)
[2018-02-24] MEDS: ASCORBIC ACID 500 MG TAB PO SCH ×2 (08:46→20:28)
[2018-02-24] MEDS: CHOLECALCIFEROL VIT D3 2,000 UNITS TAB/CAP PO SCH ×2 (08:46→20:28)
[2018-02-24] MEDS: ASPIRIN EC 81 MG TAB PO SCH (08:46)
--- NOTE | 2018-02-24 09:42 | PDINTPN ---
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 He was taken back to the OR where a loop of small bowel was adhesed within a fascial defect. The colostomy was taken down and re-introduced with placement of wound vac. In addition he has had waxing and waning mental status with a largely negative workup including MRI; which finally resolved after either time or addition of micafungin (though no fungal cultures positive). 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 Primary wound closed and debridement of colostomy sites without complication on 02/19. * Colostomy redo- wound vac on initial site; colostomy functioning OK with superficial necrosis. There remains some concern that this may not be viable and could require early revision or re-anastomosis. * Encephalopathy- consistent with toxic-metabolic and continues to improve daily. * Atrial fibrillation? noted on tele but no EKG. He was atenolol as an outpatient and now on metoprolol with NSR. * Anemia- Stableafter effect of neupogen. Re-eval by hematology was concerning for myelodysplastic syndrome and will likely need BM biopsy. * Decubitus ulcer: Stage III. Currently dressed. * Nutrition- passed swallow eval, but had poor PO intake, just 25-50% of his needs. Feeding tube placed 02/22, now on TF. * Dispo: May be able to transfer to Med surg. Per Dr. Saha, may be able to proceed with re-anastomosis of colostomy early next week. Plan: Continue tube feeds. Continue to work with PT/OT on strength. Increase Ritalin. If he continues to show improvement, could proceed with colostomy re- anastomosis. 02/24/18 09:42 02/24/18 09:42 Subjective: Feels OK, still quite weak, poor appetite. Denies pain. Objective: Vital Signs Temp Pulse Resp BP Pulse Ox 37.6 C 115 H 23 H 140/75 H 96 02/24/18 07:28 02/24/18 08:46 02/24/18 07:28 02/24/18 07:28 02/24/18 07:28 Laboratory Results 02/24/18 04:45 02/24/18 04:45 02/23/18 02/24/18 02/25/18 05:59 05:59 05:59 Intake Total 1653 1904 120 Output Total 870 852.5 Balance 783 1051.5 120 PT 14.8 SEC (12.0-15.0) 02/13/18 05:40 INR 1.14 (0.83-1.16) 02/13/18 05:40 Physical Exam - Physical Exam General Appearance: alert, no apparent distress EENT: normal ENT inspection Neck: normal inspection Respiratory: normal breath sounds Cardiac/Chest: regular rate, rhythm, edema Abdomen: normal bowel sounds, non-tender Skin: normal color, warm/dry Extremities: normal inspection Neuro/Psych: alert, normal mood/affect, oriented x 3 ICD10 Worksheet Patient Problems: Problems Problem Status Onset Cellulitis of perineum Acute Cellulitis, scrotum Acute Left buttock abscess Acute
--- NOTE | 2018-02-24 10:00 | HOSPPROG ---
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 Long and complicated course with encephalopathy, wound contamination requiring colostomy, SBO with colostomy take-down/wound vac placement and new colostomy formation, atrial fibrillation, and pancytopenia. #Acute toxic metabolic encephalopathy: Improving slowly and consistent with hypoactive delirium. - Started on methylphenidate yesterday, will increase dose today to hopefully improve motivation to work with therapy #Pancytopenia: Counts trending back up and stable. - Hematology following. Do not recommend bone marrow biopsy at this point. Plan to follow counts as outpatient - SPEP to further investigate anemia pending - Monitor counts, transfuse to keep hgb>7 #Deconditioning: Prolonged critical illness - PT/OT #Nutrition: - Tube feeds at goal as of this morning #Colostomy placement: s/p take down due to wound contamination with wound vac placement and re-do colostomy formation. - General surgery considering colostomy take down next week - Wound vac and ostomy care. Plan to remove wound vac prior to discharge #Pressure ulcers: Stage 3 on buttocks. Not present on admission. Wound care following. - Malloy in place to prevent soiling. Hopefully remove in coming days and replace with condom catheter #Jacqueline's gangrene: S/p surgical debridement, wound vac and now perineal closure. Completed course of abx/anti-fungals. #MRSA bacteremia: Due to above. s/p course of daptomycin. #Atrial fibrillation: Precipitated by acute illness. Now in NSR. Continue beta arturo, increase as needed. Holding on systemic anticoagulation with wounds/ possible surgeries. - Currently on aspirin 81mg daily. Should get outpt cardiology follow up, consider cardiac event monitor #Type 2 diabetes : A1c 7.6% - Continue home orals, also on SSI here Nutrition: TFs, PO VTE ppx: LMWH Code: full Dispo: Remain inpatient in ICU. Discharge plan is unclear at present: SNF vs long-term care. He is severely deconditioned and unable to meet caloric needs via PO intake at this time and thus is getting tube feeds, which limits his ability to go to a SNF. Additionally, he has significant wound care needs and ostomy care needs. If patient still here next week, he may get ostomy taken down. Subjective: Went outside yesterday however patient didn't like this as it was too much effort. He has no new complaints. Objective: Vital Signs Temp Pulse Resp BP Pulse Ox 37.6 C 115 H 23 H 140/75 H 96 02/24/18 07:28 02/24/18 08:46 02/24/18 07:28 02/24/18 07:28 02/24/18 07:28 Laboratory Results 02/24/18 04:45 02/24/18 04:45 02/23/18 02/24/18 02/25/18 05:59 05:59 05:59 Intake Total 1653 1904 120 Output Total 870 852.5 Balance 783 1051.5 120 PT 14.8 SEC (12.0-15.0) 02/13/18 05:40 INR 1.14 (0.83-1.16) 02/13/18 05:40 - Physical Exam Constitutional: no apparent distress, not in pain, other (frail appearing) Eyes: PERRL, anicteric sclera, EOMI Ears, Nose, Mouth, Throat: moist mucous membranes, hearing normal, ears appear normal, no oral mucosal ulcers, other (NG tube in place) Cardiovascular: tachycardia, No JVD, No edema Respiratory: other (clear anterolaterally) Gastrointestinal: soft, non-tender abdomen, other (midline incision with pink granulation tissue surrounding alexandru, LUQ ostomy site without signs of infection, LLQ wound vac in place) Genitourinary: malloy in urethra, other (Left groin drain in place with serosanguinous fluid) Neurologic: other (alert, oriented to person, place, mostly situation this morning) ICD10 Worksheet Patient Problems: Problems Problem Status Onset Cellulitis of perineum Acute Cellulitis, scrotum Acute Left buttock abscess Acute
--- NOTE | 2018-02-24 13:57 | SOAPPROG ---
GAIL Progress Note Assessment/Plan: Assessment: 77 y/o M with Jacqueline's gangrene s/p I&D s/p repeat I&D with wound vac placement. Now s/p colostomy creation to avoid contamination of wound and wound vac change Now s/p ostomy revision and wound vac change Now s/p repeat ostomy revision, abdominal wound debridement and wound vac change , and perineum wound closure S: Sitting up in chair. Denies pain. O: Alert Afebrile Abdomen soft, nontender, +BS, ostomy is retracted, but pink with liquid stool in appliance, previous ostomy site with vac to suction : incision cdi, alexandru intact Plan: Discussed with Dr. Saha. Will plan on taking pt to the OR on Thursday, for open colostomy takedown. Appreciate oil well gun perforator operator input for pt's ability to tolerate general anesthesia. 02/24/18 13:54 Objective: Vital Signs Temp Pulse Resp BP Pulse Ox 37.7 C 97 23 H 139/79 H 23 L 02/24/18 11:19 02/24/18 11:19 02/24/18 07:28 02/24/18 11:19 02/24/18 11:19 Laboratory Results 02/24/18 04:45 02/24/18 04:45 02/23/18 02/24/18 02/25/18 05:59 05:59 05:59 Intake Total 1653 1904 240 Output Total 870 852.5 160 Balance 783 1051.5 80 PT 14.8 SEC (12.0-15.0) 02/13/18 05:40 INR 1.14 (0.83-1.16) 02/13/18 05:40 ICD10 Worksheet Patient Problems: Problems Problem Status Onset Cellulitis of perineum Acute Cellulitis, scrotum Acute Left buttock abscess Acute
[2018-02-24] MEDS: ACETAMINOPHEN 325 MG TAB PO PRN (20:34)
[2018-02-24] MEDS: MELATONIN 3 MG TAB PO SCH (20:34)
[2018-02-25] MEDS: metFORMIN HCL 500 MG TAB PO SCH ×2 (08:20→22:07)
[2018-02-25] MEDS: PIOGLITAZONE HCL 15 MG TAB PO SCH (08:20)
[2018-02-25] MEDS: SELENIUM 0.2 MG TAB PO SCH (08:20)
[2018-02-25] MEDS: CHOLECALCIFEROL VIT D3 2,000 UNITS TAB/CAP PO SCH ×2 (08:21→22:08)
[2018-02-25] MEDS: METOPROLOL TARTRATE 50 MG TAB PO SCH ×2 (08:21→22:06)
[2018-02-25] MEDS: ASPIRIN EC 81 MG TAB PO SCH (08:21)
[2018-02-25] MEDS: MULTIVITAMINS 1 EACH TAB PO SCH (08:21)
[2018-02-25] MEDS: INSULIN REGULAR HUMAN 100 UNIT/ML UNIT SC SCH ×4 (08:22→22:05)
[2018-02-25] MEDS: ASCORBIC ACID 500 MG TAB PO SCH ×2 (08:22→22:08)
[2018-02-25] MEDS: ENOXAPARIN 40 MG/0.4 ML SYR SC SCH (08:22)
--- NOTE | 2018-02-25 08:52 | SOAPPROG ---
GAIL Progress Note Assessment/Plan: Assessment: 77 y/o M with Jacqueline's gangrene s/p I&D s/p repeat I&D with wound vac placement. Now s/p colostomy creation to avoid contamination of wound and wound vac change Now s/p ostomy revision and wound vac change Now s/p repeat ostomy revision, abdominal wound debridement and wound vac change , and perineum wound closure S: No complaints. Reports he is feeling well today. Denies pain. O: Alert Slightly febrile at 37.9 Abdomen soft, nontender, +BS, ostomy is retracted, but pink with liquid stool in appliance, previous ostomy site with vac to suction : incision cdi, alexandru intact Plan: Discussed with Dr. Saha. Will plan on taking pt to the OR on Thursday, for open colostomy takedown. Appreciate scuba diver input for pt's ability to tolerate general anesthesia. 02/25/18 08:51 Objective: Vital Signs Temp Pulse Resp BP Pulse Ox 36.9 C 114 H 24 H 150/84 H 92 02/25/18 07:55 02/25/18 07:55 02/25/18 07:55 02/25/18 07:55 02/25/18 07:55 Laboratory Results 02/25/18 03:30 02/25/18 03:30 02/24/18 02/25/18 02/26/18 05:59 05:59 05:59 Intake Total 1904 1590 1046 Output Total 852.5 860 475 Balance 1051.5 730 571 PT 14.8 SEC (12.0-15.0) 02/13/18 05:40 INR 1.14 (0.83-1.16) 02/13/18 05:40 ICD10 Worksheet Patient Problems: Problems Problem Status Onset Cellulitis of perineum Acute Cellulitis, scrotum Acute Left buttock abscess Acute
--- NOTE | 2018-02-25 11:22 | PDINTPN ---
P[employer] Contractor Progress Note Assessment/Plan: Assessment: 77 m admitted 01/19/18 with necrotizing fasciitis of perineum (Fourniers) requiring surgical debridement and colostomy with relative stability with antibiotics, IVF, etc but required return to ICU 02/05 2/2 hypotension and SBO. He was taken back to the OR where a loop of small bowel was adhesed within a fascial defect. The colostomy was taken down and re-introduced with placement of wound vac. In addition he has had waxing and waning mental status with a largely negative workup including MRI; which finally resolved after either time or addition of micafungin (though no fungal cultures positive). 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 Primary wound closed and debridement of colostomy sites without complication on 02/19. Had temp 38 earlier today. * Colostomy redo- wound vac on initial site; colostomy functioning OK with superficial necrosis. There remains some concern that this may not be viable and could require early revision or re-anastomosis. * Encephalopathy- consistent with toxic-metabolic and continues to improve daily. Started Ritalin 2 days ago, may be helping. * Atrial fibrillation? noted on tele but no EKG. He was atenolol as an outpatient and now on metoprolol with NSR. * Anemia- Stable after effect of neupogen. Re-eval by hematology was concerning for myelodysplastic syndrome and will likely need BM biopsy. * Decubitus ulcer: Stage III. Currently dressed. * Nutrition- passed swallow eval, but had poor PO intake, just 25-50% of his needs. Feeding tube placed 02/22, now on TF. * Dispo: Will keep in SDU due to nursing needs. Per Dr. Saha, may be able to proceed with re-anastomosis of colostomy early next week. * Diabetes: BSs 200+ on metformin, pioglitazone, and SSI. Plan: Continue tube feeds. Continue to work with PT/OT on strength. Continue Ritalin. D/C [place]. Increase SSI. Add FeSO4. If he continues to show improvement , could proceed with colostomy re-anastomosis. 02/25/18 11:26 Subjective: A bit more alert and energy today. Denies pain. Objective: Vital Signs Temp Pulse Resp BP Pulse Ox 36.9 C 114 H 24 H 150/84 H 92 02/25/18 07:55 02/25/18 07:55 02/25/18 07:55 02/25/18 07:55 02/25/18 07:55 Laboratory Results 02/25/18 03:30 02/25/18 03:30 02/24/18 02/25/18 02/26/18 05:59 05:59 05:59 Intake Total 1904 1590 1046 Output Total 852.5 860 475 Balance 1051.5 730 571 PT 14.8 SEC (12.0-15.0) 02/13/18 05:40 INR 1.14 (0.83-1.16) 02/13/18 05:40 Laboratory Tests 02/24/18 02/24/18 02/25/18 17:20 21:26 07:52 POC Glucose 216 H 198 H 228 H Physical Exam - Physical Exam General Appearance: alert, no apparent distress EENT: normal ENT inspection Neck: normal inspection Respiratory: lungs clear, normal breath sounds Cardiac/Chest: normal peripheral pulses, regular rate, rhythm, No edema Abdomen: normal bowel sounds, non-tender Skin: normal color, warm/dry Extremities: normal inspection Neuro/Psych: alert, normal mood/affect, No oriented x 3 ICD10 Worksheet Patient Problems: Problems Problem Status Onset Cellulitis of perineum Acute Cellulitis, scrotum Acute Left buttock abscess Acute
--- NOTE | 2018-02-25 12:58 | HOSPPROG ---
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 Long and complicated course with encephalopathy, wound contamination requiring colostomy, SBO with colostomy take-down/wound vac placement and new colostomy formation, atrial fibrillation, and pancytopenia. #Acute toxic metabolic encephalopathy: Stable, slowly improving and consistent with hypoactive delirium. - Continue methylphenidate to hopefully improve motivation to work with therapy #Low grade fever: Last 2 days. Mild tachycardic (which has been relatively chronic) but no other s/s infection. - Remove malloy catheter - Monitor. If fevers, will culture and consider alternative sources such as picc line, wounds, etc #Pancytopenia: Counts trending back up and stable. SPEP without monoclonal spike. - Hematology following. Do not recommend bone marrow biopsy at this point. Plan to follow counts as outpatient - Monitor counts, transfuse to keep hgb>7 #Deconditioning: Prolonged critical illness - PT/OT #Nutrition: - Tube feeds at goal, encourage PO as much as possible #Colostomy placement: s/p take down due to wound contamination with wound vac placement and re-do colostomy formation. - General surgery considering colostomy take down on Thursday, 03/01 - Wound vac and ostomy care. Plan to remove wound vac prior to discharge #Pressure ulcers: Stage 3 on buttocks. Not present on admission. - Wound care following - As above, we are removing malloy. Will try condom cath vs prompted voiding to help prevent soiling wounds #Jacqueline's gangrene: S/p surgical debridement, wound vac and now perineal closure. Completed course of abx/anti-fungals. #MRSA bacteremia: Due to above. s/p course of daptomycin. #Atrial fibrillation: Precipitated by acute illness. Now in NSR. Continue beta arturo, increase as needed. Holding on systemic anticoagulation with wounds/ possible surgeries. - Currently on aspirin 81mg daily. Should get outpt cardiology follow up, consider cardiac event monitor #Type 2 diabetes : A1c 7.6% - Continue home orals, also on SSI here Nutrition: TFs, PO VTE ppx: LMWH Code: full Dispo: Remain inpatient in ICU. Discharge plan is unclear at present: SNF vs long-term care. He is severely deconditioned and unable to meet caloric needs via PO intake at this time and thus is getting tube feeds, which limits his ability to go to a SNF. Additionally, he has significant wound care needs and ostomy care needs. Plan for ostomy take down on Thursday, 03/01 with general surgery. Subjective: Slept well even with increase in ritalin. Denies pain, nausea. Says 'yes' when asked if he has appetite and wants to eat. Doesn't think he needs to work with PT/OT. Objective: Vital Signs Temp Pulse Resp BP Pulse Ox 36.9 C 116 H 31 H 120/82 H 93 02/25/18 12:00 02/25/18 12:00 02/25/18 12:00 02/25/18 12:00 02/25/18 12:00 Laboratory Results 02/25/18 03:30 02/25/18 03:30 02/24/18 02/25/18 02/26/18 05:59 05:59 05:59 Intake Total 1904 1590 1046 Output Total 852.5 860 475 Balance 1051.5 730 571 PT 14.8 SEC (12.0-15.0) 02/13/18 05:40 INR 1.14 (0.83-1.16) 02/13/18 05:40 - Physical Exam Constitutional: no apparent distress, appears nourished, not in pain Ears, Nose, Mouth, Throat: moist mucous membranes, hearing normal, ears appear normal, no oral mucosal ulcers Cardiovascular: regular rate and rhythym, no murmur, rub, or gallop Respiratory: no respiratory distress, no rales or rhonchi, clear to auscultation (anterolaterally) Gastrointestinal: other (midline laparotomy incision c/d/i with alexandru, LUQ ostomy ok, LLQ wound vac in place) Genitourinary: malloy in urethra, other (left inguinal VALERIY drain now removed) Musculoskeletal: full muscle strength, no muscle tenderness, normal joint ROM Neurologic: other (alert, intermittently oriented x2-3) ICD10 Worksheet Patient Problems: Problems Problem Status Onset Cellulitis of perineum Acute Cellulitis, scrotum Acute Left buttock abscess Acute
[2018-02-25] MEDS: FERROUS SULFATE 300 MG/5 ML UD CUP PO SCH (14:17)
--- NOTE | 2018-02-25 14:40 | WOCRNPDOC ---
WOCRN Advanced Assessment Note - Skin Integrity Problem, Advanced Assess Left Ear Pressure Injury Dressing Type: Open to Air Exudate Amount: Scant Exudate Characteristic(s): Dried, Serosanguinous Elena Wound Tissue: Dry Wound Bed Color: Brown, Red Wound Bed Constitution: Dried Exudate Site Measurement - Head-to-Toe Length X Width X Depth (cm): 0.2x0.15x scab Pressure Injury Stage: Stage 2 Pressure Injury Present on Admit: No Skin Integrity Problem Comment: Hospital acquired pressure injury, improved since prior assessment. Patient was up in chair and asking questions about his plan of care and how to avoid any more pressure injuries. Education provided re : keeping to a turn schedule. offloading and using foam cushions for oxygen tubing, and nutrition importance in wound healing. Wound care will round again on this wound next week. Right Ear Pressure Injury Dressing Type: Open to Air Wound Bed Constitution: Healed Pressure Injury Stage: Stage 2 Skin Integrity Problem Comment: Pressure injury to right lobule healed. Wound care will sign off on this wound.
--- NOTE | 2018-02-25 15:33 | ASMTCMCOM ---
CM Note CM Note Notes: Patient continuing to make progress. Colostomy take down next week. CM continues to keep options open for either SNF rehab or LTAC depending on what the patient will need at discharge. CM will follow. Date Signed: 02/25/2018 03:31 PM Electronically Signed By:Flores Martinez LCSW
[2018-02-25] MEDS: MELATONIN 3 MG TAB PO SCH (22:08)
[2018-02-26] MEDS: INSULIN REGULAR HUMAN 100 UNIT/ML UNIT SC SCH ×4 (09:29→22:22)
--- NOTE | 2018-02-26 09:30 | HOSPPROG ---
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 Long and complicated course with encephalopathy, wound contamination requiring colostomy, SBO with colostomy take-down/wound vac placement and new colostomy formation, atrial fibrillation, and pancytopenia. #Acute toxic metabolic encephalopathy: Improved this morning albeit he waxes and wanes, consistent with hypoactive delirium. - Continue methylphenidate to hopefully improve motivation to work with therapy #Hyperglycemia with type 2 diabetes: BG creeping up >200. A1c 7.6% - SSI increased yesterday, continue metformin and pioglitazone - Plan to decrease tube feeds to half now that taking more PO #Low grade fever: Resolved. - Monitor. If fevers, will culture and consider sources such as picc line, wounds, aspiration, etc #Colostomy placement: s/p take down due to wound contamination with wound vac placement and re-do colostomy formation. - General surgery considering colostomy take down on Thursday, 03/01 - Wound vac and ostomy care. Plan to remove wound vac prior to discharge #Pancytopenia: Counts trending back up and stable. SPEP without monoclonal spike. - Hematology following. Do not recommend bone marrow biopsy at this point. Plan to follow counts as outpatient - Monitor counts, transfuse to keep hgb>7 #Deconditioning: Prolonged critical illness - PT/OT #Nutrition: - Tube feeds at goal, encourage PO as much as possible #Pressure ulcers: Stage 3 on buttocks. Not present on admission. - Wound care following #Jacqueline's gangrene: S/p surgical debridement, wound vac and now perineal closure. Completed course of abx/anti-fungals. #MRSA bacteremia: Due to above. s/p course of daptomycin. #Atrial fibrillation: Precipitated by acute illness. Now in NSR. Continue beta arturo, increase as needed. Holding on systemic anticoagulation with wounds/ possible surgeries. - Currently on aspirin 81mg daily. Should get outpt cardiology follow up, consider cardiac event monitor Nutrition: TFs, PO VTE ppx: LMWH Padma: Removed 02/25 Code: full Dispo: Remain inpatient in ICU. Discharge plan is unclear at present: SNF vs long-term care. He is severely deconditioned and unable to meet caloric needs via PO intake at this time and thus is getting tube feeds, which limits his ability to go to a SNF. Additionally, he has significant wound care needs and ostomy care needs. Plan for ostomy take down on Thursday, 03/01 with general surgery. Subjective: Sitting up in chair this morning. This is the most interactive he's been with me this week. Reports sleeping ok. Ate his eggs for breakfast. No pain. Feels like PT/OT are tough. Objective: Vital Signs Temp Pulse Resp BP Pulse Ox 36.9 C 100 20 118/68 98 02/26/18 08:00 02/26/18 08:00 02/26/18 08:00 02/26/18 08:00 02/26/18 08:00 Laboratory Results 02/26/18 04:00 02/26/18 04:00 02/25/18 02/26/18 02/27/18 05:59 05:59 05:59 Intake Total 1590 1946 Output Total 860 1475 Balance 730 471 PT 14.8 SEC (12.0-15.0) 02/13/18 05:40 INR 1.14 (0.83-1.16) 02/13/18 05:40 - Physical Exam Constitutional: no apparent distress, appears nourished, not in pain Eyes: PERRL, anicteric sclera, EOMI Ears, Nose, Mouth, Throat: moist mucous membranes, hearing normal, ears appear normal, no oral mucosal ulcers Cardiovascular: no murmur, rub, or gallop, tachycardia, No JVD, No edema Respiratory: other (clear anterolaterally) Gastrointestinal: soft, non-tender abdomen, other (mildline laparotomy incision with pink granulation tissue and alexandru in place, LUQ ostomy, LLQ wound vac in place) Skin: no rashes or abrasions, no fluctuance, no induration Neurologic: other (alert, oriented x2-3, more lucid and attentive today) Psychiatric: encephalopathic ICD10 Worksheet Patient Problems: Problems Problem Status Onset Cellulitis of perineum Acute Cellulitis, scrotum Acute Left buttock abscess Acute
--- NOTE | 2018-02-26 09:43 | PDINTPN ---
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 He was taken back to the OR where a loop of small bowel was adhesed within a fascial defect. The colostomy was taken down and re-introduced with placement of wound vac. In addition he has had waxing and waning mental status with a largely negative workup including MRI; which finally resolved after either time or addition of micafungin (though no fungal cultures positive). 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 Primary wound closed and debridement of colostomy sites without complication on 02/19. Had temp 38.4 on 02/25 M * Colostomy redo- wound vac on initial site; colostomy functioning OK with superficial necrosis. There remains some concern that this may not be viable and could require early revision or re-anastomosis. * Encephalopathy- consistent with toxic-metabolic and continues to improve daily. Started Ritalin 2 days ago, may be helping. * Atrial fibrillation? noted on tele but no EKG. He was atenolol as an outpatient and now on metoprolol with NSR. * Anemia- Stable after effect of neupogen. Re-eval by hematology was concerning for myelodysplastic syndrome and will likely need BM biopsy. * Decubitus ulcer: Stage III. Currently dressed. * Nutrition- passed swallow eval, but had poor PO intake, just 25-50% of his needs. Feeding tube placed 02/22, now on TF. Taking some PO * Dispo: Will keep in SDU due to nursing needs. Per Dr. Saha, may be able to proceed with re-anastomosis of colostomy early next week. * Diabetes: BSs 200+ on metformin, pioglitazone, and SSI. Still elevated on increased SSI Plan: Continue tube feeds. reduce rate as PO intake increases. Continue to work with PT/OT on strength. Continue Ritalin. Will increase SSI further if BSs still 200s. Continue condom catheter, with urinal PRN. If he continues to show improvement, could proceed with colostomy re-anastomosis. 02/26/18 09:38 Subjective: Feels better today, more alert, no pain, appetite better. Objective: Vital Signs Temp Pulse Resp BP Pulse Ox 36.9 C 100 20 118/68 98 02/26/18 08:00 02/26/18 08:00 02/26/18 08:00 02/26/18 08:00 02/26/18 08:00 Laboratory Results 02/26/18 04:00 02/26/18 04:00 02/25/18 02/26/18 02/27/18 05:59 05:59 05:59 Intake Total 1590 1946 Output Total 860 1475 Balance 730 471 PT 14.8 SEC (12.0-15.0) 02/13/18 05:40 INR 1.14 (0.83-1.16) 02/13/18 05:40 Physical Exam - Physical Exam General Appearance: alert, no apparent distress EENT: normal ENT inspection Neck: normal inspection Respiratory: lungs clear, No normal breath sounds Cardiac/Chest: regular rate, rhythm, edema Abdomen: normal bowel sounds, non-tender Skin: normal color, warm/dry Extremities: normal inspection Neuro/Psych: alert, normal mood/affect, oriented x 3 ICD10 Worksheet Patient Problems: Problems Problem Status Onset Cellulitis of perineum Acute Cellulitis, scrotum Acute Left buttock abscess Acute
[2018-02-26] MEDS: METOPROLOL TARTRATE 50 MG TAB PO SCH ×2 (10:04→22:11)
[2018-02-26] MEDS: ASCORBIC ACID 500 MG TAB PO SCH ×2 (10:04→22:11)
[2018-02-26] MEDS: ASPIRIN EC 81 MG TAB PO SCH (10:04)
[2018-02-26] MEDS: metFORMIN HCL 500 MG TAB PO SCH ×2 (10:04→22:12)
[2018-02-26] MEDS: CHOLECALCIFEROL VIT D3 2,000 UNITS TAB/CAP PO SCH ×2 (10:05→22:13)
[2018-02-26] MEDS: ENOXAPARIN 40 MG/0.4 ML SYR SC SCH (10:06)
[2018-02-26] MEDS: FERROUS SULFATE 300 MG/5 ML UD CUP PO SCH (10:06)
[2018-02-26] MEDS: MULTIVITAMINS 1 EACH TAB PO SCH (10:45)
[2018-02-26] MEDS: PIOGLITAZONE HCL 15 MG TAB PO SCH (10:45)
[2018-02-26] MEDS: SELENIUM 0.2 MG TAB PO SCH (10:45)
--- NOTE | 2018-02-26 11:26 | WOCRNPDOC ---
IVÁN Advanced Assessment Note - Skin Integrity Problem, Advanced Assess Left Lower Abdomen Surgical Wound/Incision Dressing Type: Wound Vac Dressing Description: Clean/Dry, Intact Exudate Amount: Minimal Exudate Characteristic(s): Serosanguinous Integumentary Issue Intervention: Dressing Changed (small black simplace foam x2 ) Elena Wound Tissue: Blanching, Erythema Elena Wound Swelling: None Wound Bed Color: Red, Yellow Wound Bed Constitution: Granulation Tissue (60%), Subcutaneous Fat (40%) Wound Edges: Attached Site Odor: None Site Measurement - Head-to-Toe Length X Width X Depth (cm): 3x12x6 Skin Integrity Problem Comment: Wound vac dressing removed for Dr. Saha and Taya Pizarro CLINICAL DATA COORDINATOR to visualized. Wound cleansed with NS and gauze. Skin prepped and draped. One piece of small black simplace foam placed in wound bed and one piece of small black simplace foam placed on top for track pad placement. Wound draped and -125mmHg NPWT achieved with no leaks. Fabrizio CHAKRABORTY in room to assist. Wound care will round again MW for wound vac changes. - Colostomy Assessment, Advanced Left Lower Abdomen Colostomy Stoma Colostomy Appliance Intact: Yes Colostomy Appliance Currently in Use: Two Piece Flat, 2 1/4, Cut to Fit Stoma Color: [place] Stoma Turgor: Moist Stoma Shape: Oval Stoma Height: Recessed Mucocutaneus Junction: Intact Colostomy Effluent: Fecal Colostomy Details: Colectomy, End Peristomal Skin: Denuded Peristomal Skin Complications: Irritant Contact Dermatitis Stomal Complications: Retraction Colostomy Comment/Treatment Details: Appliance changed due to wound vac change. Stoma powder applied to denuded skin. Per Dr. Saha, patient to go to OR on for takedown of colostomy. New wafer applied with bottom portion cut away to avoid overlap with drape from wound vac. Wound care will round again next week.
--- NOTE | 2018-02-26 11:47 | SOAPPROG ---
GAIL Progress Note Assessment/Plan: Assessment: 77 y/o M with Jacqueline's gangrene s/p I&D s/p repeat I&D with wound vac placement. Now s/p colostomy creation to avoid contamination of wound and wound vac change Now s/p ostomy revision and wound vac change Now s/p repeat ostomy revision, abdominal wound debridement and wound vac change , and perineum wound closure S: No complaints. Reports he is feeling well today. Denies pain. O: Alert Slightly febrile at 37.9 Abdomen soft, nontender, +BS, ostomy is retracted, but pink with liquid stool in appliance, previous ostomy site with vac to suction : incision cdi, alexandru intact Plan: Discussed with Dr. Saha. Will plan on taking pt to the OR on Thursday, for open colostomy takedown. Appreciate archery equipment repairer input for pt's ability to tolerate general anesthesia. 02/25/18 08:51 Subjective: Says he is feeling well today. Denies pain. Understands and agrees to surgery on Thursday for colostomy takedown. Objective: Vital Signs Temp Pulse Resp BP Pulse Ox 36.5 C 104 H 22 H 120/54 L 99 02/26/18 11:40 02/26/18 11:40 02/26/18 11:40 02/26/18 11:40 02/26/18 11:40 Laboratory Results 02/26/18 04:00 02/26/18 04:00 02/25/18 02/26/18 02/27/18 05:59 05:59 05:59 Intake Total 1590 1946 Output Total 860 1475 Balance 730 471 PT 14.8 SEC (12.0-15.0) 02/13/18 05:40 INR 1.14 (0.83-1.16) 02/13/18 05:40 ICD10 Worksheet Patient Problems: Problems Problem Status Onset Cellulitis of perineum Acute Cellulitis, scrotum Acute Left buttock abscess Acute
--- NOTE | 2018-02-26 15:35 | WOCRNPDOC ---
WOCRN Advanced Assessment Note - Skin Integrity Problem, Advanced Assess Sacrum Pressure Injury Dressing Type: Allevyn Life Dressing Description: Clean/Dry, Intact Exudate Amount: None Integumentary Issue Intervention: Dressing Changed, Hydrogel Applied Elena Wound Tissue: Blanching Elena Wound Swelling: None Wound Bed Color: [place], Red Wound Bed Constitution: Granulation Tissue (30%), Red/[place] - Non Granular Tissue (70%) Wound Edges: Epithelizing, Attached Site Measurement - Head-to-Toe Length X Width X Depth (cm): Approximately 9x10x0.3 Pressure Injury Stage: Stage 3 Pressure Injury Present on Admit: No Skin Integrity Problem Comment: Patient was in a Sera Stand. Dressing removed and wound cleansed with NS and gauze. Wound gel applied to wound bed and new dressing applied. Fabrizio CHKARABORTY in room for care. Wound care will round again next week.
[2018-02-26] MEDS: MELATONIN 3 MG TAB PO SCH (22:12)
[2018-02-27] MEDS: ASCORBIC ACID 500 MG TAB PO SCH ×2 (08:25→21:35)
[2018-02-27] MEDS: FERROUS SULFATE 300 MG/5 ML UD CUP PO SCH (08:25)
[2018-02-27] MEDS: ENOXAPARIN 40 MG/0.4 ML SYR SC SCH (08:25)
[2018-02-27] MEDS: metFORMIN HCL 500 MG TAB PO SCH ×2 (08:26→21:35)
[2018-02-27] MEDS: SELENIUM 0.2 MG TAB PO SCH (08:26)
[2018-02-27] MEDS: MULTIVITAMINS 1 EACH TAB PO SCH (08:26)
[2018-02-27] MEDS: PIOGLITAZONE HCL 15 MG TAB PO SCH (08:26)
[2018-02-27] MEDS: ASPIRIN EC 81 MG TAB PO SCH (08:26)
[2018-02-27] MEDS: METOPROLOL TARTRATE 50 MG TAB PO SCH ×2 (08:26→21:35)
[2018-02-27] MEDS: INSULIN REGULAR HUMAN 100 UNIT/ML UNIT SC SCH ×4 (08:27→22:32)
--- NOTE | 2018-02-27 08:34 | SOAPPROG ---
SOAP Progress Note Assessment/Plan: Assessment/Plan: 77 Y M perirectal abscess, Jacqueline's gangrene. S/p multiple operative I&D's and diverting colostomy with subsequent revision and transposition. Sepsis, neutropenia. s/p delayed primary closure of Jacqueline's site, debridement of colostomy. Colostomy takedown planned for Thursday if medically cleared. Unsure if we will be able to close former colostomy open wound site--will depend on how clean and well granulated it is. S: "I'm fine." Gives me the thumbs up regarding surgery on Thursday. O: alert, nad ctab anteriorly rrr abd soft, ostomy bag with dark stool, vac to suction. gen inc intact, no induration 02/27/18 08:31 Objective: Vital Signs Temp Pulse Resp BP Pulse Ox 36.6 C 108 H 16 130/75 H 95 02/27/18 04:00 02/27/18 04:00 02/27/18 04:00 02/27/18 04:00 02/27/18 04:00 Laboratory Results 02/26/18 04:00 02/26/18 04:00 02/26/18 02/27/18 02/28/18 05:59 05:59 05:59 Intake Total 1946 2294 Output Total 1475 1025 Balance 471 1269 PT 14.8 SEC (12.0-15.0) 02/13/18 05:40 INR 1.14 (0.83-1.16) 02/13/18 05:40 ICD10 Worksheet Patient Problems: Problems Problem Status Onset Cellulitis of perineum Acute Cellulitis, scrotum Acute Left buttock abscess Acute
[2018-02-27] MEDS: CHOLECALCIFEROL VIT D3 2,000 UNITS TAB/CAP PO SCH ×2 (08:40→21:00)
[2018-02-27] MEDS ORDERED: INSULIN GLARGINE 100 UNITS/ML UNIT SC SCH (09:45)
--- NOTE | 2018-02-27 09:45 | HOSPPROG ---
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 Long and complicated course with encephalopathy, wound contamination requiring colostomy, SBO with colostomy take-down/wound vac placement and new colostomy formation, atrial fibrillation, and pancytopenia. Acute toxic metabolic encephalopathy: alert today states it has resolved coninue methylphenidate for now Hyperglycemia with type 2 diabetes: BG creeping up >200. A1c 7.6% - SSI increased yesterday, continue metformin and pioglitazone - Plan to decrease tube feeds to half now that taking more PO blood sugars remain greater than goal add 4 of lantus this AM Low grade fever: Resolved. - Monitor. If fevers, will culture and consider sources such as picc line, wounds, aspiration, etc 02/27- afebrile overnight Colostomy placement: s/p take down due to wound contamination with wound vac placement and re-do colostomy formation. - General surgery considering colostomy take down on Thursday, 03/01 - Wound vac and ostomy care. Plan to remove wound vac prior to discharge Pancytopenia: Counts trending back up and stable. SPEP without monoclonal spike. - Hematology following. Do not recommend bone marrow biopsy at this point. Plan to follow counts as outpatient - Monitor counts, transfuse to keep hgb>7 stable 02/27 Deconditioning: Prolonged critical illness - PT/OT Nutrition: - Tube feeds at goal, encourage PO as much as possible 02/27- discussion of changing tube feeds to nocturnal to increase daytime appetite and thus po intake Pressure ulcers: Stage 3 on buttocks. Not present on admission. - Wound care following Jacqueline's gangrene: S/p surgical debridement, wound vac and now perineal closure. Completed course of abx/anti-fungals. MRSA bacteremia: Due to above. s/p course of daptomycin. Atrial fibrillation: Precipitated by acute illness. Now in NSR. Continue beta arturo, increase as needed. Holding on systemic anticoagulation with wounds/ possible surgeries. - Currently on aspirin 81mg daily. Should get outpt cardiology follow up, consider cardiac event monitor 02/27- tele w transient tachycardia that has resolved Nutrition: TFs, PO VTE ppx: LMWH Malloy: Removed 02/25 Code: full Dispo: Remain inpatient in ICU. Discharge plan is unclear at present: SNF vs long-term care. He is severely deconditioned and unable to meet caloric needs via PO intake at this time and thus is getting tube feeds, which limits his ability to go to a SNF. Additionally, he has significant wound care needs and ostomy care needs. Plan for ostomy take down on Thursday, 03/01 with general surgery. Subjective: case d/w dr garcia. alert. staes his confusion has resolved Objective: Vital Signs Temp Pulse Resp BP Pulse Ox 36.6 C 111 H 16 128/83 H 95 02/27/18 04:00 02/27/18 08:26 02/27/18 04:00 02/27/18 08:26 02/27/18 04:00 Laboratory Results 02/26/18 04:00 02/26/18 04:00 02/26/18 02/27/18 02/28/18 05:59 05:59 05:59 Intake Total 1946 2294 Output Total 1475 1025 Balance 471 1269 PT 14.8 SEC (12.0-15.0) 02/13/18 05:40 INR 1.14 (0.83-1.16) 02/13/18 05:40 - Physical Exam Constitutional: no apparent distress, chronically ill appearing Eyes: PERRL, anicteric sclera Ears, Nose, Mouth, Throat: moist mucous membranes, hearing normal Cardiovascular: regular rate and rhythym, no murmur, rub, or gallop Respiratory: no respiratory distress, no rales or rhonchi Gastrointestinal: soft, non-tender abdomen, other (wound vac intact. hypoactive bowel sounds) Genitourinary: no bladder fullness, No malloy in urethra Skin: warm, normal color Musculoskeletal: no muscle tenderness, No full muscle strength Neurologic: AAOx3 ICD10 Worksheet Patient Problems: Problems Problem Status Onset Cellulitis of perineum Acute Cellulitis, scrotum Acute Left buttock abscess Acute
--- NOTE | 2018-02-27 10:45 | PDINTPN ---
Machine Repairman Progress Note Assessment/Plan: Assessment: 77 m admitted 01/19/18 with necrotizing fasciitis of perineum (Fourniers) requiring surgical debridement and colostomy with relative stability with antibiotics, IVF, etc but required return to ICU 02/05 2/2 hypotension and SBO. He was taken back to the OR where a loop of small bowel was adhesed within a fascial defect. The colostomy was taken down and re-introduced with placement of wound vac. In addition he has had waxing and waning mental status with a largely negative workup including MRI; which finally resolved after either time or addition of micafungin (though no fungal cultures positive). 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 Primary wound closed and debridement of colostomy sites without complication on 02/19. Had temp 38.4 on 02/25 M * Colostomy redo- wound vac on initial site; colostomy functioning OK with superficial necrosis. There remains some concern that this may not be viable and could require early revision or re-anastomosis. * Encephalopathy- consistent with toxic-metabolic and continues to improve daily. Started Ritalin 02/24, may be helping. * Atrial fibrillation? noted on tele but no EKG. He was atenolol as an outpatient and now on metoprolol with NSR. * Anemia- Stable after effect of neupogen. Re-eval by hematology was concerning for myelodysplastic syndrome and will likely need BM biopsy. * Decubitus ulcer: Stage III. Currently dressed. * Nutrition- passed swallow eval, but had poor PO intake, just 25-50% of his needs. Feeding tube placed 02/22, now on TF. Taking some PO, but has poor appetite * Dispo: Will keep in SDU due to nursing needs. Per Dr. Saha, may be able to proceed with re-anastomosis of colostomy early next week. * Diabetes: BSs 200+ on metformin, pioglitazone, and SSI. Now coming down a bit on increased SSI, hopefully will come down firther with decreasing TF. Plan: Continue tube feeds, but change to nocturnal only. Continue to work with PT/OT on strength. Continue Ritalin for now, probably decrease soon if continues to do well. Follow BS on decreased TF. Continue condom catheter, with urinal PRN. Plan on colostomy re-anastomosis 03/01. 02/27/18 10:45 02/27/18 10:52 Subjective: Feels OK, slept well. Bothered by SCDs. Poor appetite. Objective: Vital Signs Temp Pulse Resp BP Pulse Ox 36.6 C 111 H 16 128/83 H 95 02/27/18 04:00 02/27/18 08:26 02/27/18 04:00 02/27/18 08:26 02/27/18 04:00 Laboratory Results 02/26/18 04:00 02/26/18 04:00 02/26/18 02/27/18 02/28/18 05:59 05:59 05:59 Intake Total 1946 2294 Output Total 1475 1025 Balance 471 1269 PT 14.8 SEC (12.0-15.0) 02/13/18 05:40 INR 1.14 (0.83-1.16) 02/13/18 05:40 Physical Exam - Physical Exam General Appearance: alert, no apparent distress EENT: normal ENT inspection Neck: normal inspection Respiratory: lungs clear Cardiac/Chest: regular rate, rhythm, No edema Abdomen: normal bowel sounds, non-tender Skin: normal color, warm/dry Extremities: normal inspection Neuro/Psych: alert, normal mood/affect, oriented x 3 ICD10 Worksheet Patient Problems: Problems Problem Status Onset Cellulitis of perineum Acute Cellulitis, scrotum Acute Left buttock abscess Acute
--- NOTE | 2018-02-27 13:55 | ASMTCMCOM ---
CM Note CM Note Notes: Pt will have a colostomy takedown on Thursday if medically cleared. It is still unclear what he will require when ready for d/c, SNF vs LTC. CM to follow. D/C Plan: SNF vs LTC. Date Signed: 02/27/2018 01:54 PM Electronically Signed By:Nicole Stone
[2018-02-27] MEDS: MELATONIN 3 MG TAB PO SCH (21:34)
[2018-02-28] MEDS: FERROUS SULFATE 300 MG/5 ML UD CUP PO SCH (09:17)
[2018-02-28] MEDS: metFORMIN HCL 500 MG TAB PO SCH ×2 (09:17→22:02)
[2018-02-28] MEDS: INSULIN REGULAR HUMAN 100 UNIT/ML UNIT SC SCH ×3 (09:17→18:34)
[2018-02-28] MEDS: METOPROLOL TARTRATE 50 MG TAB PO SCH ×2 (09:18→22:01)
[2018-02-28] MEDS: MULTIVITAMINS 1 EACH TAB PO SCH (09:19)
[2018-02-28] MEDS: SELENIUM 0.2 MG TAB PO SCH (09:20)
[2018-02-28] MEDS: CHOLECALCIFEROL VIT D3 2,000 UNITS TAB/CAP PO SCH ×2 (09:20→22:02)
[2018-02-28] MEDS: PIOGLITAZONE HCL 15 MG TAB PO SCH (09:21)
[2018-02-28] MEDS: ASCORBIC ACID 500 MG TAB PO SCH ×2 (09:21→21:00)
[2018-02-28] MEDS: ASPIRIN EC 81 MG TAB PO SCH (09:22)
--- NOTE | 2018-02-28 09:30 | SOAPPROG ---
SOMADISYN Progress Note Assessment/Plan: Assessment/Plan: 77 Y M perirectal abscess, Jacqueline's gangrene. S/p multiple operative I&D's and diverting colostomy with subsequent revision and transposition. Sepsis, neutropenia. s/p delayed primary closure of Jacqueline's site, debridement of colostomy. Wet to dry dressings BID to abdominal wound adjacent to colostomy. Vac was in connection with ostomy appliance and pulling stool towards wound. Will view wound in surgery tomorrow during colostomy takedown. Unsure if we will be able to close former colostomy open wound site--will depend on how clean and well granulated it is. Insert malloy catheter. Condom catheter failing--per RN, patient pulls it off. Has been incontinent. Too much risk for wound infection and breakdown. S: Ordering breakfast with nurse. O: alert, nad abd wound well dressed. +stool in bag. penile and scrotal edema decreased and wounds intact. 02/28/18 09:25 Objective: Vital Signs Temp Pulse Resp BP Pulse Ox 36.8 C 112 H 33 H 139/73 H 96 02/28/18 08:00 02/28/18 09:18 02/28/18 08:00 02/28/18 09:18 02/28/18 08:00 Laboratory Results 02/26/18 04:00 02/26/18 04:00 02/27/18 02/28/18 03/01/18 05:59 05:59 05:59 Intake Total 2294 870 1187 Output Total 1025 25 Balance 4493 028 6952 PT 14.8 SEC (12.0-15.0) 02/13/18 05:40 INR 1.14 (0.83-1.16) 02/13/18 05:40 ICD10 Worksheet Patient Problems: Problems Problem Status Onset Cellulitis of perineum Acute Cellulitis, scrotum Acute Left buttock abscess Acute
--- NOTE | 2018-02-28 10:54 | PDINTPN ---
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 He was taken back to the OR where a loop of small bowel was adhesed within a fascial defect. The colostomy was taken down and re-introduced with placement of wound vac. In addition he has had waxing and waning mental status with a largely negative workup including MRI; which finally resolved after either time or addition of micafungin (though no fungal cultures positive). 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 Primary wound closed and debridement of colostomy sites without complication on 02/19. Had temp 38.4 on 02/25 M * Colostomy redo- wound vac on initial site; colostomy functioning OK with superficial necrosis. There remains some concern that this may not be viable and could require early revision or re-anastomosis. * Encephalopathy- consistent with toxic-metabolic and continues to improve daily. Started Ritalin 02/25, may be helping. * Atrial fibrillation? noted on tele but no EKG. He was atenolol as an outpatient and now on metoprolol with NSR. * Anemia- Stable after effect of neupogen. Iron studies most suggestive of ACD. Re-eval by hematology was concerning for myelodysplastic syndrome and will likely need BM biopsy. * Decubitus ulcer: Stage III. Currently dressed. * Nutrition- passed swallow eval, but had poor PO intake, just 25-50% of his needs. Feeding tube placed 02/22, now on TF. Taking some PO * Dispo: Will keep in SDU due to nursing needs. * Diabetes: BSs 200+ on metformin, pioglitazone, and SSI. Still elevated on increased SSI Plan: Continue tube feeds during nighttime, encourage PO during day. Continue to work with PT/OT on strength. Continue Ritalin. Will increase SSI further if BSs still 200s. Place malloy due to soilage from leaking condom cath. Transfuse PRBCs, continue PO FeSO4. Plan on colostomy re-anastomosis 03/01. 02/28/18 11:01 Subjective: Feels about the same, ready to try to stand/walk. Denies pain, nausea. Objective: Vital Signs Temp Pulse Resp BP Pulse Ox 36.8 C 112 H 33 H 139/73 H 96 02/28/18 08:00 02/28/18 09:18 02/28/18 08:00 02/28/18 09:18 02/28/18 08:00 Laboratory Results 02/26/18 04:00 02/26/18 04:00 02/27/18 02/28/18 03/01/18 05:59 05:59 05:59 Intake Total 2294 870 1187 Output Total 1025 25 Balance 6550 495 7411 PT 14.8 SEC (12.0-15.0) 02/13/18 05:40 INR 1.14 (0.83-1.16) 02/13/18 05:40 Physical Exam - Physical Exam General Appearance: alert, no apparent distress EENT: normal ENT inspection Neck: normal inspection Respiratory: lungs clear, normal breath sounds Cardiac/Chest: regular rate, rhythm, No edema Abdomen: normal bowel sounds, non-tender Skin: normal color, warm/dry Extremities: normal inspection Neuro/Psych: alert, normal mood/affect, No motor weakness (no focal weakness) ICD10 Worksheet Patient Problems: Problems Problem Status Onset Cellulitis of perineum Acute Cellulitis, scrotum Acute Left buttock abscess Acute
--- NOTE | 2018-02-28 13:12 | HOSPPROG ---
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 Long and complicated course with encephalopathy, wound contamination requiring colostomy, SBO with colostomy take-down/wound vac placement and new colostomy formation, atrial fibrillation, and pancytopenia. Acute toxic metabolic encephalopathy: alert today states it has resolved coninue methylphenidate for now- taper mid week after surgery 03/01 Hyperglycemia with type 2 diabetes: BG creeping up >200. A1c 7.6% - SSI increased yesterday, continue metformin and pioglitazone - Plan to decrease tube feeds to half now that taking more PO sugars at goal today Low grade fever: Resolved. - Monitor. If fevers, will culture and consider sources such as picc line, wounds, aspiration, etc 02/28- afebrile overnight Colostomy placement: s/p take down due to wound contamination with wound vac placement and re-do colostomy formation. - General surgery considering colostomy take down on Thursday, 03/01 - Wound vac and ostomy care. Plan to remove wound vac prior to discharge Pancytopenia: Counts trending back up and stable. SPEP without monoclonal spike. - Hematology following. Do not recommend bone marrow biopsy at this point. Plan to follow counts as outpatient - Monitor counts, transfuse to keep hgb>7 stable 02/27 Deconditioning: Prolonged critical illness - PT/OT Nutrition: - Tube feeds at goal, encourage PO as much as possible 02/27- discussion of changing tube feeds to nocturnal to increase daytime appetite and thus po intake Pressure ulcers: Stage 3 on buttocks. Not present on admission. - Wound care following Jacqueline's gangrene: S/p surgical debridement, wound vac and now perineal closure. Completed course of abx/anti-fungals. MRSA bacteremia: Due to above. s/p course of daptomycin. Atrial fibrillation: Precipitated by acute illness. Now in NSR. Continue beta arturo, increase as needed. Holding on systemic anticoagulation with wounds/ possible surgeries. - Currently on aspirin 81mg daily. Should get outpt cardiology follow up, consider cardiac event monitor 02/27- tele w transient tachycardia that has resolved Nutrition: TFs, PO VTE ppx: LMWH Malloy: Removed 02/25 Code: full Dispo: ICU for now Subjective: case d/w dr garcia. malloy placed last ron for incontinence Objective: Vital Signs Temp Pulse Resp BP Pulse Ox 36.8 C 112 H 33 H 139/73 H 96 02/28/18 08:00 02/28/18 09:18 02/28/18 08:00 02/28/18 09:18 02/28/18 08:00 Laboratory Results 02/26/18 04:00 02/26/18 04:00 02/27/18 02/28/18 03/01/18 05:59 05:59 05:59 Intake Total 2294 870 1187 Output Total 1025 25 Balance 1999 742 8636 PT 14.8 SEC (12.0-15.0) 02/13/18 05:40 INR 1.14 (0.83-1.16) 02/13/18 05:40 - Physical Exam Constitutional: no apparent distress, appears nourished Eyes: PERRL, anicteric sclera Ears, Nose, Mouth, Throat: moist mucous membranes, hearing normal Cardiovascular: regular rate and rhythym, no murmur, rub, or gallop, systolic murmur Respiratory: no respiratory distress, no rales or rhonchi Gastrointestinal: soft, non-tender abdomen, No normoactive bowel sounds Genitourinary: malloy in urethra Skin: warm, normal color Neurologic: AAOx3, sensation intact bilaterally Psychiatric: interacting appropriately ICD10 Worksheet Patient Problems: Problems Problem Status Onset Cellulitis of perineum Acute Cellulitis, scrotum Acute Left buttock abscess Acute
--- NOTE | 2018-02-28 15:38 | ASMTCMCOM ---
CM Note CM Note Notes: Referrals to LTAC's updated with current patient info. [facility] Date Signed: 02/28/2018 03:37 PM Electronically Signed By:Denise Sandoval LCSW
[2018-02-28] MEDS: MELATONIN 3 MG TAB PO SCH (22:02)
[2018-02-28] MEDS: ACETAMINOPHEN 325 MG TAB PO PRN (22:02)
[2018-03-01] MEDS: INSULIN REGULAR HUMAN 100 UNIT/ML UNIT SC SCH ×5 (05:27→22:00)
[2018-03-01] MEDS ORDERED: DAPTOmycin 600 MG in NS 100 ML IV ONE (06:00)
[2018-03-01] MEDS ORDERED: LR 1,000 ML IV ONE (06:40)
[2018-03-01] MEDS ORDERED: HEPARIN 1000 UNIT/1 ML MDV ONE (06:53)
[2018-03-01] MEDS ORDERED: BUPIVACAINE 0.5% 30 ML SDV ONE (06:53)
[2018-03-01] MEDS ORDERED: ceFAZolin 1 GM/5 ML SYR ONE (06:54)
[2018-03-01] MEDS ORDERED: MIDAZOLAM 2 MG/2 ML VIAL IVP ONE (07:08)
--- NOTE | 2018-03-01 07:08 | PDANEPAE ---
ANE History of Present Illness colostomy takedown ANE Past Medical History - Cardiovascular History Hx Hypertension: Yes Hx Arrhythmias: Yes Hx Chest Pain: No Hx Coronary Artery / Peripheral Vascular Disease: No Hx CHF / Valvular Disease: No Hx Palpitations: No - Pulmonary History Hx COPD: No Hx Asthma/Reactive Airway Disease: No Hx Recent Upper Respiratory Infection: No Hx Oxygen in Use at Home: No Hx Sleep Apnea: Yes Sleep Apnea Screening Result - Last Documented: Positive - Endocrine History Hx Diabetes: Yes Hypothyroid: No Hyperthyroid: No Obesity: moderate - Renal History Hx Renal Disorders: No - Liver History Hx Hepatic Disorders: No - Chronic Pain History Chronic Pain: No ANE Review of Systems Review of systems is: negative Review of Systems: - Exercise capacity Exercise capacity: limited by disability ANE Patient History - Allergies Allergies/Adverse Reactions: shellfish derived Allergy (Verified 01/19/18 13:38) Sulfa (Sulfonamide Antibiotics) Allergy (Verified 01/19/18 13:38) Rash - Home Medications Home medications: home medication list seen and reviewed Home Medications: Ascorbic Acid [Vitamin C 500 mg (*)] 500 mg PO BID 01/19/18 [Last Taken 21:00] Aspirin [Aspirin 325 mg (*)] 325 mg PO DAILY PRN 01/19/18 [Last Taken Unknown] Atenolol [Tenormin 50 mg (*)] 50 mg PO BID 01/19/18 [Last Taken 01/18/18 21:00] Cholecalciferol Vit D3 [Vitamin D3 2000 units tab (OTC)] 2,000 units PO BID 12/30 [Last Taken 01/18/18 21:00] Lisinopril [Zestril 10 mg (*)] 10 mg PO DAILY 01/19/18 [Last Taken 01/18/18] Lovastatin 40 mg PO DAILY 01/19/18 [Last Taken 01/18/18] Multivitamins [Multivitamin (*)] 1 each PO DAILY 01/19/18 [Last Taken 01/18/18] Pioglitazone HCl [Actos] 30 mg PO DAILY 01/19/18 [Last Taken 01/18/18] Selenium [Selenium 200mcg (*)] 200 mcg PO DAILY 01/19/18 [Last Taken 01/18/18] metFORMIN HCL [Glucophage 500 mg (*)] 500 mg PO BID 01/19/18 [Last Taken 21:00] - NPO status NPO Status: no food or drink >8 hours NPO Since - Liquids (Date): 03/01/18 NPO Since - Liquids (Time): 00:00 NPO Since - Solids (Date): 03/01/18 NPO Since - Solids (Time): 00:00 - Anes Hx Anes Hx: no prior problems - Smoking Hx Smoking Status: Never smoked - Alcohol Use Alcohol Use: Sober - Family Anes Hx Family Anes Hx: none ANE Labs/Vital Signs - Labs Result Diagrams: 02/26/18 04:00 02/26/18 04:00 - Vital Signs Vital Signs: reviewed preoperatively; see RN documention for details Blood Pressure: 137/66 Heart Rate: 113 Respiratory Rate: 14 O2 Sat (%): 99 Height: 170.18 cm Weight: 99 kg ANE Physical Exam - Airway Neck exam: FROM Mallampati Score: Class 3 Mouth exam: normal dental/mouth exam - Pulmonary Pulmonary: no respiratory distress - Cardiovascular Cardiovascular: regular rate and rhythym - ASA Status ASA Status: III ANE Anesthesia Plan Anesthesia Plan: general endotracheal anesthesia
[2018-03-01] MEDS ORDERED: DEXAMETHASONE 4 MG/ML VIAL ONE (07:16)
[2018-03-01] MEDS ORDERED: LIDOCAINE 2% 100 MG/5 ML SYR ONE (07:16)
[2018-03-01] MEDS ORDERED: ONDANSETRON 4 MG/2 ML VIAL ONE (07:16)
[2018-03-01] MEDS ORDERED: fentaNYL 100 MCG/2 ML INJ ONE (07:16)
[2018-03-01] MEDS ORDERED: PROPOFOL 200 MG/20 ML VIAL ONE (07:17)
[2018-03-01] MEDS ORDERED: ROCURONIUM 50 MG/5 ML VIAL ONE (07:17)
[2018-03-01] MEDS ORDERED: HYDROmorphONE/DILAUDID 1 MG/ML INJ IVP PRN (08:14)
[2018-03-01] MEDS ORDERED: MEPERIDINE 25 MG/0.5 ML AMP IVP PRN (08:14)
[2018-03-01] MEDS ORDERED: DEXAMETHASONE 4 MG/ML VIAL IVP PRN (08:14)
[2018-03-01] MEDS ORDERED: HYDROCODONE/APAP 5/325 TAB PO PRN (08:14)
[2018-03-01] MEDS ORDERED: ALBUTEROL 3 ML DEYVIAL IH PRN (08:14)
[2018-03-01] MEDS ORDERED: oxyCODONE IR 5 MG TAB PO PRN (08:14)
[2018-03-01] MEDS ORDERED: PROMETHAZINE HCL 25 MG/ML INJ IVP PRN (08:14)
[2018-03-01] MEDS ORDERED: NALOXONE HCL 0.4 MG/ML INJ IVP PRN (08:14)
[2018-03-01] MEDS ORDERED: ACETAMINOPHEN 500 MG TAB PO PRN (08:14)
[2018-03-01] MEDS ORDERED: fentaNYL 100 MCG/2 ML INJ IVP PRN (08:14)
[2018-03-01] MEDS ORDERED: LABETALOL HCL 5 MG/ML 20 ML MDV IVP PRN (08:14)
[2018-03-01] MEDS ORDERED: ONDANSETRON 4 MG/2 ML VIAL IVP PRN (08:14)
[2018-03-01] MEDS ORDERED: HYDROmorphONE/DILAUDID 2 MG/ML INJ ONE (08:57)
[2018-03-01] MEDS: MULTIVITAMINS 1 EACH TAB PO SCH (09:00)
[2018-03-01] MEDS: SELENIUM 0.2 MG TAB PO SCH (09:00)
[2018-03-01] MEDS: ASCORBIC ACID 500 MG TAB PO SCH ×2 (09:00→22:30)
[2018-03-01] MEDS: ASPIRIN EC 81 MG TAB PO SCH (09:00)
[2018-03-01] MEDS: FERROUS SULFATE 300 MG/5 ML UD CUP PO SCH (09:00)
[2018-03-01] MEDS: PIOGLITAZONE HCL 15 MG TAB PO SCH (09:00)
[2018-03-01] MEDS: CHOLECALCIFEROL VIT D3 2,000 UNITS TAB/CAP PO SCH ×2 (09:00→22:31)
[2018-03-01] MEDS ORDERED: METOPROLOL TARTRATE 5 MG/5 ML INJ ONE (09:23)
--- NOTE | 2018-03-01 10:32 | POSTOPPROG ---
Post Op Note Date of Operation: 03/01/18 Surgeon: Morales Saha Archeology Professor: Josie Samuels Anesthesiologist: Tim Mohamud Anesthesia: GET(General Endotracheal) Pre-op Diagnosis: colostomy status, open abd wound, recent Jacqueline's gangrene Post-op Diagnosis: same, c cloudy fat necrosis under old midline incision Procedure: laparotomy c colostomy takedown, wound debridment, placement of wound vac. Findings: see below Inf/Abcess present in the surg proc area at time of surgery?: Yes Depth: Deep Incisional (Fascial) EBL: 50-100 Complications: none Drains: Wound Vac Specimen(s): to pathology Findings: viable colon, large pocket of cloudy greasy fat necrosis/seroma under old midline incision--decision made to close fascia but leave wound open with vac. now has three wounds of abdomen with vac sponge.
[2018-03-01] MEDS: METOPROLOL TARTRATE 50 MG TAB PO SCH ×2 (12:05→21:00)
[2018-03-01] MEDS: metFORMIN HCL 500 MG TAB PO SCH ×2 (12:15→22:32)
[2018-03-01] MEDS ORDERED: NS 1,000 ML IV SCH (14:00)
[2018-03-01] MEDS: ACETAMINOPHEN 325 MG TAB PO PRN ×2 (14:00→18:22)
--- NOTE | 2018-03-01 15:46 | PDINTPN ---
[employer] Manufact[employer] Progress Note Assessment/Plan: Assessment: 77-year-old from [place] admitted 01/19 with left buttock cellulitis. Initial surgical debridement and colostomy 01/20. Moved back to intensive care unit 02/05 secondary to hypotension and small bowel obstruction. Return to surgery 02/06. Colostomy was leaking and revised and moved superiorly. Piece of small bowel was trapped in the original colostomy, causing obstruction. Reduced. New wound VAC placed over original colostomy site. Fornier gangrene. MRSA. Wound VAC in place: improved. He has completed and is off of antibiotics. Id and Surgery following. Small bowel obstruction: Reduced, resolved. Colostomy leak. Previous revisions. Colostomy taken down today. Doing well postoperatively.. Nutrition: Ray on tube feedings, largely at night. Hypotension: Resolved. In part related to volume depletion, in part SIRS previously. Leukopenia: Resolved slowly. White blood cell count 6000 today. . Acute blood-loss anemia: Hematocrit 24, stable. No ongoing bleeding. Following. Metabolic: No issues currently identified. Decubitus. Stage III. Dressed. DVT prophylaxis: Enoxaparin. GI prophylaxis: On Pepcid previously. Now being fed orally. Type 2 diabetes: On insulin sliding scale coverage. History of hypertension: Blood pressure medications on hold. Plan: Continue postoperative care in the intensive care unit. Continue Ritalin. Follow laboratory, chest x-ray intermittently. Increase mobilization as possible. Continue to work with PT/OT on strength. Continue malloy due to soilage from leaking condom cath. Follow laboratory, H&H. 40 min of critical care time spent directly with the patient. Discussed with surgery, respiratory, hospitalist, and the ICU multi disciplinary team. Objective: Vital Signs Temp Pulse Resp BP Pulse Ox 36.8 C 144 H 24 H 136/82 H 98 03/01/18 11:55 03/01/18 11:55 03/01/18 11:55 03/01/18 11:55 03/01/18 11:55 Laboratory Results 02/26/18 04:00 02/26/18 04:00 02/28/18 03/01/18 03/02/18 05:59 05:59 05:59 Intake Total 870 2757 Output Total 25 1650 400 Balance 845 1107 -400 PT 14.8 SEC (12.0-15.0) 02/13/18 05:40 INR 1.14 (0.83-1.16) 02/13/18 05:40 ICD10 Worksheet Patient Problems: Problems Problem Status Onset Cellulitis of perineum Acute Cellulitis, scrotum Acute Left buttock abscess Acute
--- NOTE | 2018-03-01 15:55 | HOSPPROG ---
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 Long and complicated course with encephalopathy, wound contamination requiring colostomy, SBO with colostomy take-down/wound vac placement and new colostomy formation, atrial fibrillation, and pancytopenia. Acute toxic metabolic encephalopathy: alert today states it has resolved coninue methylphenidate for now- taper mid week after surgery 03/01 03/01- worse now, but suspect it is because he is immediately postop Hyperglycemia with type 2 diabetes: BG creeping up >200. A1c 7.6% - SSI increased yesterday, continue metformin and pioglitazone - Plan to decrease tube feeds to half now that taking more PO sugars at goal today Low grade fever: Resolved. - Monitor. If fevers, will culture and consider sources such as picc line, wounds, aspiration, etc 02/28- afebrile overnight Colostomy placement: s/p take down due to wound contamination with wound vac placement and re-do colostomy formation. - General surgery considering colostomy take down on Thursday, 03/01 - Wound vac and ostomy care. Plan to remove wound vac prior to discharge Pancytopenia: Counts trending back up and stable. SPEP without monoclonal spike. - Hematology following. Do not recommend bone marrow biopsy at this point. Plan to follow counts as outpatient - Monitor counts, transfuse to keep hgb>7 stable 02/27 Deconditioning: Prolonged critical illness - PT/OT Nutrition: - Tube feeds at goal, encourage PO as much as possible 02/27- discussion of changing tube feeds to nocturnal to increase daytime appetite and thus po intake Pressure ulcers: Stage 3 on buttocks. Not present on admission. - Wound care following Jacqueline's gangrene: S/p surgical debridement, wound vac and now perineal closure. Completed course of abx/anti-fungals. MRSA bacteremia: Due to above. s/p course of daptomycin. Atrial fibrillation: Precipitated by acute illness. Now in NSR. Continue beta arturo, increase as needed. Holding on systemic anticoagulation with wounds/ possible surgeries. - Currently on aspirin 81mg daily. Should get outpt cardiology follow up, consider cardiac event monitor 02/27- tele w transient tachycardia that has resolved Nutrition: TFs, PO VTE ppx: LMWH Malloy: Removed 02/25 Code: full Dispo: ICU for now Subjective: case d/w dr campos. s/p ostomy resection/reanastamosis today. confused Objective: Vital Signs Temp Pulse Resp BP Pulse Ox 36.8 C 144 H 24 H 136/82 H 98 03/01/18 11:55 03/01/18 11:55 03/01/18 11:55 03/01/18 11:55 03/01/18 11:55 Laboratory Results 02/26/18 04:00 02/26/18 04:00 02/28/18 03/01/18 03/02/18 05:59 05:59 05:59 Intake Total 870 2757 Output Total 25 1650 400 Balance 845 1107 -400 PT 14.8 SEC (12.0-15.0) 02/13/18 05:40 INR 1.14 (0.83-1.16) 02/13/18 05:40 - Physical Exam Constitutional: no apparent distress, appears nourished Eyes: PERRL, anicteric sclera Ears, Nose, Mouth, Throat: moist mucous membranes, hearing normal, ears appear normal Cardiovascular: regular rate and rhythym, no murmur, rub, or gallop Respiratory: no respiratory distress, no rales or rhonchi Gastrointestinal: normoactive bowel sounds, soft, non-tender abdomen, other ( absent bowel sounds, wound vac) Genitourinary: no bladder fullness, malloy in urethra Skin: warm, normal color Musculoskeletal: full muscle strength Neurologic: AAOx3 ICD10 Worksheet Patient Problems: Problems Problem Status Onset Cellulitis of perineum Acute Cellulitis, scrotum Acute Left buttock abscess Acute
--- NOTE | 2018-03-01 17:16 | ASMTCMCOM ---
CM Note CM Note Notes: Spoke to patient's bother, Bill re: LTAC's and will leave him info on the LTAC's to go over with patient. Date Signed: 03/01/2018 05:15 PM Electronically Signed By:Denise Sandoval LCSW
[2018-03-01] MEDS: HYDROmorphONE/DILAUDID 2 MG/ML INJ IVP PRN (20:03)
[2018-03-01] MEDS: MELATONIN 3 MG TAB PO SCH (22:31)
[2018-03-02] MEDS: HYDROmorphONE/DILAUDID 2 MG/ML INJ IVP PRN (01:17)
[2018-03-02] MEDS ORDERED: FUROSEMIDE 20 MG/2 ML VIAL IVP ONE (02:16)
[2018-03-02] MEDS ORDERED: FUROSEMIDE 20 MG/2 ML VIAL ONE (02:29)
[2018-03-02 04:03] LABS: PLATELET COUNT 364 10^3/uL (150-400)
--- NOTE | 2018-03-02 09:48 | SOAPPROG ---
SOAP Progress Note Assessment/Plan: Assessment/Plan: 77 Y M perirectal abscess, Jacqueline's gangrene. S/p multiple operative I&D's and diverting colostomy with subsequent revision and transposition. Sepsis, neutropenia. s/p delayed primary closure of Jacqueline's site, debridement of colostomy. s/p colostomy takedown with wound debridement and I&D of midline inc fluid collection. Seen by Dr. Saha. Alert, vac's in place with minimal drainage. afebrile. still a little tachycardic. H&H ok. May start small tube feedings, 10cc/hr. 03/02/18 09:46 Objective: Vital Signs Temp Pulse Resp BP Pulse Ox 36.5 C 120 H 33 H 147/77 H 92 03/02/18 07:57 03/02/18 07:57 03/02/18 07:57 03/02/18 07:57 03/02/18 07:57 Laboratory Results 03/02/18 04:00 03/02/18 04:00 03/01/18 03/02/18 03/03/18 05:59 05:59 05:59 Intake Total 2757 1325 Output Total 1650 1100 Balance 1107 225 PT 14.8 SEC (12.0-15.0) 02/13/18 05:40 INR 1.14 (0.83-1.16) 02/13/18 05:40 ICD10 Worksheet Patient Problems: Problems Problem Status Onset Cellulitis of perineum Acute Cellulitis, scrotum Acute Left buttock abscess Acute
[2018-03-02] MEDS: INSULIN REGULAR HUMAN 100 UNIT/ML UNIT SC SCH ×4 (11:01→22:16)
[2018-03-02] MEDS: metFORMIN HCL 500 MG TAB TUBE SCH ×2 (11:04→21:19)
[2018-03-02] MEDS: ASCORBIC ACID 500 MG TAB TUBE SCH ×2 (11:04→21:20)
[2018-03-02] MEDS: ASPIRIN 81 MG CHEWABLE TAB TUBE SCH (11:04)
[2018-03-02] MEDS: CHOLECALCIFEROL VIT D3 2,000 UNITS TAB/CAP TUBE SCH ×2 (11:04→21:20)
[2018-03-02] MEDS: FERROUS SULFATE 300 MG/5 ML UD CUP TUBE SCH (11:04)
[2018-03-02] MEDS: METOPROLOL TARTRATE 50 MG TAB TUBE SCH ×2 (11:05→21:19)
[2018-03-02] MEDS: PIOGLITAZONE HCL 15 MG TAB TUBE SCH (11:06)
[2018-03-02] MEDS: MULTIVIT/MINERAL/FERR GLUC 15 ML UDL TUBE SCH (11:06)
[2018-03-02] MEDS: SELENIUM 0.2 MG TAB TUBE SCH (11:06)
--- NOTE | 2018-03-02 11:33 | PDINTPN ---
[facility] Progress Note Assessment/Plan: Assessment: 77-year-old from [place] admitted 01/19 with left buttock cellulitis/Fornier gangreen. Initial surgical debridement and colostomy 01/20. Moved back to intensive care unit 02/05 secondary to hypotension and small bowel obstruction. Return to surgery 02/06. Colostomy was leaking and revised and moved superiorly. Piece of small bowel was trapped in the original colostomy, causing obstruction. New wound VAC placed over original colostomy site. Colostomy taken down 03/01 with further debridement, fascial closure with open abdomenal wall and wound VAC. Fornier gangrene. MRSA. Wound VAC in place: improved. He has completed and is off of antibiotics. Id and Surgery following. Small bowel obstruction: Reduced, resolved. Colostomy leak. Previous revisions. Colostomy taken down 03/01. Doing well postoperatively. Nutrition: Remains on tube feedings, restarting at trickle rate today. Hypotension: Resolved. In part related to volume depletion, in part SIRS previously. Leukopenia: Resolved slowly. White blood cell count 8.5 today Acute blood-loss anemia: Hematocrit 32.6 after 1 unit PRBCs yesterday. No ongoing bleeding. Following. Metabolic: No issues currently identified. Decubitus. Stage III. Dressed. DVT prophylaxis: Enoxaparin. GI prophylaxis: On Pepcid previously. Now being fed orally. Type 2 diabetes: On insulin sliding scale coverage. History of hypertension: Blood pressure medications on hold. Plan: Continue care in the intensive care unit. Restart tube feedings at a slow rate. Continue Ritalin. Follow laboratory, chest x-ray intermittently. Increase mobilization as possible. Continue to work with PT/OT on strength. Continue malloy due to soilage from leaking condom cath. Follow laboratory, H&H. 35 min of critical care time spent directly with the patient today. Discussed with nursing, hospitalist, respiratory, and the ICU multi disciplinary team. Subjective: Awake, responsive, confused. Denies significant pain. Objective: Vital Signs Temp Pulse Resp BP Pulse Ox 36.5 C 120 H 33 H 147/77 H 92 03/02/18 07:57 03/02/18 07:57 03/02/18 07:57 03/02/18 07:57 03/02/18 07:57 Laboratory Results 03/02/18 04:00 03/02/18 04:00 03/01/18 03/02/18 03/03/18 05:59 05:59 05:59 Intake Total 2757 1325 Output Total 1650 1100 Balance 1107 225 PT 14.8 SEC (12.0-15.0) 02/13/18 05:40 INR 1.14 (0.83-1.16) 02/13/18 05:40 Laboratory Tests 03/02/18 03/02/18 04:00 07:55 POC Glucose 183 H Calcium 7.4 L Magnesium 1.7 CXR: Improved on the left. Right diaphragm somewhat higher. Lines and tubes in good position. Physical Exam - Physical Exam General Appearance: no apparent distress, obese, other (Lethargic, arousable) EENT: PERRL/EOMI, other (Nasal cannula in place at 6 L) Neck: normal inspection (No obvious JVD) Respiratory: lungs clear (Anteriorly), decreased breath sounds (At bases), rales (Few rales at bases), rhonchi (Minimal), No wheezing Cardiac/Chest: tachycardia (Sinus tachycardia approximately 120 this morning) Abdomen: other (Wound VAC in place.), No normal bowel sounds (Decreased), No non -tender, No soft Male Genitalia: other (Malloy catheter in place. Adequate urine output) Rectal: other (Not examined.) Skin: warm/dry, pallor Extremities: pedal edema (Trace +) Neuro/Psych: no motor/sensory deficits (Moves all extremities equally. Globally weak), cognition abnormalities (Confused at times) ICD10 Worksheet Patient Problems: Problems Problem Status Onset Left buttock abscess Acute Cellulitis of perineum Acute Cellulitis, scrotum Acute
[2018-03-02] MEDS: NS 1,000 ML IV SCH ×2 (14:45→23:59)
--- NOTE | 2018-03-02 14:49 | HOSPPROG ---
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 Long and complicated course with encephalopathy, wound contamination requiring colostomy, SBO with colostomy take-down/wound vac placement and new colostomy formation, atrial fibrillation, and pancytopenia. Acute toxic metabolic encephalopathy: alert today states it has resolved coninue methylphenidate for now- taper mid week after surgery 03/01 03/01- worse now, but suspect it is because he is immediately postop 03/02- improved today Hyperglycemia with type 2 diabetes: BG creeping up >200. A1c 7.6% - SSI increased yesterday, continue metformin and pioglitazone -sugars 200 this AM (03/02) if continues to stay high, rec starting low dose lantus Low grade fever: Resolved. - Monitor. If fevers, will culture and consider sources such as picc line, wounds, aspiration, etc 03/02- afebrile overnight Colostomy placement: s/p take down due to wound contamination with wound vac placement and re-do colostomy formation. - General surgery considering colostomy take down on Thursday, 03/01 - Wound vac and ostomy care. Plan to remove wound vac prior to discharge Pancytopenia: Counts trending back up and stable. SPEP without monoclonal spike. - Hematology following. Do not recommend bone marrow biopsy at this point. Plan to follow counts as outpatient - Monitor counts, transfuse to keep hgb>7 stable 02/27 Deconditioning: Prolonged critical illness - PT/OT Nutrition: - Tube feeds at goal, encourage PO as much as possible 02/27- discussion of changing tube feeds to nocturnal to increase daytime appetite and thus po intake Pressure ulcers: Stage 3 on buttocks. Not present on admission. - Wound care following Jacqueline's gangrene: S/p surgical debridement, wound vac and now perineal closure. Completed course of abx/anti-fungals. MRSA bacteremia: Due to above. s/p course of daptomycin. Atrial fibrillation: Precipitated by acute illness. Now in NSR. Continue beta arturo, increase as needed. Holding on systemic anticoagulation with wounds/ possible surgeries. - Currently on aspirin 81mg daily. Should get outpt cardiology follow up, consider cardiac event monitor 02/27- tele w transient tachycardia that has resolved Nutrition: TFs, PO VTE ppx: LMWH Malloy: Removed 02/25 Code: full Dispo: ICU for now Subjective: case d/w dr campos. cxr w elevated R hemidiaphragm, not pulm edema ( interp by me) Objective: Vital Signs Temp Pulse Resp BP Pulse Ox 36.7 C 105 H 22 H 133/83 H 99 03/02/18 12:00 03/02/18 12:00 03/02/18 12:00 03/02/18 12:00 03/02/18 12:00 Laboratory Results 03/02/18 04:00 03/02/18 04:00 03/01/18 03/02/18 03/03/18 05:59 05:59 05:59 Intake Total 2757 1325 Output Total 1650 1100 Balance 1107 225 PT 14.8 SEC (12.0-15.0) 02/13/18 05:40 INR 1.14 (0.83-1.16) 02/13/18 05:40 - Physical Exam Constitutional: no apparent distress, appears nourished, other (more alert, less confused) Eyes: PERRL, anicteric sclera Ears, Nose, Mouth, Throat: moist mucous membranes, hearing normal Cardiovascular: no murmur, rub, or gallop, tachycardia, No systolic murmur Respiratory: no respiratory distress, no rales or rhonchi Gastrointestinal: other (wound vac on complex abdominal wound. bowel sounds v hypoactive. distended w no rebound or guarding), No normoactive bowel sounds Genitourinary: no bladder fullness, No malloy in urethra Skin: warm, normal color Musculoskeletal: No full muscle strength Neurologic: AAOx3 Psychiatric: interacting appropriately, not anxious Lymph, Heme, Immunologic: no cervical LAD ICD10 Worksheet Patient Problems: Problems Problem Status Onset Cellulitis of perineum Acute Cellulitis, scrotum Acute Left buttock abscess Acute
[2018-03-02] MEDS: MELATONIN 3 MG TAB TUBE SCH (21:20)
[2018-03-03 06:04] LABS: PLATELET COUNT 291 10^3/uL (150-400)
[2018-03-03] MEDS ORDERED: ONDANSETRON DISINTEGRATING 4 MG TAB TUBE PRN (08:00)
[2018-03-03] MEDS: INSULIN REGULAR HUMAN 100 UNIT/ML UNIT SC SCH ×4 (08:51→21:26)
[2018-03-03] MEDS: PIOGLITAZONE HCL 15 MG TAB TUBE SCH (08:52)
[2018-03-03] MEDS: CHOLECALCIFEROL VIT D3 2,000 UNITS TAB/CAP TUBE SCH ×2 (08:52→20:53)
[2018-03-03] MEDS: ASPIRIN 81 MG CHEWABLE TAB TUBE SCH (08:52)
[2018-03-03] MEDS: MULTIVIT/MINERAL/FERR GLUC 15 ML UDL TUBE SCH (08:52)
[2018-03-03] MEDS: FERROUS SULFATE 300 MG/5 ML UD CUP TUBE SCH (08:52)
[2018-03-03] MEDS: ACETAMINOPHEN 650 MG/20.3 ML UDCUP TUBE PRN (08:52)
[2018-03-03] MEDS: metFORMIN HCL 500 MG TAB TUBE SCH ×2 (08:52→20:54)
[2018-03-03] MEDS: ASCORBIC ACID 500 MG TAB TUBE SCH ×2 (08:53→20:53)
[2018-03-03] MEDS: METOPROLOL TARTRATE 50 MG TAB TUBE SCH ×2 (08:53→20:54)
[2018-03-03] MEDS: ENOXAPARIN 40 MG/0.4 ML SYR SC SCH (10:17)
[2018-03-03] MEDS: SELENIUM 0.2 MG TAB TUBE SCH (10:18)
[2018-03-03] MEDS: SODIUM HYPOCHLORITE (DAKINS 1/4 STR) 473 ML BTL TP SCH ×2 (11:41→22:20)
--- NOTE | 2018-03-03 11:45 | WOCRNPDOC ---
WOCRN Advanced Assessment Note - Skin Integrity Problem, Advanced Assess Medial Abdomen Surgical Wound/Incision Dressing Type: Black Vac Foam, Wound Vac Integumentary Issue Intervention: Dressing Changed, Dressing Initialed & Dated Wound Bed Constitution: Red/Ringgold - Non Granular Tissue (40%), Mixed Loose & Adhered Slough/Eschar (60%) Site Odor: Very Strong, Foul, Pungent, Fecal Site Measurement - Head-to-Toe Length X Width X Depth (cm): [id number] Skin Integrity Problem Comment: Removed vac and was overpowered by strong odor of necrosis that seems to be most present in large midline incision. Area of pooled blood noted at superior margin of vac dressing indicating that suction of wound was compromised to a certain extent even though the foam was compressed properly when dressing was first assessed. Decision was made to leave off vac and initiate moist to dry dressing changes BID with 1/4 strength dakins after discussion with Josie SYED. Flushed with ns and gauze. Packed wounds with saline moistened kerlix. Covered with ABD's and secured with medipore. Sent photos of wounds and reported findings to Josie SYED. Wound care will round again Thursday. Report given to Yvonne CHAKRABORYT. Patient tolerated procedure well with tylenol for pain medication. He was made aware of the reason the wound vac was left off and that he may need to have further debridement of his wound/s. Left Upper Abdomen Surgical Wound/Incision Dressing Type: Black Vac Foam, Wound Vac Dressing Description: Clean/Dry, Intact Integumentary Issue Intervention: Dressing Changed, Dressing Initialed & Dated Wound Bed Constitution: Red/Ringgold - Non Granular Tissue, Undermining (2 cm circumferentially) Site Measurement - Head-to-Toe Length X Width X Depth (cm): 2x4.8x4.5 Skin Integrity Problem Comment: Removed vac and was overpowered by strong odor of necrosis that seems to be most present in large midline incision. Decision was made to leave off vac and initiate moist to dry dressing changes BID with 1/ 4 strength dakins. Flushed with ns and gauze. Packed wounds with saline moistened kerlix. Covered with ABD's and secured with medipore. Sent photos of wounds and reported findings to Josie SYED. Wound care will round again Thursday. Left Lower Abdomen Surgical Wound/Incision Dressing Type: Black Vac Foam, Wound Vac Dressing Description: Clean/Dry, Intact Integumentary Issue Intervention: Dressing Changed, Dressing Initialed & Dated Wound Bed Constitution: Granulation Tissue (20%), Red/Ringgold - Non Granular Tissue (80%), Subcutaneous Fat Site Measurement - Head-to-Toe Length X Width X Depth (cm): 3x11.5x5 Skin Integrity Problem Comment: Removed vac and was overpowered by strong odor of necrosis that seems to be most present in large midline incision. Decision was made to leave off vac and initiate moist to dry dressing changes BID with 1/ 4 strength dakins. Flushed with ns and gauze. Packed wounds with saline moistened kerlix. Covered with ABD's and secured with medipore. Sent photos of wounds and reported findings to Josie SYED. Wound care will round again Thursday.
--- NOTE | 2018-03-03 12:20 | HOSPPROG ---
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 Long and complicated course with encephalopathy, wound contamination requiring colostomy, SBO with colostomy take-down/wound vac placement and new colostomy formation, atrial fibrillation, and pancytopenia. Acute toxic metabolic encephalopathy: alert today coninue methylphenidate for now Hyperglycemia with type 2 diabetes: -continue metformin and pioglitazone Low grade fever: Resolved. - Monitor. If fevers, will culture and consider sources such as picc line, wounds, aspiration, etc Colostomy placement: s/p take down due to wound contamination with wound vac placement and re-do colostomy formation. - s/p colostomy take down on Thursday, 03/01 - Wound vac and ostomy care. Plan to remove wound vac prior to discharge Pancytopenia: Counts trending back up and stable. SPEP without monoclonal spike. - Hematology following. Do not recommend bone marrow biopsy at this point. Plan to follow counts as outpatient - Monitor counts, transfuse to keep hgb>7 Deconditioning: Prolonged critical illness - PT/OT Nutrition: - cont tube feeds as tolerated Pressure ulcers: Stage 3 on buttocks. Not present on admission. - Wound care following Jacqueline's gangrene: S/p surgical debridement, wound vac and now perineal closure. Completed course of abx/anti-fungals. MRSA bacteremia: Due to above. s/p course of daptomycin. Atrial fibrillation: Precipitated by acute illness. Now in NSR. Continue beta arturo, increase as needed. Holding on systemic anticoagulation with wounds/ possible surgeries. - Currently on aspirin 81mg daily. Should get outpt cardiology follow up, consider cardiac event monitor Nutrition: TFs, PO VTE ppx: LMWH Rouse: Removed 02/25 Code: full Dispo: ICU for now Subjective: awake and alert. no cp. Had some SOB earlier today, none since. Objective: Vital Signs Temp Pulse Resp BP Pulse Ox 36.9 C 119 H 29 H 126/80 H 95 03/03/18 08:00 03/03/18 08:53 03/03/18 08:00 03/03/18 08:53 03/03/18 08:00 Laboratory Results 03/03/18 05:45 03/03/18 05:45 03/02/18 03/03/18 03/04/18 05:59 05:59 05:59 Intake Total 1325 2177 Output Total 1100 850 Balance 225 1327 PT 14.8 SEC (12.0-15.0) 02/13/18 05:40 INR 1.14 (0.83-1.16) 02/13/18 05:40 - Physical Exam Constitutional: chronically ill appearing Eyes: PERRL Ears, Nose, Mouth, Throat: moist mucous membranes Cardiovascular: regular rate and rhythym Respiratory: no respiratory distress, reduced air movement Gastrointestinal: normoactive bowel sounds, soft, non-tender abdomen Skin: warm Musculoskeletal: generalized weakness Neurologic: AAOx3 Psychiatric: interacting appropriately, not anxious, not encephalopathic, thought process linear Lymph, Heme, Immunologic: No petechiae ICD10 Worksheet Patient Problems: Problems Problem Status Onset Cellulitis of perineum Acute Cellulitis, scrotum Acute Left buttock abscess Acute
--- NOTE | 2018-03-03 16:06 | ASMTCMCOM ---
CM Note CM Note Notes: Spoke with patient's brother, Bj. He has been doing research on the LTAC's. No CO called to say that patient's secondary ins needed to be paid. Bj given [employer] info to call. Bj has yet to make up his mind as to which LTAC he wants his brother to go to. Date Signed: 03/03/2018 04:05 PM Electronically Signed By:Denise Sandoval LCSW
--- NOTE | 2018-03-03 16:45 | PDINTPN ---
Miniature Set [employer]er Progress Note Assessment/Plan: Assessment: 77-year-old from [place] admitted 01/19 with left buttock cellulitis/Fornier gangreen. Initial surgical debridement and colostomy 01/20. Moved back to intensive care unit 02/05 secondary to hypotension and small bowel obstruction. Return to surgery 02/06. Colostomy was leaking and revised and moved superiorly. Piece of small bowel was trapped in the original colostomy, causing obstruction. New wound VAC placed over original colostomy site. Colostomy taken down 03/01 with further debridement, fascial closure with open abdominal wall and wound VAC. Fornier gangrene. MRSA. Wound VAC in place: improved. He has completed and is off of antibiotics. Id and Surgery following. Small bowel obstruction: Reduced, resolved. Colostomy leak. Previous revisions. Colostomy taken down 03/01. Doing well postoperatively. Nutrition: Remains on tube feedings, trickle rate. Abdomen remains quiet postoperatively. Malloy catheter: In place to prevent soilage of wounds. Hypotension: Resolved. In part related to volume depletion, in part SIRS previously. Leukopenia: Resolved slowly. White blood cell count 8.5 today Acute blood-loss anemia: Hematocrit 32.6 after 1 unit PRBCs yesterday. No ongoing bleeding. Following. Metabolic: No issues currently identified. Decubitus. Stage III. Dressed. DVT prophylaxis: Enoxaparin. GI prophylaxis: On Pepcid previously. Now being fed orally. Type 2 diabetes: On insulin sliding scale coverage. History of hypertension: Blood pressure medications on hold. Plan: Continue care in the intensive care unit. Continue tube feedings at trickle rate. Continue Ritalin. Follow laboratory, chest x-ray intermittently. Increase mobilization as possible. Continue to work with PT/ OT on strength. Continue malloy due to soilage from leaking condom cath. Follow laboratory, H&H. 30 min of critical care time spent directly with the patient today. Discussed with nursing, hospitalist, respiratory, and the ICU multi disciplinary team. Subjective: Doing okay. Denies significant pain. Lethargic, arouses, confused at times. Objective: Vital Signs Temp Pulse Resp BP Pulse Ox 36.9 C 117 H 30 H 133/79 H 92 03/03/18 12:00 03/03/18 16:00 03/03/18 16:00 03/03/18 16:00 03/03/18 16:00 Laboratory Results 03/03/18 16:00 03/03/18 05:45 03/02/18 03/03/18 03/04/18 05:59 05:59 05:59 Intake Total 1325 2177 Output Total 1100 850 Balance 225 1327 PT 14.8 SEC (12.0-15.0) 02/13/18 05:40 INR 1.14 (0.83-1.16) 02/13/18 05:40 Physical Exam - Physical Exam General Appearance: other (Lethargic, arouses) EENT: PERRL/EOMI, other (Nasal cannula and NG tube both in place) Neck: normal inspection (No JVD) Respiratory: lungs clear, decreased breath sounds (At bases), No rales, No rhonchi Cardiac/Chest: tachycardia (Sinus), systolic murmur (Soft systolic murmur present), No gallop Abdomen: soft, other (Wound VAC in place), No normal bowel sounds (Quiet), No non-tender (Mild tenderness) Male Genitalia: other (Malloy catheter in place, good urine output) Skin: warm/dry, pallor Extremities: pedal edema (Trace +) Neuro/Psych: no motor/sensory deficits (Moves all extremities weakly), No cognition abnormalities (Improved overall. Oriented. Can be confused at times. ) ICD10 Worksheet Patient Problems: Problems Problem Status Onset Left buttock abscess Acute Cellulitis of perineum Acute Cellulitis, scrotum Acute
[2018-03-03] MEDS: NS 1,000 ML IV SCH (18:25)
[2018-03-03] MEDS: MELATONIN 3 MG TAB TUBE SCH (20:53)
[2018-03-04 04:47] LABS: PLATELET COUNT 329 10^3/uL (150-400)
[2018-03-04] MEDS ORDERED: LIDOCAINE 0.5% 50 ML SDV IF ONE (09:30)
[2018-03-04] MEDS ORDERED: NS 500 ML IV ONE (09:46)
[2018-03-04] MEDS: PIPERACILLIN/TAZO 4.5 GM/DEX 100 ML IV SCH ×3 (09:55→22:02)
[2018-03-04] MEDS: NS 1,000 ML IV SCH (10:36)
[2018-03-04] MEDS: INSULIN REGULAR HUMAN 100 UNIT/ML UNIT SC SCH ×4 (10:46→21:08)
[2018-03-04] MEDS: METOPROLOL TARTRATE 50 MG TAB TUBE SCH (11:16)
[2018-03-04] MEDS: FERROUS SULFATE 300 MG/5 ML UD CUP TUBE SCH (11:16)
[2018-03-04] MEDS: CHOLECALCIFEROL VIT D3 2,000 UNITS TAB/CAP TUBE SCH (11:17)
[2018-03-04] MEDS: ASCORBIC ACID 500 MG TAB TUBE SCH (11:17)
[2018-03-04] MEDS: ACETAMINOPHEN 650 MG/20.3 ML UDCUP TUBE PRN (11:36)
[2018-03-04] MEDS: PIOGLITAZONE HCL 15 MG TAB TUBE SCH (11:36)
[2018-03-04] MEDS: SELENIUM 0.2 MG TAB TUBE SCH (11:37)
[2018-03-04] MEDS: SODIUM HYPOCHLORITE (DAKINS 1/4 STR) 473 ML BTL TP SCH ×2 (11:46→21:08)
--- NOTE | 2018-03-04 11:58 | SOAPPROG ---
SOAP Progress Note Assessment/Plan: Assessment: 77 y/o M with Jacqueline's gangrene s/p multiple I&Ds s/p repeat I&D with wound vac placement. Now s/p colostomy creation to avoid contamination of wound and wound vac change Now s/p ostomy revision and wound vac change Now s/p repeat ostomy revision, abdominal wound debridement and wound vac change , and perineum wound closure Now s/p colostomy takedown with fascial closure POD #3 S: Difficulty speaking due to tachypnea. Pain with dressing/packing change. O: Alert Febrile at 38.2 Tachypneic at 40 Tachycardiac: 140-150s Abdomen soft, nontender, wound has slight necrosis in some areas, clean granulation tissue otherwise : incision cdi, alexandru intact Plan: pt seen with Dr. Saha. Will plan for bedside wound debridement today. Continue wet to dry dressings. Fever, tachypnea, and tachycardia likely related to poor inspiration. Aggressive pulm toilet. 03/04/18 11:54 Objective: Vital Signs Temp Pulse Resp BP Pulse Ox 39.6 C H 153 H 41 H 156/80 H 94 03/04/18 11:42 03/04/18 11:42 03/04/18 11:42 03/04/18 11:42 03/04/18 11:42 Laboratory Results 03/04/18 04:30 03/04/18 09:10 03/03/18 03/04/18 03/05/18 05:59 05:59 05:59 Intake Total 2177 1482 Output Total 850 1150 Balance 1327 332 PT 14.8 SEC (12.0-15.0) 02/13/18 05:40 INR 1.14 (0.83-1.16) 02/13/18 05:40 ICD10 Worksheet Patient Problems: Problems Problem Status Onset Cellulitis of perineum Acute Cellulitis, scrotum Acute Left buttock abscess Acute
[2018-03-04] MEDS: MULTIVIT/MINERAL/FERR GLUC 15 ML UDL TUBE SCH (12:00)
--- NOTE | 2018-03-04 12:15 | HOSPPROG ---
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 Long and complicated course with encephalopathy, wound contamination requiring colostomy, SBO with colostomy take-down/wound vac placement and new colostomy formation, atrial fibrillation, and pancytopenia. The patient has developed tachycardia, increased resp failure, and fever Acute respiratory failure Tachycardia Acute toxic metabolic encephalopathy: alert today coninue methylphenidate for now Hyperglycemia with type 2 diabetes: -stop metformin, cont pioglitazone Encephalopathy, likely due to infection Fever Colostomy placement: s/p take down due to wound contamination with wound vac placement and re-do colostomy formation. - s/p colostomy take down on Thursday, 03/01 Pancytopenia: Counts trending back up and stable. SPEP without monoclonal spike. - Hematology following. Do not recommend bone marrow biopsy at this point. Plan to follow counts as outpatient - Monitor counts, transfuse to keep hgb>7 Deconditioning: Prolonged critical illness - PT/OT Pressure ulcers: Stage 3 on buttocks. Not present on admission. - Wound care following Jacqueline's gangrene: S/p surgical debridement, wound vac and now perineal closure. Completed course of abx/anti-fungals. MRSA bacteremia: Due to above. s/p course of daptomycin. Atrial fibrillation: Precipitated by acute illness. Now in NSR. Continue beta arturo, increase as needed. Holding on systemic anticoagulation with wounds/ possible surgeries. - Currently on aspirin 81mg daily. Should get outpt cardiology follow up, consider cardiac event monitor Nutrition: PO VTE ppx: LMWH Rouse: Removed 02/25 Code: full Dispo: ICU Plan: -CXR obtained. Possible new pneumonia. Pulm is following. They are checking a blood gas -I suspect the patient is septic. Will provide IVF as well as start broad spectrum abx. The source is unclear. ID is following. Will send cultures. -Surgery will perform bedside debridement today -EKG is pending. He previously had an Echo on 01/21 which revealed preserved LVEF with diastolic dysfunction -Glucose is overall controlled. Hold Metformin in case contrast is needed -on a CLD. Tube feeds have been held due to high residuals total critical care time is 40 minutes on this patient with active cardiac and resp issues per above. Subjective: tachycardia, fever. BP is stable. Objective: Vital Signs Temp Pulse Resp BP Pulse Ox 39.6 C H 150 H 37 H 135/76 H 96 03/04/18 11:42 03/04/18 12:06 03/04/18 12:06 03/04/18 12:06 03/04/18 12:06 Laboratory Results 03/04/18 04:30 03/04/18 09:10 03/03/18 03/04/18 03/05/18 05:59 05:59 05:59 Intake Total 2177 1482 Output Total 850 1150 125 Balance 1327 332 -125 PT 14.8 SEC (12.0-15.0) 02/13/18 05:40 INR 1.14 (0.83-1.16) 02/13/18 05:40 - Physical Exam Constitutional: chronically ill appearing Eyes: PERRL Ears, Nose, Mouth, Throat: dry mucous membranes Cardiovascular: tachycardia Respiratory: reduced air movement, other (increased work of breathing) Gastrointestinal: normoactive bowel sounds, soft, non-tender abdomen Skin: warm Neurologic: No AAOx3 Psychiatric: encephalopathic Lymph, Heme, Immunologic: No petechiae ICD10 Worksheet Patient Problems: Problems Problem Status Onset Cellulitis of perineum Acute Cellulitis, scrotum Acute Left buttock abscess Acute
[2018-03-04] MEDS ORDERED: BUPIVACAINE 0.5% 30 ML SDV MISC ONE (12:27)
--- NOTE | 2018-03-04 12:29 | CPEKG ---
Test Reason : OPEN Blood Pressure : / mmHG Vent. Rate : 146 BPM Atrial Rate : 146 BPM P-R Int : 125 ms QRS Dur : 065 ms QT Int : 269 ms P-R-T Axes : 061 -08 043 degrees QTc Int : 420 ms Sinus tachycardia Low voltage, precordial leads Confirmed by Balbir mSall ([id number]) on 03/04/2018 12:28:35 PM Referred By: Confirmed By:Balbir Small
[2018-03-04] MEDS: HYDROmorphONE/DILAUDID 2 MG/ML INJ IVP PRN ×2 (12:46→21:56)
[2018-03-04] MEDS ORDERED: VANCOMYCIN 1.5 GM in NS 250 ML IV ONE (13:00)
--- NOTE | 2018-03-04 13:19 | PCMIDPN ---
Assessment/Plan: #Recurrent Sepsis: DDX PICC line infection, intra-abdominal source, high risk for fungemia, HAP/Asp PNA - CXR personally reviewed by me and is under- whelming. Recent colostomy take down 2 days ago with large seroma/fat necrosis underlying incision. Evolving leukopenia likely related to sepsis. --agree with high dose Zosyn for empiric coverage for coverage of PsA --repeat blood cx pending --doubt MRSA playing a role, but agree w 1 dose vancomycin --start micafungin empirically due to high risk for fungemia #MRSA bacteremia and Jacqueline's gangrene. S/p 30 days of anti MRSA coverage ( completed 02/19/18), wound mostly closed by report Microbiology 01/19/18 Buttock - MRSA 01/19/18 Blood Cx (1/2) MRSA Dapto JUAN A = <0.1 01/21/18 Blood Cx (2) Neg 01/25/18 Blood Cx (2) Neg 02/01/18 blood cx (2) Neg 02/05/18 blood cx 1 set micrococcus/ 1 set CoNS 02/06/18 peritoneal cx: neg 02/11/18 fungal blood cx: NGTD 01/24/18 & 02/06/18 Cdiff neg 03/04/18 blood cx pending Subjective: increasing HR, low BP, worsening hypoxia overnight. Objective: Vital Signs Temp Pulse Resp BP Pulse Ox 39.6 C H 150 H 37 H 135/76 H 96 03/04/18 11:42 03/04/18 12:06 03/04/18 12:06 03/04/18 12:06 03/04/18 12:06 Laboratory Results 03/04/18 04:30 03/04/18 09:10 03/03/18 03/04/18 03/05/18 05:59 05:59 05:59 Intake Total 2177 1482 Output Total 850 1150 125 Balance 1327 332 -125 ESR 23 MM/HR (0-20) H 02/06/18 04:57 C-Reactive Protein 67.3 mg/L (<10.0) H 02/13/18 04:20 - Physical Exam General Appearance: alert, other (ill appearing male with NGT in place) EENT: dry mucous membranes Respiratory: other (decreased bs bases), No accessory muscle use Neck: supple Cardiac/Chest: tachycardia Extremities: No pedal edema Abdomen: other (massive open incision midline, scattered necrosis, foul smell, fascia intact ) Male Genitalia: malloy, No scrotal edema Skin: diaphoresis, pallor, No rash Neuro/Psych: other (sluggish responses to questions) - Line/s RUE PICC Lines: No drainage, No erythema - Time Spent With Patient Time Spent with Patient: greater than 35 minutes (coordination of care with critical care and surgery) Time Spent with Patient: Greater than 35 minutes spent on this patients care, greater than 50% of time spent counseling, educating, and coordinating care regarding the above mentioned plan. ICD10 Worksheet Patient Problems: Problems Problem Status Onset Cellulitis of perineum Acute Cellulitis, scrotum Acute Left buttock abscess Acute
[2018-03-04] MEDS: ASPIRIN 81 MG CHEWABLE TAB TUBE SCH (14:51)
--- NOTE | 2018-03-04 14:55 | PDINTPN ---
Manufacturing Operations Manager Progress Note Assessment/Plan: Assessment: 77-year-old from [place] admitted 01/19 with left buttock cellulitis/Fornier gangreen. Initial surgical debridement and colostomy 01/20. Moved back to intensive care unit 02/05 secondary to hypotension and small bowel obstruction. Return to surgery 02/06. Colostomy was leaking and revised and moved superiorly. Piece of small bowel was trapped in the original colostomy, causing obstruction. New wound VAC placed over original colostomy site. Colostomy taken down 03/01 with further debridement, fascial closure with open abdominal wall and wound VAC. Recurrent septic picture with fevers, as decreased mental status, and falling white count. Source not entirely clear. Blood cultures obtained, pending. He does not appear to have pneumonia but could be hiding this early in the bibasilar atelectatic changes. Abdominal wall is a possibility, line sepsis, skin, abdomen, etc. Restarted on Zosyn and micafungin, given 1 dose of vancomycin. Id consult appreciated Fornier gangrene. MRSA. He has completed and was off of antibiotics. Rectal wound, stapled. Appears to have dehisced. Has sutured scrotal incision , not dehisced. Small bowel obstruction: Reduced, resolved. Colostomy leak. Previous revisions. Colostomy taken down 03/01. Has had a large stool so GI tract working. Wound VAC in place over abdominal open wounds. Areas of necrosis present. Debridement done again today per Dr. Saah. Nutrition: Trickle feeds currently on hold secondary to high residuals. GI tract peers to be functional status post reanastomosis. Malloy catheter: In place to prevent soilage of wounds. Hypotension: Resolved. In part related to volume depletion, in part SIRS previously. Leukopenia: Resolved slowly but white blood cell count lower again today, possibly secondary to recurrent sepsis. Acute blood-loss anemia: Hematocrit 26.8, stable. Following. Metabolic: No issues currently identified. Decubitus. Stage III. Dressed. DVT prophylaxis: Enoxaparin. GI prophylaxis: On Pepcid previously. Now being fed orally. Type 2 diabetes: On insulin sliding scale coverage. History of hypertension: Blood pressure medications on hold. Plan: Transfer from transitional care back to full ICU status. Reinitiate antibiotics as outlined above. Continue tube feedings at trickle rate. Continue Ritalin, tube medications. Follow laboratory, chest x-ray. Mobilization when possible. Continue to work with PT/OT on strength as tolerated. Continue malloy due to soilage from leaking condom cath. Follow laboratory, H&H. Wound VAC changes and debridement, wound dehiscent issues per surgery. 50 min of critical care time spent directly with the patient today. Multiple visits. Discussed with surgery, nursing, hospitalist, ID, and the ICU multi disciplinary team. Subjective: Lethargic, arouses. Denies significant pain. Some shortness of breath per Objective: Vital Signs Temp Pulse Resp BP Pulse Ox 38.0 C 150 H 37 H 135/76 H 96 03/04/18 14:38 03/04/18 12:06 03/04/18 12:06 03/04/18 12:06 03/04/18 12:06 Laboratory Results 03/04/18 04:30 03/04/18 09:10 03/03/18 03/04/18 03/05/18 05:59 05:59 05:59 Intake Total 2177 1482 Output Total 850 1150 125 Balance 1327 332 -125 PT 14.8 SEC (12.0-15.0) 02/13/18 05:40 INR 1.14 (0.83-1.16) 02/13/18 05:40 Laboratory Tests 03/04/18 03/04/18 03/04/18 09:10 09:10 11:31 pCO2 32 L pO2 63 L ABG pH 7.48 H ABG O2 Saturation 90 L ABG Base Excess 1.1 O2 Concentration % 6 Calcium 7.6 L Magnesium 1.8 CXR: Hypoventilatory changes with bibasilar atelectasis, about the same as yesterday, progressed since 03/02. Cannot rule out area of consolidation/ infiltrate as well at the bases but not impressive Physical Exam - Physical Exam General Appearance: other (Somnolent, arouses. Appears chronically ill) EENT: PERRL/EOMI, other (Nasal cannula at 6 L, 96%) Neck: normal inspection (No obvious JVD) Respiratory: lungs clear (Anteriorly), decreased breath sounds, rales (Few), No rhonchi Cardiac/Chest: tachycardia (Sinus verses SVT) Abdomen: other (Status post wound VAC change at bedside per Dr. Saha.), No normal bowel sounds (Quiet) Male Genitalia: other (Malloy catheter in place: Adequate urine output) Skin: warm/dry, pallor Extremities: pedal edema Neuro/Psych: no motor/sensory deficits (Moves all extremities. Global weakness present), No cognition abnormalities (Lethargic but arouses, responsive) ICD10 Worksheet Patient Problems: Problems Problem Status Onset Left buttock abscess Acute Cellulitis of perineum Acute Cellulitis, scrotum Acute
[2018-03-04] MEDS: ENOXAPARIN 40 MG/0.4 ML SYR SC SCH (14:57)
[2018-03-04] MEDS: MICAFUNGIN NA 100 MG in NS 100 ML IV SCH (14:57)
[2018-03-04] MEDS ORDERED: ACETAMINOPHEN 650 MG SUPP PR PRN (16:33)
[2018-03-04] MEDS ORDERED: ALBUMIN 5% 500 ML IV ONE ×2 (17:42→21:00)
[2018-03-04] MEDS ORDERED: NS 1,000 ML IV ONE (17:42)
[2018-03-04] MEDS: METOPROLOL TARTRATE 5 MG/5 ML INJ IVP SCH (17:50)
[2018-03-04] MEDS ORDERED: PROTOCOL POTASSIUM 1 DOSE MISC PRN (18:10)
[2018-03-04] MEDS ORDERED: PROTOCOL MAGNESIUM 1 DOSE IV PRN (18:10)
[2018-03-04] MEDS ORDERED: MAGNESIUM SULF 1 GM/DEXTROSE 100 ML IV ONE (18:14)
[2018-03-04] MEDS: NOREPINEPHRINE BITARTRATE 4 MG in NS 500 ML IV SCH (23:29)
[2018-03-05] MEDS: METOPROLOL TARTRATE 5 MG/5 ML INJ IVP SCH ×4 (00:16→19:09)
[2018-03-05] MEDS: NS 1,000 ML IV SCH ×2 (00:22→09:44)
[2018-03-05] MEDS: PIPERACILLIN/TAZO 4.5 GM/DEX 100 ML IV SCH ×3 (04:37→15:54)
[2018-03-05 06:48] LABS: PLATELET COUNT 277 10^3/uL (150-400)
[2018-03-05] MEDS: NOREPINEPHRINE BITARTRATE 4 MG in NS 500 ML IV SCH (07:28)
[2018-03-05] MEDS: INSULIN REGULAR HUMAN 100 UNIT/ML UNIT SC SCH ×4 (07:41→20:58)
[2018-03-05] MEDS ORDERED: POTASSIUM Cl (KCl) 50 ML IV ONE (08:49)
[2018-03-05] MEDS: MICAFUNGIN NA 100 MG in NS 100 ML IV SCH (08:51)
[2018-03-05] MEDS ORDERED: ASPIRIN RECTAL 300 MG SUPP PR SCH (09:00)
[2018-03-05] MEDS ORDERED: BIOTENE DRY MOUTH ORAL RINSE 237 ML BTL MM PRN (09:38)
[2018-03-05] MEDS: ASPIRIN 81 MG CHEWABLE TAB TUBE SCH (09:46)
[2018-03-05] MEDS: SODIUM HYPOCHLORITE (DAKINS 1/4 STR) 473 ML BTL TP SCH ×2 (09:53→20:58)
[2018-03-05] MEDS: ENOXAPARIN 40 MG/0.4 ML SYR SC SCH (10:47)
--- NOTE | 2018-03-05 10:59 | ASMTCMCOM ---
CM Note CM Note Notes: Patient continues to have complications and was moved from SDU back to ICU yesterday. Recurrent septic picture with fevers, decreased mental status and a falling white count. Blood cultures are pending as source of sepsis not entirely clear. ID consult requested. Palliatively to be actively following as status of patient continues to vary. CM will follow. Date Signed: 03/05/2018 10:58 AM Electronically Signed By:Flores Martinez LCSW
--- NOTE | 2018-03-05 11:28 | PDINTPN ---
Grocery Clerk Selling Progress Note Assessment/Plan: Assessment: 77-year-old from [place] admitted 01/19 with left buttock cellulitis/Fornier gangreen. Initial surgical debridement and colostomy 01/20. Moved back to intensive care unit 02/05 secondary to hypotension and small bowel obstruction. Return to surgery 02/06. Colostomy was leaking and revised and moved superiorly. Piece of small bowel was trapped in the original colostomy, causing obstruction. New wound VAC placed over original colostomy site. Colostomy taken down 03/01 with further debridement, fascial closure with open abdominal wall and wound VAC. Getting periodic wound VAC changes per surgery with residual debridement of necrotic tissue. Recurrent septic picture with fever 03/04, decreased mental status, and hypotension. Proteus coming up on blood cultures.. Source not entirely clear. Bronchopneumonia certainly possible. Wounds, urine, line sepsis, skin, abdomen, etc. Restarted on Zosyn and micafungin, given 1 dose of vancomycin. Id consult appreciated. Hypotension: Improved with fluid and colloid resuscitation. CVP 7 this morning , up from 0 last night. On norepinephrine, weaning this per blood pressure. Respiratory: Increased secretions present bilaterally consistent with possible bronchopneumonia. More short of breath although oxygen requirements remain low. Unable to clear secretions adequately. For therapeutic bronchoscopy today. Fornier gangrene. MRSA. He has completed and was off of antibiotics. Rectal wound, stapled. Appears to have dehisced. Has sutured scrotal incision , not dehisced thus far. Per surgery. Small bowel obstruction: Reduced, resolved. Colostomy leak. Previous revisions. Colostomy taken down 03/01. Has had a large stool so GI tract working. Wound VAC in place over abdominal open wounds. Areas of necrosis present. Debridement being done as needed. Nutrition: Trickle feeds restarted. GI tract peers to be functional status post reanastomosis. Has had a stool. Bowel sounds remain decreased. Malloy catheter: In place to prevent soilage of wounds. Leukopenia: Resolved slowly. White blood cell counts remain generally low.. Acute blood-loss anemia: Hematocrit 23 today, down. No evidence of active bleeding. Following. Metabolic: No issues currently identified. Decubitus. Stage III. Dressed. DVT prophylaxis: Enoxaparin. GI prophylaxis: On Pepcid previously. Now being fed orally. Type 2 diabetes: On insulin sliding scale coverage. History of hypertension: Blood pressure medications on hold. Plan: Continue treatment as full ICU status. Continue antibiotics per Infectious Disease. Restart tube feedings at trickle rate. Continue Ritalin, tube medications as needed. We norepinephrine as blood pressure tolerates. Continue IV fluids and colloid as needed to keep CVP in the 6-8 range. Follow laboratory, chest x-ray, CBC. Mobilization when possible. Continue to work with PT/OT on strength as tolerated. Continue malloy due to soilage from leaking condom cath. Wound VAC changes and debridements, wound dehiscent issues per surgery. For therapeutic bronchoscopy today. I will send cultures. 45 min of critical care time spent directly with the patient today, not including bronchoscopy. Discussed with surgery, RT, nursing, hospitalist, ID, and the ICU multi disciplinary team. Subjective: More alert today. Responsive. Remains somewhat lethargic. Denies significant pain. Some abdominal discomfort. Does have increased shortness of breath with cough and mucus that he cannot clear. Objective: Vital Signs Temp Pulse Resp BP Pulse Ox 37.5 C 104 H 28 H 122/63 H 93 03/05/18 08:00 03/05/18 11:00 03/05/18 11:00 03/05/18 11:00 03/05/18 11:00 Microbiology 03/04/18 09:10 Blood Panel (PCR) - Final Blood Proteus Species Laboratory Results 03/05/18 06:00 03/05/18 06:00 03/04/18 03/05/18 03/06/18 05:59 05:59 05:59 Intake Total 1482 4828 50 Output Total 1150 1290 175 Balance 332 3538 -125 PT 14.8 SEC (12.0-15.0) 02/13/18 05:40 INR 1.14 (0.83-1.16) 02/13/18 05:40 Microbiology 03/04/18 09:10 Blood Blood Panel (PCR) - Final Proteus Species 03/04/18 09:10 Blood Blood Culture - Preliminary 03/04/18 09:10 Blood Gram Negative [facility] Laboratory Tests 03/04/18 03/05/18 03/05/18 11:05 06:00 06:00 pCO2 41 H pO2 73 ABG pH 7.41 ABG O2 Saturation 94 Total O2 Concentration 4.0 Calcium 6.8 L Magnesium 2.0 C. difficile Tox (PCR) NEGATIVE CXR: Bibasilar infiltrates/atelectasis persist, somewhat better regarding aeration and density compared to recent x-rays. Lines and tubes in good position Physical Exam - Physical Exam General Appearance: other (Somnolent, easily arousable and responsive. On norepinephrine), No no apparent distress EENT: PERRL/EOMI, other (Nasal cannula in place at 2-4 L), No scleral icterus (R ), No scleral icterus (L) Neck: normal inspection (No JVD) Respiratory: decreased breath sounds, rhonchi (Present bilaterally), No lungs clear Cardiac/Chest: regular rate, rhythm, No gallop Abdomen: distended (Some distension), other (Open skin comma wound vacs, etc), No normal bowel sounds (Quiet), No non-tender Male Genitalia: other (Malloy catheter in place, input greater than output over the last 24 hr by about 3.5 L with fluid resuscitation) Rectal: other (Not examined. Partially dehisced rectal wound by report. Per surgery) Skin: warm/dry, pallor Extremities: pedal edema (Trace +) Neuro/Psych: no motor/sensory deficits (Moves all extremities equally, weak), No cognition abnormalities ICD10 Worksheet Patient Problems: Problems Problem Status Onset Left buttock abscess Acute Cellulitis of perineum Acute Cellulitis, scrotum Acute
--- NOTE | 2018-03-05 13:19 | SOAPPROG ---
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 Now s/p colostomy creation to avoid contamination of wound and wound vac change Now s/p ostomy revision and wound vac change Now s/p repeat ostomy revision, abdominal wound debridement and wound vac change , and perineum wound closure Now s/p colostomy takedown with fascial closure POD #4 S: More alert today. Denies pain O: Continues to be febrile, although temp down to 37.5 Tachypneic in 20s Tachycardiac Abdomen soft, nontender, wound has slight necrosis in some areas, clean granulation tissue otherwise. Small amount of bleeding in wound. Pressure and silver nitrate applied. : incision cdi in superior most aspect. caudal aspect has superficial dehiscence, but appears cdi with granulation tissue. Felipe and sutures remain in place. Plan: Ok to put wound vac back on. Source of sepsis remains unclear. Appreciate ID and hydropulper operator input. 03/05/18 13:13 Objective: Vital Signs Temp Pulse Resp BP Pulse Ox 37.5 C 97 30 H 115/63 98 03/05/18 08:00 03/05/18 13:00 03/05/18 13:00 03/05/18 13:00 03/05/18 13:00 Microbiology 03/04/18 09:10 Blood Panel (PCR) - Final Blood Proteus Species Laboratory Results 03/05/18 06:00 03/05/18 06:00 03/04/18 03/05/18 03/06/18 05:59 05:59 05:59 Intake Total 1482 4828 50 Output Total 1150 1290 175 Balance 332 3538 -125 PT 14.8 SEC (12.0-15.0) 02/13/18 05:40 INR 1.14 (0.83-1.16) 02/13/18 05:40 ICD10 Worksheet Patient Problems: Problems Problem Status Onset Cellulitis of perineum Acute Cellulitis, scrotum Acute Left buttock abscess Acute
--- NOTE | 2018-03-05 14:03 | WOCRNPDOC ---
IVÁN Advanced Assessment Note - Skin Integrity Problem, Advanced Assess Medial Abdomen Surgical Wound/Incision Dressing Type: Abdominal Pads, Kerlix Dressing Description: Intact, Saturated Closure Description: Not Approximated Exudate Amount: Moderate Exudate Color: Red Exudate Characteristic(s): Sanguinous Integumentary Issue Intervention: Dressing Changed, Silver Nitrate Application Elena Wound Tissue: Swollen Elena Wound Swelling: Mild Wound Bed Color: Red, Yellow Wound Bed Constitution: Granulation Tissue (20%), Red/[place] - Non Granular Tissue (20%), Subcutaneous Fat (60%) Wound Edges: Attached Site Measurement - Head-to-Toe Length X Width X Depth (cm): Approximately 24x14.5x11 Skin Integrity Problem Comment: Dressings removed, moderate amount of sanguinous drainage noted in the inferior portion of the midline abdominal wound. Dr. Saha notified and came to bedside to assess. Instructed to apply pressure and bleeding should stop and then should be able to apply wound vac. After approximately an hour of applying pressure and after using silver nitrate and thrombix, oozing continued. Taay Pizarro SERVER SERVICE ASSISTANT came to bedside and applied more silver nitrate and the bleeding stopped. Periwound was draped and one piece of large black block foam was placed in wound bed. Wound was draped and track pad applied. -125mmHg NPWT was achieved with no leaks. Mikael RN in room to assist with care. Wound care will round again on Thursday. Left Lower Abdomen Surgical Wound/Incision Dressing Type: Abdominal Pads, Kerlix Dressing Description: Clean/Dry, Intact Exudate Amount: Scant Exudate Characteristic(s): Serosanguinous Integumentary Issue Intervention: Dressing Changed Elena Wound Swelling: Mild Wound Bed Color: Red, Yellow Wound Bed Constitution: Red/[place] - Non Granular Tissue (40%), Subcutaneous Fat ( 60%) Wound Edges: Attached Site Measurement - Head-to-Toe Length X Width X Depth (cm): 3x11x5 Skin Integrity Problem Comment: Packing removed, wound cleansed with NS and gauze. Periwound draped. One piece of small black simplace foam placed in wound bed and bridged to superior wound. Both wounds were draped and track pad placed. -125mmHg NPWT achieved with no leaks. These were Y connected to the midline wound vac. Mikael CHAKRABORTY in room to assist with cares. Wound care will round again on Thursday. Sacrum Pressure Injury Dressing Type: Mepilex Border Dressing Description: Soiled Integumentary Issue Intervention: Dressing Changed Wound Bed Constitution: Granulation Tissue (30%), Red/[place] - Non Granular Tissue (70%) Wound Edges: Attached Site Measurement - Head-to-Toe Length X Width X Depth (cm): Approximately 4x8x0.2 Pressure Injury Stage: Stage 3 Pressure Injury Present on Admit: No Skin Integrity Problem Comment: Patient on side following bowel movement. Dressing off at this time. Wound appears somewhat improved from last assessment. Aquacel sacral dressings left in room to be used. Once those are gone, okay to return to Mepilex sacral dressings. Wound care will round again next week. Left Upper Abdomen Surgical Wound/Incision Dressing Type: Abdominal Pads, Kerlix Dressing Description: Clean/Dry, Intact Exudate Amount: Scant Exudate Characteristic(s): Serosanguinous Integumentary Issue Intervention: Dressing Changed Elena Wound Swelling: Mild Wound Bed Color: Red, Yellow Wound Bed Constitution: Red/[place] - Non Granular Tissue (30%), Subcutaneous Fat ( 70%) Wound Edges: Attached Site Measurement - Head-to-Toe Length X Width X Depth (cm): 2.5x5x5 Skin Integrity Problem Comment: Packing removed and wound cleansed with NS and gauze. Periwound was draped. One piece of small black simplace foam placed in wound bed with the tail used to bridge to the inferior wound. Both wounds were draped and the track pad placed. -125mmHg NPWT was achieved with no leaks. These two wounds were Y connected to the midline abdominal wound vac. Mikael CHAKRABORTY in room to assist with cares. Wound care will round again on Thursday.
[2018-03-05] MEDS ORDERED: LIDOCAINE 1% 300 MG/30 ML SDV MISC ONE (14:46)
[2018-03-05] MEDS ORDERED: LIDOCAINE 2% JELLY 5 ML TUBE TP ONE (14:46)
[2018-03-05] MEDS ORDERED: MIDAZOLAM 2 MG/2 ML VIAL ONE (16:11)
[2018-03-05] MEDS: HYDROmorphONE/DILAUDID 2 MG/ML INJ IVP PRN (16:16)
[2018-03-05] MEDS ORDERED: MIDAZOLAM 2 MG/2 ML VIAL IVP ONE (16:41)
--- NOTE | 2018-03-05 16:54 | GPN ---
DATE OF PROCEDURE: 03/05/2018 PROCEDURE: Therapeutic bronchoscopy. REASON FOR BRONCHOSCOPY: Increasing secretions which he cannot clear in a patient with multiple medi fern problems and possible bronchopneumonia. PROCEDURE NOTE: The procedure was performed in the intensive care unit. Informed consent was obtain ed from the patient. Appropriate time-out was performed. Conscious sedation included 2 mg of Versed and 0.4 mg of Dilaudid. Topical anesthesia to the oropharynx and tracheobronchial tree was accompli shed with approximately 15 cc of 1% lidocaine. The fiberoptic bronchoscope was passed via bite block orally into the larynx. Vocal cords were ident ified and cannulated. The bronchoscope was advanced into the trachea and lower tracheobronchial tree bilaterally. All areas were observed to at least the segmental level. Anatomy was normal bilateral ly. There were at least moderate purulent secretions, some which were yellow and thick, some creamy yellow. These were removed with suction and lavage. The underlying mucosa was somewhat erythematous . There were no endobronchial lesions. At the end of the procedure, all the secretions had been removed. A culture was sent. The patient tolerated the procedure well. Vital signs and oxygen saturations on supplemental oxygen remained normal and stable throughout the procedure. /[id number]/MODL
[2018-03-05] MEDS ORDERED: LORazepam 2 MG/ML INJ IVP ONE (17:00)
--- NOTE | 2018-03-05 17:19 | HOSPPROG ---
Hospitalist Progress Note Assessment/Plan: * MRSA Jacqueline's gangrene s/p debridement -30 days IV abx complete for this indication * s/p diverting colostomy - subsequent SBO due to fascial defect s/p revision -s/p colostomy take down with fat necrosis found -open abdominal wound with wound vac * Septic shock - now with Proteus in blood -IV Zosyn, IV micafungin -IV norepi gtt * Acute respiratory failure -s/p bronch for secretions management and cultures * Leukopenia/rash - improving -due to sepsis * DM II -metformin - hold * Obesity BMI 34 * Increased LFT - due to sepsis * Metabolic encephalopathy - remains very confused * [address] -EKG/trop okay -no chest pain * Afib -due to acute illness -IV metoprolol as BP tolerates * Dysphagia -tube feeds Subjective: confused, minimally responsive Objective: Vital Signs Temp Pulse Resp BP Pulse Ox 37 C 113 H 30 H 119/63 94 03/05/18 16:00 03/05/18 17:00 03/05/18 17:00 03/05/18 17:00 03/05/18 17:00 Microbiology 03/04/18 09:10 Blood Panel (PCR) - Final Blood Proteus Species Laboratory Results 03/05/18 06:00 03/04/18 03/05/18 03/06/18 05:59 05:59 05:59 Intake Total 1482 4828 50 Output Total 1150 1290 475 Balance 332 3538 -425 PT 14.8 SEC (12.0-15.0) 02/13/18 05:40 INR 1.14 (0.83-1.16) 02/13/18 05:40 d/w dr tariq campos - bronch today tele - sinus CXR - negative for PNA - Physical Exam Constitutional: no apparent distress, appears nourished, not in pain Cardiovascular: regular rate and rhythym, no murmur, rub, or gallop Respiratory: no respiratory distress, no rales or rhonchi, clear to auscultation Gastrointestinal: normoactive bowel sounds, soft, non-tender abdomen, no palpable masses Skin: no fluctuance, no induration, No rash Neurologic: No AAOx3 Psychiatric: encephalopathic, poor insight, poor judgement, poor memory, No interacting appropriately, No agitated ICD10 Worksheet Patient Problems: Problems Problem Status Onset Cellulitis of perineum Acute Cellulitis, scrotum Acute Left buttock abscess Acute
--- NOTE | 2018-03-05 18:27 | PCMIDPN ---
Assessment/Plan: Assessment/Plan: * Recurrent sepsis due to Proteus bacteremia: Blood culture showing growth of Proteus species. Most likely etiology will be either intra-abdominal versus pneumonia. Now weaned off pressors. BAL performed today showing purulent secretion with Gram stain and culture pending. Will continue Zosyn but dose reduced to 3.375 g IV Q 6 hr given no Pseudomonas isolated. Will continue empiric micafungin currently based on recent surgical findings of necrotic fat intra-abdominally with plans for short course if no evidence of fungemia. No further vancomycin given no isolation of resistant gram positives. 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 * Leukopenia: Likely associated with sepsis with improved white count today. * Rash: Resolved. 03/05/18 18:24 03/05/18 18:27 Subjective: Clinical findings and course reviewed including note of Dr. Clement yesterday. Recent operative findings, BAL findings, imaging, and culture findings also noted. Objective: Vital Signs Temp Pulse Resp BP Pulse Ox 37 C 113 H 30 H 119/63 94 03/05/18 16:00 03/05/18 17:00 03/05/18 17:00 03/05/18 17:00 03/05/18 17:00 Microbiology 03/04/18 09:10 Blood Panel (PCR) - Final Blood Proteus Species Laboratory Results 03/05/18 06:00 03/04/18 03/05/18 03/06/18 05:59 05:59 05:59 Intake Total 1482 4828 1926 Output Total 1150 1290 925 Balance 332 3538 1001 ESR 23 MM/HR (0-20) H 02/06/18 04:57 C-Reactive Protein 67.3 mg/L (<10.0) H 02/13/18 04:20 Zosyn # 2 Micafungin # 2 Vancomycin 1.5 g IV x1 Blood cultures 03/04/2018 1/2 sets Proteus species BAL Gram stain and cultures pending Chest x-ray with bibasilar infiltrates - Physical Exam General Appearance: non-toxic, other (Follows commands but confused) EENT: other (White coating on tongue), No scleral icterus, No conjunctival petechiae Respiratory: coarse breath sounds, No respiratory distress Neck: other (Faint erythema on right anterolaterally which is nontender) Cardiac/Chest: tachycardia, No systolic murmur Extremities: No inflammation Abdomen: non-tender, other (Wound VAC in place x3), No distended Skin: rash (Erythema over both knees significantly decreased versus last visit) Neuro/Psych: confused - Line/s RUE PICC Lines: No drainage, No erythema - Time Spent With Patient Time Spent with Patient: greater than 35 minutes Time Spent with Patient: Greater than 35 minutes spent on this patients care, greater than 50% of time spent counseling, educating, and coordinating care regarding the above mentioned plan. ICD10 Worksheet Patient Problems: Problems Problem Status Onset Cellulitis of perineum Acute Cellulitis, scrotum Acute Left buttock abscess Acute
[2018-03-05] MEDS: FAMOTIDINE 20 MG/NACL 50 ML IV SCH (20:57)
[2018-03-05] MEDS: PIPERACILLIN/TAZO 3.375 GM/DEX 50 ML IV SCH (21:06)
[2018-03-05] MEDS: POTASSIUM Cl (KCl) 50 ML IV SCH ×2 (22:18→22:44)
[2018-03-06] MEDS: PIPERACILLIN/TAZO 3.375 GM/DEX 50 ML IV SCH ×5 (02:17→22:34)
[2018-03-06] MEDS: METOPROLOL TARTRATE 5 MG/5 ML INJ IVP SCH ×3 (05:39→12:18)
[2018-03-06 06:12] LABS: PLATELET COUNT 234 10^3/uL (150-400)
[2018-03-06] MEDS: INSULIN REGULAR HUMAN 100 UNIT/ML UNIT SC SCH ×4 (07:43→21:57)
[2018-03-06] MEDS ORDERED: POTASSIUM Cl (KCl) 50 ML IV ONE ×2 (07:46→21:27)
[2018-03-06] MEDS: ASPIRIN 81 MG CHEWABLE TAB TUBE SCH (08:09)
[2018-03-06] MEDS: FAMOTIDINE 20 MG/NACL 50 ML IV SCH (08:09)
[2018-03-06] MEDS: ENOXAPARIN 40 MG/0.4 ML SYR SC SCH (08:09)
[2018-03-06] MEDS: SODIUM HYPOCHLORITE (DAKINS 1/4 STR) 473 ML BTL TP SCH ×2 (08:10→21:57)
[2018-03-06] MEDS: MICAFUNGIN NA 100 MG in NS 100 ML IV SCH (08:35)
--- NOTE | 2018-03-06 10:19 | PCMIDPN ---
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 The MRSA issue head resolve weeks ago however the patient became acutely septic again in the last few days. Proteus was found in the blood stream. He is currently on Zosyn and micafungin. Will draw repeat blood cultures today. Patient continues to have loose stools. C diff PCR negative. This is likely secondary to lower bowel issues, recent reversal of ostomy and tube feeds. At this point we will continue the Zosyn to cover the Proteus. The micafungin is present for high risk fungemia secondary to TPN use and intensive care unit stay. 1. Continue IV Zosyn and micafungin. 2. Repeat blood cultures today. 3. Follow fever curve, improvement in encephalopathy/confusion and general clinical course. Subjective: Patient is resting in his hospital bed. He appears comfortable. He appears alert but mumbles fairly incoherently. No fevers over the last 24 hr. VAC dressings are intact on his abdomen. No other new events. Objective: Zosyn # 3 Micafungin # 3 Vital Signs Temp Pulse Resp BP Pulse Ox 37.3 C 102 H 33 H 140/81 H 99 03/06/18 04:00 03/06/18 09:00 03/06/18 09:00 03/06/18 09:00 03/06/18 09:00 Microbiology 03/04/18 09:10 Blood Panel (PCR) - Final Blood Proteus Species 03/05/18 16:30 Gram Stain - Final Lung - Bronchial Washings Laboratory Results 03/06/18 06:00 03/06/18 06:00 03/05/18 03/06/18 03/07/18 05:59 05:59 05:59 Intake Total 4828 3796 Output Total 1290 1325 Balance 3538 2471 ESR 23 MM/HR (0-20) H 02/06/18 04:57 C-Reactive Protein 67.3 mg/L (<10.0) H 02/13/18 04:20 - Physical Exam General Appearance: WD/WN, alert, no apparent distress, non-toxic, other ( Confused) Respiratory: coarse breath sounds, No lungs clear, No respiratory distress, No crackles Cardiac/Chest: regular rate, rhythm, tachycardia, No irregularly irregular Extremities: non-tender, normal inspection Abdomen: non-tender, soft, other (2 VAC dressings intact anterior abdomen) Skin: normal color, warm/dry, No rash Neuro/Psych: alert, normal mood/affect, oriented x 3 ICD10 Worksheet Patient Problems: Problems Problem Status Onset Cellulitis of perineum Acute Cellulitis, scrotum Acute Left buttock abscess Acute
--- NOTE | 2018-03-06 11:23 | PDINTPN ---
Laboratory Clerk Progress Note Assessment/Plan: Assessment: 77-year-old from [place] admitted 01/19 with left buttock cellulitis/Fornier gangreen. Initial surgical debridement and colostomy 01/20. Moved back to intensive care unit 02/05 secondary to hypotension and small bowel obstruction. Return to surgery 02/06. Colostomy was leaking and revised and moved superiorly. Piece of small bowel was trapped in the original colostomy, causing obstruction. New wound VAC placed over original colostomy site. Colostomy taken down 03/01 with further debridement, fascial closure with open abdominal wall and wound VAC. Getting periodic wound VAC changes per surgery with residual debridement of necrotic tissue. Recurrent septic picture with fever 03/04, decreased mental status, and hypotension. Proteus on blood cultures. Source not entirely clear. Bronchopneumonia certainly possible. Wounds, urine, line sepsis, skin, abdomen , etc. Restarted on Zosyn and micafungin, given 1 dose of vancomycin. Id consult appreciated. Hypotension resolved, blood pressures now normal to slightly high. Hypotension: Improved with fluid and colloid resuscitation, NE. Off the latter now. Blood pressure is now on the high side. CVP pending. Respiratory: Increased secretions present bilaterally consistent with possible bronchopneumonia. Status post bronchoscopy yesterday: Moderate purulent secretions present. Cultures pending -Gram-positive cocci on Gram stain. Fornier gangrene. MRSA. He has completed and was off of antibiotics. Rectal wound, dehisced. Packed. Has sutured scrotal incision, not dehisced thus far. Per surgery. Small bowel obstruction: Reduced, resolved. Colostomy leak. Previous revisions. Colostomy taken down 03/01. Has had a large stool so GI tract working. Wound VACs in place over abdominal open wounds. Areas of necrosis present. Debridement being done as needed. Nutrition: Trickle feeds restarted. Residuals remain high however he has frequent loose stools. Will change to an elemental formula. Malloy catheter: In place to prevent soilage of wounds. Leukopenia: Resolved slowly. White blood cell counts remain generally low. Acute blood-loss anemia: Hematocrit 22 today, slightly down. No evidence of active bleeding. Following. Metabolic: No issues currently identified. Decubitus. Stage III. Dressed. DVT prophylaxis: Enoxaparin. GI prophylaxis: Will restart Pepcid. Type 2 diabetes: On insulin sliding scale coverage. History of hypertension: Blood pressure medications on hold. Plan: Continue treatment as full ICU status. Continue antibiotics per Infectious Disease. Change tube feedings to an elemental formula hopefully to decrease diarrhea. Continue Ritalin, tube medications as needed. Check CVP. Decrease IV fluids if CVP is adequate. Follow laboratory, chest x-ray, CBC. Mobilization when possible. Continue to work with PT/OT on strength as tolerated. Continue malloy due to soilage from leaking condom cath. Wound VAC changes and debridements, wound dehiscent issues per surgery. Await culture results from the bronchoscopy. 45 min of critical care time spent directly with the patient. Discussed with nursing, hospitalist, ID, and the ICU multi disciplinary team. Multiple visits. Subjective: Confused. Denies significant pain. Some shortness of breath, but better. Frequent loose stools. Objective: Vital Signs Temp Pulse Resp BP Pulse Ox 36.5 C 103 H 34 H 138/77 H 100 03/06/18 10:00 03/06/18 10:00 03/06/18 10:00 03/06/18 10:00 03/06/18 10:00 Microbiology 03/04/18 09:10 Blood Panel (PCR) - Final Blood Proteus Species 03/05/18 16:30 Gram Stain - Final Lung - Bronchial Washings Laboratory Results 03/06/18 06:00 03/06/18 06:00 03/05/18 03/06/18 03/07/18 05:59 05:59 05:59 Intake Total 4828 3796 Output Total 1290 1325 Balance 3538 2471 PT 14.8 SEC (12.0-15.0) 02/13/18 05:40 INR 1.14 (0.83-1.16) 02/13/18 05:40 Laboratory Tests 03/05/18 03/06/18 03/06/18 16:30 06:00 06:00 Calcium 7.2 L Phosphorus 2.7 Magnesium 2.0 AST 35 ALT 34 Albumin 1.9 L Gastric Occult Blood NEGATIVE Physical Exam - Physical Exam General Appearance: other (Somnolent, arouses, confused this morning) EENT: PERRL/EOMI, other (Nasal cannula oxygen and NG tube in place.) Neck: normal inspection (No obvious JVD) Respiratory: decreased breath sounds, rales (Few rales at bases), No rhonchi ( No significant rhonchi however some central congestion persists bilaterally) Cardiac/Chest: tachycardia (Sinus), other (CVP pending), No gallop Abdomen: other (Wound VAC in place. Frequent stools, loose), No normal bowel sounds (Decreased) Male Genitalia: other (Malloy catheter in place. Good urine output. Input greater than output last 48 hr.) Extremities: pedal edema (Trace) Neuro/Psych: no motor/sensory deficits (Moves all extremities equally), cognition abnormalities (Confused - will orient) ICD10 Worksheet Patient Problems: Problems Problem Status Onset Cellulitis of perineum Acute Cellulitis, scrotum Acute Left buttock abscess Acute
[2018-03-06] MEDS ORDERED: D10W 1,000 ML IV PRN (15:01)
[2018-03-06] MEDS ORDERED: oxyCODONE IR 5 MG TAB PO PRN (15:38)
[2018-03-06] MEDS ORDERED: OLANZapine DISINTEGR 5 MG TAB PO PRN (15:41)
[2018-03-06] MEDS ORDERED: OLANZapine DISINTEGR 5 MG TAB PO ONE (15:41)
--- NOTE | 2018-03-06 15:43 | HOSPPROG ---
Hospitalist Progress Note Assessment/Plan: * MRSA Jacqueline's gangrene s/p debridement -30 days IV abx complete for this indication * s/p diverting colostomy - subsequent SBO due to fascial defect s/p revision -s/p colostomy take down with fat necrosis found -open abdominal wound with wound vac * Septic shock - Proteus in blood -IV Zosyn, IV micafungin -pressors weaned off * Acute respiratory failure -s/p bronch for secretions management and cultures * Leukopenia/rash - improving -due to sepsis * DM II -resume home meds when taking PO * Obesity BMI 34 * Increased LFT - due to sepsis * Metabolic encephalopathy - remains very confused - with hallucinations * [address] -EKG/trop okay -no chest pain * Afib -due to acute illness -metoprolol * Dysphagia - passed swallow -advance diet Subjective: very active hallucinations, pulled out NGT, lots of diarrhea Objective: Vital Signs Temp Pulse Resp BP Pulse Ox 36.5 C 106 H 37 H 151/105 H 100 03/06/18 10:00 03/06/18 15:00 03/06/18 15:00 03/06/18 15:00 03/06/18 15:00 Microbiology 03/04/18 09:10 Blood Panel (PCR) - Final Blood Proteus Species 03/05/18 16:30 Gram Stain - Final Lung - Bronchial Washings Laboratory Results 03/06/18 06:00 03/06/18 06:00 03/05/18 03/06/18 03/07/18 05:59 05:59 05:59 Intake Total 4828 3796 Output Total 1290 1325 Balance 3538 2471 PT 14.8 SEC (12.0-15.0) 02/13/18 05:40 INR 1.14 (0.83-1.16) 02/13/18 05:40 d/w DR. Saha and DR. campos regarding diet tele - sinus tachy - Physical Exam Constitutional: no apparent distress, appears nourished, not in pain Cardiovascular: regular rate and rhythym, no murmur, rub, or gallop Respiratory: no respiratory distress, no rales or rhonchi, clear to auscultation Gastrointestinal: normoactive bowel sounds, soft, non-tender abdomen, no palpable masses Skin: no rashes or abrasions, no fluctuance, no induration Neurologic: No AAOx3, No weakness Psychiatric: encephalopathic, anxious, agitated, poor insight, poor judgement, poor memory ICD10 Worksheet Patient Problems: Problems Problem Status Onset Cellulitis of perineum Acute Cellulitis, scrotum Acute Left buttock abscess Acute
[2018-03-06] MEDS: NS 1,000 ML IV SCH (16:12)
--- NOTE | 2018-03-06 17:48 | SOAPPROG ---
SOAP Progress Note Assessment/Plan: Assessment: 77 MALE WITH I&D OF LEFT BUTTOCK ABSCESS WITH INDURATION AND INFLAMMATION EXTENDING INTO SCROTUM LOW GRADE TEMP/ WBC 14K DIABETIC NO CARDIAC SYMPTOMS CT SHOWS INFLAMMATION INTO SCROTUM MARKED EDEMA AND INDURATION IN PERINEUM AND SCROTUM Plan:MAY FURTHER I&D AND DEBRIDEMENT/ RISKS AND OPTIONS FULLY DISCUSSED 01/19/18 17:42 01/23/18 12:41 PATIENT COMFORTABLE AND DOING REASONABLY WELL DESPITE SIGNIFICANT TEMPERATURE ELEVATIONS LEAKING AND DIARRHEA STOOL OVER HIS WOUND SOME PERSISTENT INDURATION ERYTHEMA AROUND THE PERINEAL WOUND RISKS AND OPTIONS FULLY DISCUSSED PLAN: DIVERTING COLOSTOMY AND WOUND VAC CHANGE 01/24/18 11:02 TEMP DOWN/COMFORTABLE/VITAL SIGNS STABLE/ OSTOMY PINK AND WORKING WELL MINIMAL OUTPUT FROM THE WOUND VAC TRANSFER TO [facility] 02/09/18 19:12 STILL WITH DECREASED MENTAL STATUS BUT SOMEWHAT RESPONSIVE TO FOR MOLE CONVERSATION/HEAD CT IS NEGATIVE FOR ANY STROKE ABDOMEN SOFT THE/NEW COLOSTOMY LOOKS VIABLE/WOUND OKAY/AFEBRILE CONTINUE ANTIBIOTICS AND OTHER SUPPORT 02/16/18 18:06 SEEN WITH MY PA ALTAF PRECIADO/PLEASE REFER TO HER NOTE OSTOMY HAS SOME SUPERFICIAL NECROSIS WITH WILL HAVE TO BE WATCHED BUT NO RETRACTION/MENTAL STATUS SLOWLY IMPROVING/AFEBRILE PERINEUM IMPROVED 02/18/18 15:53 MORE ALERT, AFEBRILE, STEADILY IMPROVING SURGICAL RISKS AND OPTIONS FULLY DISCUSSED PLAN IS SECONDARY CLOSURE OF THE PERINEAL WOUND 2. DEBRIDEMENT OF THE ABDOMINAL COLOSTOMY SITE PATIENT FULLY UNDERSTANDS AND REQUESTS THAT WE PROCEED 02/22/18 08:23 wounds ok/ afebrile/ ostomy pink but retracting slightly/ decub stable/ more alert/ labs ok 03/06/18 17:46 CONFUSED TODAY/WOUND OKAY/SIGNIFICANT LOOSE BOWEL MOVEMENTS/STARTING TO EAT PATIENT DC HIS OWN FEEDING TUBE PERINEAL WOUND LOOKS OKAY CONSIDER ADDING TPN FOR MORE CALORIES AFEBRILE/VITAL SIGNS STABLE/O2 SAT ADEQUATE/LAB STABLE Objective: Vital Signs Temp Pulse Resp BP Pulse Ox 37.0 C 113 H 40 H 158/110 H 99 03/06/18 16:00 03/06/18 16:00 03/06/18 16:00 03/06/18 16:00 03/06/18 16:00 Microbiology 03/04/18 09:10 Blood Panel (PCR) - Final Blood Proteus Species 03/05/18 16:30 Gram Stain - Final Lung - Bronchial Washings Laboratory Results 03/06/18 06:00 03/06/18 06:00 03/05/18 03/06/18 03/07/18 05:59 05:59 05:59 Intake Total 4828 3796 Output Total 1290 1325 Balance 3534 1461 PT 14.8 SEC (12.0-15.0) 02/13/18 05:40 INR 1.14 (0.83-1.16) 02/13/18 05:40 ICD10 Worksheet Patient Problems: Problems Problem Status Onset Cellulitis of perineum Acute Cellulitis, scrotum Acute Left buttock abscess Acute
[2018-03-06] MEDS: metFORMIN HCL 500 MG TAB PO SCH (18:14)
[2018-03-06] MEDS ORDERED: METOPROLOL TARTRATE 25 MG TAB PO SCH (21:00)
[2018-03-06] MEDS: ATENOLOL 50 MG TAB PO SCH (21:57)
[2018-03-07 04:51] LABS: PLATELET COUNT 264 10^3/uL (150-400)
[2018-03-07] MEDS: PIPERACILLIN/TAZO 3.375 GM/DEX 50 ML IV SCH ×2 (05:00→10:20)
[2018-03-07] MEDS ORDERED: POTASSIUM Cl (KCl) 50 ML IV ONE ×2 (07:25→18:44)
[2018-03-07] MEDS: INSULIN REGULAR HUMAN 100 UNIT/ML UNIT SC SCH ×3 (08:58→17:50)
[2018-03-07] MEDS: MICAFUNGIN NA 100 MG in NS 100 ML IV SCH (08:59)
[2018-03-07] MEDS: ENOXAPARIN 40 MG/0.4 ML SYR SC SCH (09:00)
[2018-03-07] MEDS ORDERED: ACETAMINOPHEN 650 MG/20.3 ML UDCUP PO PRN (09:30)
[2018-03-07] MEDS: ATENOLOL 50 MG TAB PO SCH (09:32)
[2018-03-07] MEDS: LISINOPRIL 10 MG TAB PO SCH (09:33)
[2018-03-07] MEDS: metFORMIN HCL 500 MG TAB PO SCH (09:35)
--- NOTE | 2018-03-07 09:35 | SOAPPROG ---
SOAP Progress Note Assessment/Plan: Assessment: 77 MALE WITH I&D OF LEFT BUTTOCK ABSCESS WITH INDURATION AND INFLAMMATION EXTENDING INTO SCROTUM LOW GRADE TEMP/ WBC 14K DIABETIC NO CARDIAC SYMPTOMS CT SHOWS INFLAMMATION INTO SCROTUM MARKED EDEMA AND INDURATION IN PERINEUM AND SCROTUM Plan:MAY FURTHER I&D AND DEBRIDEMENT/ RISKS AND OPTIONS FULLY DISCUSSED 01/19/18 17:42 01/23/18 12:41 PATIENT COMFORTABLE AND DOING REASONABLY WELL DESPITE SIGNIFICANT TEMPERATURE ELEVATIONS LEAKING AND DIARRHEA STOOL OVER HIS WOUND SOME PERSISTENT INDURATION ERYTHEMA AROUND THE PERINEAL WOUND RISKS AND OPTIONS FULLY DISCUSSED PLAN: DIVERTING COLOSTOMY AND WOUND VAC CHANGE 01/24/18 11:02 TEMP DOWN/COMFORTABLE/VITAL SIGNS STABLE/ OSTOMY PINK AND WORKING WELL MINIMAL OUTPUT FROM THE WOUND VAC TRANSFER TO [facility] 02/09/18 19:12 STILL WITH DECREASED MENTAL STATUS BUT SOMEWHAT RESPONSIVE TO FOR MOLE CONVERSATION/HEAD CT IS NEGATIVE FOR ANY STROKE ABDOMEN SOFT THE/NEW COLOSTOMY LOOKS VIABLE/WOUND OKAY/AFEBRILE CONTINUE ANTIBIOTICS AND OTHER SUPPORT 02/16/18 18:06 SEEN WITH MY PA ALTAF PRECIADO/PLEASE REFER TO HER NOTE OSTOMY HAS SOME SUPERFICIAL NECROSIS WITH WILL HAVE TO BE WATCHED BUT NO RETRACTION/MENTAL STATUS SLOWLY IMPROVING/AFEBRILE PERINEUM IMPROVED 02/18/18 15:53 MORE ALERT, AFEBRILE, STEADILY IMPROVING SURGICAL RISKS AND OPTIONS FULLY DISCUSSED PLAN IS SECONDARY CLOSURE OF THE PERINEAL WOUND 2. DEBRIDEMENT OF THE ABDOMINAL COLOSTOMY SITE PATIENT FULLY UNDERSTANDS AND REQUESTS THAT WE PROCEED 02/22/18 08:23 wounds ok/ afebrile/ ostomy pink but retracting slightly/ decub stable/ more alert/ labs ok 03/06/18 17:46 CONFUSED TODAY/WOUND OKAY/SIGNIFICANT LOOSE BOWEL MOVEMENTS/STARTING TO EAT PATIENT DC HIS OWN FEEDING TUBE PERINEAL WOUND LOOKS OKAY CONSIDER ADDING TPN FOR MORE CALORIES AFEBRILE/VITAL SIGNS STABLE/O2 SAT ADEQUATE/LAB STABLE 03/07/18 09:34 AFEBRILE/VITAL SIGNS STABLE/STILL SOMEWHAT CONFUSED TODAY/ABDOMINAL WOUND VACS IN PLACE WITH LARGE VOLUME DRAINAGE STILL STOOLING OVER HIS PERINEAL WOUND/WE MAY NEED TO ADD WOUND VAC TO THAT AREA WELL/HEMATOCRIT STABLE Objective: Vital Signs Temp Pulse Resp BP Pulse Ox 37.4 C 93 28 H 142/78 H 99 03/07/18 02:00 03/07/18 06:00 03/07/18 06:00 03/07/18 06:00 03/07/18 06:00 Microbiology 03/04/18 09:10 Blood Culture - Final Blood Proteus Mirabilis Blood Panel (PCR) - Final Proteus Species 03/05/18 16:30 Gram Stain - Final Lung - Bronchial Washings Laboratory Results 03/07/18 04:15 03/07/18 04:15 03/06/18 03/07/18 03/08/18 05:59 05:59 05:59 Intake Total 3796 1506 Output Total 1325 2150 Balance 2471 -644 PT 14.8 SEC (12.0-15.0) 02/13/18 05:40 INR 1.14 (0.83-1.16) 02/13/18 05:40 ICD10 Worksheet Patient Problems: Problems Problem Status Onset Cellulitis of perineum Acute Cellulitis, scrotum Acute Left buttock abscess Acute
[2018-03-07] MEDS: SODIUM HYPOCHLORITE (DAKINS 1/4 STR) 473 ML BTL TP SCH ×2 (10:22→21:08)
[2018-03-07] MEDS: SELENIUM 0.2 MG TAB TUBE SCH (10:22)
[2018-03-07] MEDS ORDERED: D10W 1,000 ML IV PRN (11:26)
[2018-03-07] MEDS ORDERED: NS 1,000 ML IV ONE (11:29)
[2018-03-07] MEDS: NS 1,000 ML IV SCH (11:30)
[2018-03-07] MEDS ORDERED: IOPAMIDOL (ISOVUE 370) 100 ML BTL IV ONE (11:32)
--- NOTE | 2018-03-07 11:34 | PCMIDPN ---
Assessment/Plan: Assessment/Plan: * Recurrent sepsis due to Proteus and ESBL E coli bacteremia: Blood cultures now show growth of ESBL producing E coli in addition to Proteus. Polymicrobial bacteremia raises concern for intra-abdominal etiology for bacteremia although also grew Proteus from BAL specimen. Will change Zosyn to ertapenem given isolation of ESBL as carbapenems may have improved efficacy against ESBL producing organisms. Agree with plans for repeat CT scan of abdomen and pelvis in the setting of recurrent tachycardia and skin mottling over thighs. 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 Perineal staple line intact without inflammatory changes. 03/07/18 11:31 Subjective: Patient confused. Tachycardic currently. Objective: Vital Signs Temp Pulse Resp BP Pulse Ox 37.2 C 108 H 34 H 135/97 H 98 03/07/18 08:00 03/07/18 10:00 03/07/18 10:00 03/07/18 10:00 03/07/18 10:00 Microbiology 03/04/18 09:10 Blood Culture - Final Blood Proteus Mirabilis Blood Panel (PCR) - Final Proteus Species 03/05/18 16:30 Gram Stain - Final Lung - Bronchial Washings Laboratory Results 03/07/18 04:15 03/07/18 04:15 03/06/18 03/07/18 03/08/18 05:59 05:59 05:59 Intake Total 3796 1506 Output Total 1325 2150 Balance 2471 -644 ESR 23 MM/HR (0-20) H 02/06/18 04:57 C-Reactive Protein 67.3 mg/L (<10.0) H 02/13/18 04:20 Zosyn # 4 Micafungin # 4 BAL cultures Proteus which is azar susceptible Blood cultures 1/2 Proteus which is azar susceptible Blood cultures 1/2 ESBL producing E coli Blood cultures 03/06/2018 pending - Physical Exam General Appearance: non-toxic EENT: No scleral icterus, No conjunctival petechiae Respiratory: lungs clear, No respiratory distress Cardiac/Chest: tachycardia Extremities: No inflammation Abdomen: tender (Mild bilaterally; wound vacs in place), No distended Skin: other (Mottling of skin over thighs bilaterally with cool hands and feet; desquamation of skin over knees) - Line/s RUE PICC Lines: No drainage, No erythema ICD10 Worksheet Patient Problems: Problems Problem Status Onset Cellulitis of perineum Acute Cellulitis, scrotum Acute Left buttock abscess Acute
[2018-03-07 11:54] LABS: PLATELET COUNT 297 10^3/uL (150-400)
[2018-03-07 12:02] LABS: INR 1.39 (0.83-1.16); PROTIME(PATIENT) 17.2 SEC (12.0-15.0)
[2018-03-07] MEDS: ERTAPENEM 1 GM in NS 100 ML IV SCH (12:58)
[2018-03-07] MEDS ORDERED: NS 2,800 ML IV ONE (13:23)
--- NOTE | 2018-03-07 14:56 | GOP ---
DATE OF OPERATION: 03/01/2018 SURGEON: Morales Saha MD OPERATIONS RESEARCH MANAGER: YAHAIRA Cagle. ANESTHESIA: Dr. Mohamud. PREOPERATIVE DIAGNOSIS: POSTOPERATIVE DIAGNOSIS: Jacqueline gangrene and end-colostomy. PROCEDURE PERFORMED: Laparotomy with colostomy takedown with low anterior anastomosis and splenic fl exure mobilization. FINDINGS: Patient was found to have viable colon. He had an adequate rectal stump. The proximal co biju was able to be mobilized to reach back down to the pelvis. There were marked amount of adhesions encountered, but no evidence of any intraabdominal infection. The subcutaneous tissue on the main i ncision showed a marked fat necrosis and cloudy fluid in the main incision. The previous colostomy s ites had good granulation tissue with no particular difficulties. ESTIMATED BLOOD LOSS: Less than 100 cc. DESCRIPTION OF PROCEDURE: Patient taken to the operating room where he received satisfactory general endotracheal anesthesia by Dr. Mohamud. He was placed in the supine position in low stirrups, prep ped and draped in usual sterile fashion. A midline abdominal incision was opened, carried down to th e subcutaneous tissue where a large amount of cloudy fluid in and necrotic fat was encountered. This was all irrigated out and then drained. The abdomen was then entered. The other 2 colostomy sites had been examined as well and had good granulation tissue with no signs of infection. The abdomen wa s then carefully entered, which was somewhat difficult so tedious dissection ensued freeing up marked adhesions until a free view was established in the abdomen. The rectal stump was identified and was freed up. The presacral space was entered slightly to mobilize the stump for future anastomosis. T he colostomy was then freed up. Skin incision was made. An ellipse around the stoma was freed up fr om the subcutaneous tissue and then from the fascia and then brought back in the abdomen. The distal end was removed with a ASHLEE stapler and the specimen was sent to Pathology. The proximal sigmoid was laid down into the pelvis, but seemed to be somewhat tight, so the splenic flexure was then mobilize d by dividing the lateral peritoneal reflection extending around and freeing up the colon from its at tachments to the spleen into the gastrocolic omentum and mesentery. could then easily shin ch down into the pelvis. End-to-side anastomosis was then made using 2 layers of 3-0 silk, anterior and posterior and running inner layer of 3-0 Vicryl, creating a good 2 fingerbreadth anastomosis. Wo und was irrigated. The anastomosis was tested under water and appeared to be airtight. The colostom y site was closed with a running inner layer of 0 Vicryl suture. It was then closed at the fascial l evel with running 0 PDS suture. All wounds were infiltrated with Marcaine. The midline wound was cl osed with a running #1 PDS reinforced periodically with #1 Vicryl interrupted sutures. Wound VACs we re then placed on all 3 openings and connected to the wound VAC suction device. All wounds had been infiltrated with 0.5% Marcaine. He tolerated the procedure quite well. DIAGNOSIS: Jacqueline gangrene and end-colostomy. COMPLICATIONS: None. /[id number]/MODL
[2018-03-07] MEDS ORDERED: LINEZOLID 600 MG/DEXTROSE 300 ML IV SCH (15:00)
[2018-03-07] MEDS: LINEZOLID 600 MG/DEXTROSE 300 ML IV SCH (15:04)
--- NOTE | 2018-03-07 15:05 | PDINTPN ---
Lead Quality Technician Progress Note Assessment/Plan: Assessment: 77-year-old from [place] admitted 01/19 with left buttock cellulitis/Fornier gangreen. Initial surgical debridement and colostomy 01/20. Moved back to intensive care unit 02/05 secondary to hypotension and small bowel obstruction. Return to surgery 02/06. Colostomy was leaking and revised and moved superiorly. Piece of small bowel was trapped in the original colostomy, causing obstruction. New wound VAC placed over original colostomy site. Colostomy taken down 03/01 with further debridement, fascial closure with open abdominal wall and wound VAC. Getting periodic wound VAC changes per surgery with residual debridement of necrotic tissue. Recurrent septic picture with fever 03/04, decreased mental status, and hypotension. Proteus on blood cultures. Source not entirely clear. Bronchopneumonia certainly possible. Wounds, urine, line sepsis, skin, abdomen , etc. Restarted on Zosyn and micafungin, given 1 dose of vancomycin. Id consult appreciated. Hypotension resolved, blood pressures normalized. Now with increased tachycardia, confusion, lower blood pressures, some increased peripheral mottling and new changes on CT scan as outlined above. Hypotension: Improved with fluid and colloid resuscitation, NE. Off the latter now. Blood pressure OK. CVP 6. Respiratory: Increased secretions present bilaterally consistent with possible bronchopneumonia. Status post bronchoscopy 03/05: Moderate purulent secretions present. Cultures growing Proteus, Staph aureus, and a gram-negative meredith. Now has rounded masslike lesions in the left lower lobe and possibly right lower lobe. These are new compared with his last CT scan about 3 weeks ago. Question fungal verses bacterial or other etiologies. I will have fungal and mycobacterial cultures added to the 03/05 bronchoscopy fluid. May need another bronchoscopy with biopsies of the left lower lobe lesions. Fornier gangrene. MRSA. He has completed and was off of antibiotics. Rectal wound, dehisced. Packed. Has sutured scrotal incision, not dehisced thus far. Per surgery. Small bowel obstruction: Reduced, resolved. Colostomy leak. Previous revisions. Colostomy taken down 03/01. Has had a large stool so GI tract working. Wound VACs in place over abdominal open wounds. Areas of necrosis present. Debridement being done as needed. Nutrition: None currently. Pulled out NG. Allowed to eat yesterday however oral intake is minimal and not adequate. In addition, this seems to increase stools which in turn are at risk for contaminating his open perineal wounds. TPN recommended. Malloy catheter: In place to prevent soilage of wounds. Leukopenia: Resolved slowly. White blood cell counts remain generally low. Acute blood-loss anemia: Hematocrit 28 today. No evidence of active bleeding. Following. Metabolic: No issues currently identified. Decubitus. Stage III. Dressed. DVT prophylaxis: Enoxaparin. GI prophylaxis: Pepcid in TPN. Type 2 diabetes: On insulin sliding scale coverage. Also in TPN History of hypertension: Blood pressure medications on hold. Plan: Continue treatment as full ICU status. Continue antibiotics per Infectious Disease. IV fluid boluses ordered. Add fungal and mycobacterial cultures from recent bronchoscopy. Check Aspergillus precipitants. Consider bronchoscopy with biopsies of the left lower lobe lesions. Keep CVP 6-8 range. NPO for now, start TPN again. Follow laboratory, chest x-ray, CBC. Mobilization when possible. Continue to work with PT/OT on strength as tolerated. Continue malloy due to soilage from leaking condom cath. Wound VAC changes and debridements, wound dehiscent issues per surgery. Await sensitivities in bacteria from the bronchoscopy. 50 min of critical care time spent directly with the patient today, not including bronchoscopy. Discussed with nursing, hospitalist, ID, and the ICU multi disciplinary team. Subjective: Confused, hallucinating at times. Has some shortness of breath but not marked. Denies significant pain Objective: Vital Signs Temp Pulse Resp BP Pulse Ox 37.3 C 106 H 36 H 111/88 H 100 03/07/18 12:00 03/07/18 14:00 03/07/18 14:00 03/07/18 14:00 03/07/18 14:00 Microbiology 03/05/18 16:30 Gram Stain - Final Lung - Bronchial Washings 03/04/18 09:10 Blood Culture - Final Blood Proteus Mirabilis Blood Panel (PCR) - Final Proteus Species Laboratory Results 03/07/18 11:35 03/07/18 11:35 03/06/18 03/07/18 03/08/18 05:59 05:59 05:59 Intake Total 3796 1506 Output Total 1325 2150 200 Balance 2471 -644 -200 PT 17.2 SEC (12.0-15.0) H 03/07/18 11:35 INR 1.39 (0.83-1.16) H 03/07/18 11:35 Laboratory Tests 03/07/18 11:35 Calcium 7.2 L Phosphorus 3.4 Magnesium 1.8 Total Bilirubin 0.6 AST 41 ALT [address] chest: New multiple round lesions in the left lower lobe. Possibly consistent with fungal balls although none are cavitary. There is increased consolidation at the right base as well with some suggestion of 1 possible similar rounded area but more confluent infiltrates elsewhere in the right lower lobe. Physical Exam - Physical Exam General Appearance: no apparent distress, other (Lethargic, arouses, responds but confused and talking about other people in the room.) EENT: PERRL/EOMI, other (Nasal cannula in place at 2 L: 100%. Dry mucous membranes) Neck: normal inspection (No obvious JVD) Respiratory: decreased breath sounds (Bilaterally), rales (Scattered rales present lateral bases. No obvious consolidation), No lungs clear, No normal breath sounds, No rhonchi (No rhonchi but central congestion is present with cough.) Cardiac/Chest: tachycardia (Regular, sinus on monitor) Abdomen: non-tender, soft, other (Wound vacs in place.), No normal bowel sounds (Decreased, few present) Male Genitalia: other (Malloy catheter in place: Good urine output) Skin: warm/dry, pallor Extremities: pedal edema Neuro/Psych: no motor/sensory deficits (Moves all extremities weakly), cognition abnormalities (Confused, hallucinating at times) ICD10 Worksheet Patient Problems: Problems Problem Status Onset Cellulitis of perineum Acute Cellulitis, scrotum Acute Left buttock abscess Acute
[2018-03-07] MEDS ORDERED: 1/2 NS 1,000 ML IV SCH (16:00)
--- NOTE | 2018-03-07 16:23 | HOSPPROG ---
Hospitalist Progress Note Assessment/Plan: * MRSA Jacqueline's gangrene s/p debridement -30 days IV abx complete for this indication * s/p diverting colostomy - subsequent SBO due to fascial defect s/p revision -s/p colostomy take down -open abdominal wound with wound vac * Fat necrosis - at site of colostomy take down * Septic shock - Polymicrobial + blood cultures - Proteus, ESBL Ecoli, Staph -IV invanz, IV micafungin, IV linezolid -lactate back up to 6.6 - resume septic shock protocol - IVF bolus -? intra-abdominal source given polymicrobial nature - but CT looks okay * Acute respiratory failure -s/p bronch * Pulmonary masses - presumed infectious as not present on recent CT chest earlier this admission -reviewed with Dr. Rodriguez and Dr. Torres * Leukopenia/rash - improving -due to sepsis * DM II -resume home meds when taking PO * Obesity BMI 34 * Increased LFT - due to sepsis * Metabolic encephalopathy - remains very confused - with hallucinations * [address] -EKG/trop okay -no chest pain * Afib -due to acute illness -metoprolol * Dysphagia - passed swallow -advance diet CC time - 50 minutes Subjective: Patient again became septic today. Increased tachycardia with HR 140, return of mottling. Lactate checked - 6.6 - stat CT chest/abd/pelvis performed, CT chest shows new masses, presume to be infectious given then were not present of previous CT this admission Objective: Vital Signs Temp Pulse Resp BP Pulse Ox 36.9 C 98 31 H 144/89 H 98 03/07/18 16:00 03/07/18 16:00 03/07/18 16:00 03/07/18 16:00 03/07/18 16:00 Microbiology 03/05/18 16:30 Gram Stain - Final Lung - Bronchial Washings 03/04/18 09:10 Blood Culture - Final Blood Proteus Mirabilis Blood Panel (PCR) - Final Proteus Species Laboratory Results 03/07/18 11:35 03/07/18 11:35 03/06/18 03/07/18 03/08/18 05:59 05:59 05:59 Intake Total 3796 1506 4005 Output Total 1325 2150 450 Balance 2471 -644 3555 PT 17.2 SEC (12.0-15.0) H 03/07/18 11:35 INR 1.39 (0.83-1.16) H 03/07/18 11:35 CT personally reviewed - strange appearing lower lobe masses of lung case d/w Dr. Torres and Dr. Rodriguez EKG reviewed - sinus tachy CT reviewed with Dr. Ocampo radiology Laboratory Tests 03/07/18 11:35 VBG Lactic Acid 6.6 H - Physical Exam Constitutional: chronically ill appearing, uncomfortable, other (severely encephalopathic) Cardiovascular: tachycardia, No edema Respiratory: respiratory distress, rhonchi, other (retractions) Gastrointestinal: normoactive bowel sounds, soft, non-tender abdomen, no palpable masses Skin: mottled, other (pale) Neurologic: No AAOx3 Psychiatric: encephalopathic, poor insight, poor judgement, poor memory, No interacting appropriately ICD10 Worksheet Patient Problems: Problems Problem Status Onset Cellulitis of perineum Acute Cellulitis, scrotum Acute Left buttock abscess Acute
[2018-03-07] MEDS ORDERED: DIAZEPAM 5 MG/ML 1 ML SYR IVP PRN (16:49)
--- NOTE | 2018-03-07 17:42 | GOP ---
DATE OF OPERATION: 03/04/2018 SURGEON: Morales Saha MD PREOPERATIVE DIAGNOSIS: Open infected abdominal wound. POSTOPERATIVE DIAGNOSIS: Open infected abdominal wound. PROCEDURE PERFORMED: Midline wound debridement. FINDINGS: The patient was found to have multiple areas of persistent necrotic fat down to the fascia l level. ESTIMATED BLOOD LOSS: Less than 2 cc. DESCRIPTION OF PROCEDURE: The patient was in his bed in the intensive care unit. He was given some IV sedation. The wound was anesthetized with 0.5% Marcaine, and then a sharp surgical debridement wa s done of the wound edges and portions of the fascia which appeared to be necrotic. Hemostasis was c arefully obtained. A large amount of debris was removed, and the wound was then re-dressed and packe d. He tolerated the procedure quite well. COMPLICATIONS: There were no complications. /[id number]/MODL
[2018-03-07] MEDS ORDERED: POTASSIUM Cl (KCl) 20 MEQ/50 ML BAG IV ONE (18:50)
[2018-03-07] MEDS: TPN W/ FAMOTIDINE 1 EA BAG IV SCH (21:08)
[2018-03-08] MEDS: HYDROmorphONE/DILAUDID 2 MG/ML INJ IVP PRN (01:09)
[2018-03-08] MEDS: INSULIN REGULAR HUMAN 100 UNIT/ML UNIT SC SCH ×4 (01:12→17:46)
[2018-03-08] MEDS: LINEZOLID 600 MG/DEXTROSE 300 ML IV SCH ×2 (03:12→14:18)
[2018-03-08 04:53] LABS: PLATELET COUNT 257 10^3/uL (150-400)
[2018-03-08 05:01] LABS: INR 1.37 (0.83-1.16)
[2018-03-08] MEDS: MICAFUNGIN NA 100 MG in NS 100 ML IV SCH (08:09)
[2018-03-08] MEDS: ENOXAPARIN 40 MG/0.4 ML SYR SC SCH (08:11)
[2018-03-08] MEDS ORDERED: NS 500 ML IV ONE ×3 (08:36→23:16)
--- NOTE | 2018-03-08 08:42 | PDINTPN ---
Director Staffing Progress Note Assessment/Plan: Assessment/plan: 77-year-old from [place] admitted 01/19 with left buttock cellulitis/Fornier gangreen. Initial surgical debridement and colostomy 01/20. Moved back to intensive care unit 02/05 secondary to hypotension and small bowel obstruction. Return to surgery 02/06. Colostomy was leaking and revised and moved superiorly. Piece of small bowel was trapped in the original colostomy, causing obstruction. New wound VAC placed over original colostomy site. Colostomy taken down 03/01 with further debridement, fascial closure with open abdominal wall and wound VAC. Getting periodic wound VAC changes per surgery with residual debridement of necrotic tissue. * Recurrent septic picture with fever 03/04, decreased mental status, and hypotension. Proteus on blood cultures. Source not entirely clear. Bronchopneumonia certainly possible. Wounds, urine, line sepsis, skin, abdomen , etc. Restarted on Zosyn and micafungin, given 1 dose of vancomycin. Id consult appreciated. Hypotension resolved, blood pressures normalized. Now with increased tachycardia, confusion, lower blood pressures, some increased peripheral mottling and new changes on CT scan as outlined above. * Hypotension: Resolved. Blood pressure OK. CVP 6. * Respiratory: Increased secretions present bilaterally consistent with possible bronchopneumonia. Status post bronchoscopy 03/05: Moderate purulent secretions present. Cultures growing Proteus, Staph aureus, and a gram- negative kyler. Now has rounded masslike lesions in the left lower lobe and possibly right lower lobe. These are new compared with his last CT scan about 3 weeks ago. Question fungal verses bacterial or other etiologies. I will have fungal and mycobacterial cultures added to the 03/05 bronchoscopy fluid. May need another bronchoscopy with biopsies of the left lower lobe lesions. -will discuss with Infectious Disease * Fornier gangrene. MRSA. He has completed and was off of antibiotics. * Rectal wound, dehisced. Packed. Has sutured scrotal incision, not dehisced thus far. Per surgery. * Small bowel obstruction: Reduced, resolved. * Colostomy leak. Previous revisions. Colostomy taken down 03/01. Has had a large stool so GI tract working. Wound VACs in place over abdominal open wounds. Areas of necrosis present. Debridement being done as needed. -likely back to the OR today * Nutrition: None currently. Pulled out NG. Allowed to eat yesterday however oral intake is minimal and not adequate. In addition, this seems to increase stools which in turn are at risk for contaminating his open perineal wounds. TPN recommended. * Rouse catheter: In place to prevent soilage of wounds. * Encephalopathy-no improvement. * Leukopenia: Resolved slowly. White blood cell counts remain generally low. * Acute blood-loss anemia: Hematocrit 28 today. No evidence of active bleeding. Following. * Metabolic: No issues currently identified. * Decubitus. Stage III. Dressed. * DVT prophylaxis: Enoxaparin. GI prophylaxis: Pepcid in TPN. * Type 2 diabetes: On insulin sliding scale coverage. Also in TPN * History of hypertension: Blood pressure medications on hold. * Prognosis-guarded 03/08/18 08:55 Subjective: Moaning. Unarousable. Objective: Vital Signs Temp Pulse Resp BP Pulse Ox 37.7 C 110 H 21 H 128/81 H 95 03/07/18 20:00 03/08/18 06:00 03/08/18 06:00 03/08/18 06:00 03/08/18 06:00 Microbiology 03/05/18 16:30 Gram Stain - Final Lung - Bronchial Washings 03/04/18 09:10 Blood Culture - Final Blood Proteus Mirabilis Blood Panel (PCR) - Final Proteus Species Laboratory Results 03/08/18 04:40 03/08/18 04:40 03/07/18 03/08/18 03/09/18 05:59 05:59 05:59 Intake Total 1506 5303.4 Output Total 2150 2455 Balance -644 2848.4 PT 17.0 SEC (12.0-15.0) H 03/08/18 04:40 INR 1.37 (0.83-1.16) H 03/08/18 04:40 Laboratory Results 03/08/18 04:40 03/08/18 04:40 03/08/18 02/13/18 04:40 05:40 Calcium 7.1 mg/dL L mg/dL (8.5 - 10.4) Phosphorus 3.2 mg/dL mg/dL (2.5 - 4.5) Magnesium 1.7 mg/dL mg/dL (1.6 - 2.3) Total Bilirubin 0.2 mg/dL mg/dL (0.1 - 1.4) AST 31 IU/L IU/L 124 IU/L H IU/L (17 - 59) (17 - 59) ALT 37 IU/L IU/L 162 IU/L H IU/L (21 - 72) (21 - 72) Alkaline Phosphatase 68 IU/L IU/L 109 IU/L IU/L (38 - 126) (38 - 126) Total Protein 4.5 g/dL L g/dL 3.9 g/dL L g/dL (6.3 - 8.2) (6.3 - 8.2) Albumin 1.6 g/dL L g/dL 1.8 g/dL L g/dL (3.5 - 5.0) (3.5 - 5.0) Triglycerides 176 mg/dL H mg/dL (40 - 150) 03/05/18 16:30 Gram Stain - Final Lung - Bronchial Washings Bronchial Washings Culture - Preliminary Proteus Mirabilis MRSA Gram Neg 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 Likely left pleural effusion. Possible fluid overload. - Time Spent With Patient Time Spent With Patient: 35 min of time spent with patient, over 1/2 involved with coordination of care or counseling. Case discussed with nursing Physical Exam - Physical Exam General Appearance: No alert EENT: PERRL/EOMI Neck: non-tender, full range of motion, supple, normal inspection Respiratory: crackles (Bibasilar), rhonchi (Few scattered rhonchi) Cardiac/Chest: normal peripheral pulses, regular rate, rhythm Peripheral Pulses: 2+: carotid (R), carotid (L), femoral (R), femoral (L), dorsalis-pedis (R), dorsalis-pedis (L) Abdomen: soft, other (Wound VAC), No normal bowel sounds, No non-tender Male Genitalia: deferred Rectal: deferred Skin: normal color, warm/dry Extremities: normal range of motion, non-tender, normal inspection, normal capillary refill Neuro/Psych: No alert ICD10 Worksheet Patient Problems: Problems Problem Status Onset Cellulitis of perineum Acute Cellulitis, scrotum Acute Left buttock abscess Acute
[2018-03-08] MEDS ORDERED: PIOGLITAZONE HCL 15 MG TAB PO SCH (09:00)
[2018-03-08] MEDS ORDERED: SELENIUM 0.2 MG TAB PO SCH (09:00)
--- NOTE | 2018-03-08 09:09 | SOAPPROG ---
SOAP Progress Note Assessment/Plan: Assessment: 77 MALE WITH I&D OF LEFT BUTTOCK ABSCESS WITH INDURATION AND INFLAMMATION EXTENDING INTO SCROTUM LOW GRADE TEMP/ WBC 14K DIABETIC NO CARDIAC SYMPTOMS CT SHOWS INFLAMMATION INTO SCROTUM MARKED EDEMA AND INDURATION IN PERINEUM AND SCROTUM Plan:MAY FURTHER I&D AND DEBRIDEMENT/ RISKS AND OPTIONS FULLY DISCUSSED 01/19/18 17:42 01/23/18 12:41 PATIENT COMFORTABLE AND DOING REASONABLY WELL DESPITE SIGNIFICANT TEMPERATURE ELEVATIONS LEAKING AND DIARRHEA STOOL OVER HIS WOUND SOME PERSISTENT INDURATION ERYTHEMA AROUND THE PERINEAL WOUND RISKS AND OPTIONS FULLY DISCUSSED PLAN: DIVERTING COLOSTOMY AND WOUND VAC CHANGE 01/24/18 11:02 TEMP DOWN/COMFORTABLE/VITAL SIGNS STABLE/ OSTOMY PINK AND WORKING WELL MINIMAL OUTPUT FROM THE WOUND VAC TRANSFER TO [facility] / [facility] 02/09/18 19:12 STILL WITH DECREASED MENTAL STATUS BUT SOMEWHAT RESPONSIVE TO FOR MOLE CONVERSATION/HEAD CT IS NEGATIVE FOR ANY STROKE ABDOMEN SOFT THE/NEW COLOSTOMY LOOKS VIABLE/WOUND OKAY/AFEBRILE CONTINUE ANTIBIOTICS AND OTHER SUPPORT 02/16/18 18:06 SEEN WITH MY PA ALTAF PRECIADO/PLEASE REFER TO HER NOTE OSTOMY HAS SOME SUPERFICIAL NECROSIS WITH WILL HAVE TO BE WATCHED BUT NO RETRACTION/MENTAL STATUS SLOWLY IMPROVING/AFEBRILE PERINEUM IMPROVED 02/18/18 15:53 MORE ALERT, AFEBRILE, STEADILY IMPROVING SURGICAL RISKS AND OPTIONS FULLY DISCUSSED PLAN IS SECONDARY CLOSURE OF THE PERINEAL WOUND 2. DEBRIDEMENT OF THE ABDOMINAL COLOSTOMY SITE PATIENT FULLY UNDERSTANDS AND REQUESTS THAT WE PROCEED 02/22/18 08:23 wounds ok/ afebrile/ ostomy pink but retracting slightly/ decub stable/ more alert/ labs ok 03/06/18 17:46 CONFUSED TODAY/WOUND OKAY/SIGNIFICANT LOOSE BOWEL MOVEMENTS/STARTING TO EAT PATIENT DC HIS OWN FEEDING TUBE PERINEAL WOUND LOOKS OKAY CONSIDER ADDING TPN FOR MORE CALORIES AFEBRILE/VITAL SIGNS STABLE/O2 SAT ADEQUATE/LAB STABLE 03/07/18 09:34 AFEBRILE/VITAL SIGNS STABLE/STILL SOMEWHAT CONFUSED TODAY/ABDOMINAL WOUND VACS IN PLACE WITH LARGE VOLUME DRAINAGE STILL STOOLING OVER HIS PERINEAL WOUND/WE MAY NEED TO ADD WOUND VAC TO THAT AREA WELL/HEMATOCRIT STABLE 03/08/18 09:08 appears to have a midline dehiscience with evisceration / to or for repair Objective: Vital Signs Temp Pulse Resp BP Pulse Ox 37.3 C 118 H 82 H 111/74 95 03/08/18 08:43 03/08/18 08:43 03/08/18 08:43 03/08/18 08:43 03/08/18 08:43 Microbiology 03/05/18 16:30 Gram Stain - Final Lung - Bronchial Washings 03/04/18 09:10 Blood Culture - Final Blood Proteus Mirabilis Blood Panel (PCR) - Final Proteus Species Laboratory Results 03/08/18 04:40 03/08/18 04:40 03/07/18 03/08/18 03/09/18 05:59 05:59 05:59 Intake Total 1506 5303.4 Output Total 2150 2455 Balance -644 2848.4 PT 17.0 SEC (12.0-15.0) H 03/08/18 04:40 INR 1.37 (0.83-1.16) H 03/08/18 04:40 ICD10 Worksheet Patient Problems: Problems Problem Status Onset Cellulitis of perineum Acute Cellulitis, scrotum Acute Left buttock abscess Acute
[2018-03-08] MEDS: ERTAPENEM 1 GM in NS 100 ML IV SCH (09:21)
--- NOTE | 2018-03-08 09:45 | ASMTCMCOM ---
CM Note CM Note Notes: CM contacted patient's brother, Bj last week about the concern that pt's secondary ins would be lapsing in Mar. Bj said he would take care of it. Bill checking out LTAC's and hasn't made up his mind as yet. Patient may have more surgeries so not LTAC ready/[employer]. Date Signed: 03/08/2018 09:44 AM Electronically Signed By:Denise Sandoval LCSW
[2018-03-08] MEDS: SODIUM HYPOCHLORITE (DAKINS 1/4 STR) 473 ML BTL TP SCH ×3 (10:13→21:13)
[2018-03-08] MEDS: NS 1,000 ML IV SCH ×2 (10:58→17:45)
--- NOTE | 2018-03-08 10:59 | WOCRNPDOC ---
[facility] Advanced Assessment Note - Skin Integrity Problem, Advanced Assess Medial Abdomen Surgical Wound/Incision Dressing Type: Wound Vac Site Measurement - Head-to-Toe Length X Width X Depth (cm): Removed wound vac dressing. Patient coughed and a large loop of bowel was exposed at the superior end of the wound bed. Pressure applied and Ruby CHAKRABORTY paged Dr. Saha on trauma call to notify. Covered with several ABDs and secured with medipore tape. Dr. Saha arrived at bedside. Ruby CHAKRABORTY and Shannen RN in room to assist with care. Zoey VILLAFUERTE came to bedside to assist. Wound care will round again on Thursday. Left Lower Abdomen Surgical Wound/Incision Dressing Type: Wound Vac Dressing Description: Clean/Dry, Intact Exudate Amount: Minimal Exudate Characteristic(s): Serous Skin Integrity Problem Comment: One piece of black small simplace foam removed. Due to exposed bowel in midline wound, wound was packed with saline moistened kerlix and covered with an ABD since patient will be going to surgery. Ruby CHAKRABORTY and Shannen RN in room for cares. Wound care will round again on Thursday. Left Upper Abdomen Surgical Wound/Incision Dressing Type: Wound Vac Dressing Description: Clean/Dry, Intact Exudate Amount: Minimal Exudate Characteristic(s): Serous Skin Integrity Problem Comment: One piece of black small simplace foam removed. Due to exposed bowel in midline wound, wound was packed with saline moistened kerlix and covered with an ABD since patient will be going to surgery. Ruby CHAKRABORTY and Shannen RN in room for cares. Wound care will round again on Thursday.
--- NOTE | 2018-03-08 12:53 | HOSPPROG ---
Hospitalist Progress Note Assessment/Plan: * MRSA Jacqueline's gangrene s/p debridement -30 days IV abx complete for this indication * s/p diverting colostomy - subsequent SBO due to fascial defect s/p revision -s/p colostomy take down - fat necrosis found -open abdominal wound with wound vac - now dehisced -back to OR today * Septic shock - Polymicrobial + blood cultures - Proteus, ESBL Ecoli, Staph -IV invanz, IV micafungin, IV linezolid -lactate remains elevated - CVP 4 -need further aggressive fluid resuscitation * Acute respiratory failure -s/p bronch * Pulmonary masses - presumed infectious as not present on recent CT chest earlier this admission -abx as above * Leukopenia/rash - improving -due to sepsis * DM II -resume home meds when taking PO * Obesity BMI 34 * Increased LFT - due to sepsis * Metabolic encephalopathy - remains very confused - with hallucinations * [address] -EKG/trop okay -no chest pain * Afib -due to acute illness -metoprolol * Dysphagia - passed swallow -advance diet when mental status improved -now on TPN CC time - 40 minutes Subjective: Persitent lactate elevation, CVP 4, found to have wound dehiscence this am, going back to OR. NPO due to very poor mental status Objective: Vital Signs Temp Pulse Resp BP Pulse Ox 37.1 C 107 H 29 H 140/83 H 97 03/08/18 12:00 03/08/18 12:00 03/08/18 12:00 03/08/18 12:00 03/08/18 12:00 Microbiology 03/05/18 16:30 Gram Stain - Final Lung - Bronchial Washings 03/04/18 09:10 Blood Culture - Final Blood Proteus Mirabilis Blood Panel (PCR) - Final Proteus Species Laboratory Results 03/08/18 04:40 03/08/18 04:40 03/07/18 03/08/18 03/09/18 05:59 05:59 05:59 Intake Total 1506 5303.4 Output Total 2150 2455 Balance -644 2848.4 PT 17.0 SEC (12.0-15.0) H 03/08/18 04:40 INR 1.37 (0.83-1.16) H 03/08/18 04:40 d/w Dr. Verdugo ICU rounds - has been here for weeks with persistent sepsis - prognosis poor given lack of improvement - consider readdress level of care with family tele - sinus tachy - Physical Exam Constitutional: chronically ill appearing, uncomfortable, other (looks terrible , resp distress, arousable but severely encephalopathy) Cardiovascular: tachycardia, No edema Respiratory: respiratory distress, rhonchi, No expiratory wheeze, No inspiratory crackles Gastrointestinal: distension, No tenderness, No ascites, No guarding, No rebound Skin: mottled (but less), No erythema, No fluctuance, No rash Neurologic: No AAOx3 Psychiatric: encephalopathic, poor insight, poor judgement, poor memory, No interacting appropriately ICD10 Worksheet Patient Problems: Problems Problem Status Onset Left buttock abscess Acute Cellulitis of perineum Acute Cellulitis, scrotum Acute
[2018-03-08] MEDS ORDERED: ONDANSETRON 4 MG/2 ML VIAL IVP PRN (13:50)
[2018-03-08] MEDS ORDERED: fentaNYL 100 MCG/2 ML INJ IVP PRN (13:50)
[2018-03-08] MEDS ORDERED: HYDROmorphONE/DILAUDID 2 MG/ML INJ IVP PRN (13:50)
[2018-03-08] MEDS ORDERED: NALOXONE HCL 0.4 MG/ML INJ IVP PRN (13:50)
--- NOTE | 2018-03-08 13:50 | PDANEPAE ---
ANE Past Medical History - Cardiovascular History Hx Hypertension: Yes Hx Arrhythmias: Yes Hx Chest Pain: No Hx Coronary Artery / Peripheral Vascular Disease: No Hx CHF / Valvular Disease: No Hx Palpitations: No - Pulmonary History Hx COPD: No Hx Asthma/Reactive Airway Disease: No Hx Recent Upper Respiratory Infection: No Hx Oxygen in Use at Home: No Hx Sleep Apnea: Yes Sleep Apnea Screening Result - Last Documented: Positive - Endocrine History Hx Diabetes: Yes Hypothyroid: No Hyperthyroid: No Obesity: moderate - Renal History Hx Renal Disorders: No - Liver History Hx Hepatic Disorders: No - Chronic Pain History Chronic Pain: No ANE Review of Systems Review of Systems: ANE Patient History - Allergies Allergies/Adverse Reactions: shellfish derived Allergy (Verified 01/19/18 13:38) Sulfa (Sulfonamide Antibiotics) Allergy (Verified 01/19/18 13:38) Rash - Home Medications Home Medications: Ascorbic Acid [Vitamin C 500 mg (*)] 500 mg PO BID 01/19/18 [Last Taken 21:00] Aspirin [Aspirin 325 mg (*)] 325 mg PO DAILY PRN 01/19/18 [Last Taken Unknown] Atenolol [Tenormin 50 mg (*)] 50 mg PO BID 01/19/18 [Last Taken 01/18/18 21:00] Cholecalciferol Vit D3 [Vitamin D3 2000 units tab (OTC)] 2,000 units PO BID 12/30 [Last Taken 01/18/18 21:00] Lisinopril [Zestril 10 mg (*)] 10 mg PO DAILY 01/19/18 [Last Taken 01/18/18] Lovastatin 40 mg PO DAILY 01/19/18 [Last Taken 01/18/18] Multivitamins [Multivitamin (*)] 1 each PO DAILY 01/19/18 [Last Taken 01/18/18] Pioglitazone HCl [Actos] 30 mg PO DAILY 01/19/18 [Last Taken 01/18/18] Selenium [Selenium 200mcg (*)] 200 mcg PO DAILY 01/19/18 [Last Taken 01/18/18] metFORMIN HCL [Glucophage 500 mg (*)] 500 mg PO BID 01/19/18 [Last Taken 21:00] - NPO status NPO Since - Liquids (Date): 03/07/18 NPO Since - Liquids (Time): 11:00 NPO Since - Solids (Date): 03/07/18 NPO Since - Solids (Time): 11:00 - Smoking Hx Smoking Status: Never smoked - Alcohol Use Alcohol Use: Sober ANE Labs/Vital Signs - Labs Result Diagrams: 03/08/18 04:40 03/08/18 04:40 - Vital Signs Blood Pressure: 140/83 Heart Rate: 107 Respiratory Rate: 29 O2 Sat (%): 97 Height: 170.18 cm Weight: 98.3 kg ANE Physical Exam - Airway Neck exam: FROM Mouth exam: normal dental/mouth exam - Pulmonary Pulmonary: expiratory wheeze - Cardiovascular Cardiovascular: irregularly irregular - ASA Status ASA Status: IV ANE Anesthesia Plan Anesthesia Plan: general endotracheal anesthesia
[2018-03-08] MEDS ORDERED: BUPIVACAINE 0.5% 30 ML SDV ONE (14:02)
[2018-03-08] MEDS ORDERED: fentaNYL 100 MCG/2 ML INJ ONE (14:34)
[2018-03-08] MEDS ORDERED: PROPOFOL 200 MG/20 ML VIAL ONE (14:34)
[2018-03-08] MEDS ORDERED: ONDANSETRON 4 MG/2 ML VIAL ONE (14:50)
[2018-03-08] MEDS ORDERED: ROCURONIUM 50 MG/5 ML VIAL ONE (14:50)
[2018-03-08] MEDS ORDERED: VASOPRESSIN 20 UNIT/ML VIAL ONE (14:50)
[2018-03-08] MEDS ORDERED: PROPOFOL/EMULSION 500 MG/50 ML BOTTLE IV ONE (15:41)
--- NOTE | 2018-03-08 17:14 | PCMIDPN ---
Assessment/Plan: Assessment/Plan: * Recurrent sepsis due to Proteus and ESBL E coli bacteremia: Unclear if polymicrobial bacteremia from GI source versus component from pneumonia as Proteus seen in both blood and BAL specimen. CT of abdomen and pelvis yesterday did not show focal abscess. Patient did return to OR today for wound dehiscence with evisceration. Continue ertapenem (ESBL E coli, Proteus), linezolid (MRSA on BAL), and micafungin (see below and also at risk for fungemia with ongoing TPN and central access). * Bilateral pneumonia: Left-sided infiltrates with nodular quality which raises consideration of fungal etiology. Serum Aspergillus antigen sent. Unusual circumstances for invasive aspergillosis. Has been covered by micafungin empirically. Reviewed with pulmonology regarding biopsy of nodular regions with plans to pursue this if patient fails to show clinical improvement. 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 03/08/18 17:11 Subjective: Patient noted to have wound dehiscence with evisceration this a.m. prompting return to OR today for closure. Persistent tachycardia present. No pressor requirements. Intubated postoperatively. Objective: Vital Signs Temp Pulse Resp BP Pulse Ox 35.6 C L 117 H 14 100/69 100 03/08/18 16:49 03/08/18 17:00 03/08/18 17:00 03/08/18 17:00 03/08/18 17:00 Microbiology 03/05/18 16:30 Gram Stain - Final Lung - Bronchial Washings 02/06/18 13:15 Fungal Culture - Final Peritoneal Fluid - Aspirate 03/05/18 16:30 Mycobacterial Smear (JUAN A) - Final Lung - Bronchial Washings Laboratory Results 03/08/18 04:40 03/08/18 04:40 03/07/18 03/08/18 03/09/18 05:59 05:59 05:59 Intake Total 1506 5303.4 1000 Output Total 2150 2455 Balance -644 2848.4 1000 ESR 23 MM/HR (0-20) H 02/06/18 04:57 C-Reactive Protein 67.3 mg/L (<10.0) H 02/13/18 04:20 Ertapenem # 2, antibiotics # 5 Micafungin # 5 Linezolid # 2 - Physical Exam General Appearance: other (Intubated, sedated) EENT: ET Tube, No scleral icterus, No conjunctival petechiae Respiratory: lungs clear, No respiratory distress Cardiac/Chest: tachycardia Extremities: No inflammation Abdomen: other (Wound vacs in place), No distended Skin: rash (Persistent mottling of skin over thighs) - Line/s RUE PICC Lines: No drainage, No erythema ICD10 Worksheet Patient Problems: Problems Problem Status Onset Left buttock abscess Acute Cellulitis of perineum Acute Cellulitis, scrotum Acute
[2018-03-08] MEDS ORDERED: fentanYL/NACL/100 ML BAG IV ONE (17:59)
[2018-03-08] MEDS: fentaNYL/NACL 100 ML IV SCH (19:19)
--- NOTE | 2018-03-08 19:29 | POSTOPPROG ---
Post Op Note Date of Operation: 03/08/18 Surgeon: Morales Saha Director Of Blood: ILANA Anesthesiologist: OSMIN Anesthesia: GET(General Endotracheal) Pre-op Diagnosis: WOUND DEHISCIENCE AND EVISCERATION Post-op Diagnosis: SAME Indication: SAME Procedure: LAPAROTOMY AND FASCIAL REPAIR/ WOUND VAC PLACEMENT AFTER DEBRIDEMENT Findings: NECROTIC FASCIA WITH LOCALIZED DEHISCIENCE Inf/Abcess present in the surg proc area at time of surgery?: Yes Depth: Organ Space EBL: Minimal Complications: 0 Drains: Wound Vac
[2018-03-08] MEDS ORDERED: FAMOTIDINE 20 MG/NACL 50 ML IV SCH (21:00)
[2018-03-08] MEDS: CHLORHEXIDINE GLUCONATE 15 ML UDL PO SCH (21:13)
[2018-03-08] MEDS: TPN W/ FAMOTIDINE 1 EA BAG IV SCH (21:13)
[2018-03-08] MEDS: PROPOFOL/EMULSION 100 ML IV SCH (21:13)
[2018-03-09] MEDS: INSULIN REGULAR HUMAN 100 UNIT/ML UNIT SC SCH ×4 (00:04→18:38)
[2018-03-09] MEDS: LINEZOLID 600 MG/DEXTROSE 300 ML IV SCH ×2 (03:39→15:39)
[2018-03-09] MEDS: PROPOFOL/EMULSION 100 ML IV SCH (03:42)
[2018-03-09] MEDS: NS 1,000 ML IV SCH (04:20)
[2018-03-09 04:34] LABS: INR 1.28 (0.83-1.16); PROTIME(PATIENT) 16.2 SEC (12.0-15.0)
[2018-03-09 05:15] LABS: PLATELET COUNT 202 10^3/uL (150-400)
[2018-03-09] MEDS ORDERED: NS 500 ML IV ONE (06:04)
--- NOTE | 2018-03-09 08:36 | PDINTPN ---
Community Affairs Director Progress Note Assessment/Plan: Assessment/plan: 77-year-old from [place] admitted 01/19 with left buttock cellulitis/Fornier gangreen. Initial surgical debridement and colostomy 01/20. Moved back to intensive care unit 02/05 secondary to hypotension and small bowel obstruction. Return to surgery 02/06. Colostomy was leaking and revised and moved superiorly. Piece of small bowel was trapped in the original colostomy, causing obstruction. New wound VAC placed over original colostomy site. Colostomy taken down 03/01 with further debridement, fascial closure with open abdominal wall and wound VAC. Getting periodic wound VAC changes per surgery with residual debridement of necrotic tissue. * Recurrent septic picture with fever 03/04, decreased mental status, and hypotension. Proteus on blood cultures. Source not entirely clear. Bronchopneumonia certainly possible. Wounds, urine, line sepsis, skin, abdomen , etc. Restarted on Zosyn and micafungin, given 1 dose of vancomycin. Id consult appreciated. Hypotension resolved, blood pressures normalized. Now with increased tachycardia, confusion, lower blood pressures, some increased peripheral mottling and new changes on CT scan as outlined above. * Hypotension: Resolved. Blood pressure OK. CVP 6. * Respiratory: Desaturations on mechanical ventilation. Likely secondary to fluid overload. IV fluids running at 150 per hour. -hold IV fluids for now -added Lasix * Fornier gangrene. MRSA. He has completed and was off of antibiotics. * Rectal wound, dehisced. Packed. Has sutured scrotal incision, not dehisced thus far. Per surgery. * Small bowel obstruction: Reduced, resolved. * Colostomy leak-with dehiscence and evisceration. -to OR yesterday for fascial repair and debridement * Nutrition: None currently. Pulled out NG. Allowed to eat yesterday however oral intake is minimal and not adequate. In addition, this seems to increase stools which in turn are at risk for contaminating his open perineal wounds. TPN recommended. * Rouse catheter: In place to prevent soilage of wounds. * Encephalopathy-no improvement. * Leukopenia: Resolved slowly. White blood cell counts remain generally low. * Acute blood-loss anemia: Hematocrit 28 today. No evidence of active bleeding. Following. * Metabolic: No issues currently identified. * Decubitus. Stage III. Dressed. * DVT prophylaxis: Enoxaparin. GI prophylaxis: Pepcid in TPN. * Type 2 diabetes: On insulin sliding scale coverage. Also in TPN * History of hypertension: Blood pressure medications on hold. * Prognosis-questionable for meaningful recovery Subjective: Sedated on mechanical ventilation Objective: Vital Signs Temp Pulse Resp BP Pulse Ox 35.6 C L 129 H 16 117/89 H 96 03/08/18 16:49 03/09/18 06:00 03/09/18 06:00 03/09/18 06:00 03/09/18 06:00 Microbiology 03/05/18 16:30 Gram Stain - Final Lung - Bronchial Washings 02/06/18 13:15 Fungal Culture - Final Peritoneal Fluid - Aspirate 03/05/18 16:30 Mycobacterial Smear (JUAN A) - Final Lung - Bronchial Washings Laboratory Results 03/09/18 04:10 03/09/18 04:10 03/08/18 03/09/18 03/10/18 05:59 05:59 05:59 Intake Total 5303.4 7029.0 Output Total 2455 650 Balance 2848.4 6379.0 PT 16.2 SEC (12.0-15.0) H 03/09/18 04:10 INR 1.28 (0.83-1.16) H 03/09/18 04:10 Laboratory Results 03/09/18 04:10 03/09/18 04:10 03/09/18 03/09/18 03/09/18 07:45 04:30 04:10 Patient Temperature 38.0 DEGREES DEGREES pCO2 35 mmHg mmHg (34 - 38) pO2 59 mmHg L mmHg (65 - 75) Total CO2 18 mEq/L L mEq/L (23 - 27) ABG pH 7.32 L (7.35 - 7.45) ABG PO2/FiO2 Ratio 148 RATIO RATIO ABG HCO3 17 mEq/L L mEq/L (22 - 26) ABG O2 Saturation 86 % L % (92 - 95) ABG Base Excess -7.5 mEq/L L mEq/L (-2.5 - 2.5) O2 Concentration % 40 % % Actual Respiration Rate 36 PEEP 5 Pressure Support 10 CPAP YES Calcium 6.7 mg/dL L mg/dL (8.5 - 10.4) Ionized Calcium 0.84 MMOL/L L MMOL/L (1.12 - 1.30) Phosphorus 2.3 mg/dL L mg/dL (2.5 - 4.5) Magnesium 1.8 mg/dL mg/dL (1.6 - 2.3) Total Bilirubin 0.2 mg/dL mg/dL (0.1 - 1.4) AST 38 IU/L IU/L (17 - 59) ALT 32 IU/L IU/L (21 - 72) Alkaline Phosphatase 87 IU/L IU/L (38 - 126) Total Protein 4.2 g/dL L g/dL (6.3 - 8.2) Albumin 1.4 g/dL L g/dL (3.5 - 5.0) 03/05/18 16:30 Gram Stain - Final Lung - Bronchial Washings Bronchial Washings Culture - Preliminary Proteus Mirabilis MRSA Enterobacter Cloacae Complex Chest x-ray by myself. Endotracheal tube is high. Central line in good position. Left-sided pleural effusion is present. Diffuse pulmonary edema is present. - Time Spent With Patient Time Spent With Patient: 35 min of critical care time spent with patient. Case discussed with Nursing and Respiratory therapy. Physical Exam - Physical Exam General Appearance: No alert EENT: PERRL/EOMI, ET tube Neck: non-tender Respiratory: crackles (Scattered), No respiratory distress, No wheezing Cardiac/Chest: normal peripheral pulses, regular rate, rhythm, systolic murmur Peripheral Pulses: 2+: carotid (R), carotid (L), femoral (R), femoral (L), dorsalis-pedis (R), dorsalis-pedis (L) Abdomen: soft Male Genitalia: deferred Rectal: deferred Skin: normal color, warm/dry Extremities: non-tender Neuro/Psych: other (Sedated), No alert ICD10 Worksheet Patient Problems: Problems Problem Status Onset Cellulitis of perineum Acute Cellulitis, scrotum Acute Left buttock abscess Acute
[2018-03-09] MEDS ORDERED: PROTOCOL K PHOSPHATE 1 DOSE IV PRN (08:55)
--- NOTE | 2018-03-09 09:03 | PCMIDPN ---
Assessment/Plan: #Recurrent Sepsis: due to polymicrobial bacteremia, source is not entirely clear , pulmonary w CT showing multiple round infiltrates vs intra-abdominal seems with fat and facial necrosis but bowel appears ok in OR. Went back to OR yesterday for washout and repair of facial dehiscence. Overall remains critically ill despite appropriate antibiotics for 48 hours++ and a variety of other interventions. Overall prognosis w seems poor. Blood cx established clearance of polymicrobial bacteremia --continue linezolid, platelets stable; possible MRSA PNA --continuing micafungin until BAL fungal cx neg approx 1 week due to appearance of CT scan --ertapenem for proteus + ESBL blood stream infection --contact precaution for ESBL, MRSA #MRSA bacteremia and Jacqueline's gangrene. S/p 30 days of anti MRSA coverage ( completed 02/19/18), wound mostly closed by report Microbiology 01/19/18 Buttock - MRSA 01/19/18 Blood Cx (1/2) MRSA Dapto JUAN A = <0.1 01/21/18 Blood Cx (2) Neg 01/25/18 Blood Cx (2) Neg 02/01/18 blood cx (2) Neg 02/05/18 blood cx 1 set micrococcus/ 1 set CoNS 02/06/18 peritoneal cx: neg 02/11/18 fungal blood cx: NGTD 01/24/18 & 02/06/18 Cdiff neg 03/04/18 blood cx 1 set ESBL E coli, 1 set proteus 03/05/18 BAL: MRSA (linezolid JUAN A <1), proteus, enterobacter 02/03/18 blood cx (2) NGTD meds Ertapenem 1 gm IV daily # 3, antibiotics # 6 Micafungin 100mg IV daily # 6 Linezolid 600mg IV q12h# 2 Subjective: to OR yesterday rec'd blood this AM remains tachy but not on pressors Objective: Vital Signs Temp Pulse Resp BP Pulse Ox 35.6 C L 124 H 18 112/79 97 03/08/18 16:49 03/09/18 08:00 03/09/18 08:00 03/09/18 08:00 03/09/18 08:00 Microbiology 03/05/18 16:30 Gram Stain - Final Lung - Bronchial Washings 02/06/18 13:15 Fungal Culture - Final Peritoneal Fluid - Aspirate 03/05/18 16:30 Mycobacterial Smear (JUAN A) - Final Lung - Bronchial Washings Laboratory Results 03/09/18 04:10 03/09/18 04:10 03/08/18 03/09/18 03/10/18 05:59 05:59 05:59 Intake Total 5303.4 7029.0 Output Total 2455 650 Balance 2848.4 6379.0 ESR 23 MM/HR (0-20) H 02/06/18 04:57 C-Reactive Protein 67.3 mg/L (<10.0) H 02/13/18 04:20 - Physical Exam General Appearance: obese, other (sedated ) EENT: ET Tube, dry mucous membranes, No thrush Respiratory: coarse breath sounds Neck: supple, other (midline prominence on neck) Cardiac/Chest: tachycardia Extremities: pedal edema (minimal) Abdomen: soft, other (absent bowels sounds; midline wound vac) Male Genitalia: malloy, No scrotal edema Skin: No rash Neuro/Psych: other (sedated) - Line/s RUE PICC Lines: No drainage, No erythema - Time Spent With Patient Time Spent with Patient: greater than 35 minutes (care coordinated with Dr. Saha and Dr. Verdugo) Time Spent with Patient: Greater than 35 minutes spent on this patients care, greater than 50% of time spent counseling, educating, and coordinating care regarding the above mentioned plan. ICD10 Worksheet Patient Problems: Problems Problem Status Onset Cellulitis of perineum Acute Cellulitis, scrotum Acute Left buttock abscess Acute
[2018-03-09] MEDS: MICAFUNGIN NA 100 MG in NS 100 ML IV SCH (09:24)
[2018-03-09] MEDS: ERTAPENEM 1 GM in NS 100 ML IV SCH (09:25)
[2018-03-09] MEDS: CHLORHEXIDINE GLUCONATE 15 ML UDL PO SCH ×2 (09:25→19:41)
[2018-03-09] MEDS ORDERED: FUROSEMIDE 40 MG/4 ML VIAL IVP ONE ×2 (09:26→15:17)
[2018-03-09] MEDS: SODIUM HYPOCHLORITE (DAKINS 1/4 STR) 473 ML BTL TP SCH ×2 (09:29→22:26)
[2018-03-09] MEDS ORDERED: NOREPINEPHRINE BITARTRATE 16 MG in NS 250 ML IV SCH (11:00)
--- NOTE | 2018-03-09 11:03 | SOAPPROG ---
SOAP Progress Note Assessment/Plan: Assessment: 77 MALE WITH I&D OF LEFT BUTTOCK ABSCESS WITH INDURATION AND INFLAMMATION EXTENDING INTO SCROTUM LOW GRADE TEMP/ WBC 14K DIABETIC NO CARDIAC SYMPTOMS CT SHOWS INFLAMMATION INTO SCROTUM MARKED EDEMA AND INDURATION IN PERINEUM AND SCROTUM Plan:MAY FURTHER I&D AND DEBRIDEMENT/ RISKS AND OPTIONS FULLY DISCUSSED 01/19/18 17:42 01/23/18 12:41 PATIENT COMFORTABLE AND DOING REASONABLY WELL DESPITE SIGNIFICANT TEMPERATURE ELEVATIONS LEAKING AND DIARRHEA STOOL OVER HIS WOUND SOME PERSISTENT INDURATION ERYTHEMA AROUND THE PERINEAL WOUND RISKS AND OPTIONS FULLY DISCUSSED PLAN: DIVERTING COLOSTOMY AND WOUND VAC CHANGE 01/24/18 11:02 TEMP DOWN/COMFORTABLE/VITAL SIGNS STABLE/ OSTOMY PINK AND WORKING WELL MINIMAL OUTPUT FROM THE WOUND VAC TRANSFER TO [facility] 02/09/18 19:12 STILL WITH DECREASED MENTAL STATUS BUT SOMEWHAT RESPONSIVE TO FOR MOLE CONVERSATION/HEAD CT IS NEGATIVE FOR ANY STROKE ABDOMEN SOFT THE/NEW COLOSTOMY LOOKS VIABLE/WOUND OKAY/AFEBRILE CONTINUE ANTIBIOTICS AND OTHER SUPPORT 02/16/18 18:06 SEEN WITH MY PA ALTAF PRECIADO/PLEASE REFER TO HER NOTE OSTOMY HAS SOME SUPERFICIAL NECROSIS WITH WILL HAVE TO BE WATCHED BUT NO RETRACTION/MENTAL STATUS SLOWLY IMPROVING/AFEBRILE PERINEUM IMPROVED 02/18/18 15:53 MORE ALERT, AFEBRILE, STEADILY IMPROVING SURGICAL RISKS AND OPTIONS FULLY DISCUSSED PLAN IS SECONDARY CLOSURE OF THE PERINEAL WOUND 2. DEBRIDEMENT OF THE ABDOMINAL COLOSTOMY SITE PATIENT FULLY UNDERSTANDS AND REQUESTS THAT WE PROCEED 02/22/18 08:23 wounds ok/ afebrile/ ostomy pink but retracting slightly/ decub stable/ more alert/ labs ok 03/06/18 17:46 CONFUSED TODAY/WOUND OKAY/SIGNIFICANT LOOSE BOWEL MOVEMENTS/STARTING TO EAT PATIENT DC HIS OWN FEEDING TUBE PERINEAL WOUND LOOKS OKAY CONSIDER ADDING TPN FOR MORE CALORIES AFEBRILE/VITAL SIGNS STABLE/O2 SAT ADEQUATE/LAB STABLE 03/07/18 09:34 AFEBRILE/VITAL SIGNS STABLE/STILL SOMEWHAT CONFUSED TODAY/ABDOMINAL WOUND VACS IN PLACE WITH LARGE VOLUME DRAINAGE STILL STOOLING OVER HIS PERINEAL WOUND/WE MAY NEED TO ADD WOUND VAC TO THAT AREA WELL/HEMATOCRIT STABLE 03/08/18 09:08 appears to have a midline dehiscience with evisceration / to or for repair 03/09/18 11:02 AFEBRILE/ SLIGHTLY ACIDOTIC/ VS STABLE/ WOUNDS OK/ HCT 26/ [id number]/ STABLE TACHYCARDIA/ STILL ON VENT / ? FLUID OVERLOAD CXR NOT BAD Objective: Vital Signs Temp Pulse Resp BP Pulse Ox 35.6 C L 124 H 18 112/79 97 03/08/18 16:49 03/09/18 08:00 03/09/18 08:00 03/09/18 08:00 03/09/18 08:00 Microbiology 03/05/18 16:30 Gram Stain - Final Lung - Bronchial Washings 02/06/18 13:15 Fungal Culture - Final Peritoneal Fluid - Aspirate 03/05/18 16:30 Mycobacterial Smear (JUAN A) - Final Lung - Bronchial Washings Laboratory Results 03/09/18 04:10 03/09/18 04:10 03/08/18 03/09/18 03/10/18 05:59 05:59 05:59 Intake Total 5303.4 7029.0 Output Total 2455 650 Balance 2848.4 6379.0 PT 16.2 SEC (12.0-15.0) H 03/09/18 04:10 INR 1.28 (0.83-1.16) H 03/09/18 04:10 ICD10 Worksheet Patient Problems: Problems Problem Status Onset Cellulitis of perineum Acute Cellulitis, scrotum Acute Left buttock abscess Acute
--- NOTE | 2018-03-09 11:59 | ASMTCMCOM ---
CM Note CM Note Notes: Not much change with patient. Not following commands, will open eyes at times and say some words. Patient's sister, Alexandra TRIANA/Financial WHITEA and mother are here from [place]. "Family Meeting" Sister and mother are here to support patient, pay bills, check ins, get Restraining Order. Patient is employed at [employer]. He has [employer] Ins and could apply for short term disability-will need MD to complete paperwork. Family also wants to place a Restraining Order on Serenity who has been living with him. Gave them phone# for assist with Order. Date Signed: 03/09/2018 11:58 AM Electronically Signed By:Denise Sandoval LCSW
[2018-03-09] MEDS ORDERED: ACETAMINOPHEN 650 MG SUPP PR PRN (14:34)
[2018-03-09] MEDS ORDERED: ALBUMIN 25% 100 ML IV ONE ×2 (14:50→17:30)
--- NOTE | 2018-03-09 15:32 | HOSPPROG ---
Hospitalist Progress Note Assessment/Plan: * Septic shock - Polymicrobial + blood cultures - Proteus, ESBL Ecoli -IV invanz, IV micafungin, IV linezolid (MRSA in sputum) -lactate remains elevated - not clearing -hypotensive - start IV Levophed gtt * Acute respiratory failure - now intubated * Pulmonary masses - presumed infectious as not present on recent CT chest earlier this admission -bronch cultures pending * Wound dehiscence with evisceration -s/p OR last night - necrotic fascia found -wound vac * MRSA Jacqueline's gangrene s/p debridement -30 days IV abx complete for this indication -? wound dehiscence at this location as well * s/p diverting colostomy - subsequent SBO due to fascial defect s/p revision -s/p colostomy take down - fat necrosis found * DM II * Obesity BMI 34 * Increased LFT - due to sepsis * Metabolic encephalopathy - with hallucinations -now intubated/sedated * [address] -EKG/trop okay -no chest pain * Afib -due to acute illness -metoprolol * Nutrition - TPN CC time - 45 minutes Subjective: not extubated post surgery, soft BP this am, lactate remains elevated Objective: Vital Signs Temp Pulse Resp BP Pulse Ox 39.1 C H 119 H 23 H 101/64 93 03/09/18 14:00 03/09/18 15:06 03/09/18 15:06 03/09/18 14:00 03/09/18 15:06 Microbiology 03/05/18 16:30 Mycobacterial Smear (JUAN A) - Final Lung - Bronchial Washings 03/05/18 16:30 Gram Stain - Final Lung - Bronchial Washings 02/06/18 13:15 Fungal Culture - Final Peritoneal Fluid - Aspirate Laboratory Results 03/09/18 04:10 03/09/18 04:10 03/08/18 03/09/18 03/10/18 05:59 05:59 05:59 Intake Total 5303.4 7029.0 Output Total 2455 650 695 Balance 2848.4 6379.0 -695 PT 16.2 SEC (12.0-15.0) H 03/09/18 04:10 INR 1.28 (0.83-1.16) H 03/09/18 04:10 d/w dr. monreal ICU rounds - guarded to poor prognosis - need to reschedule family meeting CXR viewed, my personal interpretation is - mild CHF - Physical Exam Constitutional: no apparent distress, appears nourished, not in pain Cardiovascular: regular rate and rhythym, no murmur, rub, or gallop Respiratory: no respiratory distress, no rales or rhonchi, clear to auscultation Gastrointestinal: normoactive bowel sounds, soft, non-tender abdomen, no palpable masses Skin: mottled, no fluctuance, no induration, other (abd wounds with vacs in place) Neurologic: No AAOx3 Psychiatric: encephalopathic, other (intubated and sedated), No interacting appropriately ICD10 Worksheet Patient Problems: Problems Problem Status Onset Left buttock abscess Acute Cellulitis of perineum Acute Cellulitis, scrotum Acute
--- NOTE | 2018-03-09 15:58 | ASMTCMCOM ---
CM Note CM Note Notes: CM Note 03/09/2018 11:58 recorded on the wrong patient please disregard. Date Signed: 03/09/2018 03:58 PM Electronically Signed By:Denise Sandoval LCSW
--- NOTE | 2018-03-09 16:07 | ASMTCMCOM ---
CM Note CM Note Notes: "Family Meeting" via phone with brother, Bj, Chaplain Harper, and HONG. Spoke with Bj re: his understanding of patient's need for his last surgery. Bj was concerned that his brother had to have another surgery but understood that it was needed. Bj is still holding hope that his brother will pull through. Bj reports that he, his sister, Kailey and patient's friend, Danni try to visit most evenings and get most their information from the RN. He has spoken with Dr. Saha on a few occasions. Date Signed: 03/09/2018 04:06 PM Electronically Signed By:Denise Sandoval LCSW
--- NOTE | 2018-03-09 17:09 | CPEKG ---
Test Reason : OPEN Blood Pressure : / mmHG Vent. Rate : 118 BPM Atrial Rate : 119 BPM P-R Int : 125 ms QRS Dur : 066 ms QT Int : 348 ms P-R-T Axes : 050 -15 042 degrees QTc Int : 488 ms Sinus tachycardia Borderline left axis deviation Probable anterior infarct, age indeterminate Lateral leads are also involved Confirmed by Aldo Denny ([id number]) on 03/09/2018 5:08:39 PM Referred By: Confirmed By:Aldo Denny
[2018-03-09] MEDS ORDERED: PHENYLEPHRINE HCL 50 MG in D5W 250 ML IV SCH (17:30)
[2018-03-09] MEDS: VASOPRESSIN 25 UNIT in NS 250 ML IV SCH (17:48)
[2018-03-09] MEDS: ALBUMIN 5% 500 ML IV SCH (18:14)
[2018-03-09] MEDS: HYDROCORTISONE 100 MG/2 ML VIAL IVP SCH (18:16)
[2018-03-09] MEDS: fentaNYL/NACL 100 ML IV SCH (20:42)
[2018-03-09] MEDS: TPN W/ FAMOTIDINE 1 EA BAG IV SCH (20:44)
[2018-03-10] MEDS: INSULIN REGULAR HUMAN 100 UNIT/ML UNIT SC SCH ×4 (00:32→17:42)
[2018-03-10] MEDS: VASOPRESSIN 25 UNIT in NS 250 ML IV SCH (03:30)
[2018-03-10] MEDS: ALBUMIN 5% 500 ML IV SCH ×2 (03:30→17:26)
[2018-03-10] MEDS: LINEZOLID 600 MG/DEXTROSE 300 ML IV SCH ×2 (03:36→15:16)
[2018-03-10] MEDS: HYDROCORTISONE 100 MG/2 ML VIAL IVP SCH (05:51)
[2018-03-10 05:57] LABS: PLATELET COUNT 82 10^3/uL (150-400)
[2018-03-10 06:24] LABS: INR 1.66 (0.83-1.16); PROTIME(PATIENT) 19.7 SEC (12.0-15.0)
[2018-03-10] MEDS ORDERED: POTASSIUM Cl (KCl) 50 ML IV ONE (08:00)
--- NOTE | 2018-03-10 09:14 | PDINTPN ---
[employer] Instructor Progress Note Assessment/Plan: Assessment/plan: 77-year-old from [place] admitted 01/19 with left buttock cellulitis/Fornier gangreen. Initial surgical debridement and colostomy 01/20. Moved back to intensive care unit 02/05 secondary to hypotension and small bowel obstruction. Return to surgery 02/06. Colostomy was leaking and revised and moved superiorly. Piece of small bowel was trapped in the original colostomy, causing obstruction. New wound VAC placed over original colostomy site. Colostomy taken down 03/01 with further debridement, fascial closure with open abdominal wall and wound VAC. Getting periodic wound VAC changes per surgery with residual debridement of necrotic tissue. * Recurrent septic picture with fever 03/04, decreased mental status, and hypotension. Proteus on blood cultures. Source not entirely clear. Bronchopneumonia certainly possible. Wounds, urine, line sepsis, skin, abdomen , etc. Restarted on Zosyn and micafungin, given 1 dose of vancomycin. Id consult appreciated. Hypotension resolved, blood pressures normalized. Now with increased tachycardia, confusion, lower blood pressures, some increased peripheral mottling and new changes on CT scan as outlined above. * Hypotension: Improved. Still on pressors. * Respiratory: Stable on mechanical ventilation. Did not tolerate weaning trial. -continue mechanical ventilation for now * Fornier gangrene. MRSA. He has completed and was off of antibiotics. * Rectal wound, dehisced. Packed. Has sutured scrotal incision, not dehisced thus far. Per surgery. * Small bowel obstruction: Reduced, resolved. * Colostomy leak-with dehiscence and evisceration. -to OR yesterday for fascial repair and debridement * Nutrition: On TPN * Rouse catheter: In place to prevent soilage of wounds. * Encephalopathy-no improvement. * Leukopenia: Resolved slowly. White blood cell counts remain generally low. * Acute blood-loss anemia: Hematocrit 28 today. No evidence of active bleeding. Following. * Metabolic: No issues currently identified. * Decubitus. Stage III. Dressed. * DVT prophylaxis: Enoxaparin. GI prophylaxis: Pepcid in TPN. * Type 2 diabetes: On insulin sliding scale coverage. Also in TPN * History of hypertension: Blood pressure medications on hold. * Prognosis-questionable for meaningful recovery Subjective: Eyes open but unresponsive. Objective: Vital Signs Temp Pulse Resp BP Pulse Ox 36.9 C 65 16 127/55 H 100 03/10/18 07:51 03/10/18 07:51 03/10/18 07:51 03/10/18 07:51 03/10/18 07:51 Microbiology 03/04/18 13:45 Blood Culture - Final Blood Escherichia Coli Esbl 03/05/18 16:30 Gram Stain - Final Lung - Bronchial Washings 03/05/18 16:30 Mycobacterial Smear (JUAN A) - Final Lung - Bronchial Washings Laboratory Results 03/10/18 05:10 03/10/18 05:10 03/09/18 03/10/18 03/11/18 05:59 05:59 05:59 Intake Total 7029.0 2887 Output Total 650 3250 Balance 6379.0 -363 PT 19.7 SEC (12.0-15.0) H 03/10/18 05:10 INR 1.66 (0.83-1.16) H 03/10/18 05:10 - Time Spent With Patient Time Spent With Patient: 35 min of critical care time spent with patient Case discussed with Respiratory therapy and Nursing Physical Exam - Physical Exam General Appearance: No alert EENT: PERRL/EOMI, ET tube Neck: non-tender Respiratory: crackles (Bibasilar), No respiratory distress, No wheezing Cardiac/Chest: normal peripheral pulses, systolic murmur Abdomen: soft, No non-tender Male Genitalia: deferred Rectal: deferred Skin: normal color, warm/dry Extremities: non-tender Neuro/Psych: No alert ICD10 Worksheet Patient Problems: Problems Problem Status Onset Cellulitis of perineum Acute Cellulitis, scrotum Acute Left buttock abscess Acute
[2018-03-10] MEDS: ENOXAPARIN 40 MG/0.4 ML SYR SC SCH (09:25)
[2018-03-10] MEDS: ERTAPENEM 1 GM in NS 100 ML IV SCH (09:25)
[2018-03-10] MEDS: MICAFUNGIN NA 100 MG in NS 100 ML IV SCH (09:26)
--- NOTE | 2018-03-10 09:38 | PCMIDPN ---
Assessment/Plan: #Recurrent Sepsis: due to polymicrobial bacteremia, source is not entirely clear , pulmonary w CT showing multiple round infiltrates vs portal of perineal wound (which has dehisced) vs intra-abdominal seems with fat and facial necrosis but bowel appears ok in OR. Overall remains critically ill despite multiple interventions- although tiny measures of improvement (wbc down, off pressors, vent settings sl improved). Blood cx established clearance of polymicrobial bacteremia --continue linezolid, platelets marked decline today --continuing micafungin until BAL fungal cx neg approx 1 week due to appearance of CT scan. Yeast in BAL cx today likely jammie --ertapenem for proteus + ESBL blood stream infection --contact precaution for ESBL, MRSA # Thrombocytopenia: sepsis vs linezolid, if continued drop in platelets may have to consider dc linezolid # MRSA bacteremia and Jacqueline's gangrene. S/p 30 days of anti MRSA coverage ( completed 02/19/18), wound mostly closed by report Microbiology 01/19/18 Buttock - MRSA 01/19/18 Blood Cx (1/2) MRSA Dapto JUAN A = <0.1 01/21/18 Blood Cx (2) Neg 01/25/18 Blood Cx (2) Neg 02/01/18 blood cx (2) Neg 02/05/18 blood cx 1 set micrococcus/ 1 set CoNS 02/06/18 peritoneal cx: neg 02/11/18 fungal blood cx: NGTD 01/24/18 & 02/06/18 Cdiff neg 03/04/18 blood cx 1 set ESBL E coli, 1 set proteus 03/05/18 BAL: MRSA (linezolid JUAN A <1), proteus, enterobacter 03/05/18 BAL: yeast 02/03/18 blood cx (2) NGTD meds Ertapenem 1 gm IV daily # 4, antibiotics # 7 Micafungin 100mg IV daily # 7 Linezolid 600mg IV q12h# 3 Subjective: patient w slight improvement in O2 requirement off pressors but receiving blood and albumin Objective: Vital Signs Temp Pulse Resp BP Pulse Ox 36.9 C 65 16 127/55 H 100 03/10/18 07:51 03/10/18 07:51 03/10/18 07:51 03/10/18 07:51 03/10/18 07:51 Microbiology 03/04/18 13:45 Blood Culture - Final Blood Escherichia Coli Esbl 03/05/18 16:30 Gram Stain - Final Lung - Bronchial Washings 03/05/18 16:30 Mycobacterial Smear (JUAN A) - Final Lung - Bronchial Washings Laboratory Results 03/10/18 05:10 03/10/18 05:10 03/09/18 03/10/18 03/11/18 05:59 05:59 05:59 Intake Total 7029.0 2887 Output Total 650 3250 Balance 6379.0 -363 ESR 23 MM/HR (0-20) H 02/06/18 04:57 C-Reactive Protein 67.3 mg/L (<10.0) H 02/13/18 04:20 - Physical Exam General Appearance: other (on vent, comfortable.) EENT: pale conjunctiva, ET Tube, No scleral icterus, No thrush Respiratory: coarse breath sounds, No accessory muscle use Neck: supple Cardiac/Chest: regular rate, rhythm Extremities: other (massive anasarca) Abdomen: soft, other (no bowel sounds, midline wound vac) Male Genitalia: maloly, scrotal edema (mild; intact incision under scrotum) Skin: No rash Neuro/Psych: alert - Time Spent With Patient Time Spent with Patient: greater than 35 minutes Time Spent with Patient: Greater than 35 minutes spent on this patients care, greater than 50% of time spent counseling, educating, and coordinating care regarding the above mentioned plan. ICD10 Worksheet Patient Problems: Problems Problem Status Onset Cellulitis of perineum Acute Cellulitis, scrotum Acute Left buttock abscess Acute
[2018-03-10] MEDS: CHLORHEXIDINE GLUCONATE 15 ML UDL PO SCH ×2 (09:59→20:48)
[2018-03-10] MEDS: SODIUM HYPOCHLORITE (DAKINS 1/4 STR) 473 ML BTL TP SCH ×2 (10:00→22:05)
--- NOTE | 2018-03-10 10:12 | SOAPPROG ---
SOAP Progress Note Assessment/Plan: Assessment/Plan: 77 Y M perirectal abscess, Jacqueline's gangrene. S/p multiple operative I&D's and diverting colostomy with subsequent revision and transposition. Sepsis, neutropenia. s/p delayed primary closure of Jacqueline's site, debridement of colostomy. s/p colostomy takedown with wound debridement and I&D of midline inc fluid collection. s/p revision of fascial closure 2/2 evisceration--combination of necrotic fascia and coughing. Remains critically ill on vent. Appears to have recurrent sepsis. Receiving blood and fluids. Reviewed CXR. Perineal wound dehisced and patient with incontinence and continued wound contamination. Patient with poor wound healing ability. Too early for rectal tube 2/2 low colon anastomosis after colostomy reversal. Wound vac change today. Will discuss with Dr. Saha. Prognosis guarded. 03/10/18 10:12 Objective: Vital Signs Temp Pulse Resp BP Pulse Ox 36.9 C 74 18 118/59 L 98 03/10/18 07:51 03/10/18 09:00 03/10/18 09:00 03/10/18 09:00 03/10/18 09:00 Microbiology 03/04/18 13:45 Blood Culture - Final Blood Escherichia Coli Esbl 03/05/18 16:30 Gram Stain - Final Lung - Bronchial Washings 03/05/18 16:30 Mycobacterial Smear (JUAN A) - Final Lung - Bronchial Washings Laboratory Results 03/10/18 05:10 03/10/18 05:10 03/09/18 03/10/18 03/11/18 05:59 05:59 05:59 Intake Total 7029.0 2887 Output Total 650 3250 Balance 6379.0 -363 PT 19.7 SEC (12.0-15.0) H 03/10/18 05:10 INR 1.66 (0.83-1.16) H 03/10/18 05:10 ICD10 Worksheet Patient Problems: Problems Problem Status Onset Cellulitis of perineum Acute Cellulitis, scrotum Acute Left buttock abscess Acute
[2018-03-10] MEDS ORDERED: ALTEPLASE 2 MG VIAL IVP PRN (10:33)
[2018-03-10] MEDS ORDERED: LOPERAMIDE HCL 2 MG CAP PO PRN (11:24)
--- NOTE | 2018-03-10 13:13 | HOSPPROG ---
Hospitalist Progress Note Assessment/Plan: * Septic shock - Polymicrobial + blood cultures - Proteus, ESBL Ecoli -IV invanz, IV micafungin, IV linezolid (MRSA in sputum) -lactate remains elevated - not clearing -hypotension improved - off pressors this am * Acute respiratory failure - intubated * Pulmonary masses - presumed infectious as not present on recent CT chest earlier this admission -bronch cultures pending, ? fungal * Abdominal wound dehiscence with evisceration - necrotic fascia -wound vac -d/w Dr. Saha - he still thinks patient can heal all wounds * MRSA Jacqueline's gangrene s/p debridement -30 days IV abx complete for this indication -wound dehiscence at this location as well -stool contaminating wound - too early post ostomy reversal for rectal tube -Cdiff negative - d/w Dr. Saha - okay for Imodium * s/p diverting colostomy - subsequent SBO due to fascial defect s/p revision -s/p colostomy take down - fat necrosis found during this surgery * DM II * Obesity BMI 34 * Increased LFT - due to sepsis * Metabolic encephalopathy - with hallucinations -now intubated/sedated * [address] -EKG/trop okay -no chest pain * Afib -due to acute illness -metoprolol * Nutrition - TPN CC time - 45 minutes - patient remains critically ill with borderline prognosis due to prolonged hospitalization with multiple recurrent sepsis episodes, inability to heal wounds, failure to improve despite weeks of critical illness Subjective: Stool contaminating perineal wound continuously Objective: Vital Signs Temp Pulse Resp BP Pulse Ox 36.8 C 67 18 133/62 H 97 03/10/18 11:00 03/10/18 12:00 03/10/18 12:00 03/10/18 12:00 03/10/18 12:00 Microbiology 03/04/18 13:45 Blood Culture - Final Blood Escherichia Coli Esbl 03/05/18 16:30 Gram Stain - Final Lung - Bronchial Washings 03/05/18 16:30 Mycobacterial Smear (JUAN A) - Final Lung - Bronchial Washings Laboratory Results 03/10/18 05:10 03/10/18 05:10 03/09/18 03/10/18 03/11/18 05:59 05:59 05:59 Intake Total 7029.0 2887 Output Total 650 3250 350 Balance 6379.0 -363 -350 PT 19.7 SEC (12.0-15.0) H 03/10/18 05:10 INR 1.66 (0.83-1.16) H 03/10/18 05:10 d/w Dr Verdugo, Dr Saha and palliative care team - Dr. Saha still believes wounds will heal. Brother wants to continue care as long as Dr. Saha feels there is hope. tele reviewed - NSR - Physical Exam Constitutional: no apparent distress, appears nourished, not in pain, other ( intubated and sedated) Cardiovascular: regular rate and rhythym, no murmur, rub, or gallop Respiratory: no respiratory distress, no rales or rhonchi, clear to auscultation Gastrointestinal: normoactive bowel sounds, soft, non-tender abdomen, no palpable masses Skin: no rashes or abrasions, no fluctuance, no induration, No mottled (better) Neurologic: No AAOx3 Psychiatric: other (intubated and sedated), No interacting appropriately ICD10 Worksheet Patient Problems: Problems Problem Status Onset Left buttock abscess Acute Cellulitis of perineum Acute Cellulitis, scrotum Acute
--- NOTE | 2018-03-10 15:51 | WOCRNPDOC ---
WOCRN Advanced Assessment Note - Skin Integrity Problem, Advanced Assess Medial Abdomen Surgical Wound/Incision Dressing Type: Black Vac Foam (x2 large pieces of black block, and a third of black simplace. ), Wound Vac Dressing Description: Clean/Dry, Intact Closure Description: Retention Sutures (in base of wound ) Exudate Amount: Minimal Exudate Characteristic(s): Serosanguinous (with lipid drops visible) Integumentary Issue Intervention: Dressing Changed Wound Bed Constitution: Red/[place] - Non Granular Tissue (30%), Tunneling (12 oclock 5 cm), Subcutaneous Fat (70%) Site Measurement - Head-to-Toe Length X Width X Depth (cm): 26x10.5x9.5 Skin Integrity Problem Comment: No granulation noted in wound bed, however fascia is intact. Elena wound skin around all areas clipped with hair clippers and then skin prepped. Flushed wound with ns. x5 pieces of black foam (from large sized dressing) placed in wound bed. Tubing was Y connected to left abdominal wounds then vac was restarted at -125 mm Hg continuous suction. No leaks detected. Next vac change Thursday. x3 [facility] RN students assited with care. Patient tolerated procedure well and was able to answer yes/no questions with head nod/shakes. Left Lower Abdomen Surgical Wound/Incision Dressing Type: Black Vac Foam (x2 (x3 total for left abdominal wounds)), Wound Vac Dressing Description: Clean/Dry, Intact Exudate Amount: Scant Exudate Characteristic(s): Serosanguinous Integumentary Issue Intervention: Dressing Changed Wound Bed Constitution: Granulation Tissue (30%), Red/[place] - Non Granular Tissue (20%), Subcutaneous Fat (50%) Wound Edges: Attached Site Measurement - Head-to-Toe Length X Width X Depth (cm): 3.6x10.2x5.7 Skin Integrity Problem Comment: Fascia intact. Flushed wound with ns and patted dry with gauze. x1 piece of black medium simplace in wound bed. This was bridged to proximal wound where a second piece of black foam was used for trac pad to sit on. The two bridged wounds were then Y connected to midline wound tubing and then set to suction at -125 mm Hg continous suction. Text report of wound status given to Taya SYED. Left Upper Abdomen Surgical Wound/Incision Dressing Type: Black Vac Foam (x1), Wound Vac Exudate Amount: Scant Exudate Characteristic(s): Serosanguinous Integumentary Issue Intervention: Dressing Changed Wound Bed Constitution: Granulation Tissue, Red/[place] - Non Granular Tissue Site Measurement - Head-to-Toe Length X Width X Depth (cm): 2x4.8x5.7 Skin Integrity Problem Comment: Difficult to visualize into wound bed due to small opening, but tissue around the edge of the wound is granulating. Fascia intact at base. Flushed with ns. One piece of medium simplace into wound bed and this was bridged to distal wound and vac restarted at -125 mm Hg continuous suction without any leaks.
[2018-03-10] MEDS: fentaNYL/NACL 100 ML IV SCH (17:44)
[2018-03-10] MEDS: TPN W/ FAMOTIDINE 1 EA BAG IV SCH (20:59)
[2018-03-11] MEDS: INSULIN REGULAR HUMAN 100 UNIT/ML UNIT SC SCH ×5 (00:34→23:44)
[2018-03-11] MEDS: LINEZOLID 600 MG/DEXTROSE 300 ML IV SCH ×2 (02:27→17:57)
[2018-03-11 06:45] LABS: PLATELET COUNT 70 10^3/uL (150-400)
[2018-03-11] MEDS: ERTAPENEM 1 GM in NS 100 ML IV SCH (08:32)
[2018-03-11] MEDS: CHLORHEXIDINE GLUCONATE 15 ML UDL PO SCH (08:36)
--- NOTE | 2018-03-11 08:49 | PDINTPN ---
Label Operator Progress Note Assessment/Plan: Assessment/plan: 77-year-old from [place] admitted 01/19 with left buttock cellulitis/Fornier gangreen. Initial surgical debridement and colostomy 01/20. Moved back to intensive care unit 02/05 secondary to hypotension and small bowel obstruction. Return to surgery 02/06. Colostomy was leaking and revised and moved superiorly. Piece of small bowel was trapped in the original colostomy, causing obstruction. New wound VAC placed over original colostomy site. Colostomy taken down 03/01 with further debridement, fascial closure with open abdominal wall and wound VAC. Getting periodic wound VAC changes per surgery with residual debridement of necrotic tissue. * Recurrent septic picture with fever 03/04, decreased mental status, and hypotension. Proteus on blood cultures. Source not entirely clear. Bronchopneumonia certainly possible. Wounds, urine, line sepsis, skin, abdomen , etc. Restarted on Zosyn and micafungin, given 1 dose of vancomycin. Id consult appreciated. Hypotension resolved, blood pressures normalized. Now with increased tachycardia, confusion, lower blood pressures, some increased peripheral mottling and new changes on CT scan as outlined above. * Hypotension: Improved. Still on pressors. * Respiratory: Stable on mechanical ventilation. Did well on CPAP trial -assess for extubation today * Fornier gangrene. MRSA. He has completed and was off of antibiotics. * Rectal wound, dehisced. Packed. Has sutured scrotal incision, not dehisced thus far. Per surgery. * Small bowel obstruction: Reduced, resolved. * Colostomy leak-with dehiscence and evisceration. -to OR yesterday for fascial repair and debridement * Nutrition: On TPN * Rouse catheter: In place to prevent soilage of wounds. * Encephalopathy-markedly improved. Awake and alert. Following commands. * Leukopenia: Resolved slowly. White blood cell counts remain generally low. * Acute blood-loss anemia: Hematocrit 28 today. No evidence of active bleeding. Following. * Metabolic: No issues currently identified. * Decubitus. Stage III. Dressed. * DVT prophylaxis: Enoxaparin. GI prophylaxis: Pepcid in TPN. * Type 2 diabetes: On insulin sliding scale coverage. Also in TPN * History of hypertension: Blood pressure medications on hold. * Prognosis-unclear Subjective: Awake and alert on mechanical ventilation. Following commands. Objective: Vital Signs Temp Pulse Resp BP Pulse Ox 37.3 C 62 16 135/60 H 97 03/11/18 02:00 03/11/18 07:56 03/11/18 07:56 03/11/18 06:00 03/11/18 07:56 Microbiology 03/05/18 16:30 Gram Stain - Final Lung - Bronchial Washings 03/05/18 16:30 Mycobacterial Smear (JUAN A) - Final Lung - Bronchial Washings 03/04/18 13:45 Blood Culture - Final Blood Escherichia Coli Esbl Laboratory Results 03/11/18 06:30 03/11/18 06:30 03/10/18 03/11/18 03/12/18 05:59 05:59 05:59 Intake Total 2887 3247.5 Output Total 3250 1620 Balance -363 1627.5 PT 19.7 SEC (12.0-15.0) H 03/10/18 05:10 INR 1.66 (0.83-1.16) H 03/10/18 05:10 - Time Spent With Patient Time Spent With Patient: 35 min of critical care time spent with patient Case discussed with Respiratory therapy and Nursing Physical Exam - Physical Exam General Appearance: alert, no apparent distress EENT: PERRL/EOMI, ET tube Neck: non-tender Respiratory: crackles (Bibasilar), No respiratory distress, No wheezing Cardiac/Chest: normal peripheral pulses, regular rate, rhythm Peripheral Pulses: 2+: carotid (R), carotid (L), femoral (R), femoral (L), dorsalis-pedis (R), dorsalis-pedis (L) Abdomen: soft, No normal bowel sounds, No non-tender Male Genitalia: deferred Rectal: deferred Skin: warm/dry Extremities: non-tender Neuro/Psych: alert ICD10 Worksheet Patient Problems: Problems Problem Status Onset Cellulitis of perineum Acute Cellulitis, scrotum Acute Left buttock abscess Acute
[2018-03-11] MEDS ORDERED: POTASSIUM Cl (KCl) 50 ML IV ONE (09:02)
[2018-03-11] MEDS: MICAFUNGIN NA 100 MG in NS 100 ML IV SCH (09:05)
--- NOTE | 2018-03-11 09:11 | SOAPPROG ---
SOAP Progress Note Assessment/Plan: Assessment: 77 MALE WITH I&D OF LEFT BUTTOCK ABSCESS WITH INDURATION AND INFLAMMATION EXTENDING INTO SCROTUM LOW GRADE TEMP/ WBC 14K DIABETIC NO CARDIAC SYMPTOMS CT SHOWS INFLAMMATION INTO SCROTUM MARKED EDEMA AND INDURATION IN PERINEUM AND SCROTUM Plan:MAY FURTHER I&D AND DEBRIDEMENT/ RISKS AND OPTIONS FULLY DISCUSSED 01/19/18 17:42 01/23/18 12:41 PATIENT COMFORTABLE AND DOING REASONABLY WELL DESPITE SIGNIFICANT TEMPERATURE ELEVATIONS LEAKING AND DIARRHEA STOOL OVER HIS WOUND SOME PERSISTENT INDURATION ERYTHEMA AROUND THE PERINEAL WOUND RISKS AND OPTIONS FULLY DISCUSSED PLAN: DIVERTING COLOSTOMY AND WOUND VAC CHANGE 01/24/18 11:02 TEMP DOWN/COMFORTABLE/VITAL SIGNS STABLE/ OSTOMY PINK AND WORKING WELL MINIMAL OUTPUT FROM THE WOUND VAC TRANSFER TO [facility] 02/09/18 19:12 STILL WITH DECREASED MENTAL STATUS BUT SOMEWHAT RESPONSIVE TO FOR MOLE CONVERSATION/HEAD CT IS NEGATIVE FOR ANY STROKE ABDOMEN SOFT THE/NEW COLOSTOMY LOOKS VIABLE/WOUND OKAY/AFEBRILE CONTINUE ANTIBIOTICS AND OTHER SUPPORT 02/16/18 18:06 SEEN WITH MY PA ALTAF PRECIADO/PLEASE REFER TO HER NOTE OSTOMY HAS SOME SUPERFICIAL NECROSIS WITH WILL HAVE TO BE WATCHED BUT NO RETRACTION/MENTAL STATUS SLOWLY IMPROVING/AFEBRILE PERINEUM IMPROVED 02/18/18 15:53 MORE ALERT, AFEBRILE, STEADILY IMPROVING SURGICAL RISKS AND OPTIONS FULLY DISCUSSED PLAN IS SECONDARY CLOSURE OF THE PERINEAL WOUND 2. DEBRIDEMENT OF THE ABDOMINAL COLOSTOMY SITE PATIENT FULLY UNDERSTANDS AND REQUESTS THAT WE PROCEED 02/22/18 08:23 wounds ok/ afebrile/ ostomy pink but retracting slightly/ decub stable/ more alert/ labs ok 03/06/18 17:46 CONFUSED TODAY/WOUND OKAY/SIGNIFICANT LOOSE BOWEL MOVEMENTS/STARTING TO EAT PATIENT DC HIS OWN FEEDING TUBE PERINEAL WOUND LOOKS OKAY CONSIDER ADDING TPN FOR MORE CALORIES AFEBRILE/VITAL SIGNS STABLE/O2 SAT ADEQUATE/LAB STABLE 03/07/18 09:34 AFEBRILE/VITAL SIGNS STABLE/STILL SOMEWHAT CONFUSED TODAY/ABDOMINAL WOUND VACS IN PLACE WITH LARGE VOLUME DRAINAGE STILL STOOLING OVER HIS PERINEAL WOUND/WE MAY NEED TO ADD WOUND VAC TO THAT AREA WELL/HEMATOCRIT STABLE 03/08/18 09:08 appears to have a midline dehiscience with evisceration / to or for repair 03/09/18 11:02 AFEBRILE/ SLIGHTLY ACIDOTIC/ VS STABLE/ WOUNDS OK/ HCT 26/ [id number]/ STABLE TACHYCARDIA/ STILL ON VENT / ? FLUID OVERLOAD CXR NOT BAD 03/11/18 09:09 overall improving/ abd soft/ vacs to be changed today/ possible extubation today hct 25/ wbc 11k/ afebrile/ less diarhea/ continue other tx/ off pressors Objective: Vital Signs Temp Pulse Resp BP Pulse Ox 37.3 C 65 15 146/65 H 98 03/11/18 02:00 03/11/18 08:00 03/11/18 08:00 03/11/18 08:00 03/11/18 08:00 Microbiology 03/05/18 16:30 Gram Stain - Final Lung - Bronchial Washings 03/05/18 16:30 Mycobacterial Smear (JUAN A) - Final Lung - Bronchial Washings 03/04/18 13:45 Blood Culture - Final Blood Escherichia Coli Esbl Laboratory Results 03/11/18 06:30 03/11/18 06:30 03/10/18 03/11/18 03/12/18 05:59 05:59 05:59 Intake Total 2887 3247.5 Output Total 3250 1620 Balance -363 1627.5 PT 19.7 SEC (12.0-15.0) H 03/10/18 05:10 INR 1.66 (0.83-1.16) H 03/10/18 05:10 ICD10 Worksheet Patient Problems: Problems Problem Status Onset Cellulitis of perineum Acute Cellulitis, scrotum Acute Left buttock abscess Acute
--- NOTE | 2018-03-11 09:29 | HOSPPROG ---
Hospitalist Progress Note Assessment/Plan: * Septic shock - Polymicrobial blood cultures - Proteus, ESBL Ecoli. Non- clearing lactate, though down a bit today. Off pressors. -Cont IV invanz, IV micafungin, IV linezolid (MRSA in sputum) * Acute respiratory failure - extubation planned for today * Pulmonary masses - presumed infectious as not present on recent CT chest earlier this admission -bronch cultures pending, yeast species on fungal Cx * Abdominal wound dehiscence with evisceration - necrotic fascia -wound vac x2 -surgery hoping wounds will heal, but so far little evidence of healing * 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 Had watery diarrhea with stool contaminating wound - too early post ostomy reversal for rectal tube per surgery. Stool now pasty, less watery. C diff negative. -prn imodium * s/p diverting colostomy - subsequent SBO due to fascial defect s/p revision -s/p colostomy take down - fat necrosis found during this surgery * DM II * Obesity BMI 34 * Increased LFT - due to sepsis * Metabolic encephalopathy - mentation improved today * [address] -EKG/trop okay -no chest pain * Afib -due to acute illness -metoprolol * Nutrition - TPN * DVT PPLX - Lovenox * Dispo - cont inpt. patient remains critically ill with guarded prognosis due to prolonged hospitalization with multiple recurrent sepsis episodes, inability to heal wounds, failure to improve despite weeks of critical illness Subjective: Pt intubated, but awake and interactive. NO fevers/chills. Denies pain. Hoping to have breathing tube removed. Objective: Vital Signs Temp Pulse Resp BP Pulse Ox 37.3 C 65 15 146/65 H 98 03/11/18 02:00 03/11/18 08:00 03/11/18 08:00 03/11/18 08:00 03/11/18 08:00 Microbiology 03/05/18 16:30 Gram Stain - Final Lung - Bronchial Washings 03/05/18 16:30 Mycobacterial Smear (JUAN A) - Final Lung - Bronchial Washings 03/04/18 13:45 Blood Culture - Final Blood Escherichia Coli Esbl Laboratory Results 03/11/18 06:30 03/11/18 06:30 03/10/18 03/11/18 03/12/18 05:59 05:59 05:59 Intake Total 2887 3247.5 Output Total 3250 1620 Balance -363 1627.5 PT 19.7 SEC (12.0-15.0) H 03/10/18 05:10 INR 1.66 (0.83-1.16) H 03/10/18 05:10 - Physical Exam Constitutional: no apparent distress Eyes: PERRL Ears, Nose, Mouth, Throat: moist mucous membranes Cardiovascular: regular rate and rhythym Respiratory: no respiratory distress, clear to auscultation Gastrointestinal: normoactive bowel sounds, other (soft, 2 wound vacs without surrounding erythema or drainage) Skin: warm Musculoskeletal: generalized weakness Neurologic: AAOx3 Psychiatric: interacting appropriately ICD10 Worksheet Patient Problems: Problems Problem Status Onset Cellulitis of perineum Acute Cellulitis, scrotum Acute Left buttock abscess Acute
[2018-03-11] MEDS: SODIUM HYPOCHLORITE (DAKINS 1/4 STR) 473 ML BTL TP SCH ×2 (11:00→22:15)
[2018-03-11] MEDS ORDERED: HYDROCORTISONE 100 MG/2 ML VIAL IVP SCH (17:30)
--- NOTE | 2018-03-11 18:24 | PCMIDPN ---
Assessment/Plan: Assessment/Plan: * Recurrent sepsis due to Proteus and ESBL E coli bacteremia: Unclear if polymicrobial bacteremia from GI source versus component from pneumonia as Proteus seen in both blood and BAL specimen. Continue ertapenem (ESBL E coli, Proteus), linezolid (MRSA on BAL), and micafungin (see below and also at risk for fungemia with ongoing TPN and central access). Serum Aspergillus antigen is negative. Will discontinue micafungin given no isolation of Aspergillus and BAL only shows growth of Gertrude which does not require targeted therapy. * Bilateral pneumonia: Serum Aspergillus antigen is negative. Will discontinue micafungin given no isolation of Aspergillus and BAL only shows growth of Gertrude which does not require targeted therapy. Continue antibiotic coverage as above outlined for recurrent sepsis. 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 * Thrombocytopenia: Platelet count relatively stable over last 24 hr. Will repeat tomorrow and continue with linezolid in interim. 03/11/18 18:21 Subjective: Patient extubated. Mumbles some responses but confused. Objective: Vital Signs Temp Pulse Resp BP Pulse Ox 37.7 C 130 H 25 H 178/104 H 98 03/11/18 16:00 03/11/18 18:00 03/11/18 18:00 03/11/18 18:00 03/11/18 18:00 Microbiology 03/05/18 16:30 Gram Stain - Final Lung - Bronchial Washings Bronchial Washings Culture - Final Proteus Mirabilis MRSA Enterobacter Cloacae 03/05/18 16:30 Mycobacterial Smear (JUAN A) - Final Lung - Bronchial Washings Laboratory Results 03/11/18 06:30 03/11/18 06:30 03/10/18 03/11/18 03/12/18 05:59 05:59 05:59 Intake Total 2887 3247.5 593 Output Total 3250 1620 775 Balance -363 1627.5 -182 ESR 23 MM/HR (0-20) H 02/06/18 04:57 C-Reactive Protein 67.3 mg/L (<10.0) H 02/13/18 04:20 Ertapenem # 5, antibiotics # 8 Micafungin # 8 Linezolid # 4 - Physical Exam General Appearance: non-toxic, other (Awake but confused) EENT: No scleral icterus Respiratory: coarse breath sounds, No respiratory distress Cardiac/Chest: tachycardia Abdomen: non-tender, other (Wound VACs in place without surrounding erythema), No distended Skin: No rash - Line/s RUE PICC Lines: other (Edema of right upper extremity present), No drainage, No erythema ICD10 Worksheet Patient Problems: Problems Problem Status Onset Cellulitis of perineum Acute Cellulitis, scrotum Acute Left buttock abscess Acute
[2018-03-11] MEDS: METOPROLOL TARTRATE 5 MG/5 ML INJ IVP PRN (19:43)
[2018-03-11] MEDS: TPN W/ FAMOTIDINE 1 EA BAG IV SCH (22:13)
[2018-03-11] MEDS: hydrALAZINE 20 MG/ML VIAL IVP PRN (23:44)
[2018-03-12] MEDS ORDERED: FUROSEMIDE 20 MG/2 ML VIAL IVP ONE (01:03)
[2018-03-12] MEDS: LINEZOLID 600 MG/DEXTROSE 300 ML IV SCH ×2 (04:00→16:03)
[2018-03-12 05:09] LABS: PLATELET COUNT 95 10^3/uL (150-400)
[2018-03-12] MEDS: INSULIN REGULAR HUMAN 100 UNIT/ML UNIT SC SCH ×3 (06:30→18:29)
[2018-03-12] MEDS: METOPROLOL TARTRATE 5 MG/5 ML INJ IVP PRN (07:34)
[2018-03-12] MEDS: hydrALAZINE 20 MG/ML VIAL IVP PRN (08:18)
[2018-03-12] MEDS: ERTAPENEM 1 GM in NS 100 ML IV SCH (08:28)
[2018-03-12] MEDS ORDERED: FUROSEMIDE 40 MG/4 ML VIAL IVP ONE ×2 (08:45→15:00)
--- NOTE | 2018-03-12 08:51 | PDINTPN ---
Athletic Monitor Progress Note Assessment/Plan: Assessment/plan: 77-year-old from [place] admitted 01/19 with left buttock cellulitis/Fornier gangreen. Initial surgical debridement and colostomy 01/20. Moved back to intensive care unit 02/05 secondary to hypotension and small bowel obstruction. Return to surgery 02/06. Colostomy was leaking and revised and moved superiorly. Piece of small bowel was trapped in the original colostomy, causing obstruction. New wound VAC placed over original colostomy site. Colostomy taken down 03/01 with further debridement, fascial closure with open abdominal wall and wound VAC. Getting periodic wound VAC changes per surgery with residual debridement of necrotic tissue. * Recurrent septic picture with fever 03/04, decreased mental status, and hypotension. Proteus on blood cultures. Source not entirely clear. Bronchopneumonia certainly possible. Wounds, urine, line sepsis, skin, abdomen , etc. Restarted on Zosyn and micafungin, given 1 dose of vancomycin. Id consult appreciated. Hypotension resolved, blood pressures normalized. Now with increased tachycardia, confusion, lower blood pressures, some increased peripheral mottling and new changes on CT scan as outlined above. * Hypotension: Improved. Still on pressors. * Respiratory: Stable off mechanical ventilation * Fornier gangrene. MRSA. He has completed and was off of antibiotics. * Rectal wound, dehisced. Packed. Has sutured scrotal incision, not dehisced thus far. Per surgery. * Small bowel obstruction: Reduced, resolved. * Colostomy leak-with dehiscence and evisceration. -to OR yesterday for fascial repair and debridement * Nutrition: On TPN * Rouse catheter: In place to prevent soilage of wounds. * Encephalopathy-not doing as well as yesterday * Leukopenia: Resolved slowly. White blood cell counts remain generally low. * Acute blood-loss anemia: Hematocrit 28 today. No evidence of active bleeding. Following. * Metabolic: Elevated lactate. Etiology is unclear. -will check ABG * Decubitus. Stage III. Dressed. * DVT prophylaxis: Enoxaparin. GI prophylaxis: Pepcid in TPN. * Type 2 diabetes: On insulin sliding scale coverage. Also in TPN * History of hypertension: Blood pressure medications on hold. * Prognosis-unclear Subjective: Resting comfortably. Poorly responsive. Objective: Vital Signs Temp Pulse Resp BP Pulse Ox 37.4 C 126 H 39 H 162/91 H 92 03/12/18 08:00 03/12/18 08:00 03/12/18 08:00 03/12/18 08:00 03/12/18 08:00 Microbiology 02/11/18 20:00 Blood Fungal Culture - Final Blood 02/11/18 12:45 Blood Fungal Culture - Final Blood 03/06/18 11:40 Blood Culture - Final Blood 03/06/18 10:45 Blood Culture - Final Blood 03/05/18 16:30 Gram Stain - Final Lung - Bronchial Washings Bronchial Washings Culture - Final Proteus Mirabilis MRSA Enterobacter Cloacae Laboratory Results 03/12/18 04:40 03/12/18 04:40 03/11/18 03/12/18 03/13/18 05:59 05:59 05:59 Intake Total 3247.5 3324 Output Total 1620 2875 Balance 1627.5 449 PT 19.7 SEC (12.0-15.0) H 03/10/18 05:10 INR 1.66 (0.83-1.16) H 03/10/18 05:10 Chest x-ray by myself. Central line in good position. Underpenetrated but pulmonary edema is likely. Bilateral pleural effusions are present - Time Spent With Patient Time Spent With Patient: 35 min of time spent with patient, over 1/2 involved with coordination of care or counseling. Case discussed with Respiratory therapy, nursing and surgery Physical Exam - Physical Exam General Appearance: no apparent distress, No alert EENT: PERRL/EOMI Neck: non-tender Respiratory: rhonchi (Scattered), No respiratory distress, No wheezing Cardiac/Chest: normal peripheral pulses, regular rate, rhythm Peripheral Pulses: 2+: carotid (R), carotid (L), femoral (R), femoral (L), dorsalis-pedis (R), dorsalis-pedis (L) Abdomen: normal bowel sounds, non-tender, soft Male Genitalia: deferred Rectal: deferred Skin: normal color, warm/dry Extremities: non-tender Neuro/Psych: No alert ICD10 Worksheet Patient Problems: Problems Problem Status Onset Cellulitis of perineum Acute Cellulitis, scrotum Acute Left buttock abscess Acute
--- NOTE | 2018-03-12 09:46 | HOSPPROG ---
Hospitalist Progress Note Assessment/Plan: * Septic shock - Polymicrobial blood cultures - Proteus, ESBL Ecoli. Non- clearing lactate, though down a bit today. Off pressors. -Cont IV invanz, IV micafungin, IV linezolid (MRSA in sputum) * Tachycardia - HR 130's this am. Suspect opioid withdrawal, was getting 50 mcg's/hr of fentanyl for >5 days, which was stopped relatively abruptly -check ekg -consider PE, missed lovenox yesterday due to low plts, o/w has been getting Lovenox pplx, consider CTA if not improving * Thrombocytopenia - suspect due to sepsis, improving today -follow * Acute respiratory failure - extubated 03/11. CXR pers reviewed/interp - appears wet -IV Lasix * Pulmonary masses - presumed infectious as not present on recent CT chest earlier this admission -bronch cultures pending, yeast species on fungal Cx * Abdominal wound dehiscence with evisceration - necrotic fascia -wound vac x2 -surgery hoping wounds will heal, but so far little evidence of healing * 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 Had watery diarrhea with stool contaminating wound - too early post ostomy reversal for rectal tube per surgery. Stool now pasty, less watery. C diff negative. -prn imodium * s/p diverting colostomy - subsequent SBO due to fascial defect s/p revision -s/p colostomy take down - fat necrosis found during this surgery * DM II * Obesity BMI 34 * Increased LFT - due to sepsis * Metabolic encephalopathy - mentation improved today * [address] -EKG/trop okay -no chest pain * Afib -due to acute illness -metoprolol * Nutrition - TPN * DVT PPLX - Lovenox * Dispo - cont inpt. patient remains critically ill with guarded prognosis due to prolonged hospitalization with multiple recurrent sepsis episodes, inability to heal wounds, failure to improve despite weeks of critical illness. Family meeting today. Subjective: Pt appears uncomfortable, increased work of breathing, has percussion going on bed. No fevers/chills. HR up today. Denies CP. Objective: Vital Signs Temp Pulse Resp BP Pulse Ox 37.4 C 126 H 39 H 162/91 H 92 03/12/18 08:00 03/12/18 08:00 03/12/18 08:00 03/12/18 08:00 03/12/18 08:00 Microbiology 02/11/18 20:00 Blood Fungal Culture - Final Blood 02/11/18 12:45 Blood Fungal Culture - Final Blood 03/06/18 11:40 Blood Culture - Final Blood 03/06/18 10:45 Blood Culture - Final Blood 03/05/18 16:30 Gram Stain - Final Lung - Bronchial Washings Bronchial Washings Culture - Final Proteus Mirabilis MRSA Enterobacter Cloacae Laboratory Results 03/12/18 04:40 03/12/18 04:40 03/11/18 03/12/18 03/13/18 05:59 05:59 05:59 Intake Total 3247.5 3324 Output Total 1620 2875 Balance 1627.5 449 PT 19.7 SEC (12.0-15.0) H 03/10/18 05:10 INR 1.66 (0.83-1.16) H 03/10/18 05:10 - Physical Exam Constitutional: chronically ill appearing Eyes: PERRL Ears, Nose, Mouth, Throat: moist mucous membranes Cardiovascular: tachycardia Respiratory: inspiratory crackles Gastrointestinal: normoactive bowel sounds, soft, non-tender abdomen, other (2 wound vacs on abdomen functioning properly) Skin: warm Musculoskeletal: generalized weakness Neurologic: AAOx3 Psychiatric: interacting appropriately ICD10 Worksheet Patient Problems: Problems Problem Status Onset Cellulitis of perineum Acute Cellulitis, scrotum Acute Left buttock abscess Acute
--- NOTE | 2018-03-12 09:52 | PCMIDPN ---
Assessment/Plan: Assessment: Recurrent sepsis. Initial Jacqueline's gangrene secondary to MRSA. The MRSA issue head resolve weeks ago however the patient became acutely septic again last week. Proteus and ESBL E coli was found in the blood stream. Was treated initially Zosyn and micafungin. This evolved to ertapenem and micafungin. However the micafungin was discontinued yesterday. Linezolid was added secondary to MRSA isolation from bronch wash. New left lower lobe spherical infiltrates found earlier this week. Patient was extubated yesterday. Marked increase of heart rate since then. Fentanyl was also abruptly discontinued which may be a cause of these discrepancies. 1. Continue IV ertapenem and linezolid. 2. Follow fever curve, improvement in encephalopathy/confusion and general clinical course. Subjective: Patient is resting in his ICU bed. He is not very communicative. Only able to groan for verbalization. Tachycardic. Appears to be somewhat obtunded. Objective: Ertapenem # 6 Linezolid # 5 Vital Signs Temp Pulse Resp BP Pulse Ox 37.4 C 126 H 39 H 162/91 H 92 03/12/18 08:00 03/12/18 08:00 03/12/18 08:00 03/12/18 08:00 03/12/18 08:00 Microbiology 02/11/18 20:00 Blood Fungal Culture - Final Blood 02/11/18 12:45 Blood Fungal Culture - Final Blood 03/06/18 11:40 Blood Culture - Final Blood 03/06/18 10:45 Blood Culture - Final Blood 03/05/18 16:30 Gram Stain - Final Lung - Bronchial Washings Bronchial Washings Culture - Final Proteus Mirabilis MRSA Enterobacter Cloacae Laboratory Results 03/12/18 04:40 03/12/18 04:40 03/11/18 03/12/18 03/13/18 05:59 05:59 05:59 Intake Total 3247.5 3324 Output Total 1620 2875 Balance 1627.5 449 ESR 23 MM/HR (0-20) H 02/06/18 04:57 C-Reactive Protein 67.3 mg/L (<10.0) H 02/13/18 04:20 - Physical Exam General Appearance: WD/WN, alert, apparent distress, toxic, other (Somewhat obtunded) Respiratory: crackles, coarse breath sounds, No lungs clear, No respiratory distress Cardiac/Chest: regular rate, rhythm, tachycardia, No irregularly irregular Extremities: non-tender, normal inspection Abdomen: soft, distended Skin: normal color, warm/dry, No rash ICD10 Worksheet Patient Problems: Problems Problem Status Onset Cellulitis of perineum Acute Cellulitis, scrotum Acute Left buttock abscess Acute
[2018-03-12] MEDS ORDERED: HYDROmorphONE/DILAUDID 1 MG/ML INJ IVP ONE (10:01)
[2018-03-12] MEDS: SODIUM HYPOCHLORITE (DAKINS 1/4 STR) 473 ML BTL TP SCH (10:23)
[2018-03-12] MEDS: ENOXAPARIN 40 MG/0.4 ML SYR SC SCH (10:23)
[2018-03-12] MEDS ORDERED: HYDROmorphONE/DILAUDID 1 MG/ML INJ IVP PRN (14:30)
--- NOTE | 2018-03-12 15:59 | SOAPPROG ---
SOAP Progress Note Assessment/Plan: Assessment: 77 MALE WITH I&D OF LEFT BUTTOCK ABSCESS WITH INDURATION AND INFLAMMATION EXTENDING INTO SCROTUM LOW GRADE TEMP/ WBC 14K DIABETIC NO CARDIAC SYMPTOMS CT SHOWS INFLAMMATION INTO SCROTUM MARKED EDEMA AND INDURATION IN PERINEUM AND SCROTUM Plan:MAY FURTHER I&D AND DEBRIDEMENT/ RISKS AND OPTIONS FULLY DISCUSSED 01/19/18 17:42 01/23/18 12:41 PATIENT COMFORTABLE AND DOING REASONABLY WELL DESPITE SIGNIFICANT TEMPERATURE ELEVATIONS LEAKING AND DIARRHEA STOOL OVER HIS WOUND SOME PERSISTENT INDURATION ERYTHEMA AROUND THE PERINEAL WOUND RISKS AND OPTIONS FULLY DISCUSSED PLAN: DIVERTING COLOSTOMY AND WOUND VAC CHANGE 01/24/18 11:02 TEMP DOWN/COMFORTABLE/VITAL SIGNS STABLE/ OSTOMY PINK AND WORKING WELL MINIMAL OUTPUT FROM THE WOUND VAC TRANSFER TO [facility] 02/09/18 19:12 STILL WITH DECREASED MENTAL STATUS BUT SOMEWHAT RESPONSIVE TO FOR MOLE CONVERSATION/HEAD CT IS NEGATIVE FOR ANY STROKE ABDOMEN SOFT THE/NEW COLOSTOMY LOOKS VIABLE/WOUND OKAY/AFEBRILE CONTINUE ANTIBIOTICS AND OTHER SUPPORT 02/16/18 18:06 SEEN WITH MY PA ALTAF PRECIADO/PLEASE REFER TO HER NOTE OSTOMY HAS SOME SUPERFICIAL NECROSIS WITH WILL HAVE TO BE WATCHED BUT NO RETRACTION/MENTAL STATUS SLOWLY IMPROVING/AFEBRILE PERINEUM IMPROVED 02/18/18 15:53 MORE ALERT, AFEBRILE, STEADILY IMPROVING SURGICAL RISKS AND OPTIONS FULLY DISCUSSED PLAN IS SECONDARY CLOSURE OF THE PERINEAL WOUND 2. DEBRIDEMENT OF THE ABDOMINAL COLOSTOMY SITE PATIENT FULLY UNDERSTANDS AND REQUESTS THAT WE PROCEED 02/22/18 08:23 wounds ok/ afebrile/ ostomy pink but retracting slightly/ decub stable/ more alert/ labs ok 03/06/18 17:46 CONFUSED TODAY/WOUND OKAY/SIGNIFICANT LOOSE BOWEL MOVEMENTS/STARTING TO EAT PATIENT DC HIS OWN FEEDING TUBE PERINEAL WOUND LOOKS OKAY CONSIDER ADDING TPN FOR MORE CALORIES AFEBRILE/VITAL SIGNS STABLE/O2 SAT ADEQUATE/LAB STABLE 03/07/18 09:34 AFEBRILE/VITAL SIGNS STABLE/STILL SOMEWHAT CONFUSED TODAY/ABDOMINAL WOUND VACS IN PLACE WITH LARGE VOLUME DRAINAGE STILL STOOLING OVER HIS PERINEAL WOUND/WE MAY NEED TO ADD WOUND VAC TO THAT AREA WELL/HEMATOCRIT STABLE 03/08/18 09:08 appears to have a midline dehiscience with evisceration / to or for repair 03/09/18 11:02 AFEBRILE/ SLIGHTLY ACIDOTIC/ VS STABLE/ WOUNDS OK/ HCT 26/ [id number]/ STABLE TACHYCARDIA/ STILL ON VENT / ? FLUID OVERLOAD CXR NOT BAD 03/11/18 09:09 overall improving/ abd soft/ vacs to be changed today/ possible extubation today hct 25/ wbc 11k/ afebrile/ less diarhea/ continue other tx/ off pressors 03/12/18 15:56 AFTER IMPROVEMENT AND A GOOD DAY YESTERDAY TAKEN A TURN FOR THE WORSE TODAY TACHYCARDIA UP TO 140/LACTATE LEVEL UP TO 5 DESPITE NORMAL BLOOD PRESSURE AND GOOD URINE OUTPUT ALL WOUNDS ARE REASONABLY CLEAN AND STARTING TO GRANULATE ABDOMEN IS SOFT AND NONTENDER WITH POSITIVE BOWEL SOUNDS AND POSITIVE BOWEL MOVEMENT CHEST REVEALS A REVEALS THE DIFFUSE INFILTRATES WHICH MAY BE POSTERIOR LAYERING EFFUSIONS HIS BLOOD GASES QUITE ADEQUATE AN USING ONLY A 4-6 L OF O2 NEUROLOGIC LEAST SEDATED AND NOT VERY RESPONSIVE TODAY EXTREMITIES SHOW EDEMA IMPRESSION: WORSENING HIS PULMONARY SITUATION/PATIENT HAS BEEN MADE A DNR BY HIS POA Objective: Vital Signs Temp Pulse Resp BP Pulse Ox 37.4 C 126 H 39 H 162/91 H 92 03/12/18 08:00 03/12/18 08:00 03/12/18 08:00 03/12/18 08:00 03/12/18 08:00 Microbiology 02/11/18 20:00 Blood Fungal Culture - Final Blood 02/11/18 12:45 Blood Fungal Culture - Final Blood 03/06/18 11:40 Blood Culture - Final Blood 03/06/18 10:45 Blood Culture - Final Blood 03/05/18 16:30 Gram Stain - Final Lung - Bronchial Washings Bronchial Washings Culture - Final Proteus Mirabilis MRSA Enterobacter Cloacae Laboratory Results 03/12/18 04:40 03/12/18 04:40 03/11/18 03/12/18 03/13/18 05:59 05:59 05:59 Intake Total 3247.5 3324 Output Total 1620 2875 1600 Balance 1627.5 449 -1600 PT 19.7 SEC (12.0-15.0) H 03/10/18 05:10 INR 1.66 (0.83-1.16) H 03/10/18 05:10 ICD10 Worksheet Patient Problems: Problems Problem Status Onset Cellulitis of perineum Acute Cellulitis, scrotum Acute Left buttock abscess Acute
--- NOTE | 2018-03-12 16:21 | ASMTCMCOM ---
CM Note CM Note Notes: Family meeting with Bj, patient's brother and [facility], Dr. Verdugo and Dr. Saha, Chaplain Carolyn, and CM Flores Martinez. The physicians addressed patient's medical status and how many ups and downs there have been.They told Bj, patient's prognosis is guarded and he has a 50/[address] Saha agreed to let Bj know when continuing medical interventions ceased to be in the patient's best interests. Patient was put on DNR status today and this can be adjusted if Dr. Saha needs to take the patient back to the OR. Bj seemed to understand and agreed his brother would not want to continue if he did not have a chance of surviving. Bj had some questions about the info regarding patient's insurance premiums. Guilherme is quite certain his insurance premiums have been paid. He is interested if Veterans will pay for some of the bills. CM did not have time to look into this today and encouraged Bj to pursue it since he has all the info regarding his brother's service. Patient's status is taken a turn for the worse today.CM will follow. Date Signed: 03/12/2018 04:15 PM Electronically Signed By:Flores Martinez LCSW
--- NOTE | 2018-03-12 17:51 | WOCRNPDOC ---
IVÁN Advanced Assessment Note - Skin Integrity Problem, Advanced Assess Medial Abdomen Surgical Wound/Incision Dressing Type: Black Vac Foam (x4), Wound Vac Dressing Description: Clean/Dry, Intact Closure Description: Not Approximated Exudate Amount: Minimal Exudate Color: Reddish/Yellow Exudate Characteristic(s): Serosanguinous Integumentary Issue Intervention: Dressing Changed Elena Wound Tissue: Intact Wound Bed Constitution: Red/Hudson - Non Granular Tissue (25%), Tunneling, Subcutaneous Fat (75%) Wound Edges: Attached, Well Defined Site Measurement - Head-to-Toe Length X Width X Depth (cm): [id number] Skin Integrity Problem Comment: Informed by MYLENE Dinh that Dr. Saha had removed wound vacs and that the patient had wet to dry dressings in place. Wound bed cleaned with NS and gauze. Elena wound tissue prepped with skin prep and draped. Wound bed filled with 4 pieces black block foam. Good seal achieved at -125mmHg. Vac Y-connected with 2 left sided abdominal wounds and seal remained intact. Patient tolerated the procedure well. MYLENE Dinh in room for cares. Wound care will round again on Thursday. Left Lower Abdomen Surgical Wound/Incision Dressing Type: Black Vac Foam, Wound Vac Other Dressing Type: 1 Dressing Description: Clean/Dry, Intact Closure Description: Not Approximated Exudate Amount: Minimal Exudate Color: Reddish/Yellow Exudate Characteristic(s): Serosanguinous Integumentary Issue Intervention: Dressing Changed Elena Wound Tissue: Intact Wound Bed Color: Hudson, Red Wound Bed Constitution: Granulation Tissue (40%), Subcutaneous Fat (60%) Wound Edges: Attached, Well Defined Site Measurement - Head-to-Toe Length X Width X Depth (cm): 3.6x9.8x5.5 Skin Integrity Problem Comment: Wound bed cleaned with NS and gauze. Elena wound tissue prepped with skin prep and draped. Wound bed filled with 1 piece black simplace foam and bridged to left upper abdominal wound. Good seal achieved at - 125mmHg. Patient tolerated the procedure well. MYLENE Dinh in room for cares. Wound care will round again on Thursday. Left Upper Abdomen Surgical Wound/Incision Dressing Type: Black Vac Foam, Wound Vac Other Dressing Type: x1 Dressing Description: Clean/Dry, Intact Closure Description: Not Approximated Exudate Amount: Minimal Exudate Color: Reddish/Yellow Exudate Characteristic(s): Serosanguinous Integumentary Issue Intervention: Dressing Changed Elena Wound Tissue: Intact Wound Bed Color: Red, Yellow Wound Bed Constitution: Granulation Tissue (70%), Adhered Slough (30%) Wound Edges: Attached, Well Defined Site Measurement - Head-to-Toe Length X Width X Depth (cm): 2x4.5x5.5 Skin Integrity Problem Comment: Wound bed cleaned with NS and gauze. Elena wound tissue prepped with skin prep and draped. Wound bed filled with 1 piece medium black simplace foam and bridged to left lower abdominal wound. Good seal achieved at -125mmHg. Patient tolerated the procedure well. MYLENE Dinh in room for cares. Wound care will round again on Thursday.
[2018-03-12] MEDS: TPN W/ FAMOTIDINE 1 EA BAG IV SCH (20:49)
[2018-03-13] MEDS: INSULIN REGULAR HUMAN 100 UNIT/ML UNIT SC SCH ×4 (02:01→18:25)
[2018-03-13] MEDS: SODIUM HYPOCHLORITE (DAKINS 1/4 STR) 473 ML BTL TP SCH ×2 (02:05→08:46)
[2018-03-13] MEDS: LINEZOLID 600 MG/DEXTROSE 300 ML IV SCH ×2 (03:30→16:11)
[2018-03-13 05:05] LABS: PLATELET COUNT 81 10^3/uL (150-400)
[2018-03-13] MEDS: ENOXAPARIN 40 MG/0.4 ML SYR SC SCH (08:45)
[2018-03-13] MEDS: ERTAPENEM 1 GM in NS 100 ML IV SCH (08:45)
[2018-03-13] MEDS: METOPROLOL TARTRATE 5 MG/5 ML INJ IVP PRN (08:55)
--- NOTE | 2018-03-13 08:57 | SOAPPROG ---
SOAP Progress Note Assessment/Plan: Assessment: 77yo M c Jacqueline's s/p multi debridements, colostomy - looks about the same, not following commands has a lot of thick secretions which he is having difficulty expectorating - his abdomen is soft nondistended nontender. He does have some hypoactive bowel sounds. Per report, has not had a bowel movement yet. Continue TPN - wound VAC serosanguineous changed yesterday without incident Plan: 01/30/18 11:01 02/13/18 12:29 02/14/18 10:40 02/15/18 11:48 03/13/18 08:56 Subjective: Not following commands Objective: Vital Signs Temp Pulse Resp BP Pulse Ox 37.5 C 126 H 26 H 150/97 H 100 03/13/18 04:00 03/13/18 06:00 03/13/18 06:00 03/13/18 06:00 03/13/18 06:00 Microbiology 02/11/18 20:00 Blood Fungal Culture - Final Blood 02/11/18 12:45 Blood Fungal Culture - Final Blood 03/06/18 11:40 Blood Culture - Final Blood 03/06/18 10:45 Blood Culture - Final Blood Laboratory Results 03/13/18 04:50 03/13/18 04:50 03/12/18 03/13/18 03/14/18 05:59 05:59 05:59 Intake Total 3324 4439 Output Total 0484 4558 Balance 449 -1001 PT 19.7 SEC (12.0-15.0) H 03/10/18 05:10 INR 1.66 (0.83-1.16) H 03/10/18 05:10 ICD10 Worksheet Patient Problems: Problems Problem Status Onset Cellulitis of perineum Acute Cellulitis, scrotum Acute Left buttock abscess Acute
[2018-03-13] MEDS ORDERED: FUROSEMIDE 40 MG/4 ML VIAL IVP SCH (09:00)
--- NOTE | 2018-03-13 09:41 | PDINTPN ---
[facility] Progress Note Assessment/Plan: Assessment/plan: 77-year-old from [place] admitted 01/19 with left buttock cellulitis/Fornier gangreen. Initial surgical debridement and colostomy 01/20. Moved back to intensive care unit 02/05 secondary to hypotension and small bowel obstruction. Return to surgery 02/06. Colostomy was leaking and revised and moved superiorly. Piece of small bowel was trapped in the original colostomy, causing obstruction. New wound VAC placed over original colostomy site. Colostomy taken down 03/01 with further debridement, fascial closure with open abdominal wall and wound VAC. Getting periodic wound VAC changes per surgery with residual debridement of necrotic tissue. * Recurrent septic picture with fever 03/04, decreased mental status, and hypotension. Proteus on blood cultures. Source not entirely clear. Bronchopneumonia certainly possible. Wounds, urine, line sepsis, skin, abdomen , etc. Restarted on Zosyn and micafungin, given 1 dose of vancomycin. Id consult appreciated. Hypotension resolved, blood pressures normalized. Now with increased tachycardia, confusion, lower blood pressures, some increased peripheral mottling and new changes on CT scan as outlined above. * Hypotension: Improved. Still on pressors. * Respiratory: Market increase in secretions. Patient extremely weak and has difficulty coughing these up. 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 * Rectal wound, dehisced. Packed. Has sutured scrotal incision, not dehisced thus far. Per surgery. * Small bowel obstruction: Reduced, resolved. * Colostomy leak-with dehiscence and evisceration. -to OR yesterday for fascial repair and debridement * Nutrition: On TPN * Rouse catheter: In place to prevent soilage of wounds. * Encephalopathy-not doing as well as yesterday * Leukopenia: Resolved slowly. White blood cell counts remain generally low. * Acute blood-loss anemia: Hematocrit 28 today. No evidence of active bleeding. Following. * Metabolic: Elevated lactate. Etiology is unclear. -will check ABG * Decubitus. Stage III. Dressed. * DVT prophylaxis: Enoxaparin. GI prophylaxis: Pepcid in TPN. * Type 2 diabetes: On insulin sliding scale coverage. Also in TPN * History of hypertension: Blood pressure medications on hold. * Prognosis-unclear. Now do not resuscitate 03/13/18 09:39 Subjective: Eyes open. Poorly responsive. Objective: Vital Signs Temp Pulse Resp BP Pulse Ox 37.5 C 139 H 26 H 140/97 H 100 03/13/18 04:00 03/13/18 08:55 03/13/18 06:00 03/13/18 08:55 03/13/18 06:00 Microbiology 02/11/18 20:00 Blood Fungal Culture - Final Blood 02/11/18 12:45 Blood Fungal Culture - Final Blood 03/06/18 11:40 Blood Culture - Final Blood 03/06/18 10:45 Blood Culture - Final Blood Laboratory Results 03/13/18 04:50 03/13/18 04:50 03/12/18 03/13/18 03/14/18 05:59 05:59 05:59 Intake Total 3324 1939 Output Total 2875 2940 Balance 449 -1001 PT 19.7 SEC (12.0-15.0) H 03/10/18 05:10 INR 1.66 (0.83-1.16) H 03/10/18 05:10 - Time Spent With Patient Time Spent With Patient: 35 min of time spent with patient, over 1/2 involved with coordination of care or counseling. Case discussed with Respiratory therapy and Nursing Physical Exam - Physical Exam General Appearance: No alert EENT: PERRL/EOMI Neck: non-tender Respiratory: respiratory distress (Intermittent), rhonchi (Scattered), No wheezing Cardiac/Chest: normal peripheral pulses, regular rate, rhythm Peripheral Pulses: 2+: carotid (R), carotid (L), femoral (R), femoral (L), dorsalis-pedis (R), dorsalis-pedis (L) Abdomen: non-tender, soft Male Genitalia: deferred Rectal: deferred Skin: warm/dry Extremities: non-tender Neuro/Psych: No alert ICD10 Worksheet Patient Problems: Problems Problem Status Onset Cellulitis of perineum Acute Cellulitis, scrotum Acute Left buttock abscess Acute
--- NOTE | 2018-03-13 09:53 | HOSPPROG ---
Hospitalist Progress Note Assessment/Plan: * Septic shock - Polymicrobial blood cultures - Proteus, ESBL Ecoli. Non- clearing lactate. Off pressors. -Cont IV invanz, Linezolid -ID following * Pulmonary masses - presumed infectious as not present on recent CT chest earlier this admission. bronch cultures grew enterobacter, MRSA, proteus species, yeast species on fungal Cx -CT chest today * Thrombocytopenia - suspect due to sepsis, overall improving -follow * Acute respiratory failure - extubated 03/11. CXR yest with edema. S/P IV Lasix bolus, note BUN on the rise. 20+ L net positive. 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 Had watery diarrhea with stool contaminating wound - too early post ostomy reversal for rectal tube per surgery. Stool now pasty, less watery. C diff negative. -prn imodium * s/p diverting colostomy - subsequent SBO due to fascial defect s/p revision -s/p colostomy take down - fat necrosis found during this surgery * DM II * Obesity BMI 34 * Increased LFT - due to sepsis * Metabolic encephalopathy * [address] -EKG/trop okay -no chest pain * Afib -due to acute illness -metoprolol * Nutrition - TPN * DVT PPLX - Lovenox * Dispo - cont inpt. patient remains critically ill with guarded prognosis due to prolonged hospitalization with multiple recurrent sepsis episodes, inability to heal wounds, failure to improve despite weeks of critical illness. Family meeting yesterday, pt now DNR. Subjective: Pt continues to have increased WOB. No fevers. Mentation not great today. +significant respiratory secretions. Objective: Vital Signs Temp Pulse Resp BP Pulse Ox 37.5 C 139 H 26 H 140/97 H 100 03/13/18 04:00 03/13/18 08:55 03/13/18 06:00 03/13/18 08:55 03/13/18 06:00 Microbiology 02/11/18 20:00 Blood Fungal Culture - Final Blood 02/11/18 12:45 Blood Fungal Culture - Final Blood 03/06/18 11:40 Blood Culture - Final Blood 03/06/18 10:45 Blood Culture - Final Blood Laboratory Results 03/13/18 04:50 03/13/18 04:50 03/12/18 03/13/18 03/14/18 05:59 05:59 05:59 Intake Total 3460 9706 Output Total 1319 3722 Balance 449 -1001 PT 19.7 SEC (12.0-15.0) H 03/10/18 05:10 INR 1.66 (0.83-1.16) H 03/10/18 05:10 - Physical Exam Constitutional: no apparent distress Eyes: PERRL Ears, Nose, Mouth, Throat: moist mucous membranes Cardiovascular: tachycardia Respiratory: inspiratory crackles Gastrointestinal: other (soft, wound vacs functioning) Skin: warm Musculoskeletal: other (anasarca, mottling) Psychiatric: encephalopathic ICD10 Worksheet Patient Problems: Problems Problem Status Onset Cellulitis of perineum Acute Cellulitis, scrotum Acute Left buttock abscess Acute
[2018-03-13] MEDS ORDERED: 1/2 NS 1,000 ML IV SCH (10:30)
--- NOTE | 2018-03-13 11:08 | PCMIDPN ---
Assessment/Plan: Assessment/Plan: * Recurrent sepsis due to Proteus and ESBL E coli bacteremia: Unclear if polymicrobial bacteremia from GI source versus component from pneumonia as Proteus seen in both blood and BAL specimen. Continue ertapenem (ESBL E coli, Proteus) and linezolid (MRSA on BAL). Repeat blood culture show clearing of bacteremia. * Bilateral pneumonia: Continue ertapenem and linezolid targeting pathogens isolated from BAL in addition to blood cultures as outlined above. 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 * Thrombocytopenia: Continues with stable platelet count. Will monitor this while on linezolid which can be associated with thrombocytopenia. 03/13/18 11:05 Subjective: Patient with increased respiratory secretions and need for frequent suctioning with increasing respiratory effort. Objective: Vital Signs Temp Pulse Resp BP Pulse Ox 37.5 C 139 H 26 H 140/97 H 100 03/13/18 04:00 03/13/18 08:55 03/13/18 06:00 03/13/18 08:55 03/13/18 06:00 Microbiology 02/11/18 20:00 Blood Fungal Culture - Final Blood 02/11/18 12:45 Blood Fungal Culture - Final Blood 03/06/18 11:40 Blood Culture - Final Blood 03/06/18 10:45 Blood Culture - Final Blood Laboratory Results 03/13/18 04:50 03/13/18 04:50 03/12/18 03/13/18 03/14/18 05:59 05:59 05:59 Intake Total 3324 1939 Output Total 2875 2940 Balance 449 -1001 ESR 23 MM/HR (0-20) H 02/06/18 04:57 C-Reactive Protein 67.3 mg/L (<10.0) H 02/13/18 04:20 Ertapenem # 7 Linezolid # 6 Chest x-ray findings noted including bilateral pleural effusions - Physical Exam General Appearance: non-toxic, other (Somnolent) EENT: No scleral icterus, No thrush Respiratory: coarse breath sounds, other (Increased respiratory effort present) Cardiac/Chest: tachycardia Extremities: other (Anasarca) Abdomen: non-tender, other (Wound VACs in place), No distended Skin: rash (Slight increase in mottling above knees bilaterally) ICD10 Worksheet Patient Problems: Problems Problem Status Onset Cellulitis of perineum Acute Cellulitis, scrotum Acute Left buttock abscess Acute
--- NOTE | 2018-03-13 11:25 | CPEKG ---
Test Reason : OPEN Blood Pressure : / mmHG Vent. Rate : 141 BPM Atrial Rate : 142 BPM P-R Int : 118 ms QRS Dur : 061 ms QT Int : 264 ms P-R-T Axes : 024 -16 084 degrees QTc Int : 404 ms Sinus tachycardia Borderline left axis deviation Borderline T wave abnormalities Confirmed by Janet Painting [id number] on 03/13/2018 11:24:54 AM Referred By: Confirmed By:Janet Painting
[2018-03-13] MEDS: ACETYLCYSTEINE 20% IH/PO 4 ML VIAL IH SCH ×3 (12:15→20:52)
[2018-03-13] MEDS: LEVALBUTEROL 1.25 MG/3 ML DEYVIAL IH SCH ×3 (12:16→20:52)
[2018-03-13] MEDS ORDERED: DILTIAZEM 125 MG in D5W 125 ML IV SCH (14:00)
[2018-03-13] MEDS ORDERED: FUROSEMIDE 100 MG in D5W 100 ML IV SCH (14:45)
[2018-03-13] MEDS: DILTIAZEM HCL/D5W 125 ML IV SCH ×2 (14:49→22:06)
[2018-03-13] MEDS: ALBUMIN 25% 100 ML IV SCH ×2 (15:30→19:43)
[2018-03-13] MEDS: TPN W/ FAMOTIDINE 1 EA BAG IV SCH (19:43)
[2018-03-14] MEDS: ALBUMIN 25% 100 ML IV SCH ×4 (00:55→19:14)
[2018-03-14] MEDS: SODIUM HYPOCHLORITE (DAKINS 1/4 STR) 473 ML BTL TP SCH ×3 (01:05→22:46)
[2018-03-14] MEDS: INSULIN REGULAR HUMAN 100 UNIT/ML UNIT SC SCH ×4 (01:44→20:23)
[2018-03-14] MEDS: LINEZOLID 600 MG/DEXTROSE 300 ML IV SCH ×2 (03:25→15:06)
[2018-03-14] MEDS: LEVALBUTEROL 1.25 MG/3 ML DEYVIAL IH SCH ×3 (05:36→19:30)
[2018-03-14] MEDS: ACETYLCYSTEINE 20% IH/PO 4 ML VIAL IH SCH ×3 (05:36→19:30)
--- NOTE | 2018-03-14 09:03 | SOAPPROG ---
SOAP Progress Note Assessment/Plan: Assessment: 77yo M c Jacqueline's s/p multi debridements, colostomy - looks about the same, not following commands. Secretions appear to be drying up, lung sounds remain course - his abdomen is soft nondistended nontender. He does have some hypoactive bowel sounds. Is having bowel function, had 2 bowel movements yesterday - wound VAC serosanguineous changed yesterday without incident Plan: 01/30/18 11:01 02/13/18 12:29 02/14/18 10:40 02/15/18 11:48 03/13/18 08:56 03/14/18 09:02 Subjective: Exam about the same, secretions better today Objective: Vital Signs Temp Pulse Resp BP Pulse Ox 36.3 C 108 H 26 H 146/72 H 99 03/14/18 08:00 03/14/18 08:00 03/14/18 08:00 03/14/18 08:00 03/14/18 08:00 Laboratory Results 03/14/18 03:30 03/14/18 03:30 03/13/18 03/14/18 03/15/18 05:59 05:59 05:59 Intake Total 1939 3141 Output Total 2940 3850 Balance -1001 -709 PT 19.7 SEC (12.0-15.0) H 03/10/18 05:10 INR 1.66 (0.83-1.16) H 03/10/18 05:10 ICD10 Worksheet Patient Problems: Problems Problem Status Onset Cellulitis of perineum Acute Cellulitis, scrotum Acute Left buttock abscess Acute
[2018-03-14] MEDS: ERTAPENEM 1 GM in NS 100 ML IV SCH (09:12)
--- NOTE | 2018-03-14 09:56 | HOSPPROG ---
Hospitalist Progress Note Assessment/Plan: 77 yo male admitted 55 days ago with Jacqueline's gangrene and has since undergone multiple surgeries with poor wound healing. Now with massive volume overload, pleural effusions, atrial fibrillation, pancytopenia, and possible CLL. * Septic shock - Polymicrobial blood cultures - Proteus, ESBL Ecoli. Non- clearing lactate. Off pressors. -Cont IV invanz, Linezolid -ID following * Lymphocytosis - noted by ID, path read from 03/09 suggests possible CLL -oncology to consult tomorrow -flow cytometry sent -check for immunoglobulin deficiency * AHRF - extubated 03/11. pulmonary masses previously seen were presumed infectious, now with enlarging b/l pleural effusions (CXR this am pers reviewed/ interp). Discussed with Dr. Verdugo. -thoracentesis today -CT chest when able to tolerate * Volume overload - 20+ L net positive. Difficulty diuresing with rising BUN and Cr, no success with bolus lasix or Lasix drip overnight, Cr continues to rise -renal consulted for consideration of CRRT for mobilization of fluid -reviewed renal recs: aggressive diuresis planned with IV Lasix, Acetazolamide and Aldactone (though pt unable to take po) * Anemia / Pancytopenia - s/p 7 u prbc's total, no e/o active bleeding, ?BM suppression, ?CLL -oncology consult tomorrow as above -transfuse for hgb <7 -monitor closely for signs of bleeding * Afib - likely due to acute illness, in and out of a fib today -start diltiazem drip for rate control -he is not anticoagulated, may need to consider if a fib persists, but holding for now with dropping hgb and plts * Hypernatremia - he 3rd spaces fluid so will hold off on 1/2 NS -renal consult as above * KISHAN - Cr up to 1.3 with attempts at diuresis, suspect he is intravascularly dry, low albumin -cont IV albumin for now, recheck serum albumin * Abdominal wound dehiscence with evisceration - necrotic fascia -wound vac x2 -surgery hoping wounds will heal, but so far little evidence of healing, significant 3rd spacing of fluid not helping * 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 Had watery diarrhea with stool contaminating wound - too early post ostomy reversal for rectal tube per surgery. Stool now pasty, less watery. C diff negative. -prn imodium -try to keep wound from contamination as this may be source of recurrent sepsis * s/p diverting colostomy - subsequent SBO due to fascial defect s/p revision -s/p colostomy take down - fat necrosis found during this surgery * DM II * Obesity BMI 34 * Increased LFT - due to sepsis * Metabolic encephalopathy * [address] -EKG/trop okay -no chest pain * Nutrition - TPN * DVT PPLX - Hold Lovenox today with dropping plts and hgb * Dispo - cont inpt. patient remains critically ill with guarded prognosis due to prolonged hospitalization with multiple recurrent sepsis episodes, inability to heal wounds, failure to improve despite weeks of critical illness. Family meeting this week, pt now DNR. Continue to address goals of care. 40 minutes critical care Subjective: PT is not responding to questions, but follows some basic commands. Increased work of breathing, unable to tolerate lying flat. No fevers. In and out of rapid a fib this afternoon. Objective: Vital Signs Temp Pulse Resp BP Pulse Ox 36.3 C 108 H 26 H 146/72 H 99 03/14/18 08:00 03/14/18 08:00 03/14/18 08:00 03/14/18 08:00 03/14/18 08:00 Laboratory Results 03/14/18 03:30 03/14/18 03:30 03/13/18 03/14/18 03/15/18 05:59 05:59 05:59 Intake Total 1939 3141 Output Total 2940 3850 Balance -1001 -709 PT 19.7 SEC (12.0-15.0) H 03/10/18 05:10 INR 1.66 (0.83-1.16) H 03/10/18 05:10 - Physical Exam Constitutional: chronically ill appearing Eyes: PERRL Ears, Nose, Mouth, Throat: moist mucous membranes Cardiovascular: irregularly irregular Respiratory: reduced air movement, inspiratory crackles, respiratory distress Skin: mottled Musculoskeletal: generalized weakness Psychiatric: encephalopathic ICD10 Worksheet Patient Problems: Problems Problem Status Onset Cellulitis of perineum Acute Cellulitis, scrotum Acute Left buttock abscess Acute
--- NOTE | 2018-03-14 09:57 | PDINTPN ---
Skin Care Technician Progress Note Assessment/Plan: Assessment/plan: 77-year-old from [place] admitted 01/19 with left buttock cellulitis/Fornier gangreen. Initial surgical debridement and colostomy 01/20. Moved back to intensive care unit 02/05 secondary to hypotension and small bowel obstruction. Return to surgery 02/06. Colostomy was leaking and revised and moved superiorly. Piece of small bowel was trapped in the original colostomy, causing obstruction. New wound VAC placed over original colostomy site. Colostomy taken down 03/01 with further debridement, fascial closure with open abdominal wall and wound VAC. Getting periodic wound VAC changes per surgery with residual debridement of necrotic tissue. * Recurrent septic picture with fever 03/04, decreased mental status, and hypotension. Proteus on blood cultures. Source not entirely clear. Bronchopneumonia certainly possible. Wounds, urine, line sepsis, skin, abdomen , etc. Restarted on Zosyn and micafungin, given 1 dose of vancomycin. Id consult appreciated. Hypotension resolved, blood pressures normalized. Now with increased tachycardia, confusion, lower blood pressures, some increased peripheral mottling and new changes on CT scan as outlined above. * Hypotension: Improved. * Respiratory: Market increase in secretions. Patient extremely weak and has difficulty coughing these up. -aggressive respiratory toilet -start nebs -Mucomyst nebs * Probable pleural effusion -will consult IR for thoracentesis * Fornier gangrene. MRSA. He has completed and was off of antibiotics. * Rectal wound, dehisced. Packed. Has sutured scrotal incision, not dehisced thus far. Per surgery. * Small bowel obstruction: Reduced, resolved. * Colostomy leak-with dehiscence and evisceration. -to OR yesterday for fascial repair and debridement * Nutrition: On TPN * Rouse catheter: In place to prevent soilage of wounds. * Encephalopathy-not doing as well as yesterday * Leukopenia: Resolved slowly. White blood cell counts remain generally low. * Acute blood-loss anemia: Hematocrit 28 today. No evidence of active bleeding. Following. * Metabolic: Elevated lactate. Etiology is unclear. * Decubitus. Stage III. Dressed. * DVT prophylaxis: Enoxaparin. GI prophylaxis: Pepcid in TPN. * Type 2 diabetes: On insulin sliding scale coverage. Also in TPN * History of hypertension: Blood pressure medications on hold. * Prognosis-unclear. Now do not resuscitate 03/14/18 09:54 Subjective: Eyes open but poorly responsive. Objective: Vital Signs Temp Pulse Resp BP Pulse Ox 36.3 C 108 H 26 H 146/72 H 99 03/14/18 08:00 03/14/18 08:00 03/14/18 08:00 03/14/18 08:00 03/14/18 08:00 Laboratory Results 03/14/18 03:30 03/14/18 03:30 03/13/18 03/14/18 03/15/18 05:59 05:59 05:59 Intake Total 1939 3141 Output Total 2940 3850 Balance -1001 -709 PT 19.7 SEC (12.0-15.0) H 03/10/18 05:10 INR 1.66 (0.83-1.16) H 03/10/18 05:10 Laboratory Results 03/14/18 03:30 03/14/18 03:30 03/14/18 03/12/18 03/12/18 05:40 04:40 04:40 Patient Temperature 37.0 DEGREES DEGREES pCO2 43 mmHg H mmHg (34 - 38) pO2 81 mmHg H mmHg (65 - 75) Total CO2 21 mEq/L L mEq/L (23 - 27) ABG pH 7.29 L (7.35 - 7.45) ABG HCO3 20 mEq/L L mEq/L (22 - 26) ABG O2 Saturation 95 % % (92 - 95) ABG Base Excess -5.8 mEq/L L mEq/L (-2.5 - 2.5) VBG Lactic Acid 5.2 mmol/L H mmol/L (0.7 - 2.1) Total O2 Concentration 3.0 LITERS LITERS Calcium 7.6 mg/dL L mg/dL (8.5 - 10.4) Phosphorus 3.1 mg/dL mg/dL (2.5 - 4.5) Magnesium 2.4 mg/dL H mg/dL (1.6 - 2.3) 03/05/18 16:30 Gram Stain - Final Lung - Bronchial Washings Bronchial Washings Culture - Preliminary Proteus Mirabilis MRSA Enterobacter Cloacae Complex 03/05/18 16:30 Gram Stain - Final Lung - Bronchial Washings Bronchial Washings Culture - Preliminary Proteus Mirabilis MRSA Enterobacter Cloacae 03/04/18 13:45 Blood Culture - Final Blood Escherichia Coli Esbl Chest [id number] by myself. Central line in good position. Probable bilateral pleural effusions right greater than left Physical Exam - Physical Exam General Appearance: other (Awake), No alert EENT: PERRL/EOMI Neck: non-tender Respiratory: respiratory distress (Mild), crackles (Bibasilar), No wheezing Cardiac/Chest: normal peripheral pulses, regular rate, rhythm Peripheral Pulses: 2+: carotid (R), carotid (L), femoral (R), femoral (L), dorsalis-pedis (R), dorsalis-pedis (L) Abdomen: soft, No normal bowel sounds, No non-tender Male Genitalia: deferred Rectal: deferred Skin: warm/dry Extremities: non-tender Neuro/Psych: No alert ICD10 Worksheet Patient Problems: Problems Problem Status Onset Cellulitis of perineum Acute Cellulitis, scrotum Acute Left buttock abscess Acute
[2018-03-14] MEDS ORDERED: LIDOCAINE 1% 300 MG/30 ML SDV ONE (10:35)
[2018-03-14 10:48] LABS: INR 1.44 (0.83-1.16); PROTIME(PATIENT) 17.7 SEC (12.0-15.0)
--- NOTE | 2018-03-14 11:22 | PCMIDPN ---
Assessment/Plan: Assessment/Plan: * Recurrent sepsis due to Proteus and ESBL E coli bacteremia: Unclear if polymicrobial bacteremia from GI source versus component from pneumonia as Proteus seen in both blood and BAL specimen. Continue ertapenem (ESBL E coli, Proteus) and linezolid (MRSA on BAL). Repeat blood culture show clearing of bacteremia. Plans for thoracentesis today by IR guidance. If respiratory status improved post thoracentesis, repeat chest CT will be pursued to reassess pulmonary infiltrates. * Bilateral pneumonia: Continue ertapenem and linezolid targeting pathogens isolated from BAL in addition to blood cultures as outlined above. See above discussion. 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 Complicated by continued stool contaminating wound. * Thrombocytopenia: Continues with stable platelet count. Will monitor this while on linezolid which can be associated with thrombocytopenia. * Lymphocytosis: Review of recent CBC shows prominent lymphocytosis and peripheral blood smear review by pathology on 03/09/2018 raise possibility of CLL. Also noted are smudge cells on peripheral blood smear. Will obtain serum immunoglobulin levels as these can be depressed with CLL and might explain patient's difficulty with infection. Have reviewed with Oncology who will order flow cytometry and reassess patient in a.m. for this consideration. Time spent, greater than 35 min, of which greater than half was spent in coordination of care related to recurrent sepsis, bilateral pneumonia, and lymphocytosis raising possibility of CLL. 03/14/18 11:19 Subjective: Patient remains with limited interaction. Plans for thoracentesis later this afternoon based on increasing pleural effusion size. Objective: Vital Signs Temp Pulse Resp BP Pulse Ox 36.3 C 108 H 26 H 146/72 H 99 03/14/18 08:00 03/14/18 08:00 03/14/18 08:00 03/14/18 08:00 03/14/18 08:00 Laboratory Results 03/14/18 03:30 03/14/18 03:30 03/13/18 03/14/18 03/15/18 05:59 05:59 05:59 Intake Total 1939 3141 Output Total 2940 3850 Balance -1001 -709 ESR 23 MM/HR (0-20) H 02/06/18 04:57 C-Reactive Protein 67.3 mg/L (<10.0) H 02/13/18 04:20 Ertapenem # 8 Linezolid # 7 - Physical Exam General Appearance: non-toxic EENT: dry mucous membranes, No scleral icterus Respiratory: coarse breath sounds Cardiac/Chest: tachycardia Extremities: other (Right upper extremity edema decreasing) Abdomen: non-tender, other (Wound VAC in place), No distended Skin: rash (Less prominent rash over knees) Neuro/Psych: confused ICD10 Worksheet Patient Problems: Problems Problem Status Onset Cellulitis of perineum Acute Cellulitis, scrotum Acute Left buttock abscess Acute
[2018-03-14] MEDS: ENOXAPARIN 40 MG/0.4 ML SYR SC SCH (12:37)
--- NOTE | 2018-03-14 12:41 | ECHO ---
[email or web address] [place] [id number] Main: [phone] Fax: Transthoracic Echocardiogram Name: BLANCA KHAN MR#: [id number] Study Date: 03/14/2018 Study Time: 10:55 AM Date of : 1940 Age: 77 year(s) Height: 170.2 cm (67 in.) Weight: 102.06 kg (225 lb.) BSA: 2.13 m2 Gender: Male Examination: Limited Echo Indication: volume overload, re-eval LV function Image Quality: Adequate Contrast: Requested by: Raven Wren BP: 143 mmHg/70 mmHg Heart Rate: Rhythm: Indication: volume overload, re-eval LV function Procedure Staff Operational Risk Manager: Isabel Valerio [facility] Reading Physician: Balbir Small MD Requesting Provider: Conclusions: Normal size left ventricle. Normal global systolic LV function. The ejection fraction is estimated to be 55-60 %. The mitral valve is normal in appearance and function. Mild mitral valve leaflet calcification is present. The aortic valve is normal in appearance and function. The tricuspid valve is normal in appearance and function. Trivial tricuspid valve regurgitation. The pulmonary artery pressure is normal. Measurements: Chambers Valvular Assessment AV/MV Valvular Assessment TV/PV Normal Normal Normal Name Value Range Name Value Range Name Value Range EF Range: 55-60 % TR Vmax: 2.82 mm/s ( - ) TR PGmax: 32 mmHg ( - ) syst. PAP: 37 mmHg ( - ) Continued Measurements: Valvular Assessment TV/PV Name Value CVP (est.): 5 mmHg Findings: Left Ventricle: Normal size left ventricle. Normal global systolic LV function. The ejection fraction is estimated to be 55-60 %. Patient: BLANCA KHAN Study Date: 03/14/2018 Page 1 of 2 10:55 AM Mitral Valve: The mitral valve is normal in appearance and function. Mild mitral valve leaflet calcification is present. Trivial mitral valve regurgitation. Aortic Valve: The aortic valve is normal in appearance and function. Tricuspid Valve: The tricuspid valve is normal in appearance and function. Trivial tricuspid valve regurgitation. The pulmonary artery pressure is normal. Right ventricular systolic pressure measures 37mmHg. Pericardium: There is a pleural effusion present. (No Signature Object) Patient: BLANCA KHAN Study Date: 03/14/2018 Page 2 of 2 10:55 AM [id number]
[2018-03-14] MEDS: DILTIAZEM HCL/D5W 125 ML IV SCH (13:21)
--- NOTE | 2018-03-14 13:42 | PDCONSULT ---
Senior Principal Architect Note: Assessment/Plan: Hypervolemia: pt markedly volume overloaded, at least 10kg over since admission , responsive to diuretics but also with higher ins. - Will place on IV Lasix, IV acetazolamide and spironolactone. - Would recommend concentrating all IVs. - Will continue to monitor. - Will need to watch K closely. - Ok to continue albumin. KISHAN: baseline Cr around 0.7, up to 1.3 today, in setting of sepsis and multiple surgeries and now diuresis. - Giving diuretics as above. - No need for HD at this time. - Avoid hypotension and nephrotoxins. - Will hold lisinopril. - Will check urine studies and CK. - Will continue to monitor. Hypernatremia: Na 151 today. - Will give diuretics as above. - Will give 500ml D5W today. - Will continue to monitor BID. Anemia: will defer management to primary team and hem/onc. Thank you for the interesting consult. Nephrology will continue to follow, please call if you have any additional questions or concerns. H & P Stated Complaint: Swelling of testicles-worse than usual epidymitis w/ boil near rectum Time Seen by Provider: 01/19/18 10:45 HPI/ROS: HPI: Mr. Chavira is a 77 yo M with h/o DM and HTN who has been here for a prolonged and complicated hospital stay, consult placed today for hypervolemia. Pt was admitted on 01/19 for L buttock abscess, had cellulitis with gangrene that had been draining for 10 days prior to presentation. He had a surgical debridement and colostomy done on 01/20. He developed hypotension and sBP on 02/05 and came back to ICU, had surgery again on 02/06 with leaking colostomy along with a small bowel entrapment in colostomy, all was revised. Colostomy was taken down on 03/01 with further debridement, fascial closure with abdominal wall open and wound vac in place. he has had recurrent sepsis, fever again on 03/04 and blood cultures growing ESBL E. coli and Proteus, ID following for abx managment. His baseline Cr appears to be around 0.7, has had KISHAN during this hospitalization and Cr lately has been 0.9-1.1, today up to 1.3. His weight was 92.4kg on presentation, got as high as 104.1kg on 03/11, today is 102.5kg. He was given IV Lasix two days ago, yesterday given Lasix ggt. He had 3.8L out on lasix ggt but also had 3.1L in, so not much progress. ROS: unable to obtain 2/2 clinical condition Source: RN/MD - Medical/Surgical History Hx Asthma: No Hx Chronic Respiratory Disease: No Hx Diabetes: Yes Hx Cardiac Disease: No Hx Renal Disease: No Hx Cirrhosis: No Hx Alcoholism: No Hx HIV/AIDS: No Hx Splenectomy or Spleen Trauma: No Other PMH: NIDDM. htn. chronic epidimytis - Family History Significant Family History: No pertinent family hx - Social History Smoking Status: Never smoked - Physical Exam Exam: General: awake, no acute distress Eyes: EOMI, PERRL OP: Clear, MMM CV: RRR, +2 edema all extremities Resp: CTA bilat with labored respirations on oxymask, bronchial breath sounds Abd: Soft, NT/ND Neuro: CN II-XII grossly intact, no asterixis Psych: does not answer questions, flat affect Access: none Constitutional: Initial Vital Signs Temperature (C) 36.7 C 01/19/18 10:37 Heart Rate 84 01/19/18 10:37 Respiratory Rate 18 01/19/18 10:37 Blood Pressure 135/85 H 01/19/18 10:37 O2 Sat (%) 95 01/19/18 10:37 O2 Delivery Mode Room Air Allergies/Adverse Reactions: shellfish derived Allergy (Verified 01/19/18 13:38) Sulfa (Sulfonamide Antibiotics) Allergy (Verified 01/19/18 13:38) Rash Home Medications: Medication Instructions Recorded Ascorbic Acid [Vitamin C 500 mg 500 mg PO BID 01/19/18 (*)] Aspirin [Aspirin 325 mg (*)] 325 mg PO DAILY PRN 01/19/18 Atenolol [Tenormin 50 mg (*)] 50 mg PO BID 01/19/18 Cholecalciferol Vit D3 [Vitamin D3 2,000 units PO BID 01/19/18 2000 units tab (OTC)] Lisinopril [Zestril 10 mg (*)] 10 mg PO DAILY 01/19/18 Lovastatin 40 mg PO DAILY 01/19/18 Multivitamins [Multivitamin (*)] 1 each PO DAILY 01/19/18 Pioglitazone HCl [Actos] 30 mg PO DAILY 01/19/18 Selenium [Selenium 200mcg (*)] 200 mcg PO DAILY 01/19/18 metFORMIN HCL [Glucophage 500 mg 500 mg PO BID 01/19/18 (*)] Lab and Imaging 03/14/18 03:30 03/14/18 03:30 WBC 4.52 10^3/uL (3.80-9.50) 03/14/18 03:30 RBC 2.60 10^6/uL (4.40-6.38) L 03/14/18 03:30 Hgb 7.6 g/dL (13.7-17.5) L 03/14/18 03:30 Hct 24.3 % (40.0-51.0) L 03/14/18 03:30 MCV 93.5 fL (81.5-99.8) 03/14/18 03:30 MCH 29.2 pg (27.9-34.1) 03/14/18 03:30 MCHC 31.3 g/dL (32.4-36.7) L 03/14/18 03:30 RDW 18.6 % (11.5-15.2) H 03/14/18 03:30 Plt Count 71 10^3/uL (150-400) L 03/14/18 03:30 MPV 10.4 fL (8.7-11.7) 03/13/18 04:50 Neut % (Auto) Not Reported 03/13/18 04:50 Lymph % (Auto) Not Reported 03/13/18 04:50 Elliott % (Auto) Not Reported 03/13/18 04:50 Eos % (Auto) Not Reported 03/13/18 04:50 Baso % (Auto) Not Reported 03/13/18 04:50 Nucleat RBC Rel Count Not Reported 03/13/18 04:50 Absolute Neuts (auto) Not Reported 03/13/18 04:50 Absolute Lymphs (auto) Not Reported 03/13/18 04:50 Absolute Monos (auto) Not Reported 03/13/18 04:50 Absolute Eos (auto) Not Reported 03/13/18 04:50 Absolute Basos (auto) Not Reported 03/13/18 04:50 Absolute Nucleated RBC Not Reported 03/13/18 04:50 Immature Gran % Not Reported 03/13/18 04:50 Seg Neutrophils % 41.0 % 03/13/18 04:50 Band Neutrophils % 6.0 % 03/13/18 04:50 Lymphocytes % 50.0 % 03/13/18 04:50 Monocytes % 2.0 % 03/13/18 04:50 Eosinophils % 1.0 % 03/13/18 04:50 Basophils % 0.0 % 03/13/18 04:50 Metamyelocytes % 0.0 % 03/13/18 04:50 Myelocytes % 0.0 % 03/13/18 04:50 Promyelocytes % 0.0 % 03/13/18 04:50 Blast Cells % 0.0 % 03/13/18 04:50 Immature Gran # Not Reported 03/13/18 04:50 Absolute Seg Neuts 3.50 10^/uL (1.70-6.50) 03/13/18 04:50 Absolute Band Neuts 0.50 10^3/uL (0.00-0.70) 03/13/18 04:50 Absolute Lymphocytes 4.30 10^3/uL (1.00-3.00) H 03/13/18 04:50 Absolute Monocytes 0.20 10^3/uL (0.30-0.80) L 03/13/18 04:50 Absolute Eosinophils 0.08 10^3/uL (0.03-0.40) 03/13/18 04:50 Absolute Basophils 0.00 10^3/uL (0.02-0.10) L 03/13/18 04:50 Absolute Metamyelocyte 0.00 10^3/mL (0.00-0.00) 03/13/18 04:50 Absolute Myelocytes 0.00 10^3/mL (0.00-0.00) 03/13/18 04:50 Absolute Promyelocytes 0.00 10^3/uL (0.00-0.00) 03/13/18 04:50 Absolute Plasma Cells 0.00 10^3/uL (0.00-0.00) 03/13/18 04:50 Nucleated RBCs 0 /100 WBC (0-0) 03/07/18 11:35 Differential Comment Not Reported 03/11/18 06:30 RBC/WBC/PLT Morphology TNP 03/08/18 04:40 Atypical Lymphocytes 1+ H 03/13/18 04:50 Absolute Blast Cells 0.00 10^3/uL (0.00-0.00) 03/13/18 04:50 Plasma Cells % 0.0 % 03/13/18 04:50 Smudge Cells 1+ H 03/13/18 04:50 Toxic Granulation PRESENT H 03/13/18 04:50 Toxic Vacuolation PRESENT H 03/12/18 04:40 Dohle Bodies PRESENT H 03/03/18 05:45 Platelet Estimate DECREASED (ADEQ) L 03/13/18 04:50 Large Platelets PRESENT H 02/13/18 05:40 Giant Platelets PRESENT H 02/14/18 04:20 Polychromasia 1+ H 03/13/18 04:50 Hypochromasia 1+ H 03/13/18 04:50 Basophilic Stippling 1+ H 03/10/18 05:10 Microcytic Cells 1+ H 03/05/18 06:00 Spherocytes 1+ H 03/02/18 04:00 Tear Drop Cells 1+ H 03/07/18 11:35 Oval Macrocytes 1+ H 03/11/18 06:30 Echinocytes 1+ H 03/07/18 11:35 Elliptocytes 2+ H 02/07/18 10:45 Acanthocytes (Spur) 1+ H 03/08/18 04:40 Keratocytes 1+ H 03/03/18 05:45 Schistocytes 1+ H 03/03/18 05:45 Smear Review By Mary SUN MD 03/12/18 04:40 ESR 23 MM/HR (0-20) H 02/06/18 04:57 PT 17.7 SEC (12.0-15.0) H 03/14/18 10:30 INR 1.44 (0.83-1.16) H 03/14/18 10:30 APTT 42.5 SEC (23.0-38.0) H 03/14/18 10:30 POC Blood Source ARTERIAL 02/11/18 21:08 Puncture Site RIGHT RADIAL 03/14/18 05:40 Patient Temperature 37.0 DEGREES 03/14/18 05:40 pCO2 43 mmHg (34-38) H 03/14/18 05:40 pO2 81 mmHg (65-75) H 03/14/18 05:40 Total CO2 21 mEq/L (23-27) L 03/14/18 05:40 POC ABG pH 7.55 (7.35-7.45) H 02/11/18 21:08 ABG pH 7.29 (7.35-7.45) L 03/14/18 05:40 POC ABG pCO2 31 mmHg (34-38) L 02/11/18 21:08 POC ABG pO2 60 mmHg (65-75) L 02/11/18 21:08 ABG PO2/FiO2 Ratio 191 RATIO 03/11/18 12:00 POC ABG HCO3 27 mEq/L (22-26) H 02/11/18 21:08 ABG HCO3 20 mEq/L (22-26) L 03/14/18 05:40 POC ABG Total CO2 28 mEq/L (23-27) H 02/11/18 21:08 POC ABG O2 Sat 94 % (92-95) 02/11/18 21:08 ABG O2 Saturation 95 % (92-95) 03/14/18 05:40 POC ABG Base Excess 5.0 mEq/L (-2.5-2.5) H 02/11/18 21:08 ABG Base Excess -5.8 mEq/L (-2.5-2.5) L 03/14/18 05:40 ABG Lactic Acid 3.5 mmol/L (0.5-1.6) H 03/08/18 16:35 VBG Lactic Acid 5.2 mmol/L (0.7-2.1) H 03/12/18 04:40 Total O2 Concentration 3.0 LITERS 03/14/18 05:40 O2 Concentration % 40 % (0-100) 03/11/18 12:00 Actual Respiration Rate 12 03/11/18 05:40 Set Respiration Rate 16 03/09/18 14:33 SIMV YES 03/08/18 17:45 POC FiO2 28.0000 % (0-100) 02/11/18 21:08 Tidal Volume 600 03/09/18 14:33 End Tidal CO2 24 03/09/18 14:33 PEEP 5 03/11/18 05:40 Pressure Support 10 03/11/18 05:40 CPAP YES 03/11/18 05:40 Sodium 151 mEq/L (135-145) H 03/14/18 03:30 Potassium 3.9 mEq/L (3.3-5.0) 03/14/18 03:30 Chloride 117 mEq/L (97-110) H 03/14/18 03:30 Carbon Dioxide 21 mEq/l (22-31) L 03/14/18 03:30 Anion Gap 13 mEq/L (8-16) 03/14/18 03:30 BUN 82 mg/dL (7-23) H 03/14/18 03:30 Creatinine 1.3 mg/dL (0.7-1.3) 03/14/18 03:30 Estimated GFR 54 03/14/18 03:30 Glucose 133 mg/dL (70-100) H 03/14/18 03:30 POC Glucose 133 mg/dL (70-100) H 03/14/18 13:19 Hemoglobin A1c 7.6 % (4.0-6.0) H 01/27/18 05:05 Estim Average Glucose 171 mg/dL (68-126) H 01/27/18 05:05 Calcium 8.3 mg/dL (8.5-10.4) L 03/14/18 03:30 Ionized Calcium 0.84 MMOL/L (1.12-1.30) L 03/09/18 07:45 Phosphorus 3.1 mg/dL (2.5-4.5) 03/12/18 04:40 Magnesium 2.2 mg/dL (1.6-2.3) 03/14/18 03:30 Iron 21.0 mcg/dL (49.0-199.0) L 02/27/18 14:15 TIBC 171 ug/dL (260-490) L 02/27/18 14:15 Iron Saturation 12 % (20-55) L 02/27/18 14:15 Ferritin 1280.0 ng/mL (17.9-464.0) H 02/27/18 14:15 Total Bilirubin 0.7 mg/dL (0.1-1.4) 03/10/18 05:10 Conjugated Bilirubin 0.3 mg/dL (0.0-0.5) 03/06/18 06:00 Unconjugated Bilirubin 0.1 mg/dL (0.0-1.1) 03/06/18 06:00 AST 55 IU/L (17-59) 03/10/18 05:10 ALT 34 IU/L (21-72) 03/10/18 05:10 Alkaline Phosphatase 55 IU/L (38-126) 03/10/18 05:10 Lactate Dehydrogenase 455 IU/L (313-618) 03/14/18 03:30 Creatine Kinase 39 IU/L (0-224) 02/19/18 05:27 CK-MB (CK-2) Fraction 3.50 ng/mL (0.00-4.55) 02/10/18 Unknown CK-MB (CK-2) % 1.2 % (0.0-4.0) 02/10/18 Unknown Creatine Kinase Interp NEGATIVE (NEGATIVE) 02/10/18 Unknown Troponin I 0.091 ng/mL (0.000-0.034) H 02/06/18 09:00 C-Reactive Protein 67.3 mg/L (<10.0) H 02/13/18 04:20 Total Protein 4.5 g/dL (6.3-8.2) L 03/10/18 05:10 Total Protein (PEP) 4.5 g/dL (6.3-8.2) L 02/23/18 14:15 Albumin 2.9 g/dL (3.5-5.0) L 03/14/18 03:30 Albumin (PEP) 2.1 g/dL (3.4-4.7) L 02/23/18 14:15 Albumin/Globulin Ratio 0.87 02/23/18 14:15 Roine-1-Rksnvlkfp 0.4 g/dL (0.1-0.3) H 02/23/18 14:15 Rwlcl-8-Lsxzowyxh 0.7 g/dL (0.6-1.0) 02/23/18 14:15 Beta Globulins 0.6 g/dL (0.7-1.2) L 02/23/18 14:15 Gamma Globulins 0.7 g/dL (0.6-1.6) 02/23/18 14:15 M-Jack SEE IMPRESSION g/dL 02/23/18 14:15 PEP Impression Nuno BROWN MD 02/23/18 14:15 Triglycerides 176 mg/dL (40-150) H 03/08/18 04:40 Cholesterol < 50 mg/dL (140-220) L 02/07/18 05:20 Cholesterol Risk Factr TNP 02/07/18 05:20 LDL Cholesterol, Calc TNP 02/07/18 05:20 LDL Risk Factor TNP 02/07/18 05:20 VLDL Cholesterol 25 mg/dL (8-25) 02/07/18 05:20 Non-HDL Cholesterol TNP 02/07/18 05:20 HDL Cholesterol 14 mg/dL (40-65) L 02/07/18 05:20 LDL/HDL Ratio TNP 02/07/18 05:20 Cholesterol/HDL Ratio TNP 02/07/18 05:20 Vitamin B12 937 pg/mL (239-931) H 02/09/18 12:50 Procalcitonin 2.48 ng/mL (0.02-0.10) H 03/04/18 09:10 Cortisol AM Sample 49.4 ug/dL (4.5-22.7) H 03/12/18 10:00 Specimen Hemolysis Cancelled 02/03/18 05:20 Urine Color YELLOW 01/29/18 06:27 Urine Appearance CLEAR 01/29/18 06:27 Urine pH 6.0 (5.0-7.5) 01/29/18 06:27 Ur Specific [place] 1.015 (1.002-1.030) 01/29/18 06:27 Urine Protein NEGATIVE (NEGATIVE) 01/29/18 06:27 Urine Ketones 1+ (NEGATIVE) H 01/29/18 06:27 Urine Blood 1+ (NEGATIVE) H 01/29/18 06:27 Urine Nitrate NEGATIVE (NEGATIVE) 01/29/18 06:27 Urine Bilirubin NEGATIVE (NEGATIVE) 01/29/18 06:27 Urine Urobilinogen NEGATIVE EU (0.2-1.0) 01/29/18 06:27 Ur Leukocyte Esterase NEGATIVE (NEGATIVE) 01/29/18 06:27 Urine RBC 1-3 /hpf (0-3) 01/29/18 06:27 Urine WBC 1-3 /hpf (0-3) 01/29/18 06:27 Ur Epithelial Cells TRACE /lpf (NONE-1+) 01/29/18 06:27 Urine Bacteria 1+ /hpf (NONE SEEN) H 01/29/18 06:27 Urine Mucus TRACE /lpf (NONE-1+) 01/29/18 06:27 Urine Osmolality 206 mosmo/kg (300-900) L 01/31/18 15:48 Ur Random Sodium 19 mEq/L (30-90) L 01/31/18 15:48 Urine Glucose NEGATIVE (NEGATIVE) 01/29/18 06:27 Gastric Occult Blood NEGATIVE (NEGATIVE) 03/05/18 16:30 Stool Occult Bld Scrn POSITIVE (NEGATIVE) H 03/06/18 17:05 Vancomycin Trough 8.3 mcg/mL (5.0-20.0) 01/23/18 16:12 Immunofix Electrophor Nuno BROWN MD 02/23/18 14:15 c-ANCA Negative (Negative) 02/12/18 08:50 Proteinase 3 (PR3) < 0.2 U 02/04/18 13:45 p-ANCA Negative (Negative) 02/12/18 08:50 Myeloperoxidase Ab <0.2 U 02/04/18 13:45 Complement C3 118 mg/dL (75 - 175) 02/02/18 19:35 Complement C4 29 mg/dL (14 - 40) 02/02/18 19:35 Tot Complement (CH50) 61 U/mL (30 - 75) 02/02/18 19:35 Free [place] LC, Quant 3.47 mg/dL H 02/23/18 14:15 Free [place] LC, Quant 4.04 mg/dL H 02/23/18 14:15 Free [place]/Lambda Ratio 0.8589 02/23/18 14:15 C.trachomatis RNA (TMA) NEGATIVE (NEGATIVE) 01/20/18 18:30 C. difficile Tox (PCR) NEGATIVE (NEGATIVE) 03/04/18 11:05 Hepatitis A IgM Ab NEGATIVE (NEGATIVE) 01/22/18 12:00 Hepatitis A Ab Total POSITIVE (NEGATIVE) 01/22/18 12:00 Hep Bs Antigen NEGATIVE (NEGATIVE) 01/22/18 12:00 Hep Bs Antibody Positive 01/22/18 12:00 Hep Bs Antibody, Quant 154 mIU/mL 01/22/18 12:00 Hep B Core IgM Ab NEGATIVE (NEGATIVE) 01/22/18 12:00 Hepatitis C Antibody NEGATIVE (NEGATIVE) 01/22/18 12:00 HIV 1&2 Antibody NEGATIVE (NEGATIVE) 01/21/18 05:05 N.gonorrhoeae RNA (TMA) NEGATIVE (NEGATIVE) 01/20/18 18:30 A. galactomannan Ag < 0.500 index (<0.5) 03/07/18 17:35 Cytology Cancelled 02/06/18 13:15 Patient ABO/Rh O POSITIVE 03/08/18 08:55 Antibody Screen NEGATIVE 03/08/18 08:55 Crossmatch IS Only See Detail 03/08/18 08:55
[2018-03-14] MEDS ORDERED: D5W 1,000 ML IV SCH (14:15)
[2018-03-14] MEDS ORDERED: SPIRONOLACTONE 50 MG TAB PO SCH (15:00)
[2018-03-14] MEDS ORDERED: acetaZOLAMIDE 250 MG in SYRINGE 0 ML IVP SCH (15:00)
[2018-03-14] MEDS: FUROSEMIDE 100 MG/10 ML VIAL IVP SCH ×2 (15:05→22:13)
[2018-03-14] MEDS: TPN W/ FAMOTIDINE 1 EA BAG IV SCH (22:04)
[2018-03-14 22:30] VITALS: BP 98/58
[2018-03-14] MEDS ORDERED: NOREPINEPHRINE BITARTRATE 4 MG in NS 500 ML IV SCH (23:30)
[2018-03-14] MEDS ORDERED: NOREPINEPHRINE BITARTRATE 16 MG in NS 250 ML IV SCH (23:30)
--- NOTE | 2018-03-15 00:14 | HOSPPROG ---
Hospitalist Progress Note Assessment/Plan: XC: Notified of patient hypoxic and hypotensive despite non-rebreather. Plan was to start BIPAP and norepinephrine. Shortly after patient exhibited rapid desaturation, bradycardia, and then asystole. Patient not resuscitated per DNR wishes. Objective: Vital Signs Temp Pulse Resp BP Pulse Ox 37.5 C 104 H 26 H 98/58 L 95 03/14/18 20:00 03/14/18 22:00 03/14/18 22:00 03/14/18 22:00 03/14/18 22:00 Microbiology 03/14/18 13:00 Gram Stain - Final Thoracic Fluid - Aspirate Laboratory Results 03/14/18 03:30 03/14/18 20:30 03/13/18 03/14/18 03/15/18 05:59 05:59 05:59 Intake Total 1939 3141 1615 Output Total 2940 3850 1550 Balance -1001 -709 65 PT 17.7 SEC (12.0-15.0) H 03/14/18 10:30 INR 1.44 (0.83-1.16) H 03/14/18 10:30 ICD10 Worksheet Patient Problems: Problems Problem Status Onset Left buttock abscess Acute Cellulitis of perineum Acute Cellulitis, scrotum Acute
--- NOTE | 2018-03-20 13:43 | PQFORM ---
PHYSICIAN QUERY FORM Needs Your Response This query form is being sent to you to assure this patient record is coded properly. Please respond to the question below: SHIP CLEANER QUESTION: Dear Dr. Hernandez, In reviewing this patients medical record it is noted in the progress notes dated 01/20-01/26 patient was diagnosed with 'Bacteremia, MRSA.' In the progress notes dated 01/26-03/14 patient was diagnosed with 'Sepsis.' After study, Did the patient have clinical indicators for Sepsis on admission? Yes No Clinically undetermined Thank you AYE [facility] HIM/Coding Dept. [phone] INSTRUCTIONS FOR RESPONSE: Answer question by clicking on the "Edit Document" button. Move cursor to area below the stars. When complete, hit "Save." Click on the "Sign" button, then click "Sign" again. Type in your PIN and hit "Enter." I did not see the patient after 01/22/18. He did not have sepsis during the first few days when I rounded on him. I would have you check with Dr Wren who last rounded on the patient, or with the MD who saw him at the time sepsis was diagnosed, ? on the Dr Kay. FERNANDA
--- NOTE | 2018-03-22 10:08 | POSTANESTH ---
Post Anesthetic Evaluation Cardiovascular Status: Normal, Stable Respiratory Status: Normal, Stable Level of Consciousness/Mental Status: Mildly Sleepy, Arousable Pain Control: Adequate, Prn Tx Ordered Nausea/Vomiting Control: Adequate, Prn Tx Ordered Complications Possibly Related to Anesthesia: None Noted
--- NOTE | 2018-03-23 13:47 | POSTANESTH ---
Post Anesthetic Evaluation Cardiovascular Status: Normal, Stable Respiratory Status: Normal, Stable Level of Consciousness/Mental Status: Can Participate in Eval, Alert and Oriented Pain Control: Adequate, Prn Tx Ordered Nausea/Vomiting Control: Adequate, Prn Tx Ordered Complications Possibly Related to Anesthesia: None Noted
== END 2018-03-14 23:35 | disposition expired | DRG 463 ==
LOC: F3E 14:20 → F2N 01-20 15:19 → F3E 01-24 10:24 → F2N 02-05 19:45
PROVIDERS: ADMIT Internal Medicine; ATTEND Internal Medicine
DX: M72.6 Necrotizing fasciitis (principal); A41.02 Sepsis due to Methicillin resistant Staphylococcus aureus; R65.21 Severe sepsis with septic shock; G92 Toxic encephalopathy; J96.01 Acute respiratory failure with hypoxia; L89.313 Pressure ulcer of right buttock, stage 3; L89.323 Pressure ulcer of left buttock, stage 3; L02.31 Cutaneous abscess of buttock; D62 Acute posthemorrhagic anemia; N17.9 Acute kidney failure, unspecified; E87.0 Hyperosmolality and hypernatremia; K56.609 Unspecified intestinal obstruction, unspecified as to partial versus complete obstruction; D61.818 Other pancytopenia; T81.31XA Disruption of external operation (surgical) wound, not elsewhere classified, initial encounter; L03.317 Cellulitis of buttock; N49.3 Fournier gangrene; L89.159 Pressure ulcer of sacral region, unspecified stage; E86.9 Volume depletion, unspecified; E11.65 Type 2 diabetes mellitus with hyperglycemia; I10 Essential (primary) hypertension; E55.9 Vitamin D deficiency, unspecified; N49.2 Inflammatory disorders of scrotum; R79.89 Other specified abnormal findings of blood chemistry; E87.70 Fluid overload, unspecified; E11.51 Type 2 diabetes mellitus with diabetic peripheral angiopathy without gangrene; R74.0 Nonspecific elevation of levels of transaminase and lactic acid dehydrogenase [LDH]; E66.9 Obesity, unspecified; Z68.34 Body mass index [BMI] 34.0-34.9, adult; R33.9 Retention of urine, unspecified; L89.812 Pressure ulcer of head, stage 2; I48.91 Unspecified atrial fibrillation; B96.4 Proteus (mirabilis) (morganii) as the cause of diseases classified elsewhere; B96.29 Other Escherichia coli [E. coli] as the cause of diseases classified elsewhere; Z66 Do not resuscitate
CPT/HCPCS: 82607-90; 82784-90; 83516-90; 83520-90; 85060-90; 86162-90; 86255-90; 86334-90; 86705-90; 86708-90; 86709-90; 88184-90; 88185-91; 92507-GN; 92523-GN; 92526-GN; 92610-GN; 96374; 97110-GO; 97110-GP; 97112-GP; 97116-GP; 97161-GP; 97164-GP; 97166-GO; 97168-GO; 97530-GO; 97530-GP; 97535-GO; A9585; C1751; G0472; G0515-GO; G8978-GP-CK; G8978-GP-CL; G8978-GP-CM; G8979-GP-CI; G8979-GP-CK; G8980-GP-CN; G8987-GO-CK; G8987-GO-CM; G8988-GO-CI; G8988-GO-CL; G8996-GN-CK; G8997-GN-CK; G8998-GN-CK; G9162-GN-CI; G9162-GN-CN; G9163-GN-CJ; J0330; J0360; J0610; J0696; J0878; J1100; J1120; J1170; J1200; J1265; J1335; J1650; J1720; J1815; J1940; J2001; J2020; J2185; J2248; J2250; J2370; J2405; J2543; J2704; J2997; J3010; J3370; J3475; J3480; J7608; P9016; P9041; P9047; Q5101; Q9967